=== PATIENT | female | born 1965 | race Caucasian/White ===

== ENCOUNTER 2016-10-08 11:51 | Emergency (ER) | payer MEDICARE, MEDICAID ==
[~2016-10-08 11:51] MED LIST: Amoxicillin 500 MG Cap ONE
[2016-10-08 12:15] VITALS: BP 151/87
--- NOTE | 2016-10-08 21:23 | EDM.PDOC ---
ED HPI GENERAL MEDICAL PROBLEM - General Stated Complaint: chest congestion Time Seen by Provider: 10/08/16 12:00 Source of Information: Reports: Patient History Limitations: Reports: No limitations - History of Present Illness INITIAL COMMENTS - FREE TEXT/NARRATIVE: Pt claims that she has been having nasal congestion and sinus drainage for past 1 wk. Cough has been getting worse. No fever or chills. Sputum is greenish yellow and copious. Hurts in the face. Also she has been complaining of earache since yesterday. No wheezing or shortness of breath. No nausea or vomiting. Improves with: Reports: None Worsens with: Reports: None Associated Symptoms: Reports: cough. Denies: confusion, chest pain, diaphoresis , fever/chills, headaches, nausea/vomiting, rash, shortness of breath, syncope, weakness Bilateral Head Pain Score (Numeric/FACES): 6 - Related Data Allergies Allergy/AdvReac Type Severity Reaction Status Date / Time acetaminophen [From Percocet] Allergy Numbness Verified 06/05/16 17:01 adhesive tape Allergy Rash Verified 06/05/16 17:01 ibuprofen Allergy Stomach Verified 06/05/16 17:01 Upset ketorolac tromethamine Allergy Nausea and Verified 06/05/16 17:01 [From Toradol] Vomiting oxycodone HCl [From Percocet] Allergy Numbness Verified 06/05/16 17:01 celecoxib [From Celebrex] AdvReac Mild Indigestion Verified 06/05/16 17:01 Home Meds: Home Meds Ipratropium/Albuterol Sulfate [Duoneb 0.5 MG-3 MG/3 ML] 1 - 2 puff INH Q4H PRN 04/14/13 [History] Omeprazole 20 mg PO BID 04/14/13 [History] risperiDONE [RisperiDAL M-Tab] 3 mg PO DAILY 04/14/13 [History] traZODone 1 tab PO BEDTIME 04/14/13 [History] Acetaminophen [Tylenol Extra Strength] 500 mg PO Q6H 06/06/15 [History] Budesonide/Formoterol [Symbicort 160-4.5 MCG] 2 puff INH BID 06/06/15 [History] Colestipol [Colestipol HCl] 1 - 2 tab PO BID PRN 06/06/15 [History] Gabapentin [Neurontin] 1 tab PO BID 06/06/15 [History] Nicotine [Habitrol] 1 patch TOP DAILY 06/06/15 [History] OXcarbazepine [Trileptal] 900 mg PO BID 06/06/15 [History] QUEtiapine [SEROquel] 200 tab PO BID 06/06/15 [History] SUMAtriptan [Imitrex] 1 tab PO ASDIRECTED PRN 06/06/15 [History] Spironolactone [Aldactone] 3 tab PO BID 06/06/15 [History] Topiramate 1 tab PO DAILY 06/06/15 [History] buPROPion [Wellbutrin SR] 100 mg PO BID 06/06/15 [History] hydrOXYzine HCl [Atarax] 1 - 2 cap PO ASDIRECTED PRN 06/06/15 [History] rOPINIRole [Requip] 1 tab PO BEDTIME 06/06/15 [History] tiZANidine [Zanaflex] 4 mg PO Q6H 02/28/16 [History] Zolpidem Tartrate [Ambien Cr] 2 tab PO DAILY 08/01/16 [History] Past Medical History HEENT History: Reports: Impaired vision, Other (see below) Other HEENT History: glasses for reading, Respiratory History: Reports: Asthma, Bronchitis, recurrent, Pneumonia, recurrent, Sleep apnea, Other (see below) Other Respiratory History: Emphysema Gastrointestinal History: Reports: Irritable bowel syndrome Genitourinary History: Reports: UTI, recurrent 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: 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 uterine bleeding, Musculoskeletal History: Reports: Back pain, chronic, Other (see below) Other Musculoskeletal History: back / butt pain, shoots down left leg Neurological History: Reports: Migraines Psychiatric History: Reports: Anxiety, Depression, Suicide attempt, Suicidal ideation Hematologic History: Reports: Blood transfusion(s), Iron deficiency Dermatologic History: Reports: Eczema, Other (see below) Other Dermatologic History: Allergy to paper tape - Infectious Disease History Infectious Disease History: Reports: Chicken pox, Measles, Rubella - Past Surgical History HEENT Surgical History: Reports: Other (see below) Other HEENT Surgeries/Procedures: Eye Surgery, when 6 yr and grade school GI Surgical History: Reports: Appendectomy, Cholecystectomy, Hernia, abdominal, Other (see below) Other GI Surgeries/Procedures: ABD. SURGERY AND SCAR TISSUE REMOVAL Female Surgical History: Reports: section, Hysterectomy Other Female Surgeries/Procedures: 3 Social & Family History - Family History Family Medical History: Noncontributory - Tobacco Use Smoking Status *Q: Current Every Day Smoker Years of Tobacco use: 35 Packs/Tins Daily: 1 Used Tobacco, but Quit: No Second Hand Smoke Exposure: Yes - Caffeine Use Caffeine Use: Reports: Coffee, Tea - Alcohol Use Days Per Week of Alcohol Use: 0 - Recreational Drug Use Recreational Drug Use: No ED ROS GENERAL - Review of Systems Review Of Systems: See Below Constitutional: Denies: fever, chills HEENT: Reports: Ear pain, Rhinitis, Sinus problem, Throat pain. Denies: Contact Lenses, Dental pain, Glasses, Hearing loss Respiratory: Reports: Cough, Sputum. Denies: Shortness of Breath Cardiovascular: Denies: Chest pain, Lightheadedness GI/Abdominal: Denies: Abdominal pain, Nausea, Vomiting : Denies: discharge, dysuria, flank pain, frequency Musculoskeletal: Denies: shoulder pain, joint pain, joint swelling Skin: Denies: pruritis, rash Neurological: Denies: Confusion, Dizziness, Difficulty Walking, Weakness Psychiatric: Denies: Agitation, Anxiety ED EXAM, GENERAL - Physical Exam Exam: See Below Exam Limited By: No limitations General Appearance: alert, WD/WN, no apparent distress Eye Exam: bilateral eye: EOMI, PERRL Ears: normal external exam, normal canal, hearing grossly normal, normal TMs Ear Exam: right ear: erythema, bilateral ear: auricle normal, canal normal, TM bulging Nose: normal inspection, normal mucosa, no blood Throat/Mouth: Normal inspection, Normal lips, Normal teeth, Normal gums, Normal oropharynx, Normal voice, No airway compromise Head: atraumatic, normocephalic, sinus tenderness (maxillary tenderness B/L) Neck: normal inspection, supple, non-tender, full range of motion Respiratory/Chest: no respiratory distress, lungs clear, normal breath sounds, no accessory muscle use, chest non-tender Cardiovascular: normal peripheral pulses, regular rate, rhythm, no edema, no gallop, no JVD, no murmur, no rub Course - Vital Signs Text/Narrative:: Pt has acute maxillary sinusitis with right middle ear infection. As her symptoms have been going on for 1 wk, I have started her on amox 500mg 3 times daily for 10 days. Advised to stop smoking. Steam inhalations 2-3 times daily. rest and hydration. Followup with primary provider in clinic if symptoms worsen. Last Recorded V/S: Last Vital Signs Temp 98.9 F 10/08/16 12:13 Pulse 92 10/08/16 12:13 Resp BP 151/87 H 10/08/16 12:13 Pulse Ox Departure - Departure Time of Disposition: 12:30 Disposition: Home, Self-Care 01 Condition: good Clinical Impression: Acute sinusitis, Right otitis media Instructions: Sinusitis, Adult, Sinus Headache Referrals: PCP,None [Primary Care Provider] - Care Plan Goals: Take antibiotic as prescribed, return to clinic if symptoms persist. - Problem List & Annotations (1) Acute sinusitis SNOMED Code(s): 29269187 Code(s): J01.90 - ACUTE SINUSITIS, UNSPECIFIED Status: Acute (2) Right otitis media SNOMED Code(s): 89286033 Code(s): H66.91 - OTITIS MEDIA, UNSPECIFIED, RIGHT EAR Status: Acute - Problem List Review Problem List Initiated/Reviewed/Updated: Yes - Assessment/Plan Assessment:: Acute sinusitis with right OM Plan: Pt has acute maxillary sinusitis with right middle ear infection. As her symptoms have been going on for 1 wk, I have started her on amox 500mg 3 times daily for 10 days. Advised to stop smoking. Steam inhalations 2-3 times daily. rest and hydration. Followup with primary provider in clinic if symptoms worsen.
== END 2016-10-08 12:24 | disposition home or self-care (01) ==
LOC: LB.ED 11:51
DX: J01.90 Acute sinusitis, unspecified (principal); H66.91 Otitis media, unspecified, right ear; J45.901 Unspecified asthma with (acute) exacerbation; F41.9 Anxiety disorder, unspecified; F32.9 Major depressive disorder, single episode, unspecified; F17.210 Nicotine dependence, cigarettes, uncomplicated; Z90.49 Acquired absence of other specified parts of digestive tract; Z90.710 Acquired absence of both cervix and uterus; Z87.01 Personal history of pneumonia (recurrent); Z87.440 Personal history of urinary (tract) infections; Z88.6 Allergy status to analgesic agent; Z88.8 Allergy status to other drugs, medicaments and biological substances
CPT/HCPCS: 99283; A9270

== ENCOUNTER 2016-12-03 20:36 | Emergency (ER) | payer MEDICARE, MEDICAID ==
[2016-12-03] MEDS ORDERED: Acetaminophen/HYDROcodone 325-10 MG Tab ONE (21:17)
--- NOTE | 2016-12-03 21:34 | EDM.PDOC ---
ED HPI GENERAL MEDICAL PROBLEM - General Chief Complaint: General Stated Complaint: MOUTH PAIN Time Seen by Provider: 12/03/16 21:00 Source of Information: Reports: Patient History Limitations: Reports: No Limitations - History of Present Illness INITIAL COMMENTS - FREE TEXT/NARRATIVE: According to patient she has been having pain in her lower jaw teeh for past 3- 4 days now. She did see in the clinic and was started on augmentin. Pt claims she has been using orogel , but her pain has got worse. Rates at 8-9/10. No fever or chills. No facial swelling. Pt claims she is taking 2 tablets of tylenol every 6 hrs and it is not helping. Pt claims she is allergic to ibuprofen, toradol and percoet, but not to vicodin. Onset Date: 11/29/16 Location: Reports: Other (tooth) Quality: Reports: Ache Severity: Severe Improves with: Reports: None Worsens with: Reports: None Context: Reports: Trauma Associated Symptoms: Denies: Chest Pain, Cough, Diaphoresis, Fever/Chills, Nausea/Vomiting, Rash, Syncope Lower Gums Pain Score (Numeric/FACES): 10 - Related Data Allergies Allergy/AdvReac Type Severity Reaction Status Date / Time adhesive tape Allergy Rash Verified 12/03/16 21:33 ibuprofen Allergy Stomach Verified 12/03/16 21:33 Upset ketorolac tromethamine Allergy Nausea and Verified 12/03/16 21:33 [From Toradol] Vomiting oxycodone HCl [From Percocet] Allergy Numbness Verified 12/03/16 21:33 celecoxib [From Celebrex] AdvReac Mild Indigestion Verified 12/03/16 21:33 Home Meds: Home Meds Ipratropium/Albuterol Sulfate [Duoneb 0.5 MG-3 MG/3 ML] 1 - 2 puff INH Q4H PRN 04/14/13 [History] Omeprazole 20 mg PO BID 04/14/13 [History] risperiDONE [RisperiDAL M-Tab] 3 mg PO DAILY 04/14/13 [History] traZODone 1 tab PO BEDTIME 04/14/13 [History] Acetaminophen [Tylenol Extra Strength] 500 mg PO Q6H 06/06/15 [History] Budesonide/Formoterol [Symbicort 160-4.5 MCG] 2 puff INH BID 06/06/15 [History] Colestipol [Colestipol HCl] 1 - 2 tab PO BID PRN 06/06/15 [History] Gabapentin [Neurontin] 1 tab PO BID 06/06/15 [History] Nicotine [Habitrol] 1 patch TOP DAILY 06/06/15 [History] OXcarbazepine [Trileptal] 900 mg PO BID 06/06/15 [History] QUEtiapine [SEROquel] 200 tab PO BID 06/06/15 [History] SUMAtriptan [Imitrex] 1 tab PO ASDIRECTED PRN 06/06/15 [History] Spironolactone [Aldactone] 3 tab PO BID 06/06/15 [History] Topiramate 1 tab PO DAILY 06/06/15 [History] buPROPion [Wellbutrin SR] 100 mg PO BID 06/06/15 [History] hydrOXYzine HCl [Atarax] 1 - 2 cap PO ASDIRECTED PRN 06/06/15 [History] rOPINIRole [Requip] 1 tab PO BEDTIME 06/06/15 [History] tiZANidine [Zanaflex] 4 mg PO Q6H 02/28/16 [History] Zolpidem Tartrate [Ambien Cr] 2 tab PO DAILY 08/01/16 [History] Past Medical History HEENT History: Reports: Impaired Vision, Other (See Below) Other HEENT History: glasses for reading, Respiratory History: Reports: Asthma, Bronchitis, Recurrent, Pneumonia, Recurrent, Sleep Apnea, Other (See Below) Other Respiratory History: Emphysema Gastrointestinal History: Reports: Irritable Bowel Syndrome Genitourinary History: Reports: UTI, Recurrent 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, Musculoskeletal History: Reports: Back Pain, Chronic, Other (See Below) Other Musculoskeletal History: back / butt pain, shoots down left leg Neurological History: Reports: Migraines Psychiatric History: Reports: Anxiety, Depression, Suicide Attempt, Suicidal Ideation Hematologic History: Reports: Blood Transfusion(s), Iron Deficiency Dermatologic History: Reports: Eczema, Other (See Below) Other Dermatologic History: Allergy to paper tape - Infectious Disease History Infectious Disease History: Reports: Chicken Pox, Measles, Rubella - Past Surgical History HEENT Surgical History: Reports: Other (See Below) GI Surgical History: Reports: Appendectomy, Cholecystectomy, Hernia, Abdominal, Other (See Below) Female Surgical History: Reports: Section, Hysterectomy Social & Family History - Family History Family Medical History: Noncontributory - Tobacco Use Smoking Status *Q: Current Every Day Smoker Years of Tobacco use: 35 Packs/Tins Daily: 1 Used Tobacco, but Quit: No Second Hand Smoke Exposure: Yes - Caffeine Use Caffeine Use: Reports: Coffee, Tea - Alcohol Use Days Per Week of Alcohol Use: 0 - Recreational Drug Use Recreational Drug Use: No ED ROS GENERAL - Review of Systems Review Of Systems: See Below Constitutional: Denies: Fever, Chills HEENT: Denies: Ear Pain, Rhinitis, Sinus Problem, Throat Pain, Throat Swelling, Vertigo Respiratory: Denies: Shortness of Breath, Cough, Sputum Cardiovascular: Denies: Chest Pain, Edema, Lightheadedness GI/Abdominal: Denies: Abdominal Pain, Nausea, Vomiting : Denies: Dysuria, Flank Pain Musculoskeletal: Denies: Joint Pain, Joint Swelling ED EXAM, GENERAL - Physical Exam Exam: See Below Exam Limited By: No Limitations General Appearance: Alert, WD/WN, No Apparent Distress, Mild Distress Eye Exam: Bilateral Eye: EOMI, PERRL Ears: Normal External Exam, Normal Canal, Hearing Grossly Normal, Normal TMs Ear Exam: Bilateral Ear: Auricle Normal, Canal Normal, TM normal Nose: Normal Inspection, Normal Mucosa, No Blood Throat/Mouth: Normal Lips, Normal Gums, Normal Oropharynx, Other (pt has several teeth lost in all 4 quadrants of the jaw. She does have few caries tooth with rilling in the right lower jaw. tender to tapping. Gums appears normal. Tender over the right mandible to pressure. No abscess felt or seen.) Respiratory/Chest: No Respiratory Distress, Lungs Clear, Normal Breath Sounds, No Accessory Muscle Use, Chest Non-Tender Cardiovascular: Normal Peripheral Pulses, Regular Rate, Rhythm, No Edema, No Gallop, No JVD, No Murmur, No Rub Course - Vital Signs Text/Narrative:: CBC shows whit count of 6.1. I really do not see any source of infection. With all the caries tooth, she might have nerve exposure causing her pain. I have advised patient to continue antibiotics. Also advised to alternate tylenol with Vicodin 5/325 every 4 hrs. Given 6 tqabs fo Vicodin today. Advised lysterine gargles 3-4 times daily. Advised to call her dentist office and monday for recheck. Last Recorded V/S: Last Vital Signs Temp 97.2 F 12/03/16 20:40 Pulse 91 12/03/16 20:40 Resp 18 12/03/16 20:40 BP 172/84 H 12/03/16 20:40 Pulse Ox 99 12/03/16 20:40 - Orders/Labs/Meds Labs: Laboratory Tests 12/03/16 Range/Units 21:25 WBC 6.1 (4.0-11.0) K/uL RBC 4.84 (3.80-5.80) M/uL Hgb 13.1 (11.5-16.5) g/dL Hct 39.7 (37.0-47.0) % MCV 82 (76-96) fL MCH 27.1 (27.0-32.0) pg MCHC 33.0 (31.0-35.0) g/dL RDW 14.8 (11.0-16.0) % Plt Count 144 L (150-500) K/uL MPV 11.5 H (6.0-10.0) fL Neut % (Auto) 40.5 L (45.0-70.0) % Lymph % (Auto) 50.5 H (20.0-40.0) % [place] % (Auto) 7.3 (3.0-10.0) % Eos % (Auto) 1.0 (1.0-5.0) % Baso % (Auto) 0.7 H (0.0-0.5) % Neut # (Auto) 2.46 (2.00-7.50) K/uL Lymph # (Auto) 3.06 (1.50-4.00) K/uL [place] # (Auto) 0.44 (0.20-0.80) K/uL Eos # (Auto) 0.06 (0.04-0.40) K/uL Baso # (Auto) 0.04 (0.02-0.10) K/uL Meds: Medications Discontinued Medications Generic Name Dose Route Start Last Admin Trade Name Freq PRN Reason Stop Dose Admin Hydrocodone Bitart/Acetaminophen Confirm 12/03/16 21:17 [place] 325-10 Mg Administered 12/03/16 21:18 Dose 6 tab .ROUTE .STK-MED ONE Departure - Departure Time of Disposition: 21:50 Disposition: Home, Self-Care 01 Condition: fair Clinical Impression: Pain of tooth socket - Discharge Information Instructions: Dental Abscess, [id number] Referrals: PCP,None [Primary Care Provider] - Forms: ED Department Discharge - Problem List & Annotations (1) Pain of tooth socket SNOMED Code(s): 430297761 Code(s): K08.89 - OTHER SPECIFIED DISORDERS OF TEETH AND SUPPORTING STRUCTURES Status: Acute Current Visit: Yes - Problem List Review Problem List Initiated/Reviewed/Updated: Yes - Assessment/Plan Assessment:: Acute tooth infection with pain Plan: CBC shows whit count of 6.1. I really do not see any source of infection. With all the caries tooth, she might have nerve exposure causing her pain. I have advised patient to continue antibiotics. Also advised to alternate tylenol with Vicodin 5/325 every 4 hrs. Given 6 tqabs fo Vicodin today. Advised lysterine gargles 3-4 times daily. Advised to call her dentist office and monday for recheck.
[2016-12-03] MEDS ORDERED: Acetaminophen/HYDROcodone 325-5 MG Tab ONE (21:35)
[2016-12-03 21:43] VITALS: BP 172/84
== END 2016-12-03 21:45 | disposition home or self-care (01) ==
LOC: LB.ED 20:36
DX: K08.89 Other specified disorders of teeth and supporting structures (principal); J45.909 Unspecified asthma, uncomplicated; F41.9 Anxiety disorder, unspecified; F32.9 Major depressive disorder, single episode, unspecified; F17.210 Nicotine dependence, cigarettes, uncomplicated; Z88.8 Allergy status to other drugs, medicaments and biological substances; Z91.09 Other allergy status, other than to drugs and biological substances; Z88.5 Allergy status to narcotic agent; Z79.899 Other long term (current) drug therapy; Z90.49 Acquired absence of other specified parts of digestive tract; Z90.710 Acquired absence of both cervix and uterus; Z98.890 Other specified postprocedural states
CPT/HCPCS: 36415; 85025; 99282; 99283; A9270

== ENCOUNTER 2016-12-05 22:34 | Emergency (ER) | payer MEDICARE, MEDICAID ==
[2016-12-05 22:49] VITALS: BP 124/77
--- NOTE | 2016-12-09 09:56 | EDM.PDOC ---
ED HPI GENERAL MEDICAL PROBLEM - General Chief Complaint: ENT Problem Stated Complaint: MOUTH PAIN Time Seen by Provider: 12/05/16 23:02 Source of Information: Reports: Patient History Limitations: Reports: No Limitations - History of Present Illness INITIAL COMMENTS - FREE TEXT/NARRATIVE: This is a 51yo F presenting to the clinic for continued mouth pain. Patient states the pain is persistent and has not changed. She cries with the pain. Patient states she received hydrocodone and it helped with the pain. Patient is unable to tolerate Toradol and NSAIDS. Patient states she is taking two extra strength tylenol four times a day. She appears comfortable but when discussing the pain breaks out in tears. 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 - Related Data Allergies Allergy/AdvReac Type Severity Reaction Status Date / Time adhesive tape Allergy Rash Verified 12/03/16 21:33 ibuprofen Allergy Stomach Verified 12/03/16 21:33 Upset ketorolac tromethamine Allergy Nausea and Verified 12/03/16 21:33 [From Toradol] Vomiting oxycodone HCl [From Percocet] Allergy Numbness Verified 12/03/16 21:33 celecoxib [From Celebrex] AdvReac Mild Indigestion Verified 12/03/16 21:33 Home Meds: Home Meds Ipratropium/Albuterol Sulfate [Duoneb 0.5 MG-3 MG/3 ML] 1 - 2 puff INH Q4H PRN 04/14/13 [History] Omeprazole 20 mg PO BID 04/14/13 [History] risperiDONE [RisperiDAL M-Tab] 3 mg PO DAILY 04/14/13 [History] traZODone 1 tab PO BEDTIME 04/14/13 [History] Acetaminophen [Tylenol Extra Strength] 500 mg PO Q6H 06/06/15 [History] Budesonide/Formoterol [Symbicort 160-4.5 MCG] 2 puff INH BID 06/06/15 [History] Colestipol [Colestipol HCl] 1 - 2 tab PO BID PRN 06/06/15 [History] Gabapentin [Neurontin] 1 tab PO BID 06/06/15 [History] Nicotine [Habitrol] 1 patch TOP DAILY 06/06/15 [History] OXcarbazepine [Trileptal] 900 mg PO BID 06/06/15 [History] QUEtiapine [SEROquel] 200 tab PO BID 06/06/15 [History] SUMAtriptan [Imitrex] 1 tab PO ASDIRECTED PRN 06/06/15 [History] Spironolactone [Aldactone] 3 tab PO BID 06/06/15 [History] Topiramate 1 tab PO DAILY 06/06/15 [History] buPROPion [Wellbutrin SR] 100 mg PO BID 06/06/15 [History] hydrOXYzine HCl [Atarax] 1 - 2 cap PO ASDIRECTED PRN 06/06/15 [History] rOPINIRole [Requip] 1 tab PO BEDTIME 06/06/15 [History] tiZANidine [Zanaflex] 4 mg PO Q6H 02/28/16 [History] Zolpidem Tartrate [Ambien Cr] 2 tab PO DAILY 08/01/16 [History] Past Medical History HEENT History: Reports: Impaired Vision, Other (See Below) Other HEENT History: glasses for reading, Respiratory History: Reports: Asthma, Bronchitis, Recurrent, Pneumonia, Recurrent, Sleep Apnea, Other (See Below) Other Respiratory History: Emphysema Gastrointestinal History: Reports: Irritable Bowel Syndrome Genitourinary History: Reports: UTI, Recurrent 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, Musculoskeletal History: Reports: Back Pain, Chronic, Other (See Below) Other Musculoskeletal History: back / butt pain, shoots down left leg Neurological History: Reports: Migraines Psychiatric History: Reports: Anxiety, Depression, Suicide Attempt, Suicidal Ideation Endocrine/Metabolic History: Reports: Diabetes, Type II, Obesity/BMI 30+ Hematologic History: Reports: Blood Transfusion(s), Iron Deficiency Dermatologic History: Reports: Eczema, Other (See Below) Other Dermatologic History: Allergy to paper tape - Infectious Disease History Infectious Disease History: Reports: Chicken Pox, Measles, Rubella - Past Surgical History HEENT Surgical History: Reports: Other (See Below) GI Surgical History: Reports: Appendectomy, Cholecystectomy, Hernia, Abdominal, Other (See Below) Female Surgical History: Reports: Section, Hysterectomy Social & Family History - Family History Family Medical History: Noncontributory - Tobacco Use Smoking Status *Q: Current Every Day Smoker Years of Tobacco use: 30 Packs/Tins Daily: 0.5 Used Tobacco, but Quit: No Tobacco Use Comment: states has information on quitting Second Hand Smoke Exposure: No - Caffeine Use Caffeine Use: Reports: Coffee, Soda, Tea - Alcohol Use Days Per Week of Alcohol Use: 0 - Recreational Drug Use Recreational Drug Use: No ED ROS ENT - Review of Systems Review Of Systems: ROS reveals no pertinent complaints other than HPI. ED EXAM, ENT - Physical Exam Exam: See Below Exam Limited By: No Limitations General Appearance: Alert, WD/WN, No Apparent Distress Eye Exam: Bilateral Eye: EOMI, PERRL Ears: Normal External Exam Mouth/Throat: Other (poor dentition) Head: Atraumatic, Normocephalic Neck: Normal Inspection, Supple, Non-Tender Respiratory/Chest: No Respiratory Distress Cardiovascular: Normal Peripheral Pulses Course - Vital Signs Last Recorded V/S: Last Vital Signs Temp 36.6 C 12/05/16 22:47 Pulse 83 12/05/16 22:47 Resp 16 12/05/16 22:47 BP 124/77 12/05/16 22:47 Pulse Ox 97 12/05/16 22:47 Departure - Departure Time of Disposition: 23:30 Disposition: Home, Self-Care 01 Condition: good Clinical Impression: Mouth pain - Discharge Information Instructions: Dental Abscess, [id number], Pregabalin capsules Referrals: PCP,None [Primary Care Provider] - Forms: ED Department Discharge Care Plan Goals: Take Lyrica 75 mg two x day for 3 or 4 days until you go to the dentist. Hold gabapentin until then.
== END 2016-12-05 23:20 | disposition home or self-care (01) ==
LOC: LB.ED 22:34
DX: K13.79 Other lesions of oral mucosa (principal); J45.909 Unspecified asthma, uncomplicated; J43.9 Emphysema, unspecified; F32.9 Major depressive disorder, single episode, unspecified; G43.909 Migraine, unspecified, not intractable, without status migrainosus; E66.9 Obesity, unspecified; F41.9 Anxiety disorder, unspecified; E11.9 Type 2 diabetes mellitus without complications; F17.210 Nicotine dependence, cigarettes, uncomplicated; Z88.8 Allergy status to other drugs, medicaments and biological substances; Z90.49 Acquired absence of other specified parts of digestive tract; Z79.899 Other long term (current) drug therapy
CPT/HCPCS: 99282

== ENCOUNTER 2016-12-08 00:25 | Emergency (ER) | payer MEDICARE, MEDICAID | END 2016-12-08 00:33 | disposition left against medical advice (07) | LOC: LB.ED 00:25 | DX: Z53.21 Procedure and treatment not carried out due to patient leaving prior to being seen by health care provider (principal) ==

== ENCOUNTER 2016-12-25 14:58 | Observation (INO) | payer MEDICARE, MEDICAID ==
--- NOTE | 2016-12-25 16:20 | EDM.PDOC ---
ED HPI GENERAL MEDICAL PROBLEM - General Chief Complaint: General Stated Complaint: ABD Time Seen by Provider: 12/25/16 15:35 Source of Information: Reports: Patient History Limitations: Reports: No Limitations - History of Present Illness INITIAL COMMENTS - FREE TEXT/NARRATIVE: According to patient she has been having abdominal pain since monday. Pain is in the left lower quadrant and radiates all over the abdomen. Pain is of crampy nature, comes and goes. She has been eating well. feels nausea on and off.Feels bloated in lower abdomen. She has loose stool yesterday once.HAs not had bowel movements today, but has been passing flatus all day. No fever or chills. No vomiting. Pt claims she has been diagnosed with IBS, but not on any meds. Pt does have frequent ER visits with pain symptoms. Onset Date: 12/23/16 Duration: Intermittent, Waxing/Waning Location: Reports: Abdomen Quality: Reports: Ache Severity: Mild Improves with: Reports: None Worsens with: Reports: None Associated Symptoms: Denies: Confusion, Chest Pain, Fever/Chills, Headaches, Nausea/Vomiting, Rash, Shortness of Breath, Syncope - Related Data Allergies Allergy/AdvReac Type Severity Reaction Status Date / Time adhesive tape Allergy Rash Verified 12/03/16 21:33 ibuprofen Allergy Stomach Verified 12/03/16 21:33 Upset ketorolac tromethamine Allergy Nausea and Verified 12/03/16 21:33 [From Toradol] Vomiting oxycodone HCl [From Percocet] Allergy Numbness Verified 12/03/16 21:33 celecoxib [From Celebrex] AdvReac Mild Indigestion Verified 12/03/16 21:33 Home Meds: Home Meds Ipratropium/Albuterol Sulfate [Duoneb 0.5 MG-3 MG/3 ML] 1 - 2 puff INH Q4H PRN 04/14/13 [History] Omeprazole 20 mg PO BID 04/14/13 [History] risperiDONE [RisperiDAL M-Tab] 3 mg PO DAILY 04/14/13 [History] traZODone 1 tab PO BEDTIME 04/14/13 [History] Acetaminophen [Tylenol Extra Strength] 500 mg PO Q6H 06/06/15 [History] Budesonide/Formoterol [Symbicort 160-4.5 MCG] 2 puff INH BID 06/06/15 [History] Colestipol [Colestipol HCl] 1 - 2 tab PO BID PRN 06/06/15 [History] Gabapentin [Neurontin] 1 tab PO BID 06/06/15 [History] Nicotine [Habitrol] 1 patch TOP DAILY 06/06/15 [History] OXcarbazepine [Trileptal] 900 mg PO BID 06/06/15 [History] QUEtiapine [SEROquel] 200 tab PO BID 06/06/15 [History] SUMAtriptan [Imitrex] 1 tab PO ASDIRECTED PRN 06/06/15 [History] Spironolactone [Aldactone] 3 tab PO BID 06/06/15 [History] Topiramate 1 tab PO DAILY 06/06/15 [History] buPROPion [Wellbutrin SR] 100 mg PO BID 06/06/15 [History] hydrOXYzine HCl [Atarax] 1 - 2 cap PO ASDIRECTED PRN 06/06/15 [History] rOPINIRole [Requip] 1 tab PO BEDTIME 06/06/15 [History] tiZANidine [Zanaflex] 4 mg PO Q6H 02/28/16 [History] Zolpidem Tartrate [Ambien Cr] 2 tab PO DAILY 08/01/16 [History] Past Medical History HEENT History: Reports: Impaired Vision, Other (See Below) Other HEENT History: glasses for reading, Respiratory History: Reports: Asthma, Bronchitis, Recurrent, Pneumonia, Recurrent, Sleep Apnea, Other (See Below) Other Respiratory History: Emphysema Gastrointestinal History: Reports: Irritable Bowel Syndrome Genitourinary History: Reports: UTI, Recurrent 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 E[employer]OR History: Reports: 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 Uterine Bleeding, Musculoskeletal History: Reports: Back Pain, Chronic, Other (See Below) Other Musculoskeletal History: back / butt pain, shoots down left leg Neurological History: Reports: Migraines Psychiatric History: Reports: Anxiety, Depression, Suicide Attempt, Suicidal Ideation Endocrine/Metabolic History: Reports: Diabetes, Type II, Obesity/BMI 30+ Hematologic History: Reports: Blood Transfusion(s), Iron Deficiency Dermatologic History: Reports: Eczema, Other (See Below) Other Dermatologic History: Allergy to paper tape - Infectious Disease History Infectious Disease History: Reports: Chicken Pox, Measles, Rubella - Past Surgical History HEENT Surgical History: Reports: Other (See Below) GI Surgical History: Reports: Appendectomy, Cholecystectomy, Hernia, Abdominal, Other (See Below) Female Surgical History: Reports: Section, Hysterectomy Social & Family History - Family History Family Medical History: Noncontributory - Tobacco Use Smoking Status *Q: Current Every Day Smoker Years of Tobacco use: 30 Packs/Tins Daily: 0.5 Used Tobacco, but Quit: No Second Hand Smoke Exposure: No - Caffeine Use Caffeine Use: Reports: Coffee, Soda, Tea - Alcohol Use Days Per Week of Alcohol Use: 0 - Recreational Drug Use Recreational Drug Use: No ED ROS GENERAL - Review of Systems Review Of Systems: See Below Constitutional: Denies: Fever, Chills HEENT: Denies: Nose Pain, Rhinitis, Sinus Problem, Throat Pain, Throat Swelling Respiratory: Denies: Cough, Sputum Cardiovascular: Denies: Chest Pain, Lightheadedness Endocrine: Denies: Fatigue GI/Abdominal: Reports: Abdominal Pain, Diarrhea, Flatus, Nausea. Denies: Black Stool, Bloody Stool, Constipation, Distension, Hematemesis, Hematochezia, Mucous in Stool, Vomiting : Denies: Dysuria, Flank Pain, Frequency Musculoskeletal: Denies: Joint Pain, Joint Swelling Skin: Denies: Pruritis, Rash ED EXAM, GENERAL - Physical Exam Exam: See Below Exam Limited By: No Limitations General Appearance: Alert, WD/WN, No Apparent Distress Eye Exam: Bilateral Eye: Corneal Abrasion, PERRL Ears: Normal External Exam, Normal Canal, Hearing Grossly Normal, Normal TMs Ear Exam: Bilateral Ear: Auricle Normal, Canal Normal, TM normal Nose: Normal Inspection, Normal Mucosa, No Blood Throat/Mouth: Normal Inspection, Normal Lips, Normal Teeth, Normal Gums, Normal Oropharynx, Normal Voice, No Airway Compromise Head: Atraumatic, Normocephalic Neck: Normal Inspection, Supple, Non-Tender, Full Range of Motion Respiratory/Chest: No Respiratory Distress, Lungs Clear, Normal Breath Sounds, No Accessory Muscle Use, Chest Non-Tender Cardiovascular: Normal Peripheral Pulses, Regular Rate, Rhythm, No Edema, No Gallop, No JVD, No Murmur, No Rub Peripheral Pulses: 2+: Radial (L), Radial (R) GI/Abdominal: Soft, No Organomegaly, No Abnormal Bruit, No Mass, Distended, Tender (tender all over the abdomen to superficial palpation), Abnormal Bowel Sounds (slightly hyperactive) Course - Vital Signs Text/Narrative:: Pt's CBC is normal. Her Renal function are normal with normal electrolytes and Creat of 0.9 and BUN of 9. Her LFT is normal. Her abdominal xray upright does show few air fluid levels in the colon. Pt has early Colonic obstruction, but there is no sign of infection. As she has been nauseous and also having abdominal pain with distension and her upright abdominal xray show air fluids levels. I have admitted patient for observation and conservative management of colonic obstruction. Will keep her NPO and started her on IV hydration. Will reassess in the morning with Repeat Abdominal xray. Also IV zofran for nausea. Pt does not appear in severe distress and is ambulating with minimal distress. Will wait on starting her on any pain meds considering patient's drug seeking history. - Orders/Labs/Meds Orders: Active Orders 24 hr Category Date Time Status Abdomen 1V Upright [CR] Stat Exams 12/25/16 16:10 Taken Labs: Laboratory Tests 12/25/16 12/25/16 Range/Units 15:40 15:40 WBC 5.6 (4.0-11.0) K/uL RBC 4.60 (3.80-5.80) M/uL Hgb 12.5 (11.5-16.5) g/dL Hct 37.7 (37.0-47.0) % MCV 82 (76-96) fL MCH 27.2 (27.0-32.0) pg MCHC 33.2 (31.0-35.0) g/dL RDW 14.9 (11.0-16.0) % Plt Count 153 (150-500) K/uL MPV 10.6 H (6.0-10.0) fL Neut % (Auto) 43.4 L (45.0-70.0) % Lymph % (Auto) 42.7 H (20.0-40.0) % [place] % (Auto) 12.6 H (3.0-10.0) % Eos % (Auto) 1.1 (1.0-5.0) % Baso % (Auto) 0.2 (0.0-0.5) % Neut # (Auto) 2.41 (2.00-7.50) K/uL Lymph # (Auto) 2.37 (1.50-4.00) K/uL [place] # (Auto) 0.70 (0.20-0.80) K/uL Eos # (Auto) 0.06 (0.04-0.40) K/uL Baso # (Auto) 0.01 L (0.02-0.10) K/uL Sodium 135 L (136-145) mmol/L Potassium 4.3 (3.5-5.1) mmol/L Chloride 102 (98-107) mmol/L Carbon Dioxide 24.7 (21.0-32.0) mmol/L Anion Gap 12.6 (5.0-15.0) mmol/L BUN 10 (8-26) mg/dL Creatinine 0.92 D (0.55-1.02) mg/dL Est Cr Clr Drug Dosing TNP Estimated GFR (MDRD) > 60 (>60) MLS/MIN BUN/Creatinine Ratio 10.9 (6-25) Glucose 164 H D (74-100) mg/dL Calcium 9.3 (8.5-10.1) mg/dL Total Bilirubin 0.3 (0.0-1.0) mg/dL AST 18 (15-37) U/L ALT 25 (12-78) U/L Alkaline Phosphatase 90 (46-116) U/L Total Protein 7.1 (6.4-8.2) g/dL Albumin 3.4 (3.4-5.0) g/dL Globulin 3.7 (2.2-4.2) g/dL Albumin/Globulin Ratio 0.9 (0.8-2.0) Departure - Departure Time of Disposition: 17:00 Disposition: Refer to Observation Condition: good Clinical Impression: Colonic obstruction - Discharge Information Forms: ED Department Discharge - Problem List & Annotations (1) Colonic obstruction SNOMED Code(s): 96555367 Code(s): K56.60 - UNSPECIFIED INTESTINAL OBSTRUCTION Status: Acute Current Visit: Yes - Problem List Review Problem List Initiated/Reviewed/Updated: Yes - My Orders Last 24 Hours: My Active Orders 12/25/16 16:10 Abdomen 1V Upright [CR] Stat - Assessment/Plan Admission H&P: Please use this note as an admission H&P Last 24 Hours: My Active Orders 12/25/16 16:10 Abdomen 1V Upright [CR] Stat Assessment:: Colonic obstruction Plan: Pt's CBC is normal. Her Renal function are normal with normal electrolytes and Creat of 0.9 and BUN of 9. Her LFT is normal. Her abdominal xray upright does show few air fluid levels in the colon. Pt has early Colonic obstruction, but there is no sign of infection. As she has been nauseous and also having abdominal pain with distension and her upright abdominal xray show air fluids levels. I have admitted patient for observation and conservative management of colonic obstruction. Will keep her NPO and started her on IV hydration. Will reassess in the morning with Repeat Abdominal xray. Also IV zofran for nausea. Pt does not appear in severe distress and is ambulating with minimal distress. Will wait on starting her on any pain meds considering patient's drug seeking history.
[2016-12-25] MEDS ORDERED: Ondansetron 4 MG/2 ML SDV IV PRN (16:58)
[2016-12-25] MEDS ORDERED: Albuterol/Ipratropium 3.0-0.5 MG/3 ML Neb Soln INH PRN (17:05)
[2016-12-25] MEDS: Sodium Chloride 0.9% 1,000 ML IV SCH (17:30)
[2016-12-25] MEDS ORDERED: Nicotine 21 MG/24 Hr Patch ONE (17:57)
[2016-12-25] MEDS ORDERED: Nicotine 21 MG/24 Hr Patch TRDERM SCH (18:00)
[2016-12-25] MEDS: LORazepam 2 MG/ML MDV IVPUSH PRN (19:12)
[2016-12-25] MEDS ORDERED: Budesonide/Formoterol 160-4.5 MCG/Puff 6 GM Inhaler INH SCH (20:00)
[2016-12-26] MEDS: Sodium Chloride 0.9% 1,000 ML IV SCH ×2 (00:53→08:22)
[2016-12-26] MEDS: LORazepam 2 MG/ML MDV IVPUSH PRN (03:08)
[2016-12-26 07:33] VITALS: BP 100/54
[2016-12-26] MEDS ORDERED: Nicotine 14 MG/24 Hr Patch TOP SCH (08:00)
[2016-12-26] MEDS ORDERED: Remove Patch*NICOTINE TRDERM SCH (08:00)
--- NOTE | 2016-12-26 08:22 | CR ---
DATE OF SERVICE: 12/25/16 CLINICAL DATA: abdominal pain SUPINE AND UPRIGHT ABDOMEN: There are multiple gas-filled distended loops of small bowel in the mid and lower abdomen that contain air-fluid levels consistent with small bowel obstruction. No free air. There are surgical clips in the right upper quadrant. There are calcifications within the pelvis that are most likely vascular. No other significant findings. [id number] [facility]
--- NOTE | 2016-12-26 08:55 | PCM.DCSUM1 ---
Discharge Summary - Hospital Course Free Text/Narrative:: Pt's CBC and CMP was normal. Her Abdominal xray showed multiple air fluid levels in the colon and as she did have diffuse abdominal pain, pt was admitted with colonic obstruction. She was managed conservatively, with IV fluids and NPO. Pt was started on normal saline 125cc/hr. Pt had uneventful night. She did have anxiety and as she could not take oral meds, she was started on ativan 1mg TID as needed. Today morning patient claims that she feels fine. She has been passing flatus. Abdominal pain is better. No fever or chills. Her CBC and BMP are normal, she is well hydrated. Her abdominal xray today shows clearing of all air-fluid levels and normal nonspecific gas pattern. Pt is feeling better, I have discharge patient today. Advised clear liquid diet and soft diet for 24 hrs. Should have bowel movement in next 24 hrs. Pt does want to go home. Plan is to discharge her today. Advised to followup with Dr. Echevarria in next 1-[address] Echevarria has been notified. Brief History: Pt presented with 3 days history of abominal pain, which has got worse with abdominal bloating and cramping. Did start to feels nasuea today and hence was in the Emergency room. Workup shows colonic obstruction with multiple airfluid levels. Admitted for conservative management of bowel obstuciton. For details see H&P. - Discharge Data Discharge Date: 12/26/16 Discharge Disposition: Home, Self-Care 01 Condition: Stable - Discharge Diagnosis/Problem(s) (1) Colonic obstruction SNOMED Code(s): 60527083 ICD Code: K56.60 - UNSPECIFIED INTESTINAL OBSTRUCTION Status: Acute Current Visit: Yes - Patient Instructions Diet: Clear Liquid Diet, GI Soft/Low Residue/Low Fiber Fluid Restriction: 2000 mL Activity: As Tolerated Driving: May Drive Today Showering/Bathing: May Shower Notify Provider of: Fever, Increased Pain, Nausea and/or Vomiting - Discharge Plan Home Medications: Home Meds Ipratropium/Albuterol Sulfate [Duoneb 0.5 MG-3 MG/3 ML] 1 - 2 puff INH Q4H PRN 04/14/13 [History] Omeprazole 20 mg PO BID 04/14/13 [History] risperiDONE [RisperiDAL M-Tab] 3 mg PO DAILY 04/14/13 [History] traZODone 1 tab PO BEDTIME 04/14/13 [History] Acetaminophen [Tylenol Extra Strength] 500 mg PO Q6H 06/06/15 [History] Budesonide/Formoterol [Symbicort 160-4.5 MCG] 2 puff INH BID 06/06/15 [History] Colestipol [Colestipol HCl] 1 - 2 tab PO BID PRN 06/06/15 [History] Gabapentin [Neurontin] 1 tab PO BID 06/06/15 [History] Nicotine [Habitrol] 1 patch TOP DAILY 06/06/15 [History] OXcarbazepine [Trileptal] 900 mg PO BID 06/06/15 [History] QUEtiapine [SEROquel] 200 tab PO BID 06/06/15 [History] SUMAtriptan [Imitrex] 1 tab PO ASDIRECTED PRN 06/06/15 [History] Spironolactone [Aldactone] 3 tab PO BID 06/06/15 [History] Topiramate 1 tab PO DAILY 06/06/15 [History] buPROPion [Wellbutrin SR] 100 mg PO BID 06/06/15 [History] hydrOXYzine HCl [hydrOXYzine] 1 - 2 cap PO ASDIRECTED PRN 06/06/15 [History] rOPINIRole [Requip] 1 tab PO BEDTIME 06/06/15 [History] tiZANidine [Zanaflex] 4 mg PO Q6H 02/28/16 [History] Zolpidem Tartrate [Ambien Cr] 2 tab PO DAILY 08/01/16 [History] Forms: ED Department Discharge Referrals: PCP,None [Primary Care Provider] - - Discharge Summary/Plan Comment DC Time >30 min.: Yes Discharge Summary/Plan Comment: Clear liquid to soft diet for 1-2 days and resume normal diet. followup with in 1-2 days for hospital followup. - General Info Date of Service: 12/26/16 Admission Dx/Problem (Free Text: Pt claims she feels better, has been passing gas since midnight. Abdominal bloating has resolved. Pain has improved rates 2-3/10. No more cramping in the lower abdomen. Has been on Iv fluids. No nausea or vomiting. Afebrile Functional Status: Reports: pain controlled, tolerating diet, urinating - Review of Systems General: Denies: Fever, Weakness, Fatigue HEENT: Denies: dysphasia, sinus congestion, sore throat Pulmonary: Denies: shortness of breath, hemoptysis, wheezing Cardiovascular: Denies: Chest Pain, Palpitations, Lightheadedness Gastrointestinal: Reports: Abdominal pain (improved), Flatus. Denies: Constipation, Diarrhea, Nausea, Vomiting Genitourinary: Denies: dysuria, frequency Musculoskeletal: Denies: joint pain, joint swelling Neurological: Reports: No Symptoms - Patient Data Vitals - Most Recent: Last Vital Signs Temp 97 F 12/26/16 07:32 Pulse 65 12/26/16 07:32 Resp 20 12/26/16 07:32 BP 100/54 L 12/26/16 07:32 Pulse Ox 95 12/26/16 07:32 Weight - Most Recent: 101.718 kg I&O - Last 24 hours: Intake & Output 12/25/16 12/26/16 12/26/16 22:59 06:59 14:59 Intake Total 1500 Balance 1500 Lab Results - Last 24 hrs: Laboratory Results - last 24 hr 12/26/16 12/26/16 Range/Units 07:15 07:15 WBC 5.3 (4.0-11.0) K/uL RBC 4.21 (3.80-5.80) M/uL Hgb 11.3 L (11.5-16.5) g/dL Hct 34.8 L (37.0-47.0) % MCV 83 (76-96) fL MCH 26.8 L (27.0-32.0) pg MCHC 32.5 (31.0-35.0) g/dL RDW 14.7 (11.0-16.0) % Plt Count 140 L (150-500) K/uL MPV 11.0 H (6.0-10.0) fL Neut % (Auto) 34.5 L (45.0-70.0) % Lymph % (Auto) 54.0 H (20.0-40.0) % [place] % (Auto) 10.0 (3.0-10.0) % Eos % (Auto) 1.1 (1.0-5.0) % Baso % (Auto) 0.4 (0.0-0.5) % Neut # (Auto) 1.83 L (2.00-7.50) K/uL Lymph # (Auto) 2.87 (1.50-4.00) K/uL [place] # (Auto) 0.53 (0.20-0.80) K/uL Eos # (Auto) 0.06 (0.04-0.40) K/uL Baso # (Auto) 0.02 (0.02-0.10) K/uL Sodium 139 (136-145) mmol/L Potassium 3.6 (3.5-5.1) mmol/L Chloride 106 (98-107) mmol/L Carbon Dioxide 25.6 (21.0-32.0) mmol/L Anion Gap 11.0 (5.0-15.0) mmol/L BUN 13 D (8-26) mg/dL Creatinine 0.81 (0.55-1.02) mg/dL Est Cr Clr Drug Dosing 70.16 mL/min Estimated GFR (MDRD) > 60 (>60) MLS/MIN BUN/Creatinine Ratio 16.0 (6-25) Glucose 124 H (74-100) mg/dL Calcium 8.1 L (8.5-10.1) mg/dL Med Orders - Current: Current Medications Albuterol/Ipratropium (Duoneb 3.0-0.5 Mg/3 Ml) 3 ml INH Q4H PRN PRN Reason: Shortness of Breath Budesonide/Formoterol Fumarate (Symbicort 160-4.5 Mcg) 0 gm INH BID ARIK Last Admin: 12/25/16 19:45 Dose: Not Given Sodium Chloride (Normal Saline) 1,000 mls @ 125 mls/hr IV ASDIRECTED ARIK Last Admin: 12/26/16 08:22 Dose: 125 mls/hr Lorazepam (Ativan) 1 mg IVPUSH Q8H PRN PRN Reason: Anxiety Last Admin: 12/26/16 03:08 Dose: 1 mg Miscellaneous Information (Remove Patch) 1 ea TRDERM DAILY ARIK Nicotine (Habitrol) 14 mg TOP DAILY ARIK Nicotine (Habitrol) 21 mg TRDERM DAILY ARIK Last Admin: 12/25/16 18:20 Dose: 21 mg Ondansetron HCl (Zofran) 4 mg IV Q6H PRN PRN Reason: Nausea/Vomiting Last Admin: 12/26/16 00:52 Dose: 4 mg Discontinued Medications Nicotine (Habitrol) Confirm Administered Dose 21 mg .ROUTE .STK-MED ONE Stop: 12/25/16 17:58 Last Admin: 12/25/16 18:20 Dose: Not Given - Exam General: Reports: alert, oriented, cooperative HEENT: Reports: Pupils equal, Pupils reactive, EOMI, Mucous membr. moist/pink Neck: Reports: supple Lungs: Reports: Clear to auscultation, Normal respiratory effort Cardiovascular: Reports: Regular Rate, Regular Rhythm Abdomen: Reports: bowel sounds present, soft, no distension, tenderness (Mild discomfort in the left lower quadrant.) *Q Meaningful Use (DIS) - VTE *Q VTE Criteria *Q: - Stroke *Q Stroke Criteria *Q: - AMI *Q AMI Criteria *Q:
--- NOTE | 2016-12-26 09:53 | CR ---
DATE OF SERVICE: 12/26/16 CLINICAL DATA: abdominal pain FRONTAL VIEW OF THE ABDOMEN: The view is labeled upright. The hemidiaphragms are not included. There is gas and stool present throughout the colon on today's exam. There is some residual small bowel gas, however, the gas-filled loops of small bowel appear less distended than on the prior study. No other interval changes. [id number] [facility]
== END 2016-12-26 09:31 | disposition home or self-care (01) ==
LOC: LB.ED 14:58 → UNDOADMOB 16:40 → LB.MS 16:40
PROVIDERS: ADMIT Family Medicine; ATTEND Family Medicine
DX: K56.60 Unspecified intestinal obstruction (principal); K58.9 Irritable bowel syndrome, unspecified; J45.909 Unspecified asthma, uncomplicated; G47.30 Sleep apnea, unspecified; J43.9 Emphysema, unspecified; G43.909 Migraine, unspecified, not intractable, without status migrainosus; F41.9 Anxiety disorder, unspecified; E11.9 Type 2 diabetes mellitus without complications; E66.9 Obesity, unspecified; D50.9 Iron deficiency anemia, unspecified; F17.210 Nicotine dependence, cigarettes, uncomplicated; F32.9 Major depressive disorder, single episode, unspecified; Z79.899 Other long term (current) drug therapy; Z91.048 Other nonmedicinal substance allergy status; Z88.6 Allergy status to analgesic agent; Z88.8 Allergy status to other drugs, medicaments and biological substances; Z87.440 Personal history of urinary (tract) infections; Z87.01 Personal history of pneumonia (recurrent); Z91.5 Personal history of self-harm; Z68.30 Body mass index [BMI] 30.0-30.9, adult; Z90.49 Acquired absence of other specified parts of digestive tract; Z90.710 Acquired absence of both cervix and uterus; Z86.19 Personal history of other infectious and parasitic diseases
CPT/HCPCS: 36415; 74000; 80048; 80053; 85025; 96361; 96374; 96375; 96376; 99217; 99219; 99285; A9270; G0378; J2060; J2405; J7040

== ENCOUNTER 2017-02-09 19:30 | Emergency (ER) | payer MEDICARE, MEDICAID ==
[2017-02-09] MEDS ORDERED: Ketorolac 60 MG/2 ML SDV ONE (20:03)
[2017-02-09] MEDS ORDERED: Methocarbamol 750 MG Tab ONE (20:04)
[2017-02-09 20:27] VITALS: BP 122/75
== END 2017-02-09 20:26 | disposition home or self-care (01) ==
LOC: LB.ED 19:30
DX: S39.012A Strain of muscle, fascia and tendon of lower back, initial encounter (principal); X58.XXXA Exposure to other specified factors, initial encounter
CPT/HCPCS: 96372; 99283; A9270; 99282; J1885

== ENCOUNTER 2017-02-26 19:30 | Emergency (ER) | payer MEDICARE, MEDICAID ==
[2017-02-26] MEDS ORDERED: traMADol 50 MG Tab ONE (20:15)
--- NOTE | 2017-02-26 20:42 | EDM.PDOC ---
ED HPI GENERAL MEDICAL PROBLEM - General Chief Complaint: General Stated Complaint: Back pains Time Seen by Provider: 02/26/17 20:25 Source of Information: Reports: Patient History Limitations: Reports: No Limitations - History of Present Illness INITIAL COMMENTS - FREE TEXT/NARRATIVE: Patient had a left lower tooth removed February 07, 2017. She has been on an antibiotic for 5 days that has helped her feel better but ibuprofen is making her sick to her stomach and she has no tylenol at home and needs to have pain relief until she sees her dental surgeon tomorrow. No fever or chills or other complaints. Onset Date: 02/07/17 Onset Time: 16:00 Duration: Day(s): (19) Location: Reports: Other (Left lower tooth removal site.) Quality: Reports: Ache Severity: Moderate Improves with: Reports: Medication (Ibuprofen but that is causing stomach upset. 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 - Related Data Allergies Allergy/AdvReac Type Severity Reaction Status Date / Time adhesive tape Allergy Rash Verified 12/25/16 17:10 ibuprofen Allergy Stomach Verified 12/25/16 17:10 Upset ketorolac tromethamine Allergy Nausea and Verified 12/25/16 17:10 [From Toradol] Vomiting oxycodone HCl [From Percocet] Allergy Numbness Verified 12/25/16 17:10 celecoxib [From Celebrex] AdvReac Mild Indigestion Verified 12/25/16 17:10 Home Meds: Home Meds Ipratropium/Albuterol Sulfate [Duoneb 0.5 MG-3 MG/3 ML] 1 - 2 puff INH Q4H PRN 04/14/13 [History] Omeprazole 20 mg PO BID 04/14/13 [History] risperiDONE [RisperiDAL M-Tab] 3 mg PO DAILY 04/14/13 [History] Acetaminophen [Tylenol Extra Strength] 500 mg PO Q6H 06/06/15 [History] Budesonide/Formoterol [Symbicort 160-4.5 MCG] 2 puff INH BID 06/06/15 [History] Colestipol [Colestipol HCl] 1 - 2 tab PO BID PRN 06/06/15 [History] Gabapentin [Neurontin] 1 tab PO BID 06/06/15 [History] Nicotine [Habitrol] 1 patch TOP DAILY 06/06/15 [History] OXcarbazepine [Trileptal] 900 mg PO BID 06/06/15 [History] QUEtiapine [SEROquel] 200 tab PO BID 06/06/15 [History] SUMAtriptan [Imitrex] 1 tab PO ASDIRECTED PRN 06/06/15 [History] Spironolactone [Aldactone] 3 tab PO BID 06/06/15 [History] Topiramate 1 tab PO DAILY 06/06/15 [History] buPROPion [Wellbutrin SR] 100 mg PO BID 06/06/15 [History] hydrOXYzine HCl [hydrOXYzine] 1 - 2 cap PO ASDIRECTED PRN 06/06/15 [History] rOPINIRole [Requip] 1 tab PO BEDTIME 06/06/15 [History] tiZANidine [Zanaflex] 4 mg PO Q6H 02/28/16 [History] Zolpidem Tartrate [Ambien Cr] 12.5 tab PO DAILY 08/01/16 [History] Ketorolac [Toradol] 10 mg PO Q6H PRN #16 tab 02/09/17 [Rx] Methocarbamol [Robaxin-750] 750 mg PO Q6HR #40 tablet 02/09/17 [Rx] Past Medical History HEENT History: Reports: Impaired Vision, Other (See Below) Other HEENT History: glasses for reading, Respiratory History: Reports: Asthma, Bronchitis, Recurrent, Pneumonia, Recurrent, Other (See Below) Other Respiratory History: Emphysema Gastrointestinal History: Reports: Bowel Obstruction, Irritable Bowel Syndrome Genitourinary History: Reports: UTI, Recurrent 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, Musculoskeletal History: Reports: Back Pain, Chronic, Other (See Below) Other Musculoskeletal History: back / butt pain, shoots down left leg Neurological History: Reports: Migraines Psychiatric History: Reports: Anxiety, Depression, Suicide Attempt, Suicidal Ideation Endocrine/Metabolic History: Reports: Diabetes, Type II, Obesity/BMI 30+ Hematologic History: Reports: Blood Transfusion(s), Iron Deficiency Dermatologic History: Reports: Eczema, Other (See Below) Other Dermatologic History: Allergy to paper tape - Infectious Disease History Infectious Disease History: Reports: Chicken Pox, Measles, Rubella - Past Surgical History HEENT Surgical History: Reports: Other (See Below) GI Surgical History: Reports: Appendectomy, Cholecystectomy, Hernia, Abdominal, Other (See Below) Female Surgical History: Reports: Section, Hysterectomy Social & Family History - Family History Family Medical History: Noncontributory - Tobacco Use Smoking Status *Q: Current Every Day Smoker Years of Tobacco use: 35 Packs/Tins Daily: 0.5 Used Tobacco, but Quit: No Second Hand Smoke Exposure: No - Caffeine Use Caffeine Use: Reports: Coffee, Tea - Alcohol Use Days Per Week of Alcohol Use: 0 - Recreational Drug Use Recreational Drug Use: No ED ROS GENERAL - Review of Systems Review Of Systems: See Below Constitutional: Reports: No Symptoms HEENT: Reports: Other (Tooth pain.) Respiratory: Reports: No Symptoms Cardiovascular: Reports: No Symptoms Endocrine: Reports: No Symptoms GI/Abdominal: Reports: No Symptoms : Reports: No Symptoms Musculoskeletal: Reports: No Symptoms Skin: Reports: No Symptoms Neurological: Reports: No Symptoms Psychiatric: Reports: No Symptoms Hematologic/Lymphatic: Reports: No Symptoms Immunologic: Reports: No Symptoms ED EXAM, GENERAL - Physical Exam Exam: See Below Exam Limited By: No Limitations General Appearance: Alert, WD/WN, No Apparent Distress Eye Exam: Bilateral Eye: EOMI, Normal Fundi, Normal Inspection, PERRL Ears: Normal External Exam, Normal Canal, Hearing Grossly Normal, Normal TMs Ear Exam: Bilateral Ear: Auricle Normal, Canal Normal, TM normal Nose: Normal Inspection, Normal Mucosa, No Blood Throat/Mouth: Other (Left lower tooth removal site is draining normally and healing.) Head: Atraumatic, Normocephalic Neck: Normal Inspection, Supple, Non-Tender, Full Range of Motion Respiratory/Chest: No Respiratory Distress, Lungs Clear, Normal Breath Sounds, No Accessory Muscle Use, Chest Non-Tender Cardiovascular: Normal Peripheral Pulses, Regular Rate, Rhythm, No Edema, No Gallop, No JVD, No Murmur, No Rub GI/Abdominal: Normal Bowel Sounds, Soft, Non-Tender, No Organomegaly, No Distention, No Abnormal Bruit, No Mass Extremities: Normal Inspection, Normal Range of Motion, Non-Tender, Normal Capillary Refill, No Pedal Edema Neurological: Alert, Oriented, CN II-XII Intact, Normal Cognition, Normal Gait, Normal Reflexes, No Motor/Sensory Deficits Psychiatric: Normal Affect, Normal Mood Skin Exam: Warm, Dry, Intact, Normal Color, No Rash Course - Vital Signs Text/Narrative:: Uneventful ED course. She was given Tramadol 50 mg po q 4 hours, #10, no refills. Recheck with oral surgeon/dentist tomorrow. Departure - Departure Time of Disposition: 20:45 Disposition: Home, Self-Care 01 Condition: Good Clinical Impression: Dental abscess, Pain of tooth socket - Discharge Information Forms: ED Department Discharge
[2017-02-26 23:34] VITALS: BP 122/78
== END 2017-02-26 21:00 | disposition home or self-care (01) ==
LOC: LB.ED 19:30
DX: K04.7 Periapical abscess without sinus (principal); F17.210 Nicotine dependence, cigarettes, uncomplicated; J45.909 Unspecified asthma, uncomplicated; F41.9 Anxiety disorder, unspecified; F32.9 Major depressive disorder, single episode, unspecified; E11.9 Type 2 diabetes mellitus without complications; E66.9 Obesity, unspecified; Z87.440 Personal history of urinary (tract) infections; Z90.49 Acquired absence of other specified parts of digestive tract; Z90.710 Acquired absence of both cervix and uterus; Z98.890 Other specified postprocedural states
CPT/HCPCS: 99282; A9270; 99283

== ENCOUNTER 2017-03-26 17:38 | Emergency (ER) | payer MEDICARE, MEDICAID ==
[2017-03-26] MEDS ORDERED: Ibuprofen 800 MG Tab ONE (17:40)
--- NOTE | 2017-03-26 18:07 | EDM.PDOC ---
ED HPI GENERAL MEDICAL PROBLEM - General Chief Complaint: General Stated Complaint: can't walk Time Seen by Provider: 03/26/17 17:40 Source of Information: Reports: Patient History Limitations: Reports: No Limitations - History of Present Illness INITIAL COMMENTS - FREE TEXT/NARRATIVE: I am in the emergency room discharging my patient. Pt's bring her into the emergency room in Wheel chair, and she is crying and tearful and claims that she has been having pain in both her legs since monday. Pain is all over the legs. She is on gabapentin and requip and tinazadine, she claims none of them are helping. No swelling of the legs. No redness. No swelling of pain in her knees. No shortness of breath of chest tightness. . No trauma to the legs. Pt is tearful. She claims Motrin does not work for her. Rates pain at 03/26. - Related Data Allergies Allergy/AdvReac Type Severity Reaction Status Date / Time acetaminophen [From Percocet] Allergy Numbness Verified 03/26/17 17:40 adhesive tape Allergy Rash Verified 03/26/17 17:40 ketorolac tromethamine Allergy Nausea and Verified 03/26/17 17:40 [From Toradol] Vomiting oxycodone [From Percocet] Allergy Numbness Verified 03/26/17 17:40 Home Meds: Home Meds Ipratropium/Albuterol Sulfate [Duoneb 0.5 MG-3 MG/3 ML] 1 - 2 puff INH Q4H PRN 04/14/13 [History] Omeprazole 20 mg PO BID 04/14/13 [History] risperiDONE [RisperiDAL M-Tab] 3 mg PO DAILY 04/14/13 [History] Acetaminophen [Tylenol Extra Strength] 500 mg PO Q6H 06/06/15 [History] Budesonide/Formoterol [Symbicort 160-4.5 MCG] 2 puff INH BID 06/06/15 [History] Colestipol [Colestipol HCl] 1 - 2 tab PO BID PRN 06/06/15 [History] Gabapentin [Neurontin] 1 tab PO BID 06/06/15 [History] Nicotine [Habitrol] 1 patch TOP DAILY 06/06/15 [History] OXcarbazepine [Trileptal] 900 mg PO BID 06/06/15 [History] QUEtiapine [SEROquel] 200 tab PO BID 06/06/15 [History] SUMAtriptan [Imitrex] 1 tab PO ASDIRECTED PRN 06/06/15 [History] Spironolactone [Aldactone] 3 tab PO BID 06/06/15 [History] Topiramate 1 tab PO DAILY 06/06/15 [History] buPROPion [Wellbutrin SR] 100 mg PO BID 06/06/15 [History] hydrOXYzine HCl [hydrOXYzine] 1 - 2 cap PO ASDIRECTED PRN 06/06/15 [History] rOPINIRole [Requip] 1 tab PO BEDTIME 06/06/15 [History] tiZANidine [Zanaflex] 4 mg PO Q6H 02/28/16 [History] Zolpidem Tartrate [Ambien Cr] 12.5 tab PO DAILY 08/01/16 [History] Ketorolac [Toradol] 10 mg PO Q6H PRN #16 tab 02/09/17 [Rx] Methocarbamol [Robaxin-750] 750 mg PO Q6HR #40 tablet 02/09/17 [Rx] Past Medical History HEENT History: Reports: Impaired Vision, Other (See Below) Other HEENT History: glasses for reading, Respiratory History: Reports: Asthma, Bronchitis, Recurrent, Pneumonia, Recurrent, Other (See Below) Other Respiratory History: Emphysema Gastrointestinal History: Reports: Bowel Obstruction, Irritable Bowel Syndrome Genitourinary History: Reports: UTI, Recurrent 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 Bleeding, Musculoskeletal History: Reports: Back Pain, Chronic, Other (See Below) Other Musculoskeletal History: back / butt pain, shoots down left leg Neurological History: Reports: Migraines Psychiatric History: Reports: Anxiety, Depression, Suicide Attempt, Suicidal Ideation Endocrine/Metabolic History: Reports: Diabetes, Type II, Obesity/BMI 30+ Hematologic History: Reports: Blood Transfusion(s), Iron Deficiency Dermatologic History: Reports: Eczema, Other (See Below) Other Dermatologic History: Allergy to paper tape - Infectious Disease History Infectious Disease History: Reports: Chicken Pox, Measles, Rubella - Past Surgical History HEENT Surgical History: Reports: Other (See Below) GI Surgical History: Reports: Appendectomy, Cholecystectomy, Hernia, Abdominal, Other (See Below) Female Surgical History: Reports: Section, Hysterectomy Social & Family History - Family History Family Medical History: Noncontributory - Tobacco Use Smoking Status *Q: Current Every Day Smoker Years of Tobacco use: 35 Packs/Tins Daily: 0.5 Used Tobacco, but Quit: No Second Hand Smoke Exposure: No - Caffeine Use Caffeine Use: Reports: Coffee, Tea - Alcohol Use Days Per Week of Alcohol Use: 0 - Recreational Drug Use Recreational Drug Use: No ED ROS GENERAL - Review of Systems Review Of Systems: See Below Constitutional: Denies: Fever, Chills HEENT: Denies: Throat Pain, Throat Swelling, Vision Change Respiratory: Denies: Shortness of Breath, Wheezing, Pleuritic Chest Pain, Cough , Sputum Cardiovascular: Denies: Chest Pain, Lightheadedness GI/Abdominal: Denies: Abdominal Pain, Nausea, Vomiting : Denies: Flank Pain, Frequency Musculoskeletal: Reports: Leg Pain. Denies: Foot Pain, Joint Pain, Joint Swelling Skin: Denies: Bruising, Pruritis, Rash Neurological: Denies: Confusion, Dizziness, Headache Psychiatric: Denies: Agitation, Anxiety, Confusion ED EXAM, GENERAL - Physical Exam Exam: See Below Exam Limited By: No Limitations General Appearance: Alert, WD/WN, No Apparent Distress Eye Exam: Bilateral Eye: EOMI, PERRL Ears: Normal External Exam, Normal Canal, Hearing Grossly Normal, Normal TMs Ear Exam: Bilateral Ear: Auricle Normal, Canal Normal, TM normal Nose: Normal Inspection, Normal Mucosa, No Blood Throat/Mouth: Normal Inspection, Normal Lips, Normal Teeth, Normal Gums, Normal Oropharynx, Normal Voice, No Airway Compromise Head: Atraumatic, Normocephalic Neck: Normal Inspection, Supple, Non-Tender, Full Range of Motion Respiratory/Chest: Lungs Clear, Normal Breath Sounds, No Accessory Muscle Use, Chest Non-Tender Cardiovascular: Normal Peripheral Pulses, Regular Rate, Rhythm, No Edema, No Gallop, No JVD, No Murmur, No Rub Extremities: Normal Inspection, Normal Range of Motion, Non-Tender, No Pedal Edema, Normal Capillary Refill, Other (Both legs Appear symmetrical. there is no swelling or erythema. Pt is able to stand on the legs. Also she by her self gets on form the wheelchair and shifts to bed and rasies her legs and sleep. Pt is loud and crying. Negative calf tenderness and negative Homans sign. She claism her meds are not helping.) Course - Vital Signs Text/Narrative:: Pt's examination of the legs is negative for infection, DVT or acute trauma. This pain has been going on for 3 days now, but no clinical signs of inflammation seen on exam. She does not have chest tightness or SOB, and her SPO2 is 100% on room air with normal Pulse and blood pressure. I cannot explain her pain. Pt does visit emergency room frequently with pain complaints with no objective findings. She has been off all narcotics. I did get xrays of the leg, to see if she has any acute bony injury and her xrays appear normal. Pt is already on muscle relaxant for muscle spasms, requip for restless leg, and gabapentin for nerve pain. Pt reassured that her pain is not from fracture or acute neurovascular injury. Advised to rest and take motrin 800mg 3 times daily. Pt and her start to talk about visiting in the mooning to get some pain medication.I have advised patient to followup with Dr. Echevarria. And I do not see any emergent cause of her leg pain. Last Recorded V/S: Last Vital Signs Temp Pulse 82 03/26/17 18:08 Resp BP 142/65 H 03/26/17 18:08 Pulse Ox 100 03/26/17 18:08 - Orders/Labs/Meds Orders: Active Orders 24 hr Category Date Time Status Tibia Fibula Bi [CR] Stat Exams 03/26/17 17:55 Ordered Departure - Departure Time of Disposition: 18:30 Disposition: Home, Self-Care 01 Condition: Fair Clinical Impression: Leg pain - Discharge Information Referrals: PCP,None [Primary Care Provider] - Forms: ED Department Discharge - Problem List & Annotations (1) Leg pain SNOMED Code(s): 08465293 Code(s): M79.606 - PAIN IN LEG, UNSPECIFIED Status: Acute Current Visit: Yes - Problem List Review Problem List Initiated/Reviewed/Updated: Yes - My Orders Last 24 Hours: My Active Orders 03/26/17 17:55 Tibia Fibula Bi [CR] Stat - Assessment/Plan Last 24 Hours: My Active Orders 03/26/17 17:55 Tibia Fibula Bi [CR] Stat Assessment:: Leg Pain Plan: Pt's examination of the legs is negative for infection, DVT or acute trauma. This pain has been going on for 3 days now, but no clinical signs of inflammation seen on exam. She does not have chest tightness or SOB, and her SPO2 is 100% on room air with normal Pulse and blood pressure. I cannot explain her pain. Pt does visit emergency room frequently with pain complaints with no objective findings. She has been off all narcotics. I did get xrays of the leg, to see if she has any acute bony injury and her xrays appear normal. Pt is already on muscle relaxant for muscle spasms, requip for restless leg, and gabapentin for nerve pain. Pt reassured that her pain is not from fracture or acute neurovascular injury. Pt requesting toradol, she did receive toradol 30mg IM.Advised to rest and take motrin 800mg 3 times daily. Pt and her start to talk about visiting in the mooning to get some pain medication.I have advised patient to followup with Dr. Echevarria. And I do not see any emergent cause of her leg pain.
[2017-03-26 18:12] VITALS: BP 142/65
[2017-03-26] MEDS ORDERED: Ketorolac 30 MG/ML SDV IM ONE ×2 (18:34→18:35)
[2017-03-26] MEDS ORDERED: Ketorolac 30 MG/ML SDV ONE (18:36)
--- NOTE | 2017-03-27 09:50 | CR ---
DATE OF SERVICE: 03/26/17 CLINICAL DATA: leg pain LEFT LOWER LEG: Normal exam. RIGHT LOWER LEG: Normal exam. [id number] MTDD
== END 2017-03-26 18:42 | disposition home or self-care (01) ==
LOC: LB.ED 17:38
DX: M79.605 Pain in left leg (principal); M79.604 Pain in right leg; J45.909 Unspecified asthma, uncomplicated; F41.9 Anxiety disorder, unspecified; E66.9 Obesity, unspecified; F32.9 Major depressive disorder, single episode, unspecified; G43.909 Migraine, unspecified, not intractable, without status migrainosus; Z88.8 Allergy status to other drugs, medicaments and biological substances; Z88.5 Allergy status to narcotic agent; Z88.6 Allergy status to analgesic agent; Z79.899 Other long term (current) drug therapy; Z87.01 Personal history of pneumonia (recurrent); Z90.49 Acquired absence of other specified parts of digestive tract; Z90.710 Acquired absence of both cervix and uterus; Z68.41 Body mass index [BMI] 40.0-44.9, adult
CPT/HCPCS: 73590; 96372; 99283; A9270; J1885

== ENCOUNTER 2017-06-25 16:57 | Emergency (ER) | payer MEDICARE, MEDICAID ==
[2017-06-25 17:14] VITALS: BP 126/64
[2017-06-25] MEDS ORDERED: Ketorolac 60 MG/2 ML SDV ONE (17:36)
[2017-06-25] MEDS ORDERED: Methocarbamol 750 MG Tab ONE (17:37)
[2017-06-25] MEDS ORDERED: Ketorolac 60 MG/2 ML SDV IM ONE (17:37)
[2017-06-25] MEDS ORDERED: Methocarbamol 750 MG Tab PO ONE (17:40)
--- NOTE | 2017-06-25 17:40 | EDM.PDOC ---
ED HPI GENERAL MEDICAL PROBLEM - General Chief Complaint: General Stated Complaint: LEFT SHOULDER BLADE PAIN Time Seen by Provider: 06/25/17 17:10 Source of Information: Reports: Patient History Limitations: Reports: No Limitations - History of Present Illness INITIAL COMMENTS - FREE TEXT/NARRATIVE: According to patient, she claims she has been having neck and upper back pain since monday.Pt claims that he woke up with pain in the neck Monday morning , the pain radiates into the shoulder, left side worse than the right. Pt claims she has tried her pain meds and tylenol with no relief. No tingling or numbness no weakness in the upper extremities. rates her pain around 7-8/10. No other complaints. Duration: Day(s): (2), Getting Worse, Waxing/Waning Quality: Reports: Ache Severity: Moderate Associated Symptoms: Denies: Confusion, Chest Pain, Fever/Chills, Nausea/ Vomiting, Rash, Shortness of Breath, Weakness Bilateral Shoulder Pain Score (Numeric/FACES): 9 - Related Data Allergies Allergy/AdvReac Type Severity Reaction Status Date / Time adhesive tape Allergy Rash Verified 06/25/17 17:10 celecoxib [From Celebrex] Allergy Nausea and Verified 06/25/17 17:10 Vomiting Home Meds: Home Meds Ipratropium/Albuterol Sulfate [Duoneb 0.5 MG-3 MG/3 ML] 1 - 2 puff INH Q4H PRN 04/14/13 [History] Omeprazole 20 mg PO ACBREAKFAST 04/14/13 [History] risperiDONE [RisperiDAL M-Tab] 2 mg PO QPM 04/14/13 [History] Acetaminophen [Tylenol Extra Strength] 500 mg PO Q6H 06/06/15 [History] Budesonide/Formoterol [Symbicort 160-4.5 MCG] 2 puff INH BID 06/06/15 [History] Colestipol [Colestipol HCl] 1 - 2 tab PO BID PRN 06/06/15 [History] Gabapentin [Neurontin] 1 tab PO TID 06/06/15 [History] Nicotine [Habitrol] 1 patch TOP DAILY 06/06/15 [History] QUEtiapine [SEROquel] 100 tab PO QAM 06/06/15 [History] Spironolactone [Aldactone] 3 tab PO BID 06/06/15 [History] buPROPion [Wellbutrin SR] 100 mg PO BID 06/06/15 [History] hydrOXYzine HCl [hydrOXYzine] 1 - 3 cap PO TID 06/06/15 [History] rOPINIRole [Requip] 1.5 tab PO BEDTIME 06/06/15 [History] tiZANidine [Zanaflex] 4 mg PO Q6H 02/28/16 [History] Zolpidem Tartrate [Ambien Cr] 12.5 tab PO QPM 08/01/16 [History] ClonazePAM [KlonoPIN] 1 mg PO BID 06/25/17 [History] QUEtiapine Fumarate [Quetiapine Fumarate] 400 mg PO QPM 06/25/17 [History] traZODone HCl [Trazodone HCl] 100 mg PO QPM 06/25/17 [History] Past Medical History HEENT History: Reports: Impaired Vision, Other (See Below) Other HEENT History: glasses for reading, Respiratory History: Reports: Asthma, Bronchitis, Recurrent, Pneumonia, Recurrent, Other (See Below) Other Respiratory History: Emphysema Gastrointestinal History: Reports: Bowel Obstruction, GERD, Irritable Bowel Syndrome Genitourinary History: Reports: UTI, Recurrent 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, Musculoskeletal History: Reports: Back Pain, Chronic, Other (See Below) Other Musculoskeletal History: back / butt pain, shoots down left leg Neurological History: Reports: Migraines Psychiatric History: Reports: Anxiety, Depression, Suicide Attempt, Suicidal Ideation Endocrine/Metabolic History: Reports: Diabetes, Type II, Obesity/BMI 30+ Hematologic History: Reports: Blood Transfusion(s), Iron Deficiency Dermatologic History: Reports: Eczema, Other (See Below) Other Dermatologic History: Allergy to paper tape - Infectious Disease History Infectious Disease History: Reports: Chicken Pox, Measles, Rubella - Past Surgical History GI Surgical History: Reports: Appendectomy, Cholecystectomy, Hernia, Abdominal, Other (See Below) Female Surgical History: Reports: Section, Hysterectomy Social & Family History - Family History Family Medical History: Noncontributory - Tobacco Use Smoking Status *Q: Current Every Day Smoker Years of Tobacco use: 35 Packs/Tins Daily: 0.5 Used Tobacco, but Quit: No Second Hand Smoke Exposure: No - Caffeine Use Caffeine Use: Reports: Coffee, Tea - Alcohol Use Days Per Week of Alcohol Use: 0 - Recreational Drug Use Recreational Drug Use: No ED ROS GENERAL - Review of Systems Review Of Systems: See Below Constitutional: Reports: Decreased Appetite. Denies: Fever, Chills HEENT: Denies: Rhinitis, Throat Pain, Throat Swelling Respiratory: Denies: Cough, Sputum Cardiovascular: Denies: Chest Pain, Lightheadedness Endocrine: Denies: Fatigue GI/Abdominal: Denies: Abdominal Pain, Nausea, Vomiting : Denies: Dysuria, Flank Pain Musculoskeletal: Reports: Neck Pain, Shoulder Pain. Denies: Joint Pain, Joint Swelling Skin: Denies: Bruising, Pruritis, Rash Neurological: Denies: Numbness, Tingling, Weakness ED EXAM, GENERAL - Physical Exam Exam: See Below Exam Limited By: No Limitations General Appearance: Alert, WD/WN, Mild Distress Eye Exam: Bilateral Eye: EOMI, PERRL Ears: Normal External Exam, Normal Canal, Hearing Grossly Normal, Normal TMs Ear Exam: Bilateral Ear: Auricle Normal, Canal Normal, TM normal Nose: Normal Inspection, Normal Mucosa, No Blood Throat/Mouth: Normal Inspection, Normal Lips, Normal Teeth, Normal Gums, Normal Oropharynx, Normal Voice, No Airway Compromise Head: Atraumatic, Normocephalic Neck: Normal Inspection, Supple, Full Range of Motion, Tender Lateral (oer the paraspinal muscles of the neck, left worse than right) Respiratory/Chest: No Respiratory Distress, Lungs Clear, Normal Breath Sounds, No Accessory Muscle Use, Chest Non-Tender Cardiovascular: Normal Peripheral Pulses, Regular Rate, Rhythm, No Edema, No Gallop, No JVD, No Murmur, No Rub Back Exam: Normal Inspection, Full Range of Motion, Muscle Spasm (interscapular and suprascapular regions of the back) Course - Vital Signs Text/Narrative:: Pt reassured that she has muscle spasms of the upper back and neck from probably sleeping wrongly on the pillow. she did receive toradol 60mg Im and oral robaxin 1500mg in the emergency room. Pt advised intermittent heat 3-4 times daily. toradol 10mg 3 times daily. Avoid motrin or alleve with it. Robaxin 1500mg at bedtime. If not better in 3-5 days advised to followup with her PCP in clinic. Last Recorded V/S: Last Vital Signs Temp 97.0 F 06/25/17 17:10 Pulse 83 06/25/17 17:10 Resp 20 06/25/17 17:10 BP 126/64 06/25/17 17:10 Pulse Ox 98 06/25/17 17:10 - Orders/Labs/Meds Meds: Medications Discontinued Medications Generic Name Dose Route Start Last Admin Trade Name Emerson PRN Reason Stop Dose Admin Ketorolac Tromethamine Confirm 06/25/17 17:36 06/25/17 17:46 Toradol Administered 06/25/17 17:37 Not Given Dose 60 mg .ROUTE .STK-MED ONE Ketorolac Tromethamine 60 mg 06/25/17 17:37 06/25/17 17:42 Toradol IM 06/25/17 17:38 60 mg ONETIME ONE Administration Methocarbamol Confirm 06/25/17 17:37 06/25/17 17:46 Robaxin Administered 06/25/17 17:38 Not Given Dose 1,500 mg .ROUTE .STK-MED ONE Methocarbamol 1,500 mg 06/25/17 17:40 06/25/17 17:40 Robaxin PO 06/25/17 17:41 1,500 mg ONETIME ONE Administration Departure - Departure Time of Disposition: 17:45 Disposition: Home, Self-Care 01 Condition: Good Clinical Impression: Neck muscle spasm - Discharge Information Instructions: Muscle Cramps and Spasms, [id number], Ketorolac tablets, Methocarbamol tablets Referrals: PCP,None [Primary Care Provider] - Forms: ED Department Discharge Additional Instructions: Take Robaxin 1500mg every night Take Toradol 1 tablet three times a day with meals. Do Not take Ibuprofen while on Tordaol. Tylenol is OK. Intermittent heat for 15 min 3-4 times a day. Getting a massage could help as well. - Problem List & Annotations (1) Neck muscle spasm SNOMED Code(s): 243469845415 Code(s): M62.838 - OTHER MUSCLE SPASM Status: Acute Current Visit: Yes - Problem List Review Problem List Initiated/Reviewed/Updated: Yes - Assessment/Plan Assessment:: Neck and upper back muscle spasm Plan: Pt reassured that she has muscle spasms of the upper back and neck from probably sleeping wrongly on the pillow. she did receive toradol 60mg Im and oral robaxin 1500mg in the emergency room. Pt advised intermittent heat 3-4 times daily. toradol 10mg 3 times daily. Avoid motrin or alleve with it. Robaxin 1500mg at bedtime. If not better in 3-5 days advised to followup with her PCP in clinic.
== END 2017-06-25 18:03 | disposition home or self-care (01) ==
LOC: LB.ED 16:57
DX: M62.838 Other muscle spasm (principal); Z88.8 Allergy status to other drugs, medicaments and biological substances; Z79.899 Other long term (current) drug therapy; F17.210 Nicotine dependence, cigarettes, uncomplicated
CPT/HCPCS: 96372; 99283; A9270; J1885

== ENCOUNTER 2017-08-08 19:45 | Emergency (ER) | payer MEDICARE, MEDICAID ==
[2017-08-08] MEDS ORDERED: Ondansetron 4 MG Tab.DIS PO ONE (20:10)
--- NOTE | 2017-08-08 20:14 | EDM.PDOC ---
ED HPI GENERAL MEDICAL PROBLEM - General Chief Complaint: General Stated Complaint: abdominal pain Time Seen by Provider: 08/08/17 20:00 Source of Information: Reports: Patient, EMS, RN History Limitations: Reports: No Limitations - History of Present Illness INITIAL COMMENTS - FREE TEXT/NARRATIVE: 51 yr female presents to ER from ambulance with abdominal pain and reflux. States she had spaghetti tonight and pain to upper abdomen started after that. States no gallbladder and hasn't taken any night medications. She is alert and lying on the stretcher and filling out paper forms. States nausea and diarrhea yesterday and today. States hx of IBS and had abdominal surgery about 3 yr ago. Onset: Today Onset Date: 08/08/17 Onset Time: 17:30 Location: Reports: Abdomen Abdominal Pain Score (Numeric/FACES): 9 - Related Data Allergies Allergy/AdvReac Type Severity Reaction Status Date / Time adhesive tape Allergy Rash Verified 08/08/17 20:39 celecoxib [From Celebrex] Allergy Nausea and Verified 08/08/17 20:39 Vomiting Home Meds: Home Meds Ipratropium/Albuterol Sulfate [Duoneb 0.5 MG-3 MG/3 ML] 1 - 2 puff INH Q4H PRN 04/14/13 [History] Omeprazole 20 mg PO ACBREAKFAST 04/14/13 [History] risperiDONE [RisperiDAL M-Tab] 2 mg PO QPM 04/14/13 [History] Acetaminophen [Tylenol Extra Strength] 500 mg PO Q6H 06/06/15 [History] Budesonide/Formoterol [Symbicort 160-4.5 MCG] 2 puff INH BID 06/06/15 [History] Gabapentin [Neurontin] 1 tab PO TID 06/06/15 [History] QUEtiapine [SEROquel] 100 tab PO QAM 06/06/15 [History] Spironolactone [Aldactone] 3 tab PO BID 06/06/15 [History] buPROPion [Wellbutrin SR] 100 mg PO BID 06/06/15 [History] hydrOXYzine HCl [hydrOXYzine] 1 - 3 cap PO TID 06/06/15 [History] rOPINIRole [Requip] 1.5 tab PO BEDTIME 06/06/15 [History] tiZANidine [Zanaflex] 4 mg PO Q6H 02/28/16 [History] Zolpidem Tartrate [Ambien Cr] 12.5 tab PO QPM 08/01/16 [History] ClonazePAM [KlonoPIN] 1 mg PO BID 06/25/17 [History] QUEtiapine Fumarate [Quetiapine Fumarate] 400 mg PO QPM 06/25/17 [History] traZODone HCl [Trazodone HCl] 100 mg PO QPM 06/25/17 [History] Past Medical History HEENT History: Reports: Impaired Vision, Other (See Below) Other HEENT History: glasses for reading, Respiratory History: Reports: Asthma, Bronchitis, Recurrent, Pneumonia, Recurrent, Other (See Below) Other Respiratory History: Emphysema Gastrointestinal History: Reports: Bowel Obstruction, GERD, Irritable Bowel Syndrome Genitourinary History: Reports: UTI, Recurrent 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, Musculoskeletal History: Reports: Back Pain, Chronic, Other (See Below) Other Musculoskeletal History: back / butt pain, shoots down left leg Neurological History: Reports: Migraines Psychiatric History: Reports: Anxiety, Depression, Suicide Attempt, Suicidal Ideation Endocrine/Metabolic History: Reports: Diabetes, Type II, Obesity/BMI 30+ Hematologic History: Reports: Blood Transfusion(s), Iron Deficiency Dermatologic History: Reports: Eczema, Other (See Below) Other Dermatologic History: Allergy to paper tape - Infectious Disease History Infectious Disease History: Reports: Chicken Pox, Measles, Rubella - Past Surgical History GI Surgical History: Reports: Appendectomy, Cholecystectomy, Hernia, Abdominal, Other (See Below) Female Surgical History: Reports: Section, Hysterectomy Social & Family History - Family History Family Medical History: Noncontributory - Tobacco Use Smoking Status *Q: Current Every Day Smoker Years of Tobacco use: 35 Packs/Tins Daily: 0.5 Used Tobacco, but Quit: No Second Hand Smoke Exposure: No - Caffeine Use Caffeine Use: Reports: Coffee, Tea - Alcohol Use Days Per Week of Alcohol Use: 0 - Recreational Drug Use Recreational Drug Use: No ED ROS GENERAL - Review of Systems Review Of Systems: See Below Constitutional: Reports: Chills, Decreased Appetite HEENT: Reports: No Symptoms Respiratory: Reports: No Symptoms Cardiovascular: Reports: No Symptoms GI/Abdominal: Reports: Abdominal Pain, Diarrhea, Nausea : Reports: No Symptoms Musculoskeletal: Reports: Leg Pain Hematologic/Lymphatic: Reports: No Symptoms ED EXAM, GENERAL - Physical Exam Exam: See Below Exam Limited By: No Limitations General Appearance: Alert, No Apparent Distress Head: Atraumatic, Normocephalic Neck: Supple, Non-Tender Respiratory/Chest: No Respiratory Distress, Normal Breath Sounds Cardiovascular: Regular Rate, Rhythm GI/Abdominal: Normal Bowel Sounds, Soft, Tender. No: Guarding, Rigid Neurological: Alert, Oriented Psychiatric: Normal Affect, Normal Mood Skin Exam: Warm, Dry, Normal Color Course - Vital Signs Last Recorded V/S: Last Vital Signs Temp 97.5 F 08/08/17 19:50 Pulse 91 08/08/17 19:50 Resp 20 08/08/17 19:50 BP 168/82 H 08/08/17 19:50 Pulse Ox 98 08/08/17 19:50 - Orders/Labs/Meds Labs: Laboratory Tests 08/08/17 08/08/17 Range/Units 20:46 20:46 WBC 6.4 (4.0-11.0) K/uL RBC 4.98 (3.80-5.80) M/uL Hgb 13.4 (11.5-16.5) g/dL Hct 40.0 (37.0-47.0) % MCV 80 (76-96) fL MCH 26.9 L (27.0-32.0) pg MCHC 33.5 (31.0-35.0) g/dL RDW 14.8 (11.0-16.0) % Plt Count 169 (150-500) K/uL MPV 11.1 H (6.0-10.0) fL Neut % (Auto) 65.9 (45.0-70.0) % Lymph % (Auto) 22.5 (20.0-40.0) % [place] % (Auto) 10.6 H (3.0-10.0) % Eos % (Auto) 0.8 L (1.0-5.0) % Baso % (Auto) 0.2 (0.0-0.5) % Neut # (Auto) 4.19 (2.00-7.50) K/uL Lymph # (Auto) 1.43 L (1.50-4.00) K/uL [place] # (Auto) 0.67 (0.20-0.80) K/uL Eos # (Auto) 0.05 (0.04-0.40) K/uL Baso # (Auto) 0.01 L (0.02-0.10) K/uL Sodium 135 L (136-145) mmol/L Potassium 3.6 (3.5-5.1) mmol/L Chloride 97 L (98-107) mmol/L Carbon Dioxide 22.8 (21.0-32.0) mmol/L Anion Gap 18.8 H (5.0-15.0) mmol/L BUN 18 D (8-26) mg/dL Creatinine 1.26 H (0.55-1.02) mg/dL Est Cr Clr Drug Dosing 45.10 mL/min Estimated GFR (MDRD) 45 L (>60) MLS/MIN BUN/Creatinine Ratio 14.3 (6-25) Glucose 178 H D (74-100) mg/dL Calcium 8.3 L (8.5-10.1) mg/dL Total Bilirubin 0.4 D (0.0-1.0) mg/dL AST 30 (15-37) U/L ALT 40 (12-78) U/L Alkaline Phosphatase 80 (46-116) U/L Total Protein 7.6 (6.4-8.2) g/dL Albumin 3.7 (3.4-5.0) g/dL Globulin 3.9 (2.2-4.2) g/dL Albumin/Globulin Ratio 0.9 (0.8-2.0) Meds: Medications Discontinued Medications Generic Name Dose Route Start Last Admin Trade Name Freq PRN Reason Stop Dose Admin Al Hydroxide/Mg Hydroxide 30 ml 08/08/17 20:18 Gi Cocktail PO 08/08/17 20:19 ONETIME ONE Ondansetron HCl 4 mg 08/08/17 20:16 Zofran IVPUSH 08/08/17 20:17 ONETIME ONE Ondansetron HCl 4 mg 08/08/17 20:20 Zofran .XX 08/08/17 20:21 ONETIME ONE Ondansetron HCl 4 mg 08/08/17 20:10 Zofran Odt PO 08/08/17 20:11 ONETIME ONE Promethazine HCl 25 mg 08/08/17 21:10 Phenergan IM 08/08/17 21:11 ONETIME ONE - Re-Assessments/Exams Free Text/Narrative Re-Assessment/Exam: 08/08/17 21:12 Reviewed lab results with pt. Zofran and GI cocktail given to pt. Will give Phenergan 25 mg IM for nausea. Pt to rest and clear liquids tonight and in am and bland diet tomorrow. Limit spicy and fatty foods. RTC to PCP for review of treatment for gastritis and possibly upper GI scope if indicated. Pt to be discharge to care of self with help of boyfriend and family. Departure - Departure Time of Disposition: 21:15 Disposition: Home, Self-Care 01 Condition: Good Clinical Impression: Gastritis - Discharge Information Forms: ED Department Discharge
[2017-08-08] MEDS ORDERED: Ondansetron 4 MG/2 ML SDV IVPUSH ONE (20:16)
[2017-08-08] MEDS ORDERED: GI Cocktail Oral Solution 30 ML PO ONE (20:18)
[2017-08-08] MEDS ORDERED: Ondansetron 4 MG/2 ML SDV ONE (20:20)
[2017-08-08 20:52] VITALS: BP 168/82
[2017-08-08] MEDS ORDERED: Promethazine 25 MG/ML SDV IM ONE (21:10)
[2017-08-08] MEDS ORDERED: Promethazine 25 MG/ML SDV ONE (21:14)
== END 2017-08-08 21:15 | disposition home or self-care (01) ==
LOC: LB.ED 19:45
DX: K29.70 Gastritis, unspecified, without bleeding (principal); E11.9 Type 2 diabetes mellitus without complications; E66.9 Obesity, unspecified; J45.909 Unspecified asthma, uncomplicated; F17.210 Nicotine dependence, cigarettes, uncomplicated; K21.9 Gastro-esophageal reflux disease without esophagitis; Z79.899 Other long term (current) drug therapy; Z91.09 Other allergy status, other than to drugs and biological substances; Z88.1 Allergy status to other antibiotic agents
CPT/HCPCS: 36415; 80053; 85025; 96372; 99284; A0425; A0429; A9270; J2550

== ENCOUNTER 2017-08-09 08:13 | Inpatient (IN) | payer MEDICARE, MEDICAID ==
[2017-08-09] MEDS ORDERED: Ondansetron 4 MG Tab.DIS PO ONE (08:23)
[2017-08-09] MEDS ORDERED: Sodium Chloride 0.9% 10 ML Syringe FLUSH PRN (09:34)
[2017-08-09] MEDS: Sodium Chloride 0.9% 1,000 ML IV SCH (10:00)
--- NOTE | 2017-08-09 10:28 | CT ---
DATE OF SERVICE: 08/09/17 CLINICAL DATA: abdominal pain UNENHANCED CHEST CT: Multislice acquisition through the chest without IV contrast was performed. No priors. There are multiple small, less than 4 mm, pulmonary nodules noted in both lungs. These are nonspecific in appearance. The lungs are otherwise clear. No areas of consolidation. No pneumothorax. No pleural effusions. The heart size is normal. No pericardial effusion. No adenopathy. There is a 13 mm oval-shaped low attenuation focus adjacent to the anterior aortic arch. I am uncertain of its significance. No aortic aneurysm. No other significant findings. IMPRESSION: 1) Multiple, less than 4 mm, nodules in both lungs. If the patient is low risk , no further workup is necessary. If the patient is high risk, a 12-month followup exam is recommended. 2) A 13 mm low density lesion adjacent to the anterior aortic arch. Significance uncertain. A followup CT scan with contrast enhancement may be helpful. UNENHANCED ABDOMEN AND PELVIC CT: Multislice acquisition through the abdomen and pelvis without IV or oral contrast was performed. There is diffuse fatty infiltration of the liver. No focal hepatic lesions. The gallbladder is absent and there are surgical clips in the gallbladder fossa. No biliary duct dilatation. The spleen appears normal. The pancreas appears normal. The right and left adrenals appear normal. The right and left kidneys appear normal. No nephrocalcinosis or nephrolithiasis. No hydronephrosis or hydroureter. The bladder is partially fluid-filled and appears normal. The appendix is not seen. No evidence of appendicitis. The stomach is gas and fluid-filled and significantly distended. There are multiple fluid and gas-filled distended loops of small bowel throughout the abdomen. These include the duodenum and jejunum. They contain air-fluid levels. There is a transition zone in the ileum with nondilated loops of ileum distally. These findings are consistent with small bowel obstruction. There are surgical changes within the anterior abdominal wall. No free air. No free fluid. No adenopathy. No aortic aneurysm. The patient is status post hysterectomy. IMPRESSION: Findings consistent with small bowel obstruction. No free air. No free fluid. Multiple other findings as discussed above. The patient's physician was notified of the findings by telephone and by [facility] preliminary radiology report. [id number] [facility]
[2017-08-09] MEDS ORDERED: Ketorolac 60 MG/2 ML SDV IVPUSH SCH (11:00)
[2017-08-09] MEDS ORDERED: Ketorolac 30 MG/ML SDV IVPUSH PRN (11:22)
[2017-08-09] MEDS: Ketorolac 30 MG/ML SDV IVPUSH SCH ×2 (12:13→17:30)
--- NOTE | 2017-08-09 14:15 | PCM.HP ---
H&P History of Present Illness - General Date of Service: 08/09/17 Admit Problem/Dx: Admission Diagnosis/Problem Admission Diagnosis/Problem Obstruction of colon Source of Information: Patient History Limitations: Reports: No Limitations - History of Present Illness Initial Comments - Free Text/Narative: This is a 51yo F here for increasing abdominal pain and discomfort. She states the symptoms have worsened since yesterday when she was in the ER. Patient has vomited a few times but did say she had a small BM yesterday. Patient feels chills and has a decreased appetite. Onset of Symptoms: Reports: Gradual Duration of Symptoms: Reports: Day(s):, Getting Worse Location: Reports: Abdomen Improves with: Reports: None Worsens with: Reports: None Associated Symptoms: Reports: Loss of Appetite, Nausea/Vomiting Middle Abdomen Pain Score (Numeric/FACES): 9 - Related Data Allergies/Adverse Reactions: Allergies Allergy/AdvReac Type Severity Reaction Status Date / Time adhesive tape Allergy Rash Verified 08/08/17 20:39 celecoxib [From Celebrex] Allergy Nausea and Verified 08/08/17 20:39 Vomiting Home Medications: Home Meds Ipratropium/Albuterol Sulfate [Duoneb 0.5 MG-3 MG/3 ML] 1 - 2 puff INH Q4H PRN 04/14/13 [History] Omeprazole 20 mg PO ACBREAKFAST 04/14/13 [History] risperiDONE [RisperiDAL M-Tab] 2 mg PO QPM 04/14/13 [History] Acetaminophen [Tylenol Extra Strength] 500 mg PO Q6H 06/06/15 [History] Budesonide/Formoterol [Symbicort 160-4.5 MCG] 2 puff INH BID 06/06/15 [History] Gabapentin [Neurontin] 1 tab PO TID 06/06/15 [History] QUEtiapine [SEROquel] 100 tab PO QAM 06/06/15 [History] Spironolactone [Aldactone] 3 tab PO BID 06/06/15 [History] buPROPion [Wellbutrin SR] 100 mg PO BID 06/06/15 [History] hydrOXYzine HCl [hydrOXYzine] 1 - 3 cap PO TID 06/06/15 [History] rOPINIRole [Requip] 1.5 tab PO BEDTIME 06/06/15 [History] tiZANidine [Zanaflex] 4 mg PO Q6H 02/28/16 [History] Zolpidem Tartrate [Ambien Cr] 12.5 tab PO QPM 08/01/16 [History] ClonazePAM [KlonoPIN] 1 mg PO BID 06/25/17 [History] QUEtiapine Fumarate [Quetiapine Fumarate] 400 mg PO QPM 06/25/17 [History] traZODone HCl [Trazodone HCl] 100 mg PO QPM 06/25/17 [History] Past Medical History HEENT History: Reports: Impaired Vision, Other (See Below) Other HEENT History: glasses for reading, Cardiovascular History: Reports: Hypertension Respiratory History: Reports: Asthma, Bronchitis, Recurrent, Pneumonia, Recurrent, Other (See Below) Other Respiratory History: Emphysema Gastrointestinal History: Reports: Bowel Obstruction, GERD, Irritable Bowel Syndrome Genitourinary History: Reports: UTI, Recurrent [employer]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: 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 Bleeding, Musculoskeletal History: Reports: Back Pain, Chronic, Other (See Below) Other Musculoskeletal History: back / butt pain, shoots down left leg Neurological History: Reports: Migraines Psychiatric History: Reports: Anxiety, Depression, Suicide Attempt, Suicidal Ideation Endocrine/Metabolic History: Reports: Diabetes, Type II, Obesity/BMI 30+ Hematologic History: Reports: Blood Transfusion(s), Iron Deficiency Dermatologic History: Reports: Eczema, Other (See Below) Other Dermatologic History: Allergy to paper tape - Infectious Disease History Infectious Disease History: Reports: Chicken Pox, Measles, Rubella - Past Surgical History GI Surgical History: Reports: Appendectomy, Cholecystectomy, Hernia, Abdominal, Other (See Below) Female Surgical History: Reports: Section, Hysterectomy Social & Family History - Family History Family Medical History: Noncontributory - Tobacco Use Smoking Status *Q: Current Every Day Smoker Years of Tobacco use: 35 Packs/Tins Daily: 0.5 Used Tobacco, but Quit: No Second Hand Smoke Exposure: No - Caffeine Use Caffeine Use: Reports: Coffee, Soda - Alcohol Use Days Per Week of Alcohol Use: 0 - Recreational Drug Use Recreational Drug Use: No H&P Review of Systems - Review of Systems: Review Of Systems: ROS reveals no pertinent complaints other than HPI. Exam - Exam Exam: See Below - Vital Signs Vital Signs: Last Vital Signs Temp 36.8 C 08/09/17 13:32 Pulse 87 08/09/17 13:32 Resp 18 08/09/17 13:32 BP 142/77 H 08/09/17 13:32 Pulse Ox 96 08/09/17 13:32 Weight: 111.039 kg - Exam General: Alert, Oriented HEENT: PERRLA, Conjunctiva Clear Neck: Supple, Trachea Midline Lungs: Clear to Auscultation, Normal Respiratory Effort Cardiovascular: Regular Rate, Regular Rhythm GI/Abdominal Exam: Tender, Abnormal Bowel Sounds Back Exam: Normal Inspection Extremities: Normal Inspection - Patient Data Result Diagrams: 08/09/17 08:39 08/09/17 08:39 *Q Meaningful Use (ADM) - VTE *Q VTE Criteria *Q: - Stroke *Q Stroke Criteria *Q: - AMI *Q AMI Criteria *Q: - Problem List (1) Small bowel obstruction SNOMED Code(s): 073315404 ICD Code: K56.609 - UNSP INTESTNL OBST, UNSP TO PARTIAL VERSUS COMPLETE OBST Status: Acute Priority: High Current Visit: Yes (2) HTN (hypertension) SNOMED Code(s): 88439509 ICD Code: I10 - ESSENTIAL (PRIMARY) HYPERTENSION Status: Chronic Current Visit: Yes Qualifiers: Hypertension type: essential hypertension Qualified Code(s): I10 - Essential (primary) hypertension (3) Migraine SNOMED Code(s): 72860661 ICD Code: G43.909 - MIGRAINE, UNSP, NOT INTRACTABLE, WITHOUT STATUS MIGRAINOSUS Status: Chronic Current Visit: Yes Qualifiers: Migraine type: unspecified Intractability: not intractable (4) Osteopenia SNOMED Code(s): 124679533 ICD Code: M85.80 - OTH DISRD OF BONE DENSITY AND STRUCTURE, UNSPECIFIED SITE Status: Chronic Current Visit: Yes Qualifiers: Osteopenia location: unspecified Qualified Code(s): M85.80 - Other specified disorders of bone density and structure, unspecified site (5) Restless leg SNOMED Code(s): 79934143 ICD Code: G25.81 - RESTLESS LEGS SYNDROME Status: Chronic Current Visit: Yes (6) GERD (gastroesophageal reflux disease) SNOMED Code(s): 758473618 ICD Code: K21.9 - GASTRO-ESOPHAGEAL REFLUX DISEASE WITHOUT ESOPHAGITIS Status: Chronic Current Visit: Yes (7) Chronic pain SNOMED Code(s): 41006045 ICD Code: G89.29 - OTHER CHRONIC PAIN Status: Acute Current Visit: Yes (8) Asthma SNOMED Code(s): 840862883 ICD Code: J45.909 - UNSPECIFIED ASTHMA, UNCOMPLICATED Status: Chronic Current Visit: Yes Qualifiers: Asthma severity: mild Asthma persistence: intermittent Asthma complication type: uncomplicated Qualified Code(s): J45.20 - Mild intermittent asthma, uncomplicated (9) Depression SNOMED Code(s): 24248650 ICD Code: F32.9 - MAJOR DEPRESSIVE DISORDER, SINGLE EPISODE, UNSPECIFIED Status: Chronic Current Visit: Yes Problem List Initiated/Reviewed/Updated: Yes Orders Last 24hrs: Active Orders 24 hr Category Date Time Status Ketorolac [Toradol] Med 08/09/17 12:00 Active 15 mg IVPUSH Q6H Nicotine [Habitrol] Med 08/10/17 08:00 Active 21 mg TRDERM DAILY Sodium Chloride 0.9% [Saline Flush] Med 08/09/17 09:34 Active 10 ml FLUSH ASDIRECTED PRN Peripheral IV Insertion Adult [OM.PC] Routine Oth 08/09/17 09:34 Ordered Medication Orders Sodium Chloride (Normal Saline) 1,000 mls @ 100 mls/hr IV ASDIRECTED ARIK Last Admin: 08/09/17 10:00 Dose: 150 mls/hr Ketorolac Tromethamine (Toradol) 15 mg IVPUSH Q6H ARIK Last Admin: 08/09/17 12:13 Dose: 15 mg Nicotine (Habitrol) 21 mg TRDERM DAILY [facility] Sodium Chloride (Saline Flush) 10 ml FLUSH ASDIRECTED PRN PRN Reason: Keep Vein Open Assessment/Plan Comment:: Patient admitted to inpatient for small bowel obstruction. Placed NPO except for ice chips and meds. We will help control pain with anti-inflammatories. Counseled on conservative management at this time and close monitoring. Patient agrees with plan of care. F/u labs in am and re-evaluate.
[2017-08-09] MEDS ORDERED: Nicotine 21 MG/24 Hr Patch ONE (16:43)
[2017-08-09] MEDS ORDERED: Ketorolac 30 MG/ML SDV ONE ×2 (16:44→22:23)
[2017-08-09] MEDS: Acetaminophen 500 MG Tab PO SCH ×2 (19:55→21:30)
[2017-08-09] MEDS: traZODone 50 MG Tab PO SCH (19:56)
[2017-08-09] MEDS: Spironolactone 25 MG Tab PO SCH (19:56)
[2017-08-09] MEDS: rOPINIRole 1 MG Tab PO SCH (19:57)
[2017-08-09] MEDS: ClonazePAM 1 MG Tab PO SCH (19:57)
[2017-08-09] MEDS ORDERED: traZODone 50 MG Tab ONE (20:00)
[2017-08-09] MEDS ORDERED: ZOLPIDEM TARTRATE 12.5 MG PO SCH (20:00)
[2017-08-09] MEDS ORDERED: RISPERIDONE 2 MG PO SCH (20:00)
[2017-08-09] MEDS ORDERED: FORMOTEROL INH SCH (20:00)
[2017-08-09] MEDS ORDERED: BUDESONIDE INH SCH (20:00)
[2017-08-09] MEDS ORDERED: Spironolactone 25 MG Tab ONE (20:00)
[2017-08-09] MEDS: Gabapentin 800 MG Tab PO SCH (21:47)
[2017-08-10] MEDS: tiZANidine 4 MG Tab PO SCH ×6 (00:15→17:30)
[2017-08-10] MEDS: Ketorolac 30 MG/ML SDV IVPUSH SCH ×4 (01:57→17:30)
[2017-08-10] MEDS ORDERED: Ketorolac 30 MG/ML SDV ONE ×2 (04:40→23:55)
[2017-08-10] MEDS: Omeprazole 20 MG Cap.CR PO SCH (08:19)
[2017-08-10] MEDS: Spironolactone 25 MG Tab PO SCH ×2 (08:19→20:27)
[2017-08-10] MEDS: ClonazePAM 1 MG Tab PO SCH ×2 (08:20→20:27)
[2017-08-10] MEDS: Acetaminophen 500 MG Tab PO SCH ×3 (08:29→17:30)
[2017-08-10] MEDS: Gabapentin 800 MG Tab PO SCH (08:29)
[2017-08-10] MEDS ORDERED: Nicotine 21 MG/24 Hr Patch ONE (08:42)
[2017-08-10] MEDS: Nicotine 21 MG/24 Hr Patch TRDERM SCH (08:43)
[2017-08-10] MEDS: BUPROPION 100 MG PO SCH ×3 (11:28→20:28)
[2017-08-10] MEDS: Promethazine 12.5 MG in Sodium Chloride 0.9% 50 ML IV PRN ×2 (11:30→18:54)
--- NOTE | 2017-08-10 16:35 | PCM.PN ---
- General Info Date of Service: 08/10/17 Subjective Update: Patient has continued abdominal discomfort and nausea. She has improved appetite but is still NPO. Patient denies any other concerns but would like something more for pain. - Review of Systems General: Reports: Appetite (increase) HEENT: Reports: No Symptoms Pulmonary: Reports: No Symptoms Cardiovascular: Reports: No Symptoms Gastrointestinal: Reports: Abdominal Pain, Nausea Genitourinary: Reports: No Symptoms Musculoskeletal: Reports: No Symptoms Skin: Reports: No Symptoms Neurological: Reports: No Symptoms Psychiatric: Reports: No Symptoms - Patient Data Vitals - Most Recent: Last Vital Signs Temp 36.9 C 08/10/17 13:00 Pulse 82 08/10/17 13:00 Resp 18 08/10/17 13:00 BP 136/72 08/10/17 13:00 Pulse Ox 97 08/10/17 13:00 Weight - Most Recent: 111.039 kg I&O - Last 24 Hours: Intake & Output 08/10/17 08/10/17 08/10/17 06:59 14:59 22:59 Intake Total 90 Balance 90 Lab Results Last 24 Hours: Laboratory Results - last 24 hr 08/10/17 08/10/17 08/10/17 Range/Units 07:20 07:20 07:20 WBC 4.9 D (4.0-11.0) K/uL RBC 4.37 (3.80-5.80) M/uL Hgb 11.8 D (11.5-16.5) g/dL Hct 35.7 L D (37.0-47.0) % MCV 82 (76-96) fL MCH 27.0 (27.0-32.0) pg MCHC 33.1 (31.0-35.0) g/dL RDW 14.5 (11.0-16.0) % Plt Count 150 D (150-500) K/uL MPV 11.2 H (6.0-10.0) fL Neut % (Auto) 46.9 (45.0-70.0) % Lymph % (Auto) 39.7 (20.0-40.0) % [place] % (Auto) 12.2 H (3.0-10.0) % Eos % (Auto) 1.0 (1.0-5.0) % Baso % (Auto) 0.2 (0.0-0.5) % Neut # (Auto) 2.30 (2.00-7.50) K/uL Lymph # (Auto) 1.95 (1.50-4.00) K/uL [place] # (Auto) 0.60 (0.20-0.80) K/uL Eos # (Auto) 0.05 (0.04-0.40) K/uL Baso # (Auto) 0.01 L (0.02-0.10) K/uL Sodium 139 (136-145) mmol/L Potassium 3.6 (3.5-5.1) mmol/L Chloride 103 (98-107) mmol/L Carbon Dioxide 24.6 (21.0-32.0) mmol/L Anion Gap 15.0 (5.0-15.0) mmol/L BUN 17 D (8-26) mg/dL Creatinine 1.06 H D (0.55-1.02) mg/dL Est Cr Clr Drug Dosing 53.61 mL/min Estimated GFR (MDRD) 54 L (>60) MLS/MIN BUN/Creatinine Ratio 16.0 (6-25) Glucose 132 H D (74-100) mg/dL Lactic Acid 0.86 L (0.90-1.70) mmol/L Calcium 7.9 L (8.5-10.1) mg/dL Total Bilirubin 0.5 (0.0-1.0) mg/dL AST 24 (15-37) U/L ALT 32 (12-78) U/L Alkaline Phosphatase 68 (46-116) U/L Total Protein 6.1 L (6.4-8.2) g/dL Albumin 3.2 L (3.4-5.0) g/dL Globulin 2.9 (2.2-4.2) g/dL Albumin/Globulin Ratio 1.1 (0.8-2.0) Med Orders - Current: Current Medications Acetaminophen (Tylenol Extra Strength) 500 mg PO Q6H [facility] Last Admin: 08/10/17 13:18 Dose: Not Given Albuterol/Ipratropium (Duoneb 3.0-0.5 Mg/3 Ml) 3 ml INH Q4H PRN PRN Reason: Shortness of Breath Clonazepam (Klonopin) 1 mg PO BID [facility] Last Admin: 08/10/17 08:20 Dose: 1 mg Gabapentin (Neurontin) 800 mg PO TID [facility] Sodium Chloride (Normal Saline) 1,000 mls @ 100 mls/hr IV ASDIRECTED [facility] Last Admin: 08/09/17 10:00 Dose: 150 mls/hr Promethazine HCl 12.5 mg/ (Sodium Chloride) 50.5 mls @ 200 mls/hr IV Q6H PRN PRN Reason: Nausea/Vomiting Last Admin: 08/10/17 11:30 Dose: 200 mls/hr Ketorolac Tromethamine (Toradol) 15 mg IVPUSH Q6H [facility] Last Admin: 08/10/17 11:27 Dose: 15 mg Mometasone Furoate/Formoterol Fumar (Dulera 200-5 Mcg) 2 puff IH BID [facility] Nicotine (Habitrol) 21 mg TRDERM DAILY [facility] Last Admin: 08/10/17 08:43 Dose: 21 mg Bupropion [ (Wellbutrin Sr] 100mg) 100 mg PO BID [facility] Last Admin: 08/10/17 13:43 Dose: Not Given Zolpidem Tartrate Cr ([Ambien Cr] 12.5mg) 0 tab PO QPM [facility] Omeprazole (Omeprazole) 20 mg PO ACBREAKFAST [facility] Last Admin: 08/10/17 08:19 Dose: 20 mg Quetiapine Fumarate (Seroquel) 400 mg PO QPM [facility] Last Admin: 08/09/17 21:47 Dose: 400 mg Quetiapine Fumarate (Seroquel) 100 mg PO QAM [facility] Last Admin: 08/10/17 08:20 Dose: 100 mg Risperidone (Risperidal) 2 mg PO QPM [facility] Ropinirole HCl (Requip) 1.5 mg PO BEDTIME [facility] Last Admin: 08/09/17 19:57 Dose: 1.5 mg Sodium Chloride (Saline Flush) 10 ml FLUSH ASDIRECTED PRN PRN Reason: Keep Vein Open Spironolactone (Aldactone) 75 mg PO BID [facility] Last Admin: 08/10/17 08:19 Dose: 75 mg Tizanidine HCl (Zanaflex) 4 mg PO Q6H [facility] Last Admin: 08/10/17 13:18 Dose: Not Given Trazodone HCl (Trazodone) 100 mg PO QPM [facility] Last Admin: 08/09/17 19:56 Dose: 100 mg Discontinued Medications Gabapentin (Neurontin) 800 mg PO TID [facility] Last Admin: 08/10/17 08:29 Dose: 800 mg Ketorolac Tromethamine (Toradol) 15 mg IVPUSH Q6H PRN PRN Reason: PAIN Ketorolac Tromethamine (Toradol) Confirm Administered Dose 30 mg .ROUTE .STK- MED ONE Stop: 08/09/17 16:45 Last Admin: 08/09/17 19:40 Dose: Not Given Ketorolac Tromethamine (Toradol) Confirm Administered Dose 30 mg .ROUTE .STK- MED ONE Stop: 08/09/17 22:24 Last Admin: 08/09/17 23:30 Dose: 30 mg Ketorolac Tromethamine (Toradol) Confirm Administered Dose 30 mg .ROUTE .STK- MED ONE Stop: 08/10/17 04:41 Last Admin: 08/10/17 04:47 Dose: 30 mg Nicotine (Habitrol) Confirm Administered Dose 21 mg .ROUTE .STK-MED ONE Stop: 08/09/17 16:44 Last Admin: 08/09/17 16:00 Dose: 21 mg Nicotine (Habitrol) Confirm Administered Dose 21 mg .ROUTE .STK-MED ONE Stop: 08/10/17 08:43 Last Admin: 08/10/17 11:04 Dose: 21 mg Ondansetron HCl (Zofran Odt) 8 mg PO ONETIME ONE Stop: 08/09/17 08:24 Last Admin: 08/09/17 08:30 Dose: 8 mg Spironolactone (Aldactone) Confirm Administered Dose 50 mg .ROUTE .STK-MED ONE Stop: 08/09/17 20:01 Last Admin: 08/09/17 21:00 Dose: 50 mg Trazodone HCl (Trazodone) Confirm Administered Dose 50 mg .ROUTE .STK-MED ONE Stop: 08/09/17 20:01 Last Admin: 08/09/17 21:47 Dose: 50 mg - Exam General: Alert, Oriented HEENT: Pupils Equal, Pupils Reactive, EOMI Neck: Supple Lungs: Clear to Auscultation, Normal Respiratory Effort Cardiovascular: Regular Rate, Regular Rhythm GI/Abdominal Exam: Tender, Abnormal Bowel Sounds (decreased) Extremities: Normal Inspection - Problem List & Annotations (1) Small bowel obstruction SNOMED Code(s): 157903181 Code(s): K56.609 - UNSP INTESTNL OBST, UNSP TO PARTIAL VERSUS COMPLETE OBST Status: Acute Priority: High Current Visit: Yes (2) HTN (hypertension) SNOMED Code(s): 51519547 Code(s): I10 - ESSENTIAL (PRIMARY) HYPERTENSION Status: Chronic Current Visit: Yes Qualifiers: Hypertension type: essential hypertension Qualified Code(s): I10 - Essential (primary) hypertension (3) Migraine SNOMED Code(s): 12564762 Code(s): G43.909 - MIGRAINE, UNSP, NOT INTRACTABLE, WITHOUT STATUS MIGRAINOSUS Status: Chronic Current Visit: Yes Qualifiers: Migraine type: unspecified Intractability: not intractable (4) Osteopenia SNOMED Code(s): 230318685 Code(s): M85.80 - OTH DISRD OF BONE DENSITY AND STRUCTURE, UNSPECIFIED SITE Status: Chronic Current Visit: Yes Qualifiers: Osteopenia location: unspecified Qualified Code(s): M85.80 - Other specified disorders of bone density and structure, unspecified site (5) Restless leg SNOMED Code(s): 59538120 Code(s): G25.81 - RESTLESS LEGS SYNDROME Status: Chronic Current Visit: Yes (6) GERD (gastroesophageal reflux disease) SNOMED Code(s): 310462721 Code(s): K21.9 - GASTRO-ESOPHAGEAL REFLUX DISEASE WITHOUT ESOPHAGITIS Status: Chronic Current Visit: Yes (7) Chronic pain SNOMED Code(s): 49078677 Code(s): G89.29 - OTHER CHRONIC PAIN Status: Acute Current Visit: Yes (8) Asthma SNOMED Code(s): 897416636 Code(s): J45.909 - UNSPECIFIED ASTHMA, UNCOMPLICATED Status: Chronic Current Visit: Yes Qualifiers: Asthma severity: mild Asthma persistence: intermittent Asthma complication type: uncomplicated Qualified Code(s): J45.20 - Mild intermittent asthma, uncomplicated (9) Depression SNOMED Code(s): 84875756 Code(s): F32.9 - MAJOR DEPRESSIVE DISORDER, SINGLE EPISODE, UNSPECIFIED Status: Chronic Current Visit: Yes - Problem List Review Problem List Initiated/Reviewed/Updated: Yes - My Orders Last 24 Hours: My Active Orders 08/09/17 17:37 Albuterol/Ipratropium [DuoNeb 3.0-0.5 MG/3 ML] 3 ml INH Q4H PRN 08/09/17 17:45 Acetaminophen [Tylenol Extra Strength] 500 mg PO Q6H 08/09/17 18:00 tiZANidine [Zanaflex] 4 mg PO Q6H 08/09/17 20:00 ClonazePAM [KlonoPIN] 1 mg PO BID QUEtiapine [SEROquel] 400 mg PO QPM Spironolactone [Aldactone] 75 mg PO BID Zolpidem Tartrate [Ambien Cr] 0 tab PO QPM buPROPion [Wellbutrin SR] 100 mg PO BID rOPINIRole [Requip] 1.5 mg PO BEDTIME traZODone 100 mg PO QPM 08/10/17 07:00 Omeprazole 20 mg PO ACBREAKFAST 08/10/17 08:00 Abdomen 2V AP Flat Upright [CR] DAILY Nicotine [Habitrol] 21 mg TRDERM DAILY QUEtiapine [SEROquel] 100 mg PO QAM 08/10/17 11:12 Promethazine [Phenergan] 12.5 mg Sodium Chloride 0.9% [Normal Saline] 50 ml IV Q6H 08/10/17 14:00 Gabapentin [Neurontin] 800 mg PO TID 08/10/17 20:00 Mometasone/Formoterol [Dulera 200-5 MCG] 2 puff IH BID risperiDONE [RisperiDAL] 2 mg PO QPM - Plan Plan:: Patient admitted to inpatient for small bowel obstruction. Placed NPO except for ice chips and meds. We will help control pain with anti-inflammatories. Counseled on conservative management at this time and close monitoring. Patient agrees with plan of care. F/u labs in am and re-evaluate. 08/10/17 Repeat Abd xrays shows continued partial small bowel obstruction. Patient has some improvement of abdominal pain. We will maintain NPO status and continue to monitor. Continue hydration as scheduled. Patient agrees with plan of care.
[2017-08-10] MEDS: Sodium Chloride 0.9% 1,000 ML IV SCH ×2 (16:58→21:55)
[2017-08-10] MEDS: Gabapentin 400 MG Cap PO SCH (17:05)
--- NOTE | 2017-08-10 17:27 | CR ---
DATE OF SERVICE: 08/10/17 CLINICAL DATA: bowel obstruction SUPINE AND UPRIGHT ABDOMEN: Again noted are multiple gas-filled distended loops of small bowel throughout the abdomen with air-fluid levels consistent with small bowel obstruction. No free air. The patient's physician was notified of the findings by [facility] preliminary radiology report. [id number] MTDD
[2017-08-10] MEDS: risperiDONE 1 MG Tab PO SCH (20:27)
[2017-08-10] MEDS: traZODone 50 MG Tab PO SCH (20:27)
[2017-08-10] MEDS: Formoterol/Mometasone 200-5 MCG 8.8 GM Inhaler IH SCH (20:28)
[2017-08-10] MEDS: rOPINIRole 1 MG Tab PO SCH (20:33)
[2017-08-11] MEDS: Gabapentin 400 MG Cap PO SCH ×4 (00:06→19:56)
[2017-08-11] MEDS: Ketorolac 30 MG/ML SDV IVPUSH SCH ×4 (00:06→19:58)
[2017-08-11] MEDS: Acetaminophen 500 MG Tab PO SCH ×5 (00:06→19:57)
[2017-08-11] MEDS: tiZANidine 4 MG Tab PO SCH ×4 (00:08→19:59)
[2017-08-11] MEDS: Promethazine 12.5 MG in Sodium Chloride 0.9% 50 ML IV PRN ×3 (00:10→15:21)
[2017-08-11] MEDS: Sodium Chloride 0.9% 1,000 ML IV SCH ×2 (05:10→19:51)
[2017-08-11] MEDS: Omeprazole 20 MG Cap.CR PO SCH (06:34)
[2017-08-11] MEDS: ClonazePAM 1 MG Tab PO SCH ×2 (08:40→19:54)
[2017-08-11] MEDS: Spironolactone 25 MG Tab PO SCH ×2 (08:41→19:55)
[2017-08-11] MEDS: BUPROPION 100 MG PO SCH (08:41)
[2017-08-11] MEDS: Formoterol/Mometasone 200-5 MCG 8.8 GM Inhaler IH SCH ×2 (08:42→20:00)
[2017-08-11] MEDS ORDERED: Nicotine 21 MG/24 Hr Patch ONE (09:36)
[2017-08-11] MEDS ORDERED: Ketorolac 30 MG/ML SDV ONE ×2 (11:51→19:35)
[2017-08-11] MEDS: Nicotine 21 MG/24 Hr Patch TRDERM SCH (11:56)
[2017-08-11] MEDS: rOPINIRole 1 MG Tab PO SCH (19:52)
[2017-08-11] MEDS: traZODone 50 MG Tab PO SCH (19:55)
[2017-08-11] MEDS: risperiDONE 1 MG Tab PO SCH (19:56)
[2017-08-11] MEDS: METFORMIN PO SCH (20:00)
[2017-08-11] MEDS: SITAGLIPTIN PO SCH (20:00)
[2017-08-11] MEDS ORDERED: QUEtiapine Fumarate 200 MG TABLET PO ONE (20:16)
[2017-08-11] MEDS: Albuterol/Ipratropium 3.0-0.5 MG/3 ML Neb Soln INH PRN (20:58)
[2017-08-11] MEDS ORDERED: Sodium Chloride 0.9% 1,000 ML IV SCH (21:15)
[2017-08-12] MEDS: BUPROPION 100 MG PO SCH ×3 (00:09→19:41)
[2017-08-12] MEDS: Acetaminophen 500 MG Tab PO SCH ×4 (00:13→17:47)
[2017-08-12] MEDS: Promethazine 25 MG Tab PO PRN ×3 (00:13→20:41)
[2017-08-12] MEDS ORDERED: Ketorolac 30 MG/ML SDV ONE (02:17)
[2017-08-12] MEDS: Ketorolac 30 MG/ML SDV IVPUSH SCH ×3 (02:34→16:04)
[2017-08-12] MEDS: tiZANidine 4 MG Tab PO SCH ×4 (02:36→19:42)
[2017-08-12] MEDS: Omeprazole 20 MG Cap.CR PO SCH (06:41)
[2017-08-12] MEDS: ClonazePAM 1 MG Tab PO SCH ×2 (08:16→19:40)
[2017-08-12] MEDS: METFORMIN PO SCH ×2 (08:16→17:48)
[2017-08-12] MEDS: SITAGLIPTIN PO SCH ×2 (08:16→17:48)
[2017-08-12] MEDS: Spironolactone 25 MG Tab PO SCH ×2 (08:16→19:38)
[2017-08-12] MEDS: Gabapentin 400 MG Cap PO SCH ×3 (08:17→19:40)
[2017-08-12] MEDS: Formoterol/Mometasone 200-5 MCG 8.8 GM Inhaler IH SCH ×2 (08:18→19:37)
[2017-08-12] MEDS ORDERED: Nicotine 21 MG/24 Hr Patch ONE (09:58)
--- NOTE | 2017-08-12 10:22 | PN ---
DATE OF VISIT: 08/12/2017 SUBJECTIVE: She was admitted a couple of days ago for a bowel obstruction. She has been on clear liquids. Nursing staff states that she has definitely been improving since admission. She has been asking to go home. The patient has been passing gas and having bowel movements that are small. She has not had any problems with nausea or vomiting. She has not had an NG tube in place this visit. OBJECTIVE: Upon entering the room, the patient is awake, she is pleasant, in no obvious distress. Vital signs are reviewed as listed. Abdomen is soft. There is just minimal discomfort with palpation fairly diffusely. Bowel sounds are present, but hypoactive. Skin is warm and dry. ASSESSMENT AND PLAN: We will increase the patient's diet today to a soft diet. If she can tolerate this for her noon meal and if she is still moving around well as well as getting a followup x-ray of the abdomen, there is a chance she could be discharged today. The IV has been discontinued. The patient has no other questions today. CRS/MODL /[id number]
[2017-08-12] MEDS: Nicotine 21 MG/24 Hr Patch TRDERM SCH (11:34)
[2017-08-12] MEDS ORDERED: Metoclopramide 10 MG/2 ML SDV IVPUSH SCH (17:30)
[2017-08-12] MEDS ORDERED: Metoclopramide 10 MG/2 ML SDV ONE (17:34)
[2017-08-12] MEDS ORDERED: QUEtiapine Fumarate 200 MG TABLET PO ONE (19:18)
[2017-08-12] MEDS: rOPINIRole 1 MG Tab PO SCH (19:37)
[2017-08-12] MEDS: traZODone 50 MG Tab PO SCH (19:38)
[2017-08-12] MEDS: risperiDONE 1 MG Tab PO SCH (19:40)
[2017-08-12] MEDS: Albuterol/Ipratropium 3.0-0.5 MG/3 ML Neb Soln INH PRN (20:40)
[2017-08-13] MEDS: Ketorolac 30 MG/ML SDV IVPUSH SCH ×4 (00:33→14:17)
[2017-08-13] MEDS: Acetaminophen 500 MG Tab PO SCH ×4 (00:34→18:12)
[2017-08-13] MEDS: Promethazine 25 MG Tab PO PRN ×2 (03:15→19:46)
[2017-08-13] MEDS: tiZANidine 4 MG Tab PO SCH ×4 (03:16→21:37)
[2017-08-13] MEDS: Metoclopramide 10 MG/2 ML SDV IVPUSH PRN ×2 (04:50→13:25)
[2017-08-13] MEDS: Omeprazole 20 MG Cap.CR PO SCH (08:29)
[2017-08-13] MEDS: Spironolactone 25 MG Tab PO SCH ×2 (08:29→19:34)
[2017-08-13] MEDS: BUPROPION 100 MG PO SCH ×2 (08:30→21:36)
[2017-08-13] MEDS: ClonazePAM 1 MG Tab PO SCH ×2 (08:31→19:38)
[2017-08-13] MEDS: Formoterol/Mometasone 200-5 MCG 8.8 GM Inhaler IH SCH ×2 (08:31→21:36)
[2017-08-13] MEDS: Gabapentin 400 MG Cap PO SCH ×3 (08:32→19:38)
[2017-08-13] MEDS: METFORMIN PO SCH ×2 (08:32→18:12)
[2017-08-13] MEDS: SITAGLIPTIN PO SCH ×2 (08:32→18:12)
[2017-08-13] MEDS ORDERED: Nicotine 21 MG/24 Hr Patch ONE (08:46)
[2017-08-13] MEDS: Nicotine 21 MG/24 Hr Patch TRDERM SCH (08:47)
--- NOTE | 2017-08-13 09:40 | PN ---
DATE OF VISIT: 08/13/2017 SUBJECTIVE: This patient is an inpatient in the hospital for bowel obstruction. Yesterday, we tried increasing her diet to soft from clear. She states that she was tolerating it okay. X-rays were taken late morning, which did show ongoing air-fluid levels, possibly slightly worse than before. The patient was brought back to a clear liquid diet. She states that she feels pretty good. She is not sure why they changed her diet back to clear liquid. She walked several times yesterday. She has had a bowel movement. She states that she feels okay and was hoping that she could go home. OBJECTIVE: Vital signs are reviewed today, they are normal. Physical exam; abdomen is soft. Minimal discomfort with palpation. Bowel sounds are present but hypoactive. Skin is warm and dry. ASSESSMENT AND PLAN: At this point, we will increase the patient's diet back to soft food. I want to see how she does with this today. We will continue to monitor her and see how it goes over the course of the day. If she has not improved and is not tolerating the diet, she will stay with us in the hospital. I feel she may need to stay another day anyway, and a GI consult may be needed tomorrow. CRS/MODL /[id number]
--- NOTE | 2017-08-13 19:08 | CR ---
DATE OF SERVICE: 05/12/2018 CLINICAL DATA: Small bowel obstruction. SUPINE AND UPRIGHT ABDOMEN: Comparison is made to a prior exam dated 08/10/2017. There are persistent findings consistent with a small bowel obstruction with progressive dilatation of the small bowel compared to the prior study. No free air. [id number] [facility]
[2017-08-13] MEDS ORDERED: QUEtiapine Fumarate 200 MG TABLET PO ONE (19:27)
[2017-08-13] MEDS: risperiDONE 1 MG Tab PO SCH (19:34)
[2017-08-13] MEDS: traZODone 50 MG Tab PO SCH (19:35)
[2017-08-13] MEDS: rOPINIRole 1 MG Tab PO SCH (19:36)
[2017-08-13] MEDS: Albuterol/Ipratropium 3.0-0.5 MG/3 ML Neb Soln INH PRN (19:41)
[2017-08-13] MEDS ORDERED: Acetaminophen 500 MG Tab ONE (19:44)
[2017-08-13] MEDS ORDERED: busPIRone 15 MG Tab PO PRN ×2 (21:48→22:14)
[2017-08-13] MEDS ORDERED: ZOLPIDEM TARTRATE PO SCH (21:53)
[2017-08-13] MEDS ORDERED: Zolpidem 5 MG Tab PO PRN (22:02)
[2017-08-13] MEDS ORDERED: busPIRone 10 MG Tab ONE (22:25)
[2017-08-14] MEDS: Acetaminophen 500 MG Tab PO SCH ×2 (00:26→05:43)
[2017-08-14] MEDS: tiZANidine 4 MG Tab PO SCH ×2 (02:12→07:13)
[2017-08-14] MEDS: Omeprazole 20 MG Cap.CR PO SCH ×2 (05:42→07:12)
[2017-08-14] MEDS: BUPROPION 100 MG PO SCH (07:13)
[2017-08-14] MEDS: Formoterol/Mometasone 200-5 MCG 8.8 GM Inhaler IH SCH (07:23)
[2017-08-14] MEDS: Gabapentin 400 MG Cap PO SCH (07:24)
[2017-08-14] MEDS: Spironolactone 25 MG Tab PO SCH (07:24)
[2017-08-14] MEDS: ClonazePAM 1 MG Tab PO SCH (07:25)
[2017-08-14] MEDS ORDERED: Nicotine 21 MG/24 Hr Patch ONE (07:34)
[2017-08-14] MEDS: Nicotine 21 MG/24 Hr Patch TRDERM SCH (07:36)
[2017-08-14] MEDS: METFORMIN PO SCH (08:17)
[2017-08-14] MEDS: SITAGLIPTIN PO SCH (08:17)
[2017-08-14 08:45] VITALS: BP 134/67
[2017-08-14] MEDS ORDERED: Pneumococcal 13-Valent Conjugate Vaccine 0.5 ML Syringe IM ONE (09:30)
[2017-08-14] MEDS ORDERED: FLU Vacc QS 2017-18 (6mos UP)/PF 60 MCG/0.5 ML Syringe IM ONE (09:30)
--- NOTE | 2017-08-15 17:46 | PCM.DCSUM1 ---
Discharge Summary - Discharge Data Discharge Date: 08/14/17 Discharge Disposition: Home, Self-Care 01 Condition: Good - Discharge Diagnosis/Problem(s) (1) Small bowel obstruction SNOMED Code(s): 699130729 ICD Code: K56.609 - UNSP INTESTNL OBST, UNSP TO PARTIAL VERSUS COMPLETE OBST Status: Resolved Priority: High (2) HTN (hypertension) SNOMED Code(s): 91240294 ICD Code: I10 - ESSENTIAL (PRIMARY) HYPERTENSION Status: Chronic Qualifiers: Hypertension type: essential hypertension Qualified Code(s): I10 - Essential (primary) hypertension (3) Migraine SNOMED Code(s): 71075463 ICD Code: G43.909 - MIGRAINE, UNSP, NOT INTRACTABLE, WITHOUT STATUS MIGRAINOSUS Status: Chronic Qualifiers: Migraine type: unspecified Intractability: not intractable (4) Osteopenia SNOMED Code(s): 652014229 ICD Code: M85.80 - OTH DISRD OF BONE DENSITY AND STRUCTURE, UNSPECIFIED SITE Status: Chronic Qualifiers: Osteopenia location: unspecified Qualified Code(s): M85.80 - Other specified disorders of bone density and structure, unspecified site (5) Restless leg SNOMED Code(s): 12970709 ICD Code: G25.81 - RESTLESS LEGS SYNDROME Status: Chronic (6) GERD (gastroesophageal reflux disease) SNOMED Code(s): 905651546 ICD Code: K21.9 - GASTRO-ESOPHAGEAL REFLUX DISEASE WITHOUT ESOPHAGITIS Status: Chronic (7) Chronic pain SNOMED Code(s): 95134705 ICD Code: G89.29 - OTHER CHRONIC PAIN Status: Acute (8) Asthma SNOMED Code(s): 811894819 ICD Code: J45.909 - UNSPECIFIED ASTHMA, UNCOMPLICATED Status: Chronic Qualifiers: Asthma severity: mild Asthma persistence: intermittent Asthma complication type: uncomplicated Qualified Code(s): J45.20 - Mild intermittent asthma, uncomplicated (9) Depression SNOMED Code(s): 98849265 ICD Code: F32.9 - MAJOR DEPRESSIVE DISORDER, SINGLE EPISODE, UNSPECIFIED Status: Chronic - Patient Instructions Diet: Mechanical Soft Activity: As Tolerated Notify Provider of: Fever, Nausea and/or Vomiting - Discharge Plan Home Medications: Home Meds Ipratropium/Albuterol Sulfate [Duoneb 0.5 MG-3 MG/3 ML] 1 - 2 puff INH Q4H PRN 04/14/13 [History] Omeprazole 20 mg PO ACBREAKFAST 04/14/13 [History] risperiDONE [RisperiDAL M-Tab] 2 mg PO QPM 04/14/13 [History] Acetaminophen [Tylenol Extra Strength] 500 mg PO Q6H 06/06/15 [History] Budesonide/Formoterol [Symbicort 160-4.5 MCG] 2 puff INH BID 06/06/15 [History] Gabapentin [Neurontin] 1 tab PO TID 06/06/15 [History] QUEtiapine [SEROquel] 100 tab PO QAM 06/06/15 [History] Spironolactone [Aldactone] 3 tab PO BID 06/06/15 [History] buPROPion [Wellbutrin SR] 100 mg PO BID 06/06/15 [History] hydrOXYzine HCl [hydrOXYzine] 1 - 3 cap PO TID 06/06/15 [History] rOPINIRole [Requip] 1.5 tab PO BEDTIME 06/06/15 [History] tiZANidine [Zanaflex] 4 mg PO Q6H 02/28/16 [History] Zolpidem Tartrate [Ambien Cr] 12.5 tab PO QPM 08/01/16 [History] ClonazePAM [KlonoPIN] 1 mg PO BID 06/25/17 [History] QUEtiapine Fumarate [Quetiapine Fumarate] 400 mg PO QPM 06/25/17 [History] traZODone HCl [Trazodone HCl] 100 mg PO QPM 06/25/17 [History] sitaGLIPtin Phos/Metformin HCl [Janumet 50-1,000 MG] 1 tab PO BID 08/11/17 [ History] Patient Handouts: High-Fiber Diet, Small Bowel Obstruction, [id number], Soft- Food Meal Plan - Discharge Summary/Plan Comment Discharge Summary/Plan Comment: Counseled on lifestyle modification and diet changes. Discussed soft light diet for at least 2-4 wks. F/u in clinic in the next week. Dicyclomine prescribed for abdominal cramping. F/u as needed. - Patient Data Vitals - Most Recent: Last Vital Signs Temp 36.2 C 08/14/17 08:00 Pulse 81 08/14/17 08:00 Resp 20 08/14/17 04:00 BP 134/67 08/14/17 08:00 Pulse Ox 94 L 08/14/17 08:00 Weight - Most Recent: 111.039 kg Med Orders - Current: Current Medications Discontinued Medications Acetaminophen (Tylenol Extra Strength) 500 mg PO Q6H [facility] Last Admin: 08/13/17 18:12 Dose: 500 mg Acetaminophen (Tylenol Extra Strength) Confirm Administered Dose [address]-MED ONE Stop: 08/13/17 19:45 Last Admin: 08/14/17 00:26 Dose: Not Given Acetaminophen (Tylenol Extra Strength) 1,000 mg PO Q6H [facility] Last Admin: 08/14/17 05:43 Dose: 1,000 mg Albuterol/Ipratropium (Duoneb 3.0-0.5 Mg/3 Ml) 3 ml INH Q4H PRN PRN Reason: Shortness of Breath Last Admin: 08/13/17 19:41 Dose: 3 ml Buspirone HCl (Buspar) 7.5 mg PO TID PRN PRN Reason: Anxiety Buspirone HCl (Buspar) 10 mg PO TID PRN PRN Reason: Anxiety Buspirone HCl (Buspar) Confirm Administered Dose 10 mg .ROUTE .K-MED ONE Stop: 08/13/17 22:26 Last Admin: 08/13/17 22:32 Dose: 10 mg Clonazepam (Klonopin) 1 mg PO BID [facility] Last Admin: 08/14/17 07:25 Dose: 1 mg Gabapentin (Neurontin) 800 mg PO TID [facility] Last Admin: 08/10/17 08:29 Dose: 800 mg Gabapentin (Neurontin) 800 mg PO TID [facility] Last Admin: 08/14/17 07:24 Dose: 800 mg Sodium Chloride (Normal Saline) 1,000 mls @ 100 mls/hr IV ASDIRECTED [facility] Last Admin: 08/11/17 19:51 Dose: 150 mls/hr Promethazine HCl 12.5 mg/ (Sodium Chloride) 50.5 mls @ 200 mls/hr IV Q6H PRN PRN Reason: Nausea/Vomiting Stop: 08/11/17 21:15 Last Admin: 08/11/17 15:21 Dose: 200 mls/hr Sodium Chloride (Normal Saline) 1,000 mls @ 30 mls/hr IV ASDIRECTED [facility] Influenza Virus Vaccine (Flulaval Quad [id number]) 60 mcg IM .ONCE ONE Stop: 08/14/17 09:31 Last Admin: 08/14/17 09:50 Dose: 60 mcg Ketorolac Tromethamine (Toradol) 15 mg IVPUSH Q6H PRN PRN Reason: PAIN Ketorolac Tromethamine (Toradol) 15 mg IVPUSH Q6H [facility] Last Admin: 08/12/17 02:34 Dose: 15 mg Ketorolac Tromethamine (Toradol) Confirm Administered Dose 30 mg .ROUTE .STK- MED ONE Stop: 08/09/17 16:45 Last Admin: 08/09/17 19:40 Dose: Not Given Ketorolac Tromethamine (Toradol) Confirm Administered Dose 30 mg .ROUTE .STK- MED ONE Stop: 08/09/17 22:24 Last Admin: 08/09/17 23:30 Dose: 30 mg Ketorolac Tromethamine (Toradol) Confirm Administered Dose 30 mg .ROUTE .STK- MED ONE Stop: 08/10/17 04:41 Last Admin: 08/10/17 04:47 Dose: 30 mg Ketorolac Tromethamine (Toradol) Confirm Administered Dose 30 mg .ROUTE .STK- MED ONE Stop: 08/10/17 23:56 Last Admin: 08/11/17 02:03 Dose: Not Given Ketorolac Tromethamine (Toradol) Confirm Administered Dose 30 mg .ROUTE .STK- MED ONE Stop: 08/11/17 11:52 Last Admin: 08/11/17 11:56 Dose: Not Given Ketorolac Tromethamine (Toradol) Confirm Administered Dose 30 mg .ROUTE .STK- MED ONE Stop: 08/11/17 19:36 Last Admin: 08/11/17 19:58 Dose: Not Given Ketorolac Tromethamine (Toradol) Confirm Administered Dose 30 mg .ROUTE .STK- MED ONE Stop: 08/12/17 02:18 Last Admin: 08/12/17 02:17 Dose: Not Given Ketorolac Tromethamine (Toradol) 15 mg IVPUSH Q6H [facility] Stop: 08/14/17 11:59 Last Admin: 08/13/17 14:17 Dose: 15 mg Metoclopramide HCl (Reglan) 10 mg IVPUSH Q8H [facility] Last Admin: 08/12/17 17:46 Dose: 10 mg Metoclopramide HCl (Reglan) 10 mg IVPUSH Q8H PRN PRN Reason: Cramping Last Admin: 08/13/17 13:25 Dose: 10 mg Metoclopramide HCl (Reglan) Confirm Administered Dose 10 mg .ROUTE .STK-MED ONE Stop: 08/12/17 17:35 Last Admin: 08/12/17 18:00 Dose: Not Given Mometasone Furoate/Formoterol Fumar (Dulera 200-5 Mcg) 2 puff IH BID [facility] Last Admin: 08/14/17 07:23 Dose: 2 puff Nicotine (Habitrol) 21 mg TRDERM DAILY [facility] Last Admin: 08/14/17 07:36 Dose: 21 mg Nicotine (Habitrol) Confirm Administered Dose 21 mg .ROUTE .STK-MED ONE Stop: 08/09/17 16:44 Last Admin: 08/09/17 16:00 Dose: 21 mg Nicotine (Habitrol) Confirm Administered Dose 21 mg .ROUTE .STK-MED ONE Stop: 08/10/17 08:43 Last Admin: 08/10/17 11:04 Dose: 21 mg Nicotine (Habitrol) Confirm Administered Dose 21 mg .ROUTE .STK-MED ONE Stop: 08/11/17 09:37 Last Admin: 08/11/17 09:40 Dose: 21 mg Nicotine (Habitrol) Confirm Administered Dose 21 mg .ROUTE .STK-MED ONE Stop: 08/12/17 09:59 Last Admin: 08/12/17 11:33 Dose: Not Given Nicotine (Habitrol) Confirm Administered Dose 21 mg .ROUTE .STK-MED ONE Stop: 08/13/17 08:47 Last Admin: 08/13/17 08:00 Dose: Not Given Nicotine (Habitrol) Confirm Administered Dose 21 mg .ROUTE .STK-MED ONE Stop: 08/14/17 07:35 Last Admin: 08/14/17 07:56 Dose: Not Given Bupropion [ (Wellbutrin Sr] 100mg) 100 mg PO BID [facility] Last Admin: 08/14/17 07:13 Dose: Not Given Zolpidem Tartrate Cr ([Ambien Cr] 12.5mg) 0 tab PO QPM [facility] Sitagliptin/Metformin (Janumet) Mg Tab Own Med 1 each PO BID@0800, 1700 [facility] Last Admin: 08/14/17 08:17 Dose: 1 each Non-Formulary Medication (Zolpidem Tartrate [Ambien Cr]) 10 tab PO QPM [facility] Omeprazole (Omeprazole) 20 mg PO ACBREAKFAST [facility] Last Admin: 08/14/17 07:12 Dose: Not Given Ondansetron HCl (Zofran Odt) 8 mg PO ONETIME ONE Stop: 08/09/17 08:24 Last Admin: 08/09/17 08:30 Dose: 8 mg Pneumococcal 13-Valent Conj Vacc (Prevnar 13) 0.5 ml IM .ONCE ONE Stop: 08/14/17 09:31 Last Admin: 08/14/17 09:43 Dose: 0.5 ml Promethazine HCl (Phenergan) 12.5 mg PO Q6H PRN PRN Reason: Nausea/Vomiting Last Admin: 08/13/17 19:46 Dose: 12.5 mg Quetiapine Fumarate (Seroquel) 400 mg PO QPM [facility] Last Admin: 08/13/17 19:37 Dose: 400 mg Quetiapine Fumarate (Seroquel) 100 mg PO QAM [facility] Last Admin: 08/14/17 07:24 Dose: 100 mg Quetiapine Fumarate (Quetiapine Fumarate) Confirm Administered Dose 400 mg PO .STK-MED ONE Stop: 08/11/17 20:17 Last Admin: 08/11/17 19:58 Dose: Not Given Quetiapine Fumarate (Quetiapine Fumarate) Confirm Administered Dose 400 mg PO .STK-MED ONE Stop: 08/12/17 19:19 Last Admin: 08/13/17 00:43 Dose: Not Given Quetiapine Fumarate (Quetiapine Fumarate) Confirm Administered Dose 400 mg PO .STK-MED ONE Stop: 08/13/17 19:28 Last Admin: 08/14/17 00:26 Dose: Not Given Risperidone (Risperidal) 2 mg PO QPM [facility] Last Admin: 08/13/17 19:34 Dose: 2 mg Ropinirole HCl (Requip) 1.5 mg PO BEDTIME [facility] Last Admin: 01/28/18 19:36 Dose: 1.5 mg Sodium Chloride (Saline Flush) 10 ml FLUSH ASDIRECTED PRN PRN Reason: Keep Vein Open Spironolactone (Aldactone) 75 mg PO BID [facility] Last Admin: 08/14/17 07:24 Dose: 75 mg Spironolactone (Aldactone) Confirm Administered Dose 50 mg .ROUTE .[facility] ONE Stop: 08/09/17 20:01 Last Admin: 08/09/17 21:00 Dose: 50 mg Tizanidine HCl (Zanaflex) 4 mg PO Q6H [facility] Last Admin: 08/12/17 02:36 Dose: 4 mg Tizanidine HCl (Zanaflex) 4 mg PO Q6H [facility] Last Admin: 08/14/17 07:13 Dose: Not Given Trazodone HCl (Trazodone) 100 mg PO QPM [facility] Last Admin: 08/13/17 19:35 Dose: 100 mg Trazodone HCl (Trazodone) Confirm Administered Dose 50 mg .ROUTE .[facility] ONE Stop: 08/09/17 20:01 Last Admin: 08/09/17 21:47 Dose: 50 mg Zolpidem Tartrate (Ambien) 10 mg PO BEDTIME PRN PRN Reason: Insomnia Last Admin: 08/13/17 22:32 Dose: 10 mg *Q Meaningful Use (DIS) - VTE *Q VTE Criteria *Q: - Stroke *Q Stroke Criteria *Q: - AMI *Q AMI Criteria *Q:
--- NOTE | 2017-08-16 13:35 | PCM.PN ---
- General Info Date of Service: 08/11/17 Subjective Update: Patient has some gas but limited BM. She has continued abdominal pains and discomfort. - Review of Systems General: Reports: No Symptoms HEENT: Reports: No Symptoms Pulmonary: Reports: No Symptoms Cardiovascular: Reports: No Symptoms Gastrointestinal: Reports: Abdominal Pain, Nausea Genitourinary: Reports: No Symptoms Neurological: Reports: No Symptoms Psychiatric: Reports: No Symptoms - Patient Data Vitals - Most Recent: Last Vital Signs Temp 36.2 C 08/14/17 08:00 Pulse 81 08/14/17 08:00 Resp 20 08/14/17 04:00 BP 134/67 08/14/17 08:00 Pulse Ox 94 L 08/14/17 08:00 Weight - Most Recent: 111.039 kg Med Orders - Current: Current Medications Discontinued Medications Acetaminophen (Tylenol Extra Strength) 500 mg PO Q6H [facility] Last Admin: 08/13/17 18:12 Dose: 500 mg Acetaminophen (Tylenol Extra Strength) Confirm Administered Dose 500 mg .ROUTE .STK-MED ONE Stop: 08/13/17 19:45 Last Admin: 08/14/17 00:26 Dose: Not Given Acetaminophen (Tylenol Extra Strength) 1,000 mg PO Q6H [facility] Last Admin: 08/14/17 05:43 Dose: 1,000 mg Albuterol/Ipratropium (Duoneb 3.0-0.5 Mg/3 Ml) 3 ml INH Q4H PRN PRN Reason: Shortness of Breath Last Admin: 08/13/17 19:41 Dose: 3 ml Buspirone HCl (Buspar) 7.5 mg PO TID PRN PRN Reason: Anxiety Buspirone HCl (Buspar) 10 mg PO TID PRN PRN Reason: Anxiety Buspirone HCl (Buspar) Confirm Administered Dose 10 mg .ROUTE .STK-MED ONE Stop: 08/13/17 22:26 Last Admin: 08/13/17 22:32 Dose: 10 mg Clonazepam (Klonopin) 1 mg PO BID [facility] Last Admin: 08/14/17 07:25 Dose: 1 mg Gabapentin (Neurontin) 800 mg PO TID [facility] Last Admin: 08/10/17 08:29 Dose: 800 mg Gabapentin (Neurontin) 800 mg PO TID [facility] Last Admin: 08/14/17 07:24 Dose: 800 mg Sodium Chloride (Normal Saline) 1,000 mls @ 100 mls/hr IV ASDIRECTED [facility] Last Admin: 08/11/17 19:51 Dose: 150 mls/hr Promethazine HCl 12.5 mg/ (Sodium Chloride) 50.5 mls @ 200 mls/hr IV Q6H PRN PRN Reason: Nausea/Vomiting Stop: 08/11/17 21:15 Last Admin: 08/11/17 15:21 Dose: 200 mls/hr Sodium Chloride (Normal Saline) 1,000 mls @ 30 mls/hr IV ASDIRECTED [facility] Influenza Virus Vaccine (Flulaval Quad [id number]) 60 mcg IM .ONCE ONE Stop: 08/14/17 09:31 Last Admin: 08/14/17 09:50 Dose: 60 mcg Ketorolac Tromethamine (Toradol) 15 mg IVPUSH Q6H PRN PRN Reason: PAIN Ketorolac Tromethamine (Toradol) 15 mg IVPUSH Q6H [facility] Last Admin: 08/12/17 02:34 Dose: 15 mg Ketorolac Tromethamine (Toradol) Confirm Administered Dose 30 mg .ROUTE .STK- MED ONE Stop: 08/09/17 16:45 Last Admin: 08/09/17 19:40 Dose: Not Given Ketorolac Tromethamine (Toradol) Confirm Administered Dose 30 mg .ROUTE .STK- MED ONE Stop: 08/09/17 22:24 Last Admin: 08/09/17 23:30 Dose: 30 mg Ketorolac Tromethamine (Toradol) Confirm Administered Dose 30 mg .ROUTE .STK- MED ONE Stop: 08/10/17 04:41 Last Admin: 08/10/17 04:47 Dose: 30 mg Ketorolac Tromethamine (Toradol) Confirm Administered Dose 30 mg .ROUTE .STK- MED ONE Stop: 08/10/17 23:56 Last Admin: 08/11/17 02:03 Dose: Not Given Ketorolac Tromethamine (Toradol) Confirm Administered Dose 30 mg .ROUTE .STK- MED ONE Stop: 08/11/17 11:52 Last Admin: 08/11/17 11:56 Dose: Not Given Ketorolac Tromethamine (Toradol) Confirm Administered Dose 30 mg .ROUTE .STK- MED ONE Stop: 08/11/17 19:36 Last Admin: 08/11/17 19:58 Dose: Not Given Ketorolac Tromethamine (Toradol) Confirm Administered Dose 30 mg .ROUTE .STK- MED ONE Stop: 08/12/17 02:18 Last Admin: 08/12/17 02:17 Dose: Not Given Ketorolac Tromethamine (Toradol) 15 mg IVPUSH Q6H [facility] Stop: 08/14/17 11:59 Last Admin: 08/13/17 14:17 Dose: 15 mg Metoclopramide HCl (Reglan) 10 mg IVPUSH Q8H [facility] Last Admin: 08/12/17 17:46 Dose: 10 mg Metoclopramide HCl (Reglan) 10 mg IVPUSH Q8H PRN PRN Reason: Cramping Last Admin: 08/13/17 13:25 Dose: 10 mg Metoclopramide HCl (Reglan) Confirm Administered Dose 10 mg .ROUTE .STK-MED ONE Stop: 08/12/17 17:35 Last Admin: 08/12/17 18:00 Dose: Not Given Mometasone Furoate/Formoterol Fumar (Dulera 200-5 Mcg) 2 puff IH BID [facility] Last Admin: 08/14/17 07:23 Dose: 2 puff Nicotine (Habitrol) 21 mg TRDERM DAILY [facility] Last Admin: 08/14/17 07:36 Dose: 21 mg Nicotine (Habitrol) Confirm Administered Dose 21 mg .ROUTE .STK-MED ONE Stop: 08/09/17 16:44 Last Admin: 08/09/17 16:00 Dose: 21 mg Nicotine (Habitrol) Confirm Administered Dose 21 mg .ROUTE .STK-MED ONE Stop: 08/10/17 08:43 Last Admin: 08/10/17 11:04 Dose: 21 mg Nicotine (Habitrol) Confirm Administered Dose 21 mg .ROUTE .STK-MED ONE Stop: 08/11/17 09:37 Last Admin: 08/11/17 09:40 Dose: 21 mg Nicotine (Habitrol) Confirm Administered Dose 21 mg .ROUTE .STK-MED ONE Stop: 08/12/17 09:59 Last Admin: 08/12/17 11:33 Dose: Not Given Nicotine (Habitrol) Confirm Administered Dose 21 mg .ROUTE .STK-MED ONE Stop: 08/13/17 08:47 Last Admin: 08/13/17 08:00 Dose: Not Given Nicotine (Habitrol) Confirm Administered Dose 21 mg .ROUTE .STK-MED ONE Stop: 08/14/17 07:35 Last Admin: 08/14/17 07:56 Dose: Not Given Bupropion [ (Wellbutrin Sr] 100mg) 100 mg PO BID [facility] Last Admin: 08/14/17 07:13 Dose: Not Given Zolpidem Tartrate Cr ([Ambien Cr] 12.5mg) 0 tab PO QPM [facility] Sitagliptin/Metformin (Janumet) Mg Tab Own Med 1 each PO BID@0800, 1700 [facility] Last Admin: 08/14/17 08:17 Dose: 1 each Non-Formulary Medication (Zolpidem Tartrate [Ambien Cr]) 10 tab PO QPM [facility] Omeprazole (Omeprazole) 20 mg PO ACBREAKFAST [facility] Last Admin: 08/14/17 07:12 Dose: Not Given Ondansetron HCl (Zofran Odt) 8 mg PO ONETIME ONE Stop: 08/09/17 08:24 Last Admin: 08/09/17 08:30 Dose: 8 mg Pneumococcal 13-Valent Conj Vacc (Prevnar 13) 0.5 ml IM .ONCE ONE Stop: 08/14/17 09:31 Last Admin: 08/14/17 09:43 Dose: 0.5 ml Promethazine HCl (Phenergan) 12.5 mg PO Q6H PRN PRN Reason: Nausea/Vomiting Last Admin: 08/13/17 19:46 Dose: 12.5 mg Quetiapine Fumarate (Seroquel) 400 mg PO QPM [facility] Last Admin: 08/13/17 19:37 Dose: 400 mg Quetiapine Fumarate (Seroquel) 100 mg PO QAM [facility] Last Admin: 08/14/17 07:24 Dose: 100 mg Quetiapine Fumarate (Quetiapine Fumarate) Confirm Administered Dose 400 mg PO .STK-MED ONE Stop: 08/11/17 20:17 Last Admin: 08/11/17 19:58 Dose: Not Given Quetiapine Fumarate (Quetiapine Fumarate) Confirm Administered Dose 400 mg PO .STK-MED ONE Stop: 08/12/17 19:19 Last Admin: 08/13/17 00:43 Dose: Not Given Quetiapine Fumarate (Quetiapine Fumarate) Confirm Administered Dose 400 mg PO .STK-MED ONE Stop: 08/13/17 19:28 Last Admin: 08/14/17 00:26 Dose: Not Given Risperidone (Risperidal) 2 mg PO QPM [facility] Last Admin: 08/13/17 19:34 Dose: 2 mg Ropinirole HCl (Requip) 1.5 mg PO BEDTIME [facility] Last Admin: 08/13/17 19:36 Dose: 1.5 mg Sodium Chloride (Saline Flush) 10 ml FLUSH ASDIRECTED PRN PRN Reason: Keep Vein Open Spironolactone (Aldactone) 75 mg PO BID [facility] Last Admin: 08/14/17 07:24 Dose: 75 mg Spironolactone (Aldactone) Confirm Administered Dose 50 mg .ROUTE .STK-MED ONE Stop: 08/09/17 20:01 Last Admin: 08/09/17 21:00 Dose: 50 mg Tizanidine HCl (Zanaflex) 4 mg PO Q6H [facility] Last Admin: 08/12/17 02:36 Dose: 4 mg Tizanidine HCl (Zanaflex) 4 mg PO Q6H [facility] Last Admin: 08/14/17 07:13 Dose: Not Given Trazodone HCl (Trazodone) 100 mg PO QPM [facility] Last Admin: 08/13/17 19:35 Dose: 100 mg Trazodone HCl (Trazodone) Confirm Administered Dose 50 mg .ROUTE .STK-MED ONE Stop: 08/09/17 20:01 Last Admin: 08/09/17 21:47 Dose: 50 mg Zolpidem Tartrate (Ambien) 10 mg PO BEDTIME PRN PRN Reason: Insomnia Last Admin: 08/13/17 22:32 Dose: 10 mg - Exam General: Alert, Oriented HEENT: Pupils Equal, Pupils Reactive Neck: Supple Lungs: Clear to Auscultation, Normal Respiratory Effort Cardiovascular: Regular Rate, Regular Rhythm GI/Abdominal Exam: Abnormal Bowel Sounds (decreased) Extremities: Normal Inspection - Problem List & Annotations (1) Small bowel obstruction SNOMED Code(s): 464808085 Code(s): K56.609 - UNSP INTESTNL OBST, UNSP TO PARTIAL VERSUS COMPLETE OBST Status: Resolved Priority: High (2) HTN (hypertension) SNOMED Code(s): 96483443 Code(s): I10 - ESSENTIAL (PRIMARY) HYPERTENSION Status: Chronic Qualifiers: Hypertension type: essential hypertension Qualified Code(s): I10 - Essential (primary) hypertension (3) Migraine SNOMED Code(s): 46321302 Code(s): G43.909 - MIGRAINE, UNSP, NOT INTRACTABLE, WITHOUT STATUS MIGRAINOSUS Status: Chronic Qualifiers: Migraine type: unspecified Intractability: not intractable (4) Osteopenia SNOMED Code(s): 110316863 Code(s): M85.80 - OTH DISRD OF BONE DENSITY AND STRUCTURE, UNSPECIFIED SITE Status: Chronic Qualifiers: Osteopenia location: unspecified Qualified Code(s): M85.80 - Other specified disorders of bone density and structure, unspecified site (5) Restless leg SNOMED Code(s): 95913825 Code(s): G25.81 - RESTLESS LEGS SYNDROME Status: Chronic (6) GERD (gastroesophageal reflux disease) SNOMED Code(s): 046011184 Code(s): K21.9 - GASTRO-ESOPHAGEAL REFLUX DISEASE WITHOUT ESOPHAGITIS Status: Chronic (7) Chronic pain SNOMED Code(s): 52504611 Code(s): G89.29 - OTHER CHRONIC PAIN Status: Acute (8) Asthma SNOMED Code(s): 970724321 Code(s): J45.909 - UNSPECIFIED ASTHMA, UNCOMPLICATED Status: Chronic Qualifiers: Asthma severity: mild Asthma persistence: intermittent Asthma complication type: uncomplicated Qualified Code(s): J45.20 - Mild intermittent asthma, uncomplicated (9) Depression SNOMED Code(s): 27023232 Code(s): F32.9 - MAJOR DEPRESSIVE DISORDER, SINGLE EPISODE, UNSPECIFIED Status: Chronic - Problem List Review Problem List Initiated/Reviewed/Updated: Yes - Plan Plan:: Patient admitted to inpatient for small bowel obstruction. Placed NPO except for ice chips and meds. We will help control pain with anti-inflammatories. Counseled on conservative management at this time and close monitoring. Patient agrees with plan of care. F/u labs in am and re-evaluate. 08/10/17 Repeat Abd xrays shows continued partial small bowel obstruction. Patient has some improvement of abdominal pain. We will maintain NPO status and continue to monitor. Continue hydration as scheduled. Patient agrees with plan of care. 08/11/17 Patient to continue NPO status with IV hydration. We will closely monitor until increased BM and decreased abdominal discomfort. F/u in AM. Signed out to Nakul at 1130am.
== END 2017-08-14 10:10 | disposition home or self-care (01) | DRG 390 ==
LOC: LB.ED 08:13 → LB.MS 09:32
PROVIDERS: ADMIT Family Medicine; ATTEND Family Medicine
DX: K56.609 Unspecified intestinal obstruction, unspecified as to partial versus complete obstruction (principal); Z23 Encounter for immunization; E11.9 Type 2 diabetes mellitus without complications; I10 Essential (primary) hypertension; F17.210 Nicotine dependence, cigarettes, uncomplicated; G43.909 Migraine, unspecified, not intractable, without status migrainosus; R10.9 Unspecified abdominal pain; Z79.84 Long term (current) use of oral hypoglycemic drugs; M85.80 Other specified disorders of bone density and structure, unspecified site; G25.81 Restless legs syndrome; F32.9 Major depressive disorder, single episode, unspecified; F41.9 Anxiety disorder, unspecified; M54.9 Dorsalgia, unspecified; G89.29 Other chronic pain; Z87.440 Personal history of urinary (tract) infections; K21.9 Gastro-esophageal reflux disease without esophagitis; J45.20 Mild intermittent asthma, uncomplicated; Z87.01 Personal history of pneumonia (recurrent); H54.7 Unspecified visual loss; Z91.5 Personal history of self-harm; Z88.8 Allergy status to other drugs, medicaments and biological substances; Z91.048 Other nonmedicinal substance allergy status
CPT/HCPCS: 36415; 71250; 74176; 80053; 83605; 83690; 85025; 99285; A9270; 74019; 80048; 82962; 90670; 90686; G0008; G0009; J1885; J2550; J2765; J7030; J7050; J7620

== ENCOUNTER 2017-09-18 19:40 | Emergency (ER) | payer MEDICARE, MEDICAID ==
[2017-09-18] MEDS ORDERED: Albuterol/Ipratropium 3.0-0.5 MG/3 ML Neb Soln NEB PRN (19:54)
[2017-09-18] MEDS ORDERED: Methocarbamol 500 MG Tab ONE (20:30)
[2017-09-18 23:41] VITALS: BP 146/99
--- NOTE | 2017-09-19 05:03 | EDM.PDOC ---
ED HPI GENERAL MEDICAL PROBLEM - General Chief Complaint: General Stated Complaint: short of breath Time Seen by Provider: 09/18/17 19:40 Source of Information: Reports: Patient History Limitations: Reports: No Limitations - History of Present Illness INITIAL COMMENTS - FREE TEXT/NARRATIVE: This is a 51yo F here for concerns of shortness of breath. Patient states she started having trouble breathing and called EMS. EMS brought her in with saturation in the high 95-98% oxygenation. BP was elevated at time of arrival and patient states she hurts all over. Patient states she feels achy and painful in her whole body and shortness of breath secondary. She states she did use her breathing medication at home. Denies any other concerns or issues. Onset: Sudden Duration: Hour(s): Severity: Moderate Improves with: Reports: None Worsens with: Reports: None Associated Symptoms: Reports: Shortness of Breath, Other (pain everywhere) Generalized Pain Score (Numeric/FACES): 8 - Related Data Allergies Allergy/AdvReac Type Severity Reaction Status Date / Time adhesive tape Allergy Rash Verified 09/19/17 03:22 celecoxib [From Celebrex] Allergy Nausea and Verified 09/19/17 03:22 Vomiting Home Meds: Home Meds Ipratropium/Albuterol Sulfate [Duoneb 0.5 MG-3 MG/3 ML] 1 - 2 puff INH Q4H PRN 04/14/13 [History] Omeprazole 20 mg PO ACBREAKFAST 04/14/13 [History] risperiDONE [RisperiDAL M-Tab] 2 mg PO QPM 04/14/13 [History] Acetaminophen [Tylenol Extra Strength] 500 mg PO Q6H 06/06/15 [History] Budesonide/Formoterol [Symbicort 160-4.5 MCG] 2 puff INH BID 06/06/15 [History] Gabapentin [Neurontin] 1 tab PO TID 06/06/15 [History] QUEtiapine [SEROquel] 100 tab PO QAM 06/06/15 [History] Spironolactone [Aldactone] 3 tab PO BID 06/06/15 [History] buPROPion [Wellbutrin SR] 100 mg PO BID 06/06/15 [History] hydrOXYzine HCl [hydrOXYzine] 1 - 3 cap PO TID 06/06/15 [History] rOPINIRole [Requip] 1.5 tab PO BEDTIME 06/06/15 [History] tiZANidine [Zanaflex] 4 mg PO Q6H 02/28/16 [History] Zolpidem Tartrate [Ambien Cr] 12.5 tab PO QPM 08/01/16 [History] ClonazePAM [KlonoPIN] 1 mg PO BID 06/25/17 [History] QUEtiapine Fumarate [Quetiapine Fumarate] 400 mg PO QPM 06/25/17 [History] traZODone HCl [Trazodone HCl] 100 mg PO QPM 06/25/17 [History] sitaGLIPtin Phos/Metformin HCl [Janumet 50-1,000 MG] 1 tab PO BID 08/11/17 [ History] Past Medical History HEENT History: Reports: Impaired Vision, Other (See Below) Other HEENT History: glasses for reading, Cardiovascular History: Reports: Hypertension Respiratory History: Reports: Asthma, Bronchitis, Recurrent, Pneumonia, Recurrent, Other (See Below) Other Respiratory History: Emphysema Gastrointestinal History: Reports: Bowel Obstruction, GERD, Irritable Bowel Syndrome Genitourinary History: Reports: UTI, Recurrent 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: 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 Uterine Bleeding, Musculoskeletal History: Reports: Back Pain, Chronic, Other (See Below) Other Musculoskeletal History: back / butt pain, shoots down left leg Neurological History: Reports: Migraines Psychiatric History: Reports: Anxiety, Depression, Suicide Attempt, Suicidal Ideation Endocrine/Metabolic History: Reports: Diabetes, Type II, Obesity/BMI 30+ Hematologic History: Reports: Blood Transfusion(s), Iron Deficiency Dermatologic History: Reports: Eczema, Other (See Below) Other Dermatologic History: Allergy to paper tape - Infectious Disease History Infectious Disease History: Reports: Chicken Pox, Measles, Rubella - Past Surgical History Female Surgical History: Reports: Section, Hysterectomy Social & Family History - Family History Family Medical History: Noncontributory - Tobacco Use Smoking Status *Q: Current Every Day Smoker Years of Tobacco use: 36 Packs/Tins Daily: 0.5 Used Tobacco, but Quit: No Second Hand Smoke Exposure: No - Caffeine Use Caffeine Use: Reports: Coffee, Energy Drinks, Soda - Alcohol Use Days Per Week of Alcohol Use: 0 - Recreational Drug Use Recreational Drug Use: No ED ROS GENERAL - Review of Systems Review Of Systems: ROS reveals no pertinent complaints other than HPI. ED EXAM, GENERAL - Physical Exam Exam: See Below Exam Limited By: No Limitations General Appearance: Alert, WD/WN, No Apparent Distress Eye Exam: Bilateral Eye: EOMI, PERRL Ears: Normal External Exam Nose: Normal Inspection Throat/Mouth: Other (poor dentition) Head: Atraumatic, Normocephalic Neck: Normal Inspection Respiratory/Chest: No Respiratory Distress, Lungs Clear, Normal Breath Sounds Cardiovascular: Normal Peripheral Pulses, Regular Rate, Rhythm GI/Abdominal: Normal Bowel Sounds Back Exam: Normal Inspection, Full Range of Motion Extremities: Normal Inspection, Normal Range of Motion, Non-Tender, No Pedal Edema, Normal Capillary Refill Neurological: Alert, Oriented, CN II-XII Intact Psychiatric: Tearful (Patient tearful when talking about her pain throughout her body) Course - Vital Signs Last Recorded V/S: Last Vital Signs Temp 36.1 C 09/18/17 19:40 Pulse 88 09/18/17 19:40 Resp 20 09/18/17 19:40 BP 146/99 H 09/18/17 19:40 Pulse Ox 96 09/18/17 19:40 - Orders/Labs/Meds Orders: Active Orders 24 hr Category Date Time Status EKG Documentation Completion [RC] ASDIRECTED Care 09/18/17 19:48 Active RT Aerosol Therapy [RC] ASDIRECTED Care 09/18/17 19:54 Active Chest 1V Frontal [CR] Stat Exams 09/18/17 19:49 Ordered Albuterol/Ipratropium [DuoNeb 3.0-0.5 MG/3 ML] Med 09/18/17 19:54 Active 3 ml NEB Q2H PRN Medication Orders Albuterol/Ipratropium (Duoneb 3.0-0.5 Mg/3 Ml) 3 ml NEB Q2H PRN PRN Reason: Shortness of Breath Last Admin: 09/18/17 19:50 Dose: 3 ml Labs: Laboratory Tests 09/18/17 09/18/17 09/18/17 Range/Units 20:20 20:20 20:20 WBC 6.4 D (4.0-11.0) K/uL RBC 4.22 (3.80-5.80) M/uL Hgb 11.2 L (11.5-16.5) g/dL Hct 34.6 L (37.0-47.0) % MCV 82 (76-96) fL MCH 26.5 L (27.0-32.0) pg MCHC 32.4 (31.0-35.0) g/dL RDW 14.8 (11.0-16.0) % Plt Count 143 L (150-500) K/uL MPV 10.8 H (6.0-10.0) fL Neut % (Auto) 52.7 (45.0-70.0) % Lymph % (Auto) 39.9 (20.0-40.0) % [place] % (Auto) 5.5 (3.0-10.0) % Eos % (Auto) 1.4 (1.0-5.0) % Baso % (Auto) 0.5 (0.0-0.5) % Neut # (Auto) 3.39 (2.00-7.50) K/uL Lymph # (Auto) 2.56 (1.50-4.00) K/uL [place] # (Auto) 0.35 (0.20-0.80) K/uL Eos # (Auto) 0.09 (0.04-0.40) K/uL Baso # (Auto) 0.03 (0.02-0.10) K/uL VBG pH 7.44 H (7.31-7.41) Sodium 144 (136-145) mmol/L Potassium 3.9 (3.5-5.1) mmol/L Chloride 105 (98-107) mmol/L Carbon Dioxide 23.8 (21.0-32.0) mmol/L Anion Gap 19.1 H (5.0-15.0) mmol/L BUN 15 (8-26) mg/dL Creatinine 1.14 H D (0.55-1.02) mg/dL Est Cr Clr Drug Dosing 49.85 mL/min Estimated GFR (MDRD) 50 L (>60) MLS/MIN BUN/Creatinine Ratio 13.2 (6-25) Glucose 119 H (74-100) mg/dL Lactic Acid (0.90-1.70) mmol/L Calcium 8.6 (8.5-10.1) mg/dL Total Bilirubin 0.4 (0.0-1.0) mg/dL AST 23 (15-37) U/L ALT 32 (12-78) U/L Alkaline Phosphatase 80 (46-116) U/L Troponin I < 0.017 (0.000-0.060) ng/mL B-Natriuretic Peptide 345 H (0-125) pg/mL Total Protein 6.9 (6.4-8.2) g/dL Albumin 3.4 (3.4-5.0) g/dL Globulin 3.5 (2.2-4.2) g/dL Albumin/Globulin Ratio 1.0 (0.8-2.0) TSH, Ultra Sensitive 3.090 D (0.358-3.740) uIU/mL 09/18/17 Range/Units 20:20 WBC (4.0-11.0) K/uL RBC (3.80-5.80) M/uL Hgb (11.5-16.5) g/dL Hct (37.0-47.0) % MCV (76-96) fL MCH (27.0-32.0) pg MCHC (31.0-35.0) g/dL RDW (11.0-16.0) % Plt Count (150-500) K/uL MPV (6.0-10.0) fL Neut % (Auto) (45.0-70.0) % Lymph % (Auto) (20.0-40.0) % [place] % (Auto) (3.0-10.0) % Eos % (Auto) (1.0-5.0) % Baso % (Auto) (0.0-0.5) % Neut # (Auto) (2.00-7.50) K/uL Lymph # (Auto) (1.50-4.00) K/uL [place] # (Auto) (0.20-0.80) K/uL Eos # (Auto) (0.04-0.40) K/uL Baso # (Auto) (0.02-0.10) K/uL VBG pH (7.31-7.41) Sodium (136-145) mmol/L Potassium (3.5-5.1) mmol/L Chloride (98-107) mmol/L Carbon Dioxide (21.0-32.0) mmol/L Anion Gap (5.0-15.0) mmol/L BUN (8-26) mg/dL Creatinine (0.55-1.02) mg/dL Est Cr Clr Drug Dosing mL/min Estimated GFR (MDRD) (>60) MLS/MIN BUN/Creatinine Ratio (6-25) Glucose (74-100) mg/dL Lactic Acid 2.90 H (0.90-1.70) mmol/L Calcium (8.5-10.1) mg/dL Total Bilirubin (0.0-1.0) mg/dL AST (15-37) U/L ALT (12-78) U/L Alkaline Phosphatase (46-116) U/L Troponin I (0.000-0.060) ng/mL B-Natriuretic Peptide (0-125) pg/mL Total Protein (6.4-8.2) g/dL Albumin (3.4-5.0) g/dL Globulin (2.2-4.2) g/dL Albumin/Globulin Ratio (0.8-2.0) TSH, Ultra Sensitive (0.358-3.740) uIU/mL Meds: Medications Generic Name Dose Route Start Last Admin Trade Name Freq PRN Reason Stop Dose Admin Albuterol/Ipratropium 3 ml 09/18/17 19:54 09/18/17 19:50 Duoneb 3.0-0.5 Mg/3 Ml NEB 3 ml Q2H PRN Administration Shortness of Breath - Re-Assessments/Exams Free Text/Narrative Re-Assessment/Exam: Patient symptoms improved greatly after use of nebulizer but continues to state she needs something for pain. 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 Echevarria. May take provided methocarbamol as directed: 1 tablet by mouth every 6 hours as needed for muscle pain. Drink plenty of fluids and get plenty of rest, activity may be as tolerated. Follow up in clinic if needed. Call with any questions. - My Orders Last 24 Hours: My Active Orders 09/18/17 19:48 EKG Documentation Completion [RC] ASDIRECTED 09/18/17 19:49 Chest 1V Frontal [CR] Stat 09/18/17 19:54 RT Aerosol Therapy [RC] ASDIRECTED Albuterol/Ipratropium [DuoNeb 3.0-0.5 MG/3 ML] 3 ml NEB Q2H PRN - Assessment/Plan Last 24 Hours: My Active Orders 09/18/17 19:48 EKG Documentation Completion [RC] ASDIRECTED 09/18/17 19:49 Chest 1V Frontal [CR] Stat 09/18/17 19:54 RT Aerosol Therapy [RC] ASDIRECTED Albuterol/Ipratropium [DuoNeb 3.0-0.5 MG/3 ML] 3 ml NEB Q2H PRN
--- NOTE | 2017-09-19 10:02 | CR ---
FRONTAL VIEW OF THE CHEST, 09/18/17 No priors. The heart size is at the upper limits of normal. The patient has taken a poor inspiration. The pulmonary vasculature does appear mildly prominent. It is probably accentuated by the poor inspiration. The lungs appear clear. The No pneumothorax. No pleural effusions. [id number] [facility]
== END 2017-09-18 21:05 | disposition home or self-care (01) ==
LOC: LB.ED 19:40
DX: J44.9 Chronic obstructive pulmonary disease, unspecified (principal); I10 Essential (primary) hypertension; E11.9 Type 2 diabetes mellitus without complications; F17.210 Nicotine dependence, cigarettes, uncomplicated; Z88.8 Allergy status to other drugs, medicaments and biological substances; Z79.899 Other long term (current) drug therapy
CPT/HCPCS: 36415; 71045; 80053; 82800; 83605; 83880; 84443; 84484; 85025; 93005; 99284; 99285-25; A0425; A0429; A9270-GY; J7620

== ENCOUNTER 2017-09-19 03:11 | Emergency (ER) | payer MEDICARE, MEDICAID ==
[2017-09-19 03:38] VITALS: BP 151/74
[2017-09-19] MEDS ORDERED: Ketorolac 30 MG/ML SDV IM ONE (04:21)
--- NOTE | 2017-09-19 04:24 | EDM.PDOC ---
ED HPI GENERAL MEDICAL PROBLEM - General Chief Complaint: General Stated Complaint: short of breath Time Seen by Provider: 09/19/17 03:41 Source of Information: Reports: Patient History Limitations: Reports: No Limitations - History of Present Illness INITIAL COMMENTS - FREE TEXT/NARRATIVE: This is a 51yo F here for shortness of breath per EMS and brought in via ambulance. Patient states she felt short of breath again. Patient states she also has chest pain that has been there all day and is very tender to touch. Patient denies any other concerns. Onset: Sudden Duration: Hour(s): Location: Reports: Chest Quality: Reports: Sharp Severity: Severe Improves with: Reports: None Worsens with: Reports: None Associated Symptoms: Reports: Shortness of Breath Generalized Pain Score (Numeric/FACES): 5 - Related Data Allergies Allergy/AdvReac Type Severity Reaction Status Date / Time adhesive tape Allergy Rash Verified 09/19/17 03:22 celecoxib [From Celebrex] Allergy Nausea and Verified 09/19/17 03:22 Vomiting Home Meds: Home Meds Ipratropium/Albuterol Sulfate [Duoneb 0.5 MG-3 MG/3 ML] 1 - 2 puff INH Q4H PRN 04/14/13 [History] Omeprazole 20 mg PO ACBREAKFAST 04/14/13 [History] risperiDONE [RisperiDAL M-Tab] 2 mg PO QPM 04/14/13 [History] Acetaminophen [Tylenol Extra Strength] 500 mg PO Q6H 06/06/15 [History] Budesonide/Formoterol [Symbicort 160-4.5 MCG] 2 puff INH BID 06/06/15 [History] Gabapentin [Neurontin] 1 tab PO TID 06/06/15 [History] QUEtiapine [SEROquel] 100 tab PO QAM 06/06/15 [History] Spironolactone [Aldactone] 3 tab PO BID 06/06/15 [History] buPROPion [Wellbutrin SR] 100 mg PO BID 06/06/15 [History] hydrOXYzine HCl [hydrOXYzine] 1 - 3 cap PO TID 06/06/15 [History] rOPINIRole [Requip] 1.5 tab PO BEDTIME 06/06/15 [History] tiZANidine [Zanaflex] 4 mg PO Q6H 02/28/16 [History] Zolpidem Tartrate [Ambien Cr] 12.5 tab PO QPM 08/01/16 [History] ClonazePAM [KlonoPIN] 1 mg PO BID 06/25/17 [History] QUEtiapine Fumarate [Quetiapine Fumarate] 400 mg PO QPM 06/25/17 [History] traZODone HCl [Trazodone HCl] 100 mg PO QPM 06/25/17 [History] sitaGLIPtin Phos/Metformin HCl [Janumet 50-1,000 MG] 1 tab PO BID 08/11/17 [ History] Past Medical History HEENT History: Reports: Impaired Vision, Other (See Below) Other HEENT History: glasses for reading, Cardiovascular History: Reports: Hypertension Respiratory History: Reports: Asthma, Bronchitis, Recurrent, Pneumonia, Recurrent, Other (See Below) Other Respiratory History: Emphysema Gastrointestinal History: Reports: Bowel Obstruction, GERD, Irritable Bowel Syndrome Genitourinary History: Reports: UTI, Recurrent LIFE MANAGER History: Reports: 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 Uterine Bleeding, Musculoskeletal History: Reports: Back Pain, Chronic, Other (See Below) Other Musculoskeletal History: back / butt pain, shoots down left leg Neurological History: Reports: Migraines Psychiatric History: Reports: Anxiety, Depression, Suicide Attempt, Suicidal Ideation Endocrine/Metabolic History: Reports: Diabetes, Type II, Obesity/BMI 30+ Hematologic History: Reports: Blood Transfusion(s), Iron Deficiency Dermatologic History: Reports: Eczema, Other (See Below) Other Dermatologic History: Allergy to paper tape - Infectious Disease History Infectious Disease History: Reports: Chicken Pox, Measles, Rubella - Past Surgical History Female Surgical History: Reports: Section, Hysterectomy Social & Family History - Family History Family Medical History: Noncontributory - Tobacco Use Smoking Status *Q: Current Every Day Smoker Years of Tobacco use: 36 Packs/Tins Daily: 0.5 Used Tobacco, but Quit: No Second Hand Smoke Exposure: No - Caffeine Use Caffeine Use: Reports: Coffee, Energy Drinks, Soda - Alcohol Use Days Per Week of Alcohol Use: 0 - Recreational Drug Use Recreational Drug Use: No ED ROS GENERAL - Review of Systems Review Of Systems: ROS reveals no pertinent complaints other than HPI. ED EXAM, GENERAL - Physical Exam Exam: See Below Exam Limited By: No Limitations General Appearance: Alert, WD/WN, No Apparent Distress Eye Exam: Bilateral Eye: EOMI, PERRL Ears: Normal External Exam Nose: Normal Inspection Throat/Mouth: Normal Inspection, Other (poor dentition) Head: Atraumatic, Normocephalic Neck: Normal Inspection Respiratory/Chest: No Respiratory Distress, Lungs Clear, Normal Breath Sounds, No Accessory Muscle Use, Other (patient gasps in pain when I very, very lightly palpated the anterior left upper chest wall where she complained of pain. Patient states the pain is very severe and hurts every time she touches that area - no bruising to area - no erythema to area- no redness of area - no signs of trauma to area - no findings except disproportionate pain on very very light touch to area) Cardiovascular: Normal Peripheral Pulses, Regular Rate, Rhythm Peripheral Pulses: 2+: Dorsalis Pedis (L), Dorsalis Pedis (R) GI/Abdominal: Normal Bowel Sounds Back Exam: Normal Inspection Extremities: Normal Inspection, Normal Range of Motion, Non-Tender, No Pedal Edema, Normal Capillary Refill Neurological: Alert, Oriented, CN II-XII Intact Psychiatric: Tearful (Tearful only when discussing her chronic pain and recent acute chest wall pain - no history of trauma or fall or excessive use of muscles ) Skin Exam: Warm, Dry, Intact, Normal Color, No Rash Lymphatic: No Adenopathy Course - Vital Signs Last Recorded V/S: Last Vital Signs Temp 36.3 C 09/19/17 03:17 Pulse 87 09/19/17 03:36 Resp 20 09/19/17 03:36 BP 151/74 H 09/19/17 03:36 Pulse Ox 97 09/19/17 03:36 - Orders/Labs/Meds Orders: Active Orders 24 hr Category Date Time Status RT Aerosol Therapy [RC] ASDIRECTED Care 09/19/17 04:26 Active MAHAD SCREEN,REFLEXIVE [REF] Stat Lab 09/19/17 05:00 Received RHEUMATOID FACTOR [REF] Stat Lab 09/19/17 05:00 Received Labs: Laboratory Tests 09/19/17 09/19/17 09/19/17 Range/Units 04:45 05:00 05:00 WBC (4.0-11.0) K/uL RBC (3.80-5.80) M/uL Hgb (11.5-16.5) g/dL Hct (37.0-47.0) % MCV (76-96) fL MCH (27.0-32.0) pg MCHC (31.0-35.0) g/dL RDW (11.0-16.0) % Plt Count (150-500) K/uL MPV (6.0-10.0) fL Neut % (Auto) (45.0-70.0) % Lymph % (Auto) (20.0-40.0) % [place] % (Auto) (3.0-10.0) % Eos % (Auto) (1.0-5.0) % Baso % (Auto) (0.0-0.5) % Neut # (Auto) (2.00-7.50) K/uL Lymph # (Auto) (1.50-4.00) K/uL [place] # (Auto) (0.20-0.80) K/uL Eos # (Auto) (0.04-0.40) K/uL Baso # (Auto) (0.02-0.10) K/uL ESR (0-30) mm/hr D-Dimer, Quantitative 395 (0-400) ng/mL Sodium (136-145) mmol/L Potassium (3.5-5.1) mmol/L Chloride (98-107) mmol/L Carbon Dioxide (21.0-32.0) mmol/L Anion Gap (5.0-15.0) mmol/L BUN (8-26) mg/dL Creatinine (0.55-1.02) mg/dL Est Cr Clr Drug Dosing mL/min Estimated GFR (MDRD) (>60) MLS/MIN BUN/Creatinine Ratio (6-25) Glucose (74-100) mg/dL Lactic Acid (0.90-1.70) mmol/L Calcium (8.5-10.1) mg/dL Creatine Kinase (21-232) U/L Troponin I < 0.017 (0.000-0.060) ng/mL C-Reactive Protein (0.0-3.0) mg/L Urine Color Urine Appearance (CLEAR) Urine pH (5.0-8.0) Ur Specific [place] (1.003-1.030) Urine Protein (NEGATIVE) mg/dL Urine Glucose (UA) (NEGATIVE) mg/dL Urine Ketones (NEGATIVE) mg/dL Urine Occult Blood (NEGATIVE) Urine Nitrite (NEGATIVE) Urine Bilirubin (NEGATIVE) Urine Urobilinogen (0.2-1.0) E.U./dL Ur Leukocyte Esterase (NEGATIVE) Urine RBC /HPF Urine WBC /HPF Ur Squamous Epith Cells /HPF Urine Opiates Screen Negative (NEGATIVE) Ur Oxycodone Screen Negative (NEGATIVE) Urine Methadone Screen Negative (NEGATIVE) U Acetaminophen Screen Positive H (NEGATIVE) Ur Barbiturates Screen Negative (NEGATIVE) Ur Tricyclics Screen Negative (NEGATIVE) Ur Phencyclidine Scrn Negative (NEGATIVE) Ur Amphetamine Screen Negative (NEGATIVE) U Methamphetamines Scrn Negative (NEGATIVE) U Benzodiazepines Scrn Negative (NEGATIVE) U Cocaine Metab Screen Negative (NEGATIVE) U Marijuana (THC) Screen Negative (NEGATIVE) 09/19/17 09/19/17 09/19/17 Range/Units 05:00 05:00 05:00 WBC (4.0-11.0) K/uL RBC (3.80-5.80) M/uL Hgb (11.5-16.5) g/dL Hct (37.0-47.0) % MCV (76-96) fL MCH (27.0-32.0) pg MCHC (31.0-35.0) g/dL RDW (11.0-16.0) % Plt Count (150-500) K/uL MPV (6.0-10.0) fL Neut % (Auto) (45.0-70.0) % Lymph % (Auto) (20.0-40.0) % [place] % (Auto) (3.0-10.0) % Eos % (Auto) (1.0-5.0) % Baso % (Auto) (0.0-0.5) % Neut # (Auto) (2.00-7.50) K/uL Lymph # (Auto) (1.50-4.00) K/uL [place] # (Auto) (0.20-0.80) K/uL Eos # (Auto) (0.04-0.40) K/uL Baso # (Auto) (0.02-0.10) K/uL ESR 15 (0-30) mm/hr D-Dimer, Quantitative (0-400) ng/mL Sodium (136-145) mmol/L Potassium (3.5-5.1) mmol/L Chloride (98-107) mmol/L Carbon Dioxide (21.0-32.0) mmol/L Anion Gap (5.0-15.0) mmol/L BUN (8-26) mg/dL Creatinine (0.55-1.02) mg/dL Est Cr Clr Drug Dosing mL/min Estimated GFR (MDRD) (>60) MLS/MIN BUN/Creatinine Ratio (6-25) Glucose (74-100) mg/dL Lactic Acid 2.83 H (0.90-1.70) mmol/L Calcium (8.5-10.1) mg/dL Creatine Kinase 126 (21-232) U/L Troponin I (0.000-0.060) ng/mL C-Reactive Protein 3.3 H (0.0-3.0) mg/L Urine Color Urine Appearance (CLEAR) Urine pH (5.0-8.0) Ur Specific [place] (1.003-1.030) Urine Protein (NEGATIVE) mg/dL Urine Glucose (UA) (NEGATIVE) mg/dL Urine Ketones (NEGATIVE) mg/dL Urine Occult Blood (NEGATIVE) Urine Nitrite (NEGATIVE) Urine Bilirubin (NEGATIVE) Urine Urobilinogen (0.2-1.0) E.U./dL Ur Leukocyte Esterase (NEGATIVE) Urine RBC /HPF Urine WBC /HPF Ur Squamous Epith Cells /HPF Urine Opiates Screen (NEGATIVE) Ur Oxycodone Screen (NEGATIVE) Urine Methadone Screen (NEGATIVE) U Acetaminophen Screen (NEGATIVE) Ur Barbiturates Screen (NEGATIVE) Ur Tricyclics Screen (NEGATIVE) Ur Phencyclidine Scrn (NEGATIVE) Ur Amphetamine Screen (NEGATIVE) U Methamphetamines Scrn (NEGATIVE) U Benzodiazepines Scrn (NEGATIVE) U Cocaine Metab Screen (NEGATIVE) U Marijuana (THC) Screen (NEGATIVE) 09/19/17 09/19/17 09/19/17 Range/Units 05:00 05:00 05:00 WBC 7.4 (4.0-11.0) K/uL RBC 4.13 (3.80-5.80) M/uL Hgb 11.2 L (11.5-16.5) g/dL Hct 33.0 L (37.0-47.0) % MCV 80 (76-96) fL MCH 27.1 (27.0-32.0) pg MCHC 33.9 (31.0-35.0) g/dL RDW 14.7 (11.0-16.0) % Plt Count 171 (150-500) K/uL MPV 12.9 H (6.0-10.0) fL Neut % (Auto) 76.8 H (45.0-70.0) % Lymph % (Auto) 18.3 L (20.0-40.0) % [place] % (Auto) 4.3 (3.0-10.0) % Eos % (Auto) 0.3 L (1.0-5.0) % Baso % (Auto) 0.3 (0.0-0.5) % Neut # (Auto) 5.67 (2.00-7.50) K/uL Lymph # (Auto) 1.35 L (1.50-4.00) K/uL [place] # (Auto) 0.32 (0.20-0.80) K/uL Eos # (Auto) 0.02 L (0.04-0.40) K/uL Baso # (Auto) 0.02 (0.02-0.10) K/uL ESR (0-30) mm/hr D-Dimer, Quantitative (0-400) ng/mL Sodium 140 (136-145) mmol/L Potassium 4.2 (3.5-5.1) mmol/L Chloride 103 (98-107) mmol/L Carbon Dioxide 21.3 (21.0-32.0) mmol/L Anion Gap 19.9 H (5.0-15.0) mmol/L BUN 16 (8-26) mg/dL Creatinine 1.03 H (0.55-1.02) mg/dL Est Cr Clr Drug Dosing 55.17 mL/min Estimated GFR (MDRD) 56 L (>60) MLS/MIN BUN/Creatinine Ratio 15.5 (6-25) Glucose 144 H (74-100) mg/dL Lactic Acid (0.90-1.70) mmol/L Calcium 9.1 (8.5-10.1) mg/dL Creatine Kinase (21-232) U/L Troponin I (0.000-0.060) ng/mL C-Reactive Protein (0.0-3.0) mg/L Urine Color Yellow Urine Appearance Clear (CLEAR) Urine pH 6.0 (5.0-8.0) Ur Specific [place] 1.020 (1.003-1.030) Urine Protein Negative (NEGATIVE) mg/dL Urine Glucose (UA) Negative (NEGATIVE) mg/dL Urine Ketones Negative (NEGATIVE) mg/dL Urine Occult Blood Negative (NEGATIVE) Urine Nitrite Negative (NEGATIVE) Urine Bilirubin Negative (NEGATIVE) Urine Urobilinogen 0.2 (0.2-1.0) E.U./dL Ur Leukocyte Esterase Negative (NEGATIVE) Urine RBC Not seen /HPF Urine WBC Not seen /HPF Ur Squamous Epith Cells Rare /HPF Urine Opiates Screen (NEGATIVE) Ur Oxycodone Screen (NEGATIVE) Urine Methadone Screen (NEGATIVE) U Acetaminophen Screen (NEGATIVE) Ur Barbiturates Screen (NEGATIVE) Ur Tricyclics Screen (NEGATIVE) Ur Phencyclidine Scrn (NEGATIVE) Ur Amphetamine Screen (NEGATIVE) U Methamphetamines Scrn (NEGATIVE) U Benzodiazepines Scrn (NEGATIVE) U Cocaine Metab Screen (NEGATIVE) U Marijuana (THC) Screen (NEGATIVE) Meds: Medications Discontinued Medications Generic Name Dose Route Start Last Admin Trade Name Freq PRN Reason Stop Dose Admin Albuterol/Ipratropium 3 ml 09/19/17 04:25 09/19/17 04:22 Duoneb 3.0-0.5 Mg/3 Ml NEB 3 ml Q4H PRN Administration Shortness of Breath Ketorolac Tromethamine 30 mg 09/19/17 04:21 09/19/17 04:32 Toradol IM 09/19/17 04:22 30 mg ONETIME ONE Administration Departure - Departure Time of Disposition: 06:00 Disposition: Home, Self-Care 01 Condition: Good Clinical Impression: Chest wall pain, chronic, Drug-seeking behavior, Shortness of breath - Discharge Information Forms: ED Department Discharge Additional Instructions: Take provided Aleve as directed: 1 tablet by mouth every 12 hours as needed for pain. Follow up in clinic later this afternoon if symptoms persist. Call with any questions. - Problem List Review Problem List Initiated/Reviewed/Updated: Yes - My Orders Last 24 Hours: My Active Orders 09/19/17 04:26 RT Aerosol Therapy [RC] ASDIRECTED 09/19/17 05:00 MAHAD SCREEN,REFLEXIVE [REF] Stat RHEUMATOID FACTOR [REF] Stat - Assessment/Plan Last 24 Hours: My Active Orders 09/19/17 04:26 RT Aerosol Therapy [RC] ASDIRECTED 09/19/17 05:00 MAHAD SCREEN,REFLEXIVE [REF] Stat RHEUMATOID FACTOR [REF] Stat Plan: Patient counseled on supportive and conservative care of chest wall pain. Patient agreeable to plan of care and follow up if symptoms persist or worsen. Patient given aleve samples for use for chest wall pain. Patient lab results discussed with patient extensively. Patient to f/u in clinic as routine and as needed.
[2017-09-19] MEDS ORDERED: Albuterol/Ipratropium 3.0-0.5 MG/3 ML Neb Soln NEB PRN (04:25)
== END 2017-09-19 05:45 | disposition home or self-care (01) ==
LOC: LB.ED 03:11
DX: R07.89 Other chest pain (principal); R06.02 Shortness of breath; I10 Essential (primary) hypertension; E11.9 Type 2 diabetes mellitus without complications; J45.909 Unspecified asthma, uncomplicated; F17.210 Nicotine dependence, cigarettes, uncomplicated; Z88.8 Allergy status to other drugs, medicaments and biological substances; Z79.899 Other long term (current) drug therapy; Z76.5 Malingerer [conscious simulation]
CPT/HCPCS: 36415; 80048; 80307; 81001; 82550; 83605; 84484; 85025; 85379; 85651; 86038; 86140; 86431; 87804; 96372; 99284; 99285-25; A0425; A0429; J1885; J7620

== ENCOUNTER 2017-09-19 07:58 | Observation (INO) | payer MEDICARE, MEDICAID ==
--- NOTE | 2017-09-19 08:39 | EDM.PDOC ---
ED HPI GENERAL MEDICAL PROBLEM - General Chief Complaint: Respiratory Problem Stated Complaint: short of breath Time Seen by Provider: 09/19/17 08:25 Source of Information: Reports: Patient, Family, RN History Limitations: Reports: No Limitations - History of Present Illness INITIAL COMMENTS - FREE TEXT/NARRATIVE: 51 yr female presents with shortness of breath. States she was in the ER a few hours ago and had all sorts of tests done and everything has been ok. EKG, chest x-ray, labs completed and normal results. Pt was seen by Dr. Echevarria and released and instructed to take Robaxin and Aleve. She did that after getting home and she slept for a couple hours and shortness of breath started with body aches. SpO2 is normal and vital signs are normal. She did have a couple breathing treatments. Lungs have been clear. Bowel sounds active. Onset: Today Generalized Pain Score (Numeric/FACES): 8 - Related Data Allergies Allergy/AdvReac Type Severity Reaction Status Date / Time adhesive tape Allergy Rash Verified 09/19/17 03:22 celecoxib [From Celebrex] Allergy Nausea and Verified 09/19/17 03:22 Vomiting Home Meds: Home Meds Ipratropium/Albuterol Sulfate [Duoneb 0.5 MG-3 MG/3 ML] 1 - 2 puff INH Q4H PRN 04/14/13 [History] Omeprazole 20 mg PO ACBREAKFAST 04/14/13 [History] risperiDONE [RisperiDAL M-Tab] 2 mg PO QPM 04/14/13 [History] Acetaminophen [Tylenol Extra Strength] 500 mg PO Q6H 06/06/15 [History] Budesonide/Formoterol [Symbicort 160-4.5 MCG] 2 puff INH BID 06/06/15 [History] Gabapentin [Neurontin] 1 tab PO TID 06/06/15 [History] QUEtiapine [SEROquel] 100 tab PO QAM 06/06/15 [History] Spironolactone [Aldactone] 3 tab PO BID 06/06/15 [History] buPROPion [Wellbutrin SR] 100 mg PO BID 06/06/15 [History] hydrOXYzine HCl [hydrOXYzine] 1 - 3 cap PO TID 06/06/15 [History] rOPINIRole [Requip] 1.5 tab PO BEDTIME 06/06/15 [History] tiZANidine [Zanaflex] 4 mg PO Q6H 02/28/16 [History] Zolpidem Tartrate [Ambien Cr] 12.5 tab PO QPM 08/01/16 [History] ClonazePAM [KlonoPIN] 1 mg PO BID 06/25/17 [History] QUEtiapine Fumarate [Quetiapine Fumarate] 400 mg PO QPM 06/25/17 [History] traZODone HCl [Trazodone HCl] 100 mg PO QPM 06/25/17 [History] sitaGLIPtin Phos/Metformin HCl [Janumet 50-1,000 MG] 1 tab PO BID 08/11/17 [ History] Past Medical History HEENT History: Reports: Impaired Vision, Other (See Below) Other HEENT History: glasses for reading, Cardiovascular History: Reports: Hypertension Respiratory History: Reports: Asthma, Bronchitis, Recurrent, Pneumonia, Recurrent, Other (See Below) Other Respiratory History: Emphysema Gastrointestinal History: Reports: Bowel Obstruction, GERD, Irritable Bowel Syndrome Genitourinary History: Reports: UTI, Recurrent 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: 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 Bleeding, Musculoskeletal History: Reports: Back Pain, Chronic, Other (See Below) Other Musculoskeletal History: back / butt pain, shoots down left leg Neurological History: Reports: Migraines Psychiatric History: Reports: Anxiety, Depression, Suicide Attempt, Suicidal Ideation Endocrine/Metabolic History: Reports: Diabetes, Type II, Obesity/BMI 30+ Hematologic History: Reports: Blood Transfusion(s), Iron Deficiency Dermatologic History: Reports: Eczema, Other (See Below) Other Dermatologic History: Allergy to paper tape - Infectious Disease History Infectious Disease History: Reports: Chicken Pox, Measles, Rubella - Past Surgical History Female Surgical History: Reports: Section, Hysterectomy Social & Family History - Family History Family Medical History: Noncontributory - Tobacco Use Smoking Status *Q: Current Every Day Smoker Years of Tobacco use: 36 Packs/Tins Daily: 0.5 Used Tobacco, but Quit: No Second Hand Smoke Exposure: No - Caffeine Use Caffeine Use: Reports: Coffee, Energy Drinks, Soda - Alcohol Use Days Per Week of Alcohol Use: 0 - Recreational Drug Use Recreational Drug Use: No ED ROS GENERAL - Review of Systems Review Of Systems: See Below Respiratory: Reports: Shortness of Breath Musculoskeletal: Reports: Other (achy all over) Psychiatric: Reports: Anxiety ED EXAM, GENERAL - Physical Exam Exam: See Below Exam Limited By: No Limitations General Appearance: Alert, No Apparent Distress Ears: Hearing Grossly Normal Throat/Mouth: Normal Lips, Normal Voice, No Airway Compromise Head: Atraumatic, Normocephalic Neck: Supple, Non-Tender Respiratory/Chest: Lungs Clear, Normal Breath Sounds Cardiovascular: Normal Peripheral Pulses, Regular Rate, Rhythm, No Edema GI/Abdominal: Normal Bowel Sounds, Soft, Non-Tender Extremities: Normal Inspection, Normal Range of Motion, No Pedal Edema Neurological: Alert, Oriented, Normal Cognition Skin Exam: Warm, Dry, Normal Color Course - Vital Signs Last Recorded V/S: Last Vital Signs Temp 98.4 F 09/19/17 13:56 Pulse 89 09/19/17 13:56 Resp 18 09/19/17 13:56 BP 139/78 09/19/17 13:56 Pulse Ox 96 09/19/17 13:56 - Orders/Labs/Meds Orders: Active Orders 24 hr Category Date Time Status Cardiac Monitoring [RC] .As Directed Care 09/19/17 09:09 Active EKG Documentation Completion [RC] ASDIRECTED Care 09/19/17 08:47 Active Oxygen Therapy [RC] PRN Care 09/19/17 09:10 Active Nitroglycerin [Nitrostat] Med 09/19/17 09:08 Active 0.4 mg SL Q5M PRN Sodium Chloride 0.9% [Saline Flush] Med 09/19/17 08:48 Active 10 ml FLUSH ASDIRECTED PRN Saline Lock Insert [OM.PC] Routine Oth 09/19/17 08:48 Ordered Medication Orders Acetaminophen (Tylenol) 650 mg PO Q4H PRN PRN Reason: analgesia/fever Sodium Chloride (Normal Saline) 1,000 mls @ 250 mls/hr IV ASDIRECTED ARIK Last Admin: 09/19/17 10:54 Dose: 250 mls/hr Ketorolac Tromethamine (Toradol) 30 mg IM Q6H [facility] Stop: 09/24/17 10:00 Last Admin: 09/19/17 10:30 Dose: 30 mg Nitroglycerin (Nitrostat) 0.4 mg SL Q5M PRN PRN Reason: Chest Pain Stop: 09/20/17 09:09 Sodium Chloride (Saline Flush) 10 ml FLUSH ASDIRECTED PRN PRN Reason: Keep Vein Open Last Admin: 09/19/17 09:15 Dose: 10 ml Labs: Laboratory Tests 09/19/17 09/19/17 Range/Units 09:00 09:00 Sodium 142 (136-145) mmol/L Potassium 4.1 (3.5-5.1) mmol/L Chloride 103 (98-107) mmol/L Carbon Dioxide 22.1 (21.0-32.0) mmol/L Anion Gap 21.0 H (5.0-15.0) mmol/L BUN 13 (8-26) mg/dL Creatinine 1.10 H (0.55-1.02) mg/dL Est Cr Clr Drug Dosing TNP Estimated GFR (MDRD) 52 L (>60) MLS/MIN BUN/Creatinine Ratio 11.8 (6-25) Glucose 150 H (74-100) mg/dL Calcium 8.9 (8.5-10.1) mg/dL Troponin I < 0.017 (0.000-0.060) ng/mL Meds: Medications Generic Name Dose Route Start Last Admin Trade Name Lucianq PRN Reason Stop Dose Admin Acetaminophen 650 mg 09/19/17 09:56 Tylenol PO Q4H PRN analgesia/fever Sodium Chloride 1,000 mls @ 250 mls/hr 09/19/17 10:15 09/19/17 10:54 Normal Saline IV 250 mls/hr ASDIRECTED ARIK Administration Ketorolac Tromethamine 30 mg 09/19/17 10:00 09/19/17 10:30 Toradol IM 09/24/17 10:00 30 mg Q6H ARIK Administration Nitroglycerin 0.4 mg 09/19/17 09:08 Nitrostat SL 09/20/17 09:09 Q5M PRN Chest Pain Sodium Chloride 10 ml 09/19/17 08:48 09/19/17 09:15 Saline Flush FLUSH 10 ml ASDIRECTED PRN Administration Keep Vein Open Discontinued Medications Generic Name Dose Route Start Last Admin Trade Name Lucianq PRN Reason Stop Dose Admin Aspirin 324 mg 09/19/17 09:08 09/19/17 09:09 Aspirin PO 09/19/17 09:09 324 mg ONETIME ONE Administration Clonazepam 1 mg 09/19/17 12:05 09/19/17 12:15 Klonopin PO 09/19/17 12:06 1 mg BID ONE Administration Clonazepam Confirm 09/19/17 12:05 09/19/17 12:15 Klonopin Administered 09/19/17 12:06 Not Given Dose 1 mg .ROUTE .STK-MED ONE Ketorolac Tromethamine Confirm 09/19/17 10:32 09/19/17 10:35 Toradol Administered 09/19/17 10:33 Not Given Dose 30 mg .ROUTE .STK-MED ONE Ondansetron HCl Confirm 09/19/17 13:10 09/19/17 13:54 Zofran Odt Administered 09/19/17 13:11 Not Given Dose 4 mg .ROUTE .STK-MED ONE Ondansetron HCl 4 mg 09/19/17 13:17 09/19/17 13:21 Zofran Odt PO 09/19/17 13:18 4 mg ONETIME ONE Administration - Re-Assessments/Exams Free Text/Narrative Re-Assessment/Exam: 09/19/17 08:57 Pt complains of aching all over with this shortness of breath. EKG done. Slight changes with anterior leads. Troponins checked and negative. ASA given. Will place on observation status. 09/19/17 10:55 Pt placed on observation. Will start Nacl @ 250cc/hr and recheck troponin in 4 hour. Pt relates that she had a recent appointment with her psychiatrist and Trazodone was increased to 100 mg PO at hs. States her Ambien wasn't enough. States she was on Trazadone 50 mg daily/hs and quit taking them and then was placed on the 100 mg dose. Recommend decrease dose to Trazadone 50 mg PO daily/hs and see if this helps with her muscle aches. Pt states she doesn't see the psychiatrist for 3 months now. Pt states Toradol earlier in ER did help with her pain. States she does have some Rx ready at the drug store. Her will go pick them up. Will repeat the Toradol this am and recheck troponin around 1pm. Pt to be discharged at that time if troponins are negative. 09/19/17 14:59 Pt states she hasn't had her Clonazapam for a couple days. Clonazapam 1 mg PO given and pt was able to sleep for about 1 hour. Pt Rx for more Clonazapam isn't due to be refilled for another 12 days. Discussed this with pt and significant other. Recommend pt to follow-up with psychiatrist for her medications related to mental health. Pt states she will contact her provider for this. Pt to be discharged today after acute anxiety episode. She did have her medications filled from her previous ER visits. Pt states she needs to go home to take care of her grand-daughter. Pt did have some lunch and zofran for nausea. States she is feeling fine after she vomitted today. Discharge to care of significant other. Departure - Departure Time of Disposition: 15:07 Disposition: Home, Self-Care 01 Condition: Good Clinical Impression: Anxiety - Discharge Information - My Orders Last 24 Hours: My Active Orders 09/19/17 08:47 EKG Documentation Completion [RC] ASDIRECTED 09/19/17 08:48 Sodium Chloride 0.9% [Saline Flush] 10 ml FLUSH ASDIRECTED PRN Saline Lock Insert [OM.PC] Routine 09/19/17 09:08 Nitroglycerin [Nitrostat] 0.4 mg SL Q5M PRN 09/19/17 09:09 Cardiac Monitoring [RC] .As Directed 09/19/17 09:10 Oxygen Therapy [RC] PRN - Assessment/Plan Last 24 Hours: My Active Orders 09/19/17 08:47 EKG Documentation Completion [RC] ASDIRECTED 09/19/17 08:48 Sodium Chloride 0.9% [Saline Flush] 10 ml FLUSH ASDIRECTED PRN Saline Lock Insert [OM.PC] Routine 09/19/17 09:08 Nitroglycerin [Nitrostat] 0.4 mg SL Q5M PRN 09/19/17 09:09 Cardiac Monitoring [RC] .As Directed 09/19/17 09:10 Oxygen Therapy [RC] PRN
[2017-09-19] MEDS ORDERED: Sodium Chloride 0.9% 10 ML Syringe FLUSH PRN (08:48)
[2017-09-19] MEDS ORDERED: Aspirin 81 MG Tab.Chew PO ONE (09:08)
[2017-09-19] MEDS ORDERED: Nitroglycerin 0.4 MG Tab.SL SL PRN (09:08)
[2017-09-19] MEDS ORDERED: Acetaminophen 325 MG Tab PO PRN (09:56)
[2017-09-19] MEDS ORDERED: Ketorolac 60 MG/2 ML SDV IM SCH (10:00)
[2017-09-19] MEDS ORDERED: Sodium Chloride 0.9% 1,000 ML IV SCH (10:15)
[2017-09-19] MEDS ORDERED: Ketorolac 30 MG/ML SDV ONE (10:32)
[2017-09-19] MEDS ORDERED: ClonazePAM 1 MG Tab PO ONE (12:05)
[2017-09-19] MEDS ORDERED: ClonazePAM 1 MG Tab ONE (12:05)
[2017-09-19] MEDS ORDERED: Ondansetron 4 MG Tab.DIS PO ONE (13:17)
[2017-09-19] MEDS: Ondansetron 4 MG Tab.DIS ONE ×2 (13:21→13:54)
[2017-09-19 14:46] VITALS: BP 139/78
--- NOTE | 2017-09-21 18:15 | PCM.DCSUM1 ---
Discharge Summary - Hospital Course HPI Initial Comments: 51 yr female presents to ER from Ambulance with feeling some shortness of breath and pressure to mid-sternal area, restless. ASA 324mg PO given EKG completed and labs. Negative troponins and EKG NSR. Pt nauseated and Zofran given with relief of symptoms. Pt placed on observation with IV fluids to monitor troponins in 4 hours. Significant other is w pt and states she has been having some yellow stools and thinks she may be sick with this. Pt rested well, symptoms resolved and will discharge home to care of sig. other. Pt reported needing a refill of her Clonazapam. Medication refill was completed and pt should have medication for 12 more days. Discussed this w pt that it was too soon to refill her medication. She did receive Clonazapam 1 tab in hospital and symptoms resolved. Recommend F/U with psychiatrist if needs change in medication for anxiety. Recommend pt to take medications as prescribed and not to take more than Rx is for. Pt states understanding. - Discharge Data Discharge Date: 09/19/17 Discharge Disposition: Home, Self-Care 01 Condition: Good - Patient Instructions Diet: Regular Diet as Tolerated Activity: As Tolerated Driving: Do Not Drive Showering/Bathing: May Shower Other/Special Instructions: RTC for routine health maintenance - Discharge Plan Home Medications: Home Meds Ipratropium/Albuterol Sulfate [Duoneb 0.5 MG-3 MG/3 ML] 1 - 2 puff INH Q4H PRN 04/14/13 [History] Omeprazole 20 mg PO ACBREAKFAST 04/14/13 [History] risperiDONE [RisperiDAL M-Tab] 2 mg PO QPM 04/14/13 [History] Acetaminophen [Tylenol Extra Strength] 500 mg PO Q6H 06/06/15 [History] Budesonide/Formoterol [Symbicort 160-4.5 MCG] 2 puff INH BID 06/06/15 [History] Gabapentin [Neurontin] 1 tab PO TID 06/06/15 [History] QUEtiapine [SEROquel] 100 tab PO QAM 06/06/15 [History] Spironolactone [Aldactone] 3 tab PO BID 06/06/15 [History] buPROPion [Wellbutrin SR] 100 mg PO BID 06/06/15 [History] hydrOXYzine HCl [hydrOXYzine] 1 - 3 cap PO TID 06/06/15 [History] rOPINIRole [Requip] 1.5 tab PO BEDTIME 06/06/15 [History] tiZANidine [Zanaflex] 4 mg PO Q6H 02/28/16 [History] Zolpidem Tartrate [Ambien Cr] 12.5 tab PO QPM 08/01/16 [History] ClonazePAM [KlonoPIN] 1 mg PO BID 06/25/17 [History] QUEtiapine Fumarate [Quetiapine Fumarate] 400 mg PO QPM 06/25/17 [History] traZODone HCl [Trazodone HCl] 100 mg PO QPM 06/25/17 [History] sitaGLIPtin Phos/Metformin HCl [Janumet 50-1,000 MG] 1 tab PO BID 08/11/17 [ History] Patient Handouts: Shortness of Breath, Adult, [id number] Forms: ED Department Discharge Referrals: Case Echevarria MD [Primary Care Provider] - - General Info Date of Service: 09/19/17 Admission Dx/Problem (Free Text: shortness of breath and anxiety Functional Status: Reports: Pain Controlled, Tolerating Diet, Ambulating - Review of Systems General: Reports: No Symptoms. Denies: Fever, Weakness HEENT: Reports: No Symptoms Pulmonary: Reports: No Symptoms. Denies: Shortness of Breath, Pleuritic Chest Pain Cardiovascular: Reports: No Symptoms. Denies: Chest Pain, Palpitations Gastrointestinal: Reports: No Symptoms. Denies: Abdominal Pain, Constipation Musculoskeletal: Reports: No Symptoms. Denies: Neck Pain, Back Pain Skin: Reports: No Symptoms Neurological: Reports: No Symptoms. Denies: Confusion, Headache Psychiatric: Reports: Anxiety (improved). Denies: Confusion - Patient Data Vitals - Most Recent: Last Vital Signs Temp 98.4 F 09/19/17 13:56 Pulse 89 09/19/17 13:56 Resp 18 09/19/17 13:56 BP 139/78 09/19/17 13:56 Pulse Ox 96 09/19/17 13:56 Weight - Most Recent: 242 lb Med Orders - Current: Current Medications Discontinued Medications Acetaminophen (Tylenol) 650 mg PO Q4H PRN PRN Reason: analgesia/fever Aspirin (Aspirin) 324 mg PO ONETIME ONE Stop: 09/19/17 09:09 Last Admin: 09/19/17 09:09 Dose: 324 mg Clonazepam (Klonopin) 1 mg PO BID ONE Stop: 09/19/17 12:06 Last Admin: 09/19/17 12:15 Dose: 1 mg Clonazepam (Klonopin) Confirm Administered Dose 1 mg .ROUTE .STK-MED ONE Stop: 09/19/17 12:06 Last Admin: 09/19/17 12:15 Dose: Not Given Sodium Chloride (Normal Saline) 1,000 mls @ 250 mls/hr IV ASDIRECTED ARIK Last Admin: 09/19/17 10:54 Dose: 250 mls/hr Ketorolac Tromethamine (Toradol) 30 mg IM Q6H [facility] Stop: 09/24/17 10:00 Last Admin: 09/19/17 10:30 Dose: 30 mg Ketorolac Tromethamine (Toradol) Confirm Administered Dose 30 mg .ROUTE .STK- MED ONE Stop: 09/19/17 10:33 Last Admin: 09/19/17 10:35 Dose: Not Given Nitroglycerin (Nitrostat) 0.4 mg SL Q5M PRN PRN Reason: Chest Pain Stop: 09/20/17 09:09 Ondansetron HCl (Zofran Odt) Confirm Administered Dose 4 mg .ROUTE .STK-MED ONE Stop: 09/19/17 13:11 Last Admin: 09/19/17 13:54 Dose: Not Given Ondansetron HCl (Zofran Odt) 4 mg PO ONETIME ONE Stop: 09/19/17 13:18 Last Admin: 09/19/17 13:21 Dose: 4 mg Sodium Chloride (Saline Flush) 10 ml FLUSH ASDIRECTED PRN PRN Reason: Keep Vein Open Last Admin: 09/19/17 09:15 Dose: 10 ml - Exam Quality Assessment: Denies: Supplemental Oxygen, Skin Breakdown General: Reports: Alert, Oriented, Cooperative, No Acute Distress HEENT: Reports: Mucous Membr. Moist/Goss Neck: Reports: Supple, Trachea Midline Lungs: Reports: Clear to Auscultation, Normal Respiratory Effort Cardiovascular: Reports: Regular Rate, Regular Rhythm GI/Abdominal Exam: Soft, Non-Tender. No: Distended, Guarding Back Exam: Reports: Normal Inspection, Full Range of Motion Extremities: Normal Inspection, Normal Range of Motion, No Pedal Edema, Normal Capillary Refill Skin: Reports: Warm, Dry Neurological: Reports: No New Focal Deficit Psy/Mental Status: Reports: Alert, Normal Affect, Normal Mood *Q Meaningful Use (DIS) - VTE *Q VTE Criteria *Q: - Stroke *Q Stroke Criteria *Q: - AMI *Q AMI Criteria *Q:
== END 2017-09-19 15:15 | disposition home or self-care (01) ==
LOC: LB.ED 07:58 → LB.MS 09:56
PROVIDERS: ADMIT Nurse Practitioner Family; ATTEND Nurse Practitioner Family
DX: R06.02 Shortness of breath (principal); F41.9 Anxiety disorder, unspecified; I10 Essential (primary) hypertension; J45.909 Unspecified asthma, uncomplicated; K21.9 Gastro-esophageal reflux disease without esophagitis; F32.9 Major depressive disorder, single episode, unspecified; E11.9 Type 2 diabetes mellitus without complications; E66.9 Obesity, unspecified; Z68.30 Body mass index [BMI] 30.0-30.9, adult; Z91.09 Other allergy status, other than to drugs and biological substances; Z79.899 Other long term (current) drug therapy; Z90.710 Acquired absence of both cervix and uterus; F17.210 Nicotine dependence, cigarettes, uncomplicated
CPT/HCPCS: 36415; 80048; 84484; 93005; 96372; 99235; 99285-25; A0425; A0429; A9270-GY; G0378; J1885; J7050

== ENCOUNTER 2018-02-28 18:25 | Emergency (ER) | payer MEDICARE, MEDICAID ==
[2018-02-28] MEDS ORDERED: Dicyclomine 10 MG Cap ONE ×2 (18:30→18:52)
--- NOTE | 2018-03-01 13:17 | EDM.PDOC ---
ED HPI GENERAL MEDICAL PROBLEM - General Chief Complaint: General Stated Complaint: sick, bloated Time Seen by Provider: 02/28/18 18:45 Source of Information: Reports: Patient History Limitations: Reports: No Limitations - History of Present Illness INITIAL COMMENTS - FREE TEXT/NARRATIVE: According to patient she has been having abdominal bloating and nausea on and off for past 2 months. She did have semiformed stool this morning. No fever or chills. No weight loss. Pt claims she gets constipation at times and some time bloating, with abdominal cramping. Today it has got worse. No hematuria, or dark stools. No other complaints. Onset: Gradual Duration: Week(s): (8) Location: Reports: Abdomen Quality: Reports: Dull Severity: Moderate Improves with: Reports: None Worsens with: Reports: None Associated Symptoms: Reports: Nausea/Vomiting. Denies: Confusion, Chest Pain, Cough, Diaphoresis, Fever/Chills, Headaches, Loss of Appetite, Malaise, Rash, Seizure, Shortness of Breath, Syncope, Weakness - Related Data Allergies Allergy/AdvReac Type Severity Reaction Status Date / Time adhesive tape Allergy Rash Verified 02/28/18 18:38 celecoxib [From Celebrex] Allergy Nausea and Verified 02/28/18 18:38 Vomiting Home Meds: Home Meds Ipratropium/Albuterol Sulfate [Duoneb 0.5 MG-3 MG/3 ML] 1 - 2 puff INH Q4H PRN 04/14/13 [History] Omeprazole 20 mg PO ACBREAKFAST 04/14/13 [History] risperiDONE [RisperiDAL M-Tab] 2 mg PO QPM 04/14/13 [History] Acetaminophen [Tylenol Extra Strength] 500 mg PO Q6H 06/06/15 [History] Budesonide/Formoterol [Symbicort 160-4.5 MCG] 2 puff INH BID 06/06/15 [History] Gabapentin [Neurontin] 1 tab PO TID 06/06/15 [History] QUEtiapine [SEROquel] 100 tab PO QAM 06/06/15 [History] Spironolactone [Aldactone] 3 tab PO BID 06/06/15 [History] buPROPion [Wellbutrin SR] 100 mg PO BID 06/06/15 [History] hydrOXYzine HCl [hydrOXYzine] 1 - 3 cap PO TID 06/06/15 [History] rOPINIRole [Requip] 1.5 tab PO BEDTIME 06/06/15 [History] tiZANidine [Zanaflex] 4 mg PO Q6H 02/28/16 [History] Zolpidem Tartrate [Ambien Cr] 12.5 tab PO QPM 08/01/16 [History] ClonazePAM [KlonoPIN] 1 mg PO BID 06/25/17 [History] QUEtiapine Fumarate [Quetiapine Fumarate] 400 mg PO QPM 06/25/17 [History] sitaGLIPtin Phos/Metformin HCl [Janumet 50-1,000 MG] 1 tab PO BID 08/11/17 [ History] Past Medical History HEENT History: Reports: Impaired Vision, Other (See Below) Other HEENT History: glasses for reading, Cardiovascular History: Reports: Hypertension Respiratory History: Reports: Asthma, Bronchitis, Recurrent, Pneumonia, Recurrent, Other (See Below) Other Respiratory History: Emphysema Gastrointestinal History: Reports: Bowel Obstruction, GERD, Irritable Bowel Syndrome Genitourinary History: Reports: UTI, Recurrent 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: 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 Uterine Bleeding, Musculoskeletal History: Reports: Back Pain, Chronic, Other (See Below) Other Musculoskeletal History: back / butt pain, shoots down left leg Neurological History: Reports: Migraines Psychiatric History: Reports: Anxiety, Depression, Suicide Attempt, Suicidal Ideation Endocrine/Metabolic History: Reports: Diabetes, Type II, Obesity/BMI 30+ Hematologic History: Reports: Blood Transfusion(s), Iron Deficiency Dermatologic History: Reports: Eczema, Other (See Below) Other Dermatologic History: Allergy to paper tape - Infectious Disease History Infectious Disease History: Reports: Chicken Pox, Measles, Rubella - Past Surgical History Female Surgical History: Reports: Section, Hysterectomy Social & Family History - Family History Family Medical History: Noncontributory - Caffeine Use Caffeine Use: Reports: Coffee, Energy Drinks, Soda Other Caffeine Use: 2 cups a day ED ROS GENERAL - Review of Systems Review Of Systems: See Below Constitutional: Denies: Fever, Chills HEENT: Denies: Throat Pain, Throat Swelling Respiratory: Denies: Cough, Sputum Cardiovascular: Denies: Chest Pain, Lightheadedness GI/Abdominal: Reports: Abdominal Pain, Constipation, Diarrhea, Distension, Nausea. Denies: Black Stool, Bloody Stool, Difficulty Swallowing, Hematemesis, Hematochezia, Stool Incontinence, Vomiting : Denies: Dysuria, Flank Pain, Frequency Musculoskeletal: Denies: Joint Pain, Joint Swelling Skin: Denies: Pruritis, Rash ED EXAM, GENERAL - Physical Exam Exam: See Below Exam Limited By: No Limitations General Appearance: Alert, WD/WN, No Apparent Distress Eye Exam: Bilateral Eye: EOMI, PERRL Ears: Normal External Exam, Normal Canal, Hearing Grossly Normal, Normal TMs Ear Exam: Bilateral Ear: Auricle Normal, Canal Normal, TM normal Nose: Normal Inspection, Normal Mucosa, No Blood Throat/Mouth: Normal Inspection, Normal Lips, Normal Teeth, Normal Gums, Normal Oropharynx, Normal Voice, No Airway Compromise Head: Atraumatic, Normocephalic Neck: Normal Inspection, Supple, Non-Tender, Full Range of Motion Respiratory/Chest: No Respiratory Distress, Lungs Clear, Normal Breath Sounds, No Accessory Muscle Use, Chest Non-Tender Cardiovascular: Normal Peripheral Pulses, Regular Rate, Rhythm, No Edema, No Gallop, No JVD, No Murmur, No Rub GI/Abdominal: Normal Bowel Sounds, Soft, Non-Tender, No Organomegaly, No Abnormal Bruit, No Mass, Distended Extremities: Normal Inspection, Normal Range of Motion, Non-Tender, Normal Capillary Refill, No Pedal Edema Neurological: Alert, Oriented, CN II-XII Intact, Normal Cognition, Normal Gait, Normal Reflexes, No Motor/Sensory Deficits Course - Vital Signs Text/Narrative:: Pt as very nonspecific abdominal distension and nausea for 8 wks now. She has had workup done by her PCP and had no abnormalities. Her symptoms have got worse in the past 2 days. Clinical exam is normal other than distension. Pt probably has constipation or IBS variant. She did receive Bentyl 10mg BID. Advised soft diet, and good bowel hygiene. Advised to followup with her Primary care provider for further workup. Return to emergency room if not better. - Orders/Labs/Meds Meds: Medications Discontinued Medications Generic Name Dose Route Start Last Admin Trade Name Freq PRN Reason Stop Dose Admin Dicyclomine HCl Confirm 02/28/18 18:52 Bentyl Administered 02/28/18 18:53 Dose 30 mg .ROUTE .STK-MED ONE Dicyclomine HCl 20 mg 02/28/18 18:30 Bentyl .ROUTE 08/15/18 18:31 .STK-MED ONE Departure - Departure Time of Disposition: 19:30 Disposition: Home, Self-Care 01 Condition: Good Clinical Impression: IBS (irritable bowel syndrome) - Discharge Information Referrals: PCP,None [Primary Care Provider] - Forms: ED Department Discharge - Problem List & Annotations (1) IBS (irritable bowel syndrome) SNOMED Code(s): 64473006 Code(s): K58.9 - IRRITABLE BOWEL SYNDROME WITHOUT DIARRHEA Status: Acute - Problem List Review Problem List Initiated/Reviewed/Updated: Yes - Assessment/Plan Assessment:: IBS Plan: Pt as very nonspecific abdominal distension and nausea for 8 wks now. She has had workup done by her PCP and had no abnormalities. Her symptoms have got worse in the past 2 days. Clinical exam is normal other than distension. Pt probably has constipation or IBS variant. She did receive Bentyl 10mg BID. Advised soft diet, and good bowel hygiene. Advised to followup with her Primary care provider for further workup. Return to emergency room if not better.
== END 2018-02-28 19:00 | disposition home or self-care (01) ==
LOC: LB.ED 18:25
DX: K58.9 Irritable bowel syndrome, unspecified (principal); I10 Essential (primary) hypertension; E11.9 Type 2 diabetes mellitus without complications; E66.9 Obesity, unspecified; Z79.899 Other long term (current) drug therapy; Z88.8 Allergy status to other drugs, medicaments and biological substances; Z91.09 Other allergy status, other than to drugs and biological substances
CPT/HCPCS: 99283; A9270

== ENCOUNTER 2018-03-01 14:53 | Inpatient (IN) | payer MEDICARE, MEDICAID ==
[2018-03-01] MEDS ORDERED: Albuterol/Ipratropium 3.0-0.5 MG/3 ML Neb Soln INH PRN (16:48)
[2018-03-01] MEDS: Acetaminophen 500 MG Tab PO SCH (17:15)
[2018-03-01] MEDS: traMADol 50 MG Tab PO PRN (17:17)
[2018-03-01] MEDS ORDERED: Ketorolac 30 MG/ML SDV ONE (18:31)
[2018-03-01] MEDS: Ketorolac 30 MG/ML SDV IVPUSH PRN (18:33)
[2018-03-01] MEDS ORDERED: Zolpidem 5 MG Tab PO SCH (20:00)
[2018-03-01] MEDS ORDERED: Gabapentin 400 MG Cap ONE (21:09)
[2018-03-01] MEDS ORDERED: QUEtiapine Fumarate 200 MG TABLET PO ONE (21:10)
[2018-03-01] MEDS ORDERED: Zolpidem 5 MG Tab ONE (21:16)
[2018-03-01] MEDS: ClonazePAM 1 MG Tab PO SCH (21:22)
[2018-03-01] MEDS: Spironolactone 25 MG Tab PO SCH (21:23)
[2018-03-01] MEDS: hydrOXYzine HCl 25 MG Tab PO SCH (21:23)
[2018-03-01] MEDS: risperiDONE 1 MG Tab PO SCH (21:24)
[2018-03-01] MEDS: Gabapentin 800 MG Tab PO SCH (21:24)
[2018-03-01] MEDS: rOPINIRole 1 MG Tab PO SCH (21:25)
[2018-03-01] MEDS ORDERED: Zolpidem 5 MG Tab PO ONE (21:45)
[2018-03-02] MEDS: traMADol 50 MG Tab PO PRN ×3 (00:01→16:19)
[2018-03-02] MEDS: Formoterol/Mometasone 200-5 MCG 8.8 GM Inhaler IH SCH ×3 (00:04→21:20)
[2018-03-02] MEDS: Sodium Chloride 0.9% 1,000 ML IV SCH ×3 (00:45→16:32)
[2018-03-02] MEDS: Ketorolac 30 MG/ML SDV IVPUSH PRN ×3 (02:29→21:34)
[2018-03-02] MEDS: Acetaminophen 500 MG Tab PO SCH ×5 (06:05→23:00)
[2018-03-02] MEDS: Omeprazole 20 MG Cap.CR PO SCH (07:37)
[2018-03-02] MEDS: hydrOXYzine HCl 25 MG Tab PO SCH ×3 (08:45→21:21)
[2018-03-02] MEDS: Nicotine 21 MG/24 Hr Patch TRDERM SCH (08:46)
[2018-03-02] MEDS: Spironolactone 25 MG Tab PO SCH ×2 (08:46→21:20)
[2018-03-02] MEDS: ClonazePAM 1 MG Tab PO SCH ×2 (08:47→21:23)
[2018-03-02] MEDS ORDERED: Gabapentin 400 MG Cap ONE ×3 (08:59→21:29)
[2018-03-02] MEDS: Gabapentin 800 MG Tab PO SCH ×3 (09:03→21:32)
--- NOTE | 2018-03-02 09:26 | CT ---
UNENHANCED ABDOMEN AND PELVIC CT, 03/01/18 Multislice acquisition through the abdomen and pelvis without IV or oral contrast was performed. Comparison was made to a prior abdomen and pelvic CT dated 08/09/17. There are small pleural-based nodules within the left costophrenic angle. There are also small subpleural nodules in the right middle lobe and right lower lobe. These are unchanged. There is diffuse heterogeneous fatty infiltration of the liver. No focal hepatic lesions. The patient is status post cholecystectomy. The spleen appears normal. The pancreas appears normal. The right and left adrenals appear normal. The right and left kidneys appear normal. No nephrocalcinosis or nephrolithiasis. No hydronephrosis or hydroureter. The bladder is fluid filled and appears normal. The patient is status post hysterectomy. The appendix is not seen. No evidence of appendicitis. The stomach is fluid and gas filled and moderately distended. There are multiple fluid filled, mildly distended loops of small bowel throughout the abdomen. These contain air-fluid levels. The distal ileum is not dilated. These findings are consistent with a localized ileus or small bowel obstruction. No free air. No free fluid. No adenopathy. No aortic aneurysm. IMPRESSION: Findings consistent with small bowel obstruction or ileus. Other findings as discussed above. [id number] [facility]
[2018-03-02] MEDS: BUPROPION 100 MG PO SCH ×2 (16:21→21:22)
--- NOTE | 2018-03-02 17:43 | PCM.HP ---
H&P History of Present Illness - General Date of Service: 03/01/18 Admit Problem/Dx: Admission Diagnosis/Problem Admission Diagnosis/Problem Bowel obstruction due to retraction of stoma Source of Information: Patient, Old Records History Limitations: Reports: No Limitations - History of Present Illness Initial Comments - Free Text/Narative: 52 yr female presented to clinic 03-01-2018. Abdominal pain and firm abdomen with distant bowel sounds. CT completed and small bowel obstruction noted, no free air or fluid. Will admit with small bowel obstruction. Will place NPO with sips of water with medications and small amount of ice chips to assist with mouth moisturizer. Kindly refer to notes from clinic visit for her H&P. - Related Data Allergies/Adverse Reactions: Allergies Allergy/AdvReac Type Severity Reaction Status Date / Time adhesive tape Allergy Rash Verified 03/01/18 16:47 celecoxib [From Celebrex] Allergy Nausea and Verified 03/01/18 16:47 Vomiting Home Medications: Home Meds Ipratropium/Albuterol Sulfate [Duoneb 0.5 MG-3 MG/3 ML] 1 - 2 puff INH Q4H PRN 04/14/13 [History] Omeprazole 20 mg PO ACBREAKFAST 04/14/13 [History] risperiDONE [RisperiDAL M-Tab] 2 mg PO QPM 04/14/13 [History] Acetaminophen [Tylenol Extra Strength] 500 mg PO Q6H 06/06/15 [History] Budesonide/Formoterol [Symbicort 160-4.5 MCG] 2 puff INH BID 06/06/15 [History] Gabapentin [Neurontin] 1 tab PO TID 06/06/15 [History] QUEtiapine [SEROquel] 100 tab PO QAM 06/06/15 [History] Spironolactone [Aldactone] 3 tab PO BID 06/06/15 [History] buPROPion [Wellbutrin SR] 100 mg PO BID 06/06/15 [History] hydrOXYzine HCl [hydrOXYzine] 1 - 3 cap PO TID 06/06/15 [History] rOPINIRole [Requip] 1.5 tab PO BEDTIME 06/06/15 [History] tiZANidine [Zanaflex] 4 mg PO Q6H 02/28/16 [History] Zolpidem Tartrate [Ambien Cr] 12.5 tab PO QPM 08/01/16 [History] ClonazePAM [KlonoPIN] 1 mg PO BID 06/25/17 [History] QUEtiapine Fumarate [Quetiapine Fumarate] 400 mg PO QPM 06/25/17 [History] sitaGLIPtin Phos/Metformin HCl [Janumet 50-1,000 MG] 1 tab PO BID 08/11/17 [ History] Past Medical History HEENT History: Reports: Impaired Vision, Other (See Below) Other HEENT History: glasses for reading, Cardiovascular History: Reports: Hypertension Respiratory History: Reports: Asthma, Bronchitis, Recurrent, Pneumonia, Recurrent, Other (See Below) Other Respiratory History: Emphysema Gastrointestinal History: Reports: Bowel Obstruction, GERD, Irritable Bowel Syndrome Genitourinary History: Reports: UTI, Recurrent [employer] History: Reports: 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 Uterine Bleeding, Musculoskeletal History: Reports: Back Pain, Chronic, Other (See Below) Other Musculoskeletal History: back / butt pain, shoots down left leg Neurological History: Reports: Migraines Psychiatric History: Reports: Anxiety, Depression, Suicide Attempt, Suicidal Ideation Endocrine/Metabolic History: Reports: Diabetes, Type II, Obesity/BMI 30+ Hematologic History: Reports: Blood Transfusion(s), Iron Deficiency Dermatologic History: Reports: Eczema, Other (See Below) Other Dermatologic History: Allergy to paper tape - Infectious Disease History Infectious Disease History: Reports: Chicken Pox, Measles, Rubella - Past Surgical History Female Surgical History: Reports: Section, Hysterectomy Social & Family History - Family History Family Medical History: Noncontributory Cardiac: Reports: None Musculoskeletal: Reports: Arthritis, Back pain, Chronic Neurological: Reports: None Psychiatric: Reports: Depression Endocrine/Metabolic: Reports: None Oncologic: Reports: None - Tobacco Use Smoking Status *Q: Current Every Day Smoker Years of Tobacco use: 30 Packs/Tins Daily: 0.5 Used Tobacco, but Quit: No Second Hand Smoke Exposure: Yes - Caffeine Use Caffeine Use: Reports: Soda Other Caffeine Use: 2 cups a day - Recreational Drug Use Recreational Drug Use: No H&P Review of Systems - Review of Systems: Review Of Systems: See Below General: Reports: Fatigue, Decreased Appetite HEENT: Reports: No Symptoms Pulmonary: Reports: No Symptoms Cardiovascular: Reports: No Symptoms Gastrointestinal: Reports: Abdominal Pain, Decreased Appetite, Distension. Denies: Flatus Genitourinary: Reports: No Symptoms Musculoskeletal: Reports: No Symptoms Skin: Reports: No Symptoms Psychiatric: Reports: Other (Just had telemedicine visit with psychiatry and changed from Trazodone to Ambien for sleep) Neurological: Reports: No Symptoms Hematologic/Lymphatic: Reports: No Symptoms Immunologic: Reports: No Symptoms Exam - Exam Exam: See Below - Vital Signs Vital Signs: Last Vital Signs Temp 97.8 F 03/02/18 00:00 Pulse 67 03/02/18 00:00 Resp 20 03/02/18 00:00 BP 115/58 L 03/02/18 00:00 Pulse Ox 96 03/02/18 00:00 Weight: 245 lb 3.2 oz - Exam Quality Assessment: No: Supplemental Oxygen, DVT Prophylaxis General: Alert, Oriented, Cooperative HEENT: PERRLA, Mucosa Moist & [place] Neck: Supple, Trachea Midline Lungs: Clear to Auscultation, Normal Respiratory Effort Cardiovascular: Regular Rate, Regular Rhythm GI/Abdominal Exam: Distended, Tender, Other (distant bowel sounds X 4 quadrant) . No: Guarding Back Exam: Normal Inspection, Full Range of Motion Extremities: Normal Inspection, Normal Range of Motion, Non-Tender Peripheral Pulses: 2+: Dorsalis Pedis (L), Dorsalis Pedis (R) Skin: Warm, Dry Neuro Extensive - Mental Status: Alert, Oriented x3, Normal Mood/Affect, Normal Cognition Neuro Extensive - Motor, Sensory, Reflexes: Normal Gait, Normal Reflexes Psychiatric: Alert, Anxious, Depressed. No: Suicidal Ideation - Patient Data Lab Results Last 24 hrs: Laboratory Results - last 24 hr 03/01/18 03/01/18 Range/Units 17:05 17:05 WBC 7.4 (4.0-11.0) K/uL RBC 4.39 (3.80-5.80) M/uL Hgb 11.4 L (11.5-16.5) g/dL Hct 34.1 L (37.0-47.0) % MCV 78 (76-96) fL MCH 26.0 L (27.0-32.0) pg MCHC 33.4 (31.0-35.0) g/dL RDW 13.6 (11.0-16.0) % Plt Count 157 (150-500) K/uL MPV 11.3 H (6.0-10.0) fL Neut % (Auto) 45.4 (45.0-70.0) % Lymph % (Auto) 41.2 H (20.0-40.0) % [place] % (Auto) 10.8 H (3.0-10.0) % Eos % (Auto) 2.2 (1.0-5.0) % Baso % (Auto) 0.4 (0.0-0.5) % Neut # (Auto) 3.38 (2.00-7.50) K/uL Lymph # (Auto) 3.06 (1.50-4.00) K/uL [place] # (Auto) 0.80 (0.20-0.80) K/uL Eos # (Auto) 0.16 (0.04-0.40) K/uL Baso # (Auto) 0.03 (0.02-0.10) K/uL Sodium 136 (136-145) mmol/L Potassium 3.5 (3.5-5.1) mmol/L Chloride 103 (98-107) mmol/L Carbon Dioxide 23.3 (21.0-32.0) mmol/L Anion Gap 13.2 (5.0-15.0) mmol/L BUN 7 L D (8-26) mg/dL Creatinine 0.95 (0.55-1.02) mg/dL Est Cr Clr Drug Dosing 64.11 mL/min Estimated GFR (MDRD) > 60 (>60) MLS/MIN BUN/Creatinine Ratio 7.4 (6-25) Glucose 191 H (74-100) mg/dL Calcium 8.7 (8.5-10.1) mg/dL Total Bilirubin 0.2 D (0.0-1.0) mg/dL AST 17 (15-37) U/L ALT 30 (12-78) U/L Alkaline Phosphatase 125 H (46-116) U/L Total Protein 6.4 (6.4-8.2) g/dL Albumin 3.1 L (3.4-5.0) g/dL Globulin 3.3 (2.2-4.2) g/dL Albumin/Globulin Ratio 0.9 (0.8-2.0) Result Diagrams: 03/01/18 17:05 03/01/18 17:05 - Problem List (1) Chronic pain SNOMED Code(s): 74555657 ICD Code: G89.29 - OTHER CHRONIC PAIN Status: Acute Current Visit: No (2) Asthma SNOMED Code(s): 279753608 ICD Code: J45.909 - UNSPECIFIED ASTHMA, UNCOMPLICATED Status: Chronic Current Visit: No Qualifiers: Asthma severity: mild Asthma persistence: intermittent Asthma complication type: uncomplicated Qualified Code(s): J45.20 - Mild intermittent asthma, uncomplicated (3) Depression SNOMED Code(s): 47276034 ICD Code: F32.9 - MAJOR DEPRESSIVE DISORDER, SINGLE EPISODE, UNSPECIFIED Status: Chronic Current Visit: No (4) GERD (gastroesophageal reflux disease) SNOMED Code(s): 925435155 ICD Code: K21.9 - GASTRO-ESOPHAGEAL REFLUX DISEASE WITHOUT ESOPHAGITIS Status: Chronic Current Visit: No (5) HTN (hypertension) SNOMED Code(s): 97706781 ICD Code: I10 - ESSENTIAL (PRIMARY) HYPERTENSION Status: Chronic Current Visit: No Qualifiers: Hypertension type: essential hypertension Qualified Code(s): I10 - Essential (primary) hypertension (6) Restless leg SNOMED Code(s): 16798812 ICD Code: G25.81 - RESTLESS LEGS SYNDROME Status: Chronic Current Visit: No (7) Small bowel obstruction SNOMED Code(s): 244632755 ICD Code: K56.609 - UNSP INTESTNL OBST, UNSP TO PARTIAL VERSUS COMPLETE OBST Status: Resolved Priority: High Current Visit: No Problem List Initiated/Reviewed/Updated: Yes Orders Last 24hrs: Active Orders 24 hr Category Date Time Status Patient Status [ADT] Routine ADT 03/01/18 16:42 Active Blood Glucose Check, Bedside [RC] BIDAC Care 03/02/18 17:35 Ordered Intake and Output [RC] QSHIFT Care 03/01/18 16:44 Active Oxygen Therapy [RC] PRN Care 03/01/18 16:42 Active Up ad Coreen [RC] ASDIRECTED Care 03/01/18 16:42 Active Vital Signs [RC] Q4H Care 03/01/18 16:42 Active Nothing per Oral Now Diet [DIET] Diet 03/01/18 Dinner Ordered BASIC METABOLIC PANEL,BMP [CHEM] Routine Lab 03/03/18 08:00 Ordered CBC WITH AUTO DIFF [HEME] Routine Lab 03/03/18 08:00 Ordered LACTIC ACID [CHEM] Routine Lab 03/03/18 08:00 Ordered Acetaminophen [Tylenol Extra Strength] Med 03/01/18 17:00 Active 500 mg PO Q6H Albuterol/Ipratropium [DuoNeb 3.0-0.5 MG/3 ML] Med 03/01/18 16:48 Active 3 ml INH Q4H PRN ClonazePAM [KlonoPIN] Med 03/01/18 20:00 Active 1 mg PO BID Gabapentin [Neurontin] Med 03/01/18 20:00 Active 800 mg PO TID Ketorolac [Toradol] Med 03/01/18 18:27 Active 15 mg IVPUSH Q8H PRN Mometasone/Formoterol [Dulera 200-5 MCG] Med 03/01/18 20:00 Active 2 puff IH BID Nicotine [Habitrol] Med 03/02/18 08:00 Active 21 mg TRDERM DAILY Omeprazole Med 03/02/18 07:00 Active 20 mg PO ACBREAKFAST QUEtiapine [SEROquel] Med 03/02/18 08:00 Active 100 mg PO QAM QUEtiapine [SEROquel] Med 03/01/18 20:00 Active 400 mg PO QPM Sodium Chloride 0.9% [Normal Saline] 1,000 ml Med 03/02/18 00:45 Active IV ASDIRECTED Spironolactone [Aldactone] Med 03/01/18 20:00 Active 75 mg PO BID Zolpidem [Ambien] Med 03/02/18 20:00 Active 10 mg PO BEDTIME buPROPion [Wellbutrin SR] Med 03/02/18 14:30 Active 100 mg PO BID hydrOXYzine HCl [Atarax] Med 03/01/18 20:00 Active 50 mg PO TID rOPINIRole [Requip] Med 03/01/18 20:00 Active 1.5 mg PO BEDTIME risperiDONE [RisperiDAL] Med 03/01/18 20:00 Active 2 mg PO QPM sitaGLIPtin Phos/Metformin HCl [Janumet 50-1,000 MG] Med 03/02/18 17:00 Active 1 tab PO BIDMEALS traMADol [Ultram] Med 03/01/18 16:47 Active 50 mg PO Q6H PRN Medication Orders Acetaminophen (Tylenol Extra Strength) 500 mg PO Q6H [facility] Last Admin: 03/02/18 11:21 Dose: 500 mg Admin: 03/02/18 06:05 Dose: Not Given Admin: 03/02/18 00:00 Dose: 500 mg Admin: 03/01/18 17:15 Dose: 500 mg Albuterol/Ipratropium (Duoneb 3.0-0.5 Mg/3 Ml) 3 ml INH Q4H PRN PRN Reason: Shortness of Breath Clonazepam (Klonopin) 1 mg PO BID [facility] Last Admin: 03/02/18 08:47 Dose: 1 mg Admin: 03/01/18 21:22 Dose: 1 mg Gabapentin (Neurontin) 800 mg PO TID [facility] Last Admin: 03/02/18 16:20 Dose: 800 mg Admin: 03/02/18 09:03 Dose: 800 mg Admin: 03/01/18 21:24 Dose: 800 mg Hydroxyzine HCl (Atarax) 50 mg PO TID [facility] Last Admin: 03/02/18 16:21 Dose: 50 mg Admin: 03/02/18 08:45 Dose: 50 mg Admin: 03/01/18 21:23 Dose: 50 mg Sodium Chloride (Normal Saline) 1,000 mls @ 75 mls/hr IV ASDIRECTED [facility] Last Admin: 03/02/18 16:32 Dose: 125 mls/hr Infusion: 03/02/18 16:32 Dose: 125 mls/hr Admin: 03/02/18 08:54 Dose: 125 mls/hr Infusion: 03/02/18 08:45 Dose: 125 mls/hr Admin: 03/02/18 00:45 Dose: 125 mls/hr Ketorolac Tromethamine (Toradol) 15 mg IVPUSH Q8H PRN PRN Reason: Abdominal Pain Stop: 03/06/18 18:28 Last Admin: 03/02/18 11:22 Dose: 15 mg Admin: 03/02/18 02:29 Dose: 15 mg Admin: 03/01/18 18:33 Dose: 15 mg Mometasone Furoate/Formoterol Fumar (Dulera 200-5 Mcg) 2 puff IH BID [facility] Last Admin: 03/02/18 11:23 Dose: Admin: 03/02/18 00:04 Dose: Not Given Nicotine (Habitrol) 21 mg TRDERM DAILY [facility] Last Admin: 03/02/18 08:46 Dose: 21 mg Non-Formulary Medication ( Bupropion [ Wellbutrin Sr] 100 Mg) 100 mg PO BID [facility] Last Admin: 03/02/18 16:21 Dose: 100 mg Patients Own ( Sitagliptin Phos/Metformin Hcl [ Janumet 50-1,000 Mg] 1 Ta 1 tab PO BIDMEALS [facility] Omeprazole (Omeprazole) 20 mg PO ACBREAKFAST [facility] Last Admin: 03/02/18 07:37 Dose: 20 mg Quetiapine Fumarate (Seroquel) 400 mg PO QPM [facility] Last Admin: 03/01/18 21:24 Dose: 400 mg Quetiapine Fumarate (Seroquel) 100 mg PO QAM [facility] Last Admin: 03/02/18 08:45 Dose: 100 mg Risperidone (Risperidal) 2 mg PO QPM [facility] Last Admin: 03/01/18 21:24 Dose: 2 mg Ropinirole HCl (Requip) 1.5 mg PO BEDTIME [facility] Last Admin: 03/01/18 21:25 Dose: 1.5 mg Spironolactone (Aldactone) 75 mg PO BID [facility] Last Admin: 03/02/18 08:46 Dose: 75 mg Admin: 03/01/18 21:23 Dose: 75 mg Tramadol HCl (Ultram) 50 mg PO Q6H PRN PRN Reason: Abdominal Pain Last Admin: 03/02/18 16:19 Dose: 50 mg Admin: 03/02/18 09:02 Dose: 50 mg Admin: 03/02/18 00:01 Dose: 50 mg Admin: 03/01/18 17:17 Dose: 50 mg Zolpidem Tartrate (Ambien) 10 mg PO BEDTIME [facility] Assessment/Plan Comment:: Admit this 52 yr female with small bowel obstruction: Place on NPO except small amount of ice chips, sips of water with medications. Control of abdominal pain with anti-inflammatories. Recommend up as tolerated to increase bowel function. Recommend no narcotics for her pain and pt in agreement with this. Will order nicotine patch as needed. IV fluid of N/S at 125cc/hr. Closely monitor and conservative treatment at this time. Pt would prefer to not have N/G tube if possible. She has had limited nausea with this. Pt in agreement with this plan.
--- NOTE | 2018-03-02 17:55 | PCM.PN ---
- General Info Date of Service: 03/02/18 Admission Dx/Problem (Free Text): Admission Diagnosis/Problem Admission Diagnosis/Problem Bowel obstruction Subjective Update: Pt states she is feeling some better and is passing flatus this am. Functional Status: Reports: Pain Controlled, Ambulating - Review of Systems General: Reports: No Symptoms, Other (tired) HEENT: Reports: No Symptoms Pulmonary: Reports: No Symptoms Cardiovascular: Reports: No Symptoms Gastrointestinal: Reports: Abdominal Pain, Flatus. Denies: Diarrhea, Nausea, Vomiting Genitourinary: Reports: No Symptoms Musculoskeletal: Reports: No Symptoms Skin: Reports: No Symptoms Neurological: Reports: No Symptoms Psychiatric: Reports: Depression - Patient Data Vitals - Most Recent: Last Vital Signs Temp 97.8 F 03/02/18 00:00 Pulse 67 03/02/18 00:00 Resp 20 03/02/18 00:00 BP 115/58 L 03/02/18 00:00 Pulse Ox 96 03/02/18 00:00 Weight - Most Recent: 245 lb 3.2 oz Med Orders - Current: Current Medications Acetaminophen (Tylenol Extra Strength) 500 mg PO Q6H [facility] Last Admin: 03/02/18 11:21 Dose: 500 mg Albuterol/Ipratropium (Duoneb 3.0-0.5 Mg/3 Ml) 3 ml INH Q4H PRN PRN Reason: Shortness of Breath Clonazepam (Klonopin) 1 mg PO BID [facility] Last Admin: 03/02/18 08:47 Dose: 1 mg Gabapentin (Neurontin) 800 mg PO TID [facility] Last Admin: 03/02/18 16:20 Dose: 800 mg Hydroxyzine HCl (Atarax) 50 mg PO TID [facility] Last Admin: 03/02/18 16:21 Dose: 50 mg Sodium Chloride (Normal Saline) 1,000 mls @ 75 mls/hr IV ASDIRECTED [facility] Last Admin: 03/02/18 16:32 Dose: 125 mls/hr Ketorolac Tromethamine (Toradol) 15 mg IVPUSH Q8H PRN PRN Reason: Abdominal Pain Stop: 03/06/18 18:28 Last Admin: 03/02/18 11:22 Dose: 15 mg Mometasone Furoate/Formoterol Fumar (Dulera 200-5 Mcg) 2 puff IH BID [facility] Last Admin: 03/02/18 11:23 Dose: Not Given Nicotine (Habitrol) 21 mg TRDERM DAILY [facility] Last Admin: 03/02/18 08:46 Dose: 21 mg Non-Formulary Medication ( Bupropion [ Wellbutrin Sr] 100 Mg) 100 mg PO BID [facility] Last Admin: 03/02/18 16:21 Dose: 100 mg Patients Own ( Sitagliptin Phos/Metformin Hcl [ Janumet 50-1,000 Mg] 1 Ta 1 tab PO BIDMEALS [facility] Omeprazole (Omeprazole) 20 mg PO ACBREAKFAST [facility] Last Admin: 03/02/18 07:37 Dose: 20 mg Quetiapine Fumarate (Seroquel) 400 mg PO QPM [facility] Last Admin: 03/01/18 21:24 Dose: 400 mg Quetiapine Fumarate (Seroquel) 100 mg PO QAM [facility] Last Admin: 03/02/18 08:45 Dose: 100 mg Risperidone (Risperidal) 2 mg PO QPM [facility] Last Admin: 03/01/18 21:24 Dose: 2 mg Ropinirole HCl (Requip) 1.5 mg PO BEDTIME [facility] Last Admin: 03/01/18 21:25 Dose: 1.5 mg Spironolactone (Aldactone) 75 mg PO BID [facility] Last Admin: 03/02/18 08:46 Dose: 75 mg Tramadol HCl (Ultram) 50 mg PO Q6H PRN PRN Reason: Abdominal Pain Last Admin: 03/02/18 16:19 Dose: 50 mg Zolpidem Tartrate (Ambien) 10 mg PO BEDTIME [facility] Discontinued Medications Gabapentin (Neurontin) Confirm Administered Dose 800 mg .ROUTE .STK-MED ONE Stop: 03/01/18 21:10 Last Admin: 03/01/18 21:24 Dose: Not Given Gabapentin (Neurontin) Confirm Administered Dose 800 mg .ROUTE .STK-MED ONE Stop: 03/02/18 09:00 Last Admin: 03/02/18 11:23 Dose: Not Given Gabapentin (Neurontin) Confirm Administered Dose 800 mg .ROUTE .STK-MED ONE Stop: 03/02/18 16:13 Last Admin: 03/02/18 17:46 Dose: Not Given Ketorolac Tromethamine (Toradol) Confirm Administered Dose 30 mg .ROUTE .STK- MED ONE Stop: 03/01/18 18:32 Last Admin: 03/01/18 21:00 Dose: Not Given Quetiapine Fumarate (Quetiapine Fumarate) Confirm Administered Dose 400 mg PO .STK-MED ONE Stop: 03/01/18 21:11 Last Admin: 03/01/18 21:24 Dose: Not Given Zolpidem Tartrate (Ambien) 12.5 mg PO BEDTIME [facility] Last Admin: 03/02/18 00:48 Dose: Not Given Zolpidem Tartrate (Ambien) Confirm Administered Dose 15 mg .ROUTE .STK-MED ONE Stop: 03/01/18 21:17 Last Admin: 03/01/18 21:36 Dose: Not Given Zolpidem Tartrate (Ambien) 10 mg PO ONETIME ONE Stop: 03/01/18 21:46 Last Admin: 03/01/18 21:37 Dose: 10 mg - Exam Quality Assessment: No: Supplemental Oxygen, DVT Prophylaxis, Skin Breakdown General: Alert, Oriented, Cooperative, No Acute Distress HEENT: Mucous Membr. Moist/[place] Neck: Supple, Trachea Midline. No: Lymphadenopathy Lungs: Clear to Auscultation, Normal Respiratory Effort. No: Crackles, Rhonchi Cardiovascular: Regular Rate, Regular Rhythm GI/Abdominal Exam: Tender, Other (Bowel sounds improved and less distended. Abdomen more soft, but still full. ). No: Guarding, Rigid Back Exam: Normal Inspection Extremities: Normal Inspection, Normal Range of Motion, No Pedal Edema Skin: Warm, Dry Neurological: No New Focal Deficit Psy/Mental Status: Alert, Normal Affect, Depressed, Other (Teary eyed with talking of family and concerns of her children and grandchildren.) - Problem List & Annotations (1) Chronic pain SNOMED Code(s): 18431381 Code(s): G89.29 - OTHER CHRONIC PAIN Status: Acute Current Visit: No (2) Asthma SNOMED Code(s): 108823409 Code(s): J45.909 - UNSPECIFIED ASTHMA, UNCOMPLICATED Status: Chronic Current Visit: No Qualifiers: Asthma severity: mild Asthma persistence: intermittent Asthma complication type: uncomplicated Qualified Code(s): J45.20 - Mild intermittent asthma, uncomplicated (3) Depression SNOMED Code(s): 82425930 Code(s): F32.9 - MAJOR DEPRESSIVE DISORDER, SINGLE EPISODE, UNSPECIFIED Status: Chronic Current Visit: No (4) GERD (gastroesophageal reflux disease) SNOMED Code(s): 795375520 Code(s): K21.9 - GASTRO-ESOPHAGEAL REFLUX DISEASE WITHOUT ESOPHAGITIS Status: Chronic Current Visit: No (5) HTN (hypertension) SNOMED Code(s): 74502040 Code(s): I10 - ESSENTIAL (PRIMARY) HYPERTENSION Status: Chronic Current Visit: No Qualifiers: Hypertension type: essential hypertension Qualified Code(s): I10 - Essential (primary) hypertension (6) Restless leg SNOMED Code(s): 47277319 Code(s): G25.81 - RESTLESS LEGS SYNDROME Status: Chronic Current Visit: No (7) Small bowel obstruction SNOMED Code(s): 978274582 Code(s): K56.609 - UNSP INTESTNL OBST, UNSP TO PARTIAL VERSUS COMPLETE OBST Status: Resolved Priority: High Current Visit: No - Problem List Review Problem List Initiated/Reviewed/Updated: Yes - My Orders Last 24 Hours: My Active Orders 03/01/18 17:00 Acetaminophen [Tylenol Extra Strength] 500 mg PO Q6H 03/01/18 18:27 Ketorolac [Toradol] 15 mg IVPUSH Q8H PRN 03/01/18 20:00 ClonazePAM [KlonoPIN] 1 mg PO BID Gabapentin [Neurontin] 800 mg PO TID Mometasone/Formoterol [Dulera 200-5 MCG] 2 puff IH BID QUEtiapine [SEROquel] 400 mg PO QPM Spironolactone [Aldactone] 75 mg PO BID hydrOXYzine HCl [Atarax] 50 mg PO TID rOPINIRole [Requip] 1.5 mg PO BEDTIME risperiDONE [RisperiDAL] 2 mg PO QPM 03/01/18 Dinner Nothing per Oral Now Diet [DIET] 03/02/18 00:45 Sodium Chloride 0.9% [Normal Saline] 1,000 ml IV ASDIRECTED 03/02/18 07:00 Omeprazole 20 mg PO ACBREAKFAST 03/02/18 08:00 Nicotine [Habitrol] 21 mg TRDERM DAILY QUEtiapine [SEROquel] 100 mg PO QAM 03/02/18 14:30 buPROPion [Wellbutrin SR] 100 mg PO BID 03/02/18 17:00 sitaGLIPtin Phos/Metformin HCl [Janumet 50-1,000 MG] 1 tab PO BIDMEALS 03/02/18 17:35 Blood Glucose Check, Bedside [RC] BIDAC 03/02/18 20:00 Zolpidem [Ambien] 10 mg PO BEDTIME 03/03/18 08:00 BASIC METABOLIC PANEL,BMP [CHEM] Routine CBC WITH AUTO DIFF [HEME] Routine LACTIC ACID [CHEM] Routine - Plan Plan:: Admit this 52 yr female with small bowel obstruction: Place on NPO except small amount of ice chips, sips of water with medications. Control of abdominal pain with anti-inflammatories. Recommend up as tolerated to increase bowel function. Recommend no narcotics for her pain and pt in agreement with this. Will order nicotine patch as needed. IV fluid of N/S at 125cc/hr. Closely monitor and conservative treatment at this time. Pt would prefer to not have N/G tube if possible. She has had limited nausea with this. Pt in agreement with this plan. 03/02/18 Pt is feeling some better. She is ambulating in the halls several times today. Bowel sound improved, abdomen is still distended. Will check CBC , BMP and lactic acid in am. If abdomen is soft in am and passing flatus improved, will advance diet to clear liquids. Monitor RBS bid. We will change IV rate to 75cc/hr. Pt is agreement with plan. Discussed plan of care with pt 1* care nurse DA Bray.
[2018-03-02] MEDS: SITAGLIPTIN PHOS PO SCH (18:37)
[2018-03-02] MEDS: METFORMIN HCL PO SCH (18:37)
[2018-03-02] MEDS ORDERED: Zolpidem 5 MG Tab PO SCH (20:00)
[2018-03-02] MEDS: rOPINIRole 1 MG Tab PO SCH (21:23)
[2018-03-02] MEDS: risperiDONE 1 MG Tab PO SCH (21:25)
[2018-03-02] MEDS ORDERED: QUEtiapine Fumarate 200 MG TABLET PO ONE (21:30)
[2018-03-03] MEDS: Acetaminophen 500 MG Tab PO SCH ×3 (01:03→12:17)
[2018-03-03] MEDS: traMADol 50 MG Tab PO PRN ×2 (01:04→07:55)
[2018-03-03] MEDS: Sodium Chloride 0.9% 1,000 ML IV SCH (01:06)
[2018-03-03 01:29] VITALS: BP 113/65
[2018-03-03] MEDS: hydrOXYzine HCl 25 MG Tab PO SCH (07:55)
[2018-03-03] MEDS: BUPROPION 100 MG PO SCH (07:56)
[2018-03-03] MEDS: Formoterol/Mometasone 200-5 MCG 8.8 GM Inhaler IH SCH (07:56)
[2018-03-03] MEDS: ClonazePAM 1 MG Tab PO SCH (07:56)
[2018-03-03] MEDS: Spironolactone 25 MG Tab PO SCH (07:56)
[2018-03-03] MEDS: Nicotine 21 MG/24 Hr Patch TRDERM SCH (07:56)
[2018-03-03] MEDS: Omeprazole 20 MG Cap.CR PO SCH (07:56)
[2018-03-03] MEDS: SITAGLIPTIN PHOS PO SCH (07:58)
[2018-03-03] MEDS: METFORMIN HCL PO SCH (07:58)
[2018-03-03] MEDS: Gabapentin 800 MG Tab PO SCH (07:59)
[2018-03-03] MEDS ORDERED: Gabapentin 400 MG Cap ONE (08:03)
--- NOTE | 2018-03-03 11:35 | PCM.PN ---
- General Info Date of Service: 03/03/18 Admission Dx/Problem (Free Text): Admission Diagnosis/Problem Admission Diagnosis/Problem Bowel obstruction Subjective Update: Pt states several BM today and passing flatus. States mild tenderness to abdomen. Functional Status: Reports: Pain Controlled, Tolerating Diet, Ambulating - Review of Systems General: Reports: No Symptoms HEENT: Reports: No Symptoms Pulmonary: Reports: No Symptoms Cardiovascular: Reports: No Symptoms Gastrointestinal: Reports: Flatus, Other (BM today). Denies: Nausea, Vomiting Genitourinary: Reports: No Symptoms Musculoskeletal: Reports: No Symptoms Skin: Reports: No Symptoms Neurological: Reports: No Symptoms Psychiatric: Reports: Anxiety - Patient Data Vitals - Most Recent: Last Vital Signs Temp 98.1 F 03/03/18 01:00 Pulse 67 03/03/18 01:00 Resp 16 03/03/18 01:00 BP 113/65 03/03/18 01:00 Pulse Ox 95 03/03/18 01:00 Weight - Most Recent: 245 lb 3.2 oz Lab Results Last 24 Hours: Laboratory Results - last 24 hr 03/03/18 03/03/18 03/03/18 Range/Units 08:08 10:50 10:50 WBC 6.0 (4.0-11.0) K/uL RBC 4.24 (3.80-5.80) M/uL Hgb 11.0 L (11.5-16.5) g/dL Hct 33.1 L (37.0-47.0) % MCV 78 (76-96) fL MCH 25.9 L (27.0-32.0) pg MCHC 33.2 (31.0-35.0) g/dL RDW 14.0 (11.0-16.0) % Plt Count 154 (150-500) K/uL MPV 10.5 H (6.0-10.0) fL Neut % (Auto) 54.0 (45.0-70.0) % Lymph % (Auto) 36.7 (20.0-40.0) % [place] % (Auto) 7.1 (3.0-10.0) % Eos % (Auto) 1.7 (1.0-5.0) % Baso % (Auto) 0.5 (0.0-0.5) % Neut # (Auto) 3.25 (2.00-7.50) K/uL Lymph # (Auto) 2.21 (1.50-4.00) K/uL [place] # (Auto) 0.43 (0.20-0.80) K/uL Eos # (Auto) 0.10 (0.04-0.40) K/uL Baso # (Auto) 0.03 (0.02-0.10) K/uL Sodium 140 (136-145) mmol/L Potassium 3.6 (3.5-5.1) mmol/L Chloride 107 (98-107) mmol/L Carbon Dioxide 20.7 L (21.0-32.0) mmol/L Anion Gap 15.9 H (5.0-15.0) mmol/L BUN 10 D (8-26) mg/dL Creatinine 1.13 H (0.55-1.02) mg/dL Est Cr Clr Drug Dosing 53.90 mL/min Estimated GFR (MDRD) 50 L (>60) MLS/MIN BUN/Creatinine Ratio 8.8 (6-25) Glucose 141 H (74-100) mg/dL POC Glucose 74 (74-110) mg/dL Calcium 8.0 L (8.5-10.1) mg/dL Med Orders - Current: Current Medications Acetaminophen (Tylenol Extra Strength) 500 mg PO Q6H [facility] Last Admin: 03/03/18 07:57 Dose: Not Given Albuterol/Ipratropium (Duoneb 3.0-0.5 Mg/3 Ml) 3 ml INH Q4H PRN PRN Reason: Shortness of Breath Clonazepam (Klonopin) 1 mg PO BID [facility] Last Admin: 03/03/18 07:56 Dose: 1 mg Gabapentin (Neurontin) 800 mg PO TID [facility] Last Admin: 03/03/18 07:59 Dose: 800 mg Hydroxyzine HCl (Atarax) 50 mg PO TID [facility] Last Admin: 03/03/18 07:55 Dose: 50 mg Sodium Chloride (Normal Saline) 1,000 mls @ 75 mls/hr IV ASDIRECTED [facility] Last Admin: 03/03/18 01:06 Dose: 75 mls/hr Ketorolac Tromethamine (Toradol) 15 mg IVPUSH Q8H PRN PRN Reason: Abdominal Pain Stop: 03/06/18 18:28 Last Admin: 03/02/18 21:34 Dose: 15 mg Mometasone Furoate/Formoterol Fumar (Dulera 200-5 Mcg) 2 puff IH BID [facility] Last Admin: 03/03/18 07:56 Dose: Not Given Nicotine (Habitrol) 21 mg TRDERM DAILY [facility] Last Admin: 03/03/18 07:56 Dose: 21 mg Non-Formulary Medication ( Bupropion [ Wellbutrin Sr] 100 Mg) 100 mg PO BID [facility] Last Admin: 03/03/18 07:56 Dose: 100 mg Patients Own ( Sitagliptin Phos/Metformin Hcl [ Janumet 50-1,000 Mg] 1 Ta 1 tab PO BIDMEALS [facility] Last Admin: 03/03/18 07:58 Dose: 1 tab Omeprazole (Omeprazole) 20 mg PO ACBREAKFAST [facility] Last Admin: 03/03/18 07:56 Dose: 20 mg Quetiapine Fumarate (Seroquel) 400 mg PO QPM [facility] Last Admin: 03/02/18 21:33 Dose: 400 mg Quetiapine Fumarate (Seroquel) 100 mg PO QAM [facility] Last Admin: 03/03/18 07:55 Dose: 100 mg Risperidone (Risperidal) 2 mg PO QPM [facility] Last Admin: 03/02/18 21:25 Dose: 2 mg Ropinirole HCl (Requip) 1.5 mg PO BEDTIME [facility] Last Admin: 03/02/18 21:23 Dose: 1.5 mg Spironolactone (Aldactone) 75 mg PO BID [facility] Last Admin: 03/03/18 07:56 Dose: 75 mg Tramadol HCl (Ultram) 50 mg PO Q6H PRN PRN Reason: Abdominal Pain Last Admin: 03/03/18 07:55 Dose: 50 mg Zolpidem Tartrate (Ambien) 10 mg PO BEDTIME [facility] Last Admin: 03/02/18 21:19 Dose: 10 mg Discontinued Medications Gabapentin (Neurontin) Confirm Administered Dose 800 mg .ROUTE .STK-MED ONE Stop: 03/01/18 21:10 Last Admin: 03/01/18 21:24 Dose: Not Given Gabapentin (Neurontin) Confirm Administered Dose 800 mg .ROUTE .STK-MED ONE Stop: 03/02/18 09:00 Last Admin: 03/02/18 11:23 Dose: Not Given Gabapentin (Neurontin) Confirm Administered Dose 800 mg .ROUTE .STK-MED ONE Stop: 03/02/18 16:13 Last Admin: 03/02/18 17:46 Dose: Not Given Gabapentin (Neurontin) Confirm Administered Dose 800 mg .ROUTE .STK-MED ONE Stop: 03/02/18 21:30 Last Admin: 03/02/18 21:34 Dose: Not Given Gabapentin (Neurontin) Confirm Administered Dose 800 mg .ROUTE .STK-MED ONE Stop: 03/03/18 08:04 Ketorolac Tromethamine (Toradol) Confirm Administered Dose 30 mg .ROUTE .STK- MED ONE Stop: 03/01/18 18:32 Last Admin: 03/01/18 21:00 Dose: Not Given Quetiapine Fumarate (Quetiapine Fumarate) Confirm Administered Dose 400 mg PO .STK-MED ONE Stop: 03/01/18 21:11 Last Admin: 03/01/18 21:24 Dose: Not Given Quetiapine Fumarate (Quetiapine Fumarate) Confirm Administered Dose 400 mg PO .STK-MED ONE Stop: 03/02/18 21:31 Last Admin: 03/02/18 21:34 Dose: Not Given Zolpidem Tartrate (Ambien) 12.5 mg PO BEDTIME [facility] Last Admin: 03/02/18 00:48 Dose: Not Given Zolpidem Tartrate (Ambien) Confirm Administered Dose 15 mg .ROUTE .STK-MED ONE Stop: 03/01/18 21:17 Last Admin: 03/01/18 21:36 Dose: Not Given Zolpidem Tartrate (Ambien) 10 mg PO ONETIME ONE Stop: 03/01/18 21:46 Last Admin: 03/01/18 21:37 Dose: 10 mg - Exam Quality Assessment: No: Skin Breakdown General: Alert, Oriented, Cooperative, No Acute Distress HEENT: Mucous Membr. Moist/[place] Neck: Supple, Trachea Midline Lungs: Clear to Auscultation, Normal Respiratory Effort, Rhonchi Cardiovascular: Regular Rate GI/Abdominal Exam: Normal Bowel Sounds, Soft, Tender. No: Guarding, Rigid, Rebound Back Exam: Normal Inspection, Full Range of Motion Extremities: Normal Inspection, Normal Range of Motion, Normal Capillary Refill Skin: Warm, Dry Neurological: No New Focal Deficit Psy/Mental Status: Alert, Normal Affect, Normal Mood - Problem List & Annotations (1) Chronic pain SNOMED Code(s): 83246532 Code(s): G89.29 - OTHER CHRONIC PAIN Status: Acute (2) Asthma SNOMED Code(s): 810835110 Code(s): J45.909 - UNSPECIFIED ASTHMA, UNCOMPLICATED Status: Chronic Qualifiers: Asthma severity: mild Asthma persistence: intermittent Asthma complication type: uncomplicated Qualified Code(s): J45.20 - Mild intermittent asthma, uncomplicated (3) Depression SNOMED Code(s): 03830944 Code(s): F32.9 - MAJOR DEPRESSIVE DISORDER, SINGLE EPISODE, UNSPECIFIED Status: Chronic (4) GERD (gastroesophageal reflux disease) SNOMED Code(s): 975837699 Code(s): K21.9 - GASTRO-ESOPHAGEAL REFLUX DISEASE WITHOUT ESOPHAGITIS Status: Chronic (5) HTN (hypertension) SNOMED Code(s): 59714866 Code(s): I10 - ESSENTIAL (PRIMARY) HYPERTENSION Status: Chronic Qualifiers: Hypertension type: essential hypertension Qualified Code(s): I10 - Essential (primary) hypertension (6) Restless leg SNOMED Code(s): 72241907 Code(s): G25.81 - RESTLESS LEGS SYNDROME Status: Chronic (7) Small bowel obstruction SNOMED Code(s): 611115132 Code(s): K56.609 - UNSP INTESTNL OBST, UNSP TO PARTIAL VERSUS COMPLETE OBST Status: Resolved Priority: High - Problem List Review Problem List Initiated/Reviewed/Updated: Yes - My Orders Last 24 Hours: My Active Orders 03/02/18 14:30 buPROPion [Wellbutrin SR] 100 mg PO BID 03/02/18 17:00 sitaGLIPtin Phos/Metformin HCl [Janumet 50-1,000 MG] 1 tab PO BIDMEALS 03/02/18 17:35 Blood Glucose Check, Bedside [RC] BIDAC 03/02/18 20:00 Zolpidem [Ambien] 10 mg PO BEDTIME - Plan Plan:: Admit this 52 yr female with small bowel obstruction: Place on NPO except small amount of ice chips, sips of water with medications. Control of abdominal pain with anti-inflammatories. Recommend up as tolerated to increase bowel function. Recommend no narcotics for her pain and pt in agreement with this. Will order nicotine patch as needed. IV fluid of N/S at 125cc/hr. Closely monitor and conservative treatment at this time. Pt would prefer to not have N/G tube if possible. She has had limited nausea with this. Pt in agreement with this plan. 03/02/18 Pt is feeling some better. She is ambulating in the halls several times today. Bowel sound improved, abdomen is still distended. Will check CBC , BMP and lactic acid in am. If abdomen is soft in am and passing flatus improved, will advance diet to clear liquids. Monitor RBS bid. We will change IV rate to 75cc/hr. Pt is agreement with plan. Discussed plan of care with pt 1* care nurse DA Bray. 03/03/2018 Will advance diet to soft diet. Will discharge today if tolerating soft diet. RTC or PCP next week for follow-up.
[2018-03-03] MEDS: Ketorolac 30 MG/ML SDV IVPUSH PRN (12:17)
== END 2018-03-03 14:15 | disposition home or self-care (01) | DRG 390 ==
LOC: LB.CLINIC 14:53 → LB.MS 14:54 → UNDOADMIN 14:54 → LB.MS 15:15
PROVIDERS: ADMIT Nurse Practitioner Family; ATTEND Nurse Practitioner Family
DX: K56.609 Unspecified intestinal obstruction, unspecified as to partial versus complete obstruction (principal); G89.29 Other chronic pain; M54.9 Dorsalgia, unspecified; J45.20 Mild intermittent asthma, uncomplicated; K21.9 Gastro-esophageal reflux disease without esophagitis; F32.9 Major depressive disorder, single episode, unspecified; I10 Essential (primary) hypertension; G25.81 Restless legs syndrome; E11.9 Type 2 diabetes mellitus without complications; E66.9 Obesity, unspecified; Z68.30 Body mass index [BMI] 30.0-30.9, adult; F17.210 Nicotine dependence, cigarettes, uncomplicated; H54.7 Unspecified visual loss; Z88.8 Allergy status to other drugs, medicaments and biological substances; Z79.899 Other long term (current) drug therapy; Z87.01 Personal history of pneumonia (recurrent)
CPT/HCPCS: 36415; 74176; 80048; 80053; 82962; 85025; A9270-GY; J1885; J7030

== ENCOUNTER 2018-07-21 08:14 | Emergency (ER) | payer MEDICARE, MEDICAID ==
[2018-07-21 08:45] VITALS: BP 133/66
[2018-07-21] MEDS ORDERED: Ibuprofen 800 MG Tab ONE (08:45)
[2018-07-21] MEDS ORDERED: traMADol 50 MG Tab ONE (08:45)
[2018-07-21] MEDS ORDERED: Ketorolac 60 MG/2 ML SDV IM ONE (09:13)
[2018-07-21] MEDS ORDERED: Ketorolac 60 MG/2 ML SDV ONE (09:17)
--- NOTE | 2018-07-21 12:06 | ER ---
HISTORY OF PRESENT ILLNESS: The patient is a 52-year-old female who comes into the ER with a chief complaint of leg pain. She notes both legs hurt, in fact she notes she hurts all over, not just in her legs. She fell yesterday twice, the last time being around 3 o'clock in the afternoon. She ambulated into the emergency room noting she has severe pain all over, primarily in her legs and feet. The patient had some difficulty in isolating exactly where the pain was mostly, but ended up settling for her feet and her right knee. In the course of doing this, the patient lifted her legs up a couple of times, showing me which knee and where it hurt. Essentially doing a negative straight leg raise. The patient initially stated she had no allergies, however, when offered she told me she could not take Toradol because she is on Cymbalta. I did note that was fine, we would just not give it to her. She decided she wanted it, but otherwise has no drug allergies. She then also noted she could not take ibuprofen, but it is on her medication list. Her medication list consists of Cymbalta 60 mg p.o. b.i.d., albuterol 2.5 q.4 p.r.n., acetaminophen 500 mg p.o. q.6, ibuprofen 800 mg p.o. t.i.d., but she states she is out of this and does not have any. Gabapentin 1200 mg p.o. t.i.d., clonazepam 1 mg p.o. b.i.d., calcium carbonate, budesonide, formoterol, Symbicort 164.5 two puffs b.i.d., albuterol 1-2 puffs q.4 p.r.n., Imitrex 25 mg p.o. as directed, quetiapine 400 mg q.p.m., quetiapine 100 mg q.a.m., omeprazole 20 mg p.o. daily , meloxicam 15 mg p.o. daily, ipratropium 1-2 puffs, risperidone 2.5 mg p.o. q.p.m., hydroxyzine 1-3 tablets p.o. t.i.d., Wellbutrin 100 mg p.o. b.i.d., zolpidem 12.5 p.o. daily, spironolactone 3 tablets p.o. b.i.d., Zanaflex 4 mg p.o. t.i.d., and sitagliptin/metformin 50/ 1000. PHYSICAL EXAMINATION: BP 136/66, P 91, R 18,O2 sat 98%, T 98.3 GENERAL: She is alert, oriented, and quite dramatic. LUNGS: Clear. HEART: Regular sinus rhythm. The patient has some minimal abrasions on the left knee and that is all I can see on her lower extremities. She does not have any swelling. She does not have any effusion in the knees. Really nothing, there is no ecchymosis or swelling on her feet or toes. X-ray was obtained of the toes and knee, both of which are negative. ASSESSMENT: Contusions, status post fall. PLAN: The patient does have a historically demonstrated affinity for pain medicine. Giving her the benefit of the doubt, I did give her some tramadol 1 take-home pack and some ibuprofen. She was instructed not to take the ibuprofen for at least 8 hours as she just got the Toradol, and to not take meloxicam with it when she noted she was no longer taking it either. MIO/VEDA /[id number] MTDD
--- NOTE | 2018-07-21 18:13 | CONS ---
DATE OF CONSULTATION: 07/21/2018 RIGHT FOOT, 21 JULY 2018: There is mild diffuse osteopenia. There are mild osteoarthritic changes involving multiple joints. There is a plantar calcaneal spur. No acute fracture or dislocation. No focal lytic or blastic bone lesions. CHE/VEDA /[id number]
--- NOTE | 2018-07-21 18:13 | CONS ---
DATE OF CONSULTATION: 07/21/2018 LEFT FOOT, 21 JULY 2018: There is diffuse osteopenia. There are mild osteoarthritic changes involving multiple joints. There is a plantar calcaneal spur. No acute fracture or dislocation. No lytic or blastic bone lesions. CHE/VEDA /[id number]
--- NOTE | 2018-07-21 18:18 | CONS ---
DATE OF CONSULTATION: 07/21/2018 RIGHT KNEE, 21 JULY 2018: There is diffuse osteopenia. No acute fracture or dislocation. No lytic or blastic bone lesions. No joint effusion. CHE/VEDA /[id number]
--- NOTE | 2018-07-23 11:21 | CR ---
DATE OF SERVICE: 07/21/2018 CLINICAL DATA: Pain. RIGHT FOOT: There is mild diffuse osteopenia. There are mild osteoarthritic changes involving multiple joints. There is a plantar calcaneal spur. No acute fracture or dislocation. No focal lytic or blastic bone lesions. MTDD
--- NOTE | 2018-07-23 11:26 | CR ---
DATE OF SERVICE: 07/21/2018 CLINICAL DATA: Pain, status post fall. LEFT FOOT: There is diffuse osteopenia. There are mild osteoarthritic changes involving multiple joints. There is a plantar calcaneal spur. No acute fracture or dislocation. No lytic or blastic bone lesions. MTDD
--- NOTE | 2018-07-23 11:31 | CR ---
DATE OF SERVICE: 07/21/2018 CLINICAL DATA: Pain. RIGHT KNEE: There is diffuse osteopenia. No acute fracture or dislocation. No lytic or blastic bone lesions. No joint effusion. MTDD
== END 2018-07-21 09:43 | disposition home or self-care (01) ==
LOC: LB.ED 08:14
DX: S80.02XA Contusion of left knee, initial encounter (principal); S80.01XA Contusion of right knee, initial encounter; Z91.81 History of falling; Z91.048 Other nonmedicinal substance allergy status; Z88.8 Allergy status to other drugs, medicaments and biological substances; W18.30XA Fall on same level, unspecified, initial encounter; Y92.89 Other specified places as the place of occurrence of the external cause
CPT/HCPCS: 73560; 73620; 96372; 99283; A9270; J1885

== ENCOUNTER 2018-10-04 04:04 | Observation (INO) | payer MEDICARE, MEDICAID ==
[2018-10-04] MEDS ORDERED: Sodium Chloride 0.9% 10 ML Syringe FLUSH PRN (04:46)
--- NOTE | 2018-10-04 05:31 | EDM.PDOC ---
ED HPI GENERAL MEDICAL PROBLEM - General Chief Complaint: Neuro Symptoms/Deficits Stated Complaint: AWAKE BUT NOT VERBAL Time Seen by Provider: 10/04/18 04:29 Source of Information: Reports: Patient, Significant Other History Limitations: Reports: Altered Mental Status - History of Present Illness INITIAL COMMENTS - FREE TEXT/NARRATIVE: This is a 53yo F brought in by EMS for being awake but not responding verbally or moving much. She was found incontinent at home in bed. The significant other states he woke up and noticed she was like this shortly after waking. Patient does have some improvement on arrival in the ER. She is able to verbalize slowly but does not recall much that has happened. Per her significant other the patient did start on Baclofen yesterday. Patient did not recall this and states she has been taking all her meds regularly without changes. There have been no falls or injuries or illness recently. Duration: Constant Location: Reports: Generalized Severity: Moderate Improves with: Reports: None Worsens with: Reports: None Associated Symptoms: Reports: Confusion, Weakness - Related Data Allergies Allergy/AdvReac Type Severity Reaction Status Date / Time adhesive tape Allergy Rash Verified 07/21/18 08:46 celecoxib [From Celebrex] Allergy Nausea and Verified 07/21/18 08:46 Vomiting Home Meds: Home Meds Ipratropium/Albuterol Sulfate [Duoneb 0.5 MG-3 MG/3 ML] 1 - 2 puff INH Q4H PRN 04/14/13 [History] Omeprazole 20 mg PO ACBREAKFAST 04/14/13 [History] risperiDONE [RisperiDAL M-Tab] 2.5 mg PO QPM 04/14/13 [History] Acetaminophen [Tylenol Extra Strength] 500 mg PO Q6H 06/06/15 [History] Budesonide/Formoterol [Symbicort 160-4.5 MCG] 2 puff INH BID 06/06/15 [History] Gabapentin [Neurontin] 1,200 tab PO TID 06/06/15 [History] QUEtiapine [SEROquel] 100 tab PO QAM 06/06/15 [History] Spironolactone [Aldactone] 3 tab PO BID 06/06/15 [History] hydrOXYzine HCl [hydrOXYzine] 1 - 3 cap PO TID 06/06/15 [History] ClonazePAM [KlonoPIN] 1 mg PO BID 06/25/17 [History] QUEtiapine Fumarate [Quetiapine Fumarate] 400 mg PO QPM 06/25/17 [History] sitaGLIPtin Phos/Metformin HCl [Janumet 50-1,000 MG] 1 tab PO BIDMEALS 08/11/17 [History] Albuterol Sulfate [Proair Hfa] 1 - 2 puff IH Q4HR PRN 06/13/18 [History] Calcium Carbonate/Vitamin D3 [Calcium 600 + D3 Softgel] 1 tab PO BID 06/13/18 [ History] Ibuprofen [Motrin] 800 mg PO TID PRN 06/13/18 [History] SUMAtriptan [Imitrex] 25 mg PO ASDIRECTED PRN 06/13/18 [History] DULoxetine HCl [Cymbalta] 60 mg PO BID 07/21/18 [History] Baclofen 10 mg PO TID 10/04/18 [History] Ciprofloxacin HCl [Cipro] 500 mg PO BID 10/04/18 [History] Ubidecarenone [Co Q-10] 100 mg PO DAILY 10/04/18 [History] Zolpidem Tartrate [Zolpidem Tartrate ER] 12.5 mg PO QPM 10/04/18 [History] rOPINIRole [Requip] 5 mg PO DAILY 10/04/18 [History] Past Medical History HEENT History: Reports: Impaired Vision, Other (See Below) Other HEENT History: glasses for reading, Cardiovascular History: Reports: Hypertension Respiratory History: Reports: Asthma, Bronchitis, Recurrent, Pneumonia, Recurrent, Other (See Below) Other Respiratory History: Emphysema Gastrointestinal History: Reports: Bowel Obstruction, GERD, Irritable Bowel Syndrome Genitourinary History: Reports: None 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: 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 Bleeding, Musculoskeletal History: Reports: Back Pain, Chronic Other Musculoskeletal History: back / butt pain, shoots down left leg Neurological History: Reports: Migraines, Neuropathy, Peripheral Psychiatric History: Reports: Anxiety, Depression, Suicide Attempt, Suicidal Ideation Endocrine/Metabolic History: Reports: Diabetes, Type II, Obesity/BMI 30+ Hematologic History: Reports: Blood Transfusion(s), Iron Deficiency Dermatologic History: Reports: Eczema, Other (See Below) Other Dermatologic History: Allergy to paper tape - Infectious Disease History Infectious Disease History: Reports: Chicken Pox, Measles, Rubella - Past Surgical History GI Surgical History: Reports: None Female Surgical History: Reports: Section, Hysterectomy Musculoskeletal Surgical History: Reports: None Social & Family History - Family History Family Medical History: Noncontributory Cardiac: Reports: None Musculoskeletal: Reports: Arthritis, Back pain, Chronic Neurological: Reports: None Psychiatric: Reports: Depression Endocrine/Metabolic: Reports: None Oncologic: Reports: None - Caffeine Use Caffeine Use: Reports: Soda Other Caffeine Use: 2 cups a day ED ROS GENERAL - Review of Systems Review Of Systems: ROS reveals no pertinent complaints other than HPI. ED EXAM, GENERAL - Physical Exam Exam: See Below Exam Limited By: No Limitations General Appearance: Alert, WD/WN, No Apparent Distress Eye Exam: Bilateral Eye: EOMI, Other (sluggish pupils 4.5mm b/l equal) Ears: Normal External Exam Nose: Normal Inspection Throat/Mouth: Normal Inspection, Other (dry lips) Head: Atraumatic, Normocephalic Neck: Normal Inspection, Supple, Non-Tender Respiratory/Chest: No Respiratory Distress, Lungs Clear, Normal Breath Sounds, No Accessory Muscle Use, Chest Non-Tender Cardiovascular: Normal Peripheral Pulses, Regular Rate, Rhythm, No Edema Peripheral Pulses: 2+: Dorsalis Pedis (L), Dorsalis Pedis (R) GI/Abdominal: Normal Bowel Sounds Back Exam: Normal Inspection Extremities: Normal Inspection, Normal Range of Motion, Non-Tender, No Pedal Edema, Normal Capillary Refill Neurological: Alert, Other (b/l lower leg weakness 3/5) Psychiatric: Flat Affect Skin Exam: Warm, Dry, Intact Course - Vital Signs Last Recorded V/S: Last Vital Signs Temp 36.0 C 10/04/18 14:00 Pulse 98 10/04/18 14:00 Resp 20 10/04/18 14:00 BP 138/62 10/04/18 14:00 Pulse Ox 98 10/04/18 14:00 - Orders/Labs/Meds Orders: Active Orders 24 hr Category Date Time Status Glucose [Blood Glucose Check, Bedside] [RC] ONETIME Care 10/04/18 04:45 Active Sodium Chloride 0.9% [Saline Flush] Med 10/04/18 04:46 Active 10 ml FLUSH ASDIRECTED PRN Peripheral IV Insertion Adult [OM.PC] Routine Oth 10/04/18 04:46 Ordered Medication Orders Sodium Chloride (Saline Flush) 10 ml FLUSH ASDIRECTED PRN PRN Reason: Keep Vein Open Labs: Laboratory Tests 10/04/18 10/04/18 10/04/18 Range/Units 04:41 05:30 05:30 WBC 7.5 D (4.0-11.0) K/uL RBC 4.67 (3.80-5.80) M/uL Hgb 13.0 (11.5-16.5) g/dL Hct 39.5 (37.0-47.0) % MCV 85 (76-96) fL MCH 27.8 (27.0-32.0) pg MCHC 32.9 (31.0-35.0) g/dL RDW 14.1 (11.0-16.0) % Plt Count 165 (150-500) K/uL MPV 10.8 H (6.0-10.0) fL Neut % (Auto) 81.1 H (45.0-70.0) % Lymph % (Auto) 12.4 L (20.0-40.0) % [place] % (Auto) 5.3 (3.0-10.0) % Eos % (Auto) 0.9 L (1.0-5.0) % Baso % (Auto) 0.3 (0.0-0.5) % Neut # (Auto) 6.09 (2.00-7.50) K/uL Lymph # (Auto) 0.93 L (1.50-4.00) K/uL [place] # (Auto) 0.40 (0.20-0.80) K/uL Eos # (Auto) 0.07 (0.04-0.40) K/uL Baso # (Auto) 0.02 (0.02-0.10) K/uL Sodium 144 (136-145) mmol/L Potassium 3.7 (3.5-5.1) mmol/L Chloride 107 (98-107) mmol/L Carbon Dioxide 22.5 (21.0-32.0) mmol/L Anion Gap 18.2 H (5.0-15.0) mmol/L BUN 11 (8-26) mg/dL Creatinine 1.02 (0.55-1.02) mg/dL Est Cr Clr Drug Dosing TNP Estimated GFR (MDRD) 56 L (>60) MLS/MIN BUN/Creatinine Ratio 10.8 (6-25) Glucose 150 H D (74-100) mg/dL POC Glucose 136 H (74-110) mg/dL Calcium 8.8 (8.5-10.1) mg/dL Total Bilirubin 0.5 D (0.0-1.0) mg/dL AST 51 H (15-37) U/L ALT 37 (12-78) U/L Alkaline Phosphatase 91 (46-116) U/L Total Protein 7.4 (6.4-8.2) g/dL Albumin 3.6 (3.4-5.0) g/dL Globulin 3.8 (2.2-4.2) g/dL Albumin/Globulin Ratio 0.9 (0.8-2.0) TSH, Ultra Sensitive 2.296 (0.358-3.740) uIU/mL Urine Color Urine Appearance (CLEAR) Urine pH (5.0-8.0) Ur Specific [place] (1.003-1.030) Urine Protein (NEGATIVE) mg/dL Urine Glucose (UA) (NEGATIVE) mg/dL Urine Ketones (NEGATIVE) mg/dL Urine Occult Blood (NEGATIVE) Urine Nitrite (NEGATIVE) Urine Bilirubin (NEGATIVE) Urine Urobilinogen (0.2-1.0) E.U./dL Ur Leukocyte Esterase (NEGATIVE) Urine RBC /HPF Urine WBC /HPF Urine WBC Clumps /HPF Ur Squamous Epith Cells /HPF Urine Bacteria /HPF Urine Opiates Screen (NEGATIVE) Ur Oxycodone Screen (NEGATIVE) Urine Methadone Screen (NEGATIVE) Ur Barbiturates Screen (NEGATIVE) Ur Tricyclics Screen (NEGATIVE) Ur Phencyclidine Scrn (NEGATIVE) Ur Amphetamine Screen (NEGATIVE) Urine MDMA Screen (NEGATIVE) U Benzodiazepines Scrn (NEGATIVE) U Cocaine Metab Screen (NEGATIVE) U Marijuana (THC) Screen (NEGATIVE) 10/04/18 10/04/18 10/04/18 Range/Units 05:45 05:45 07:26 WBC (4.0-11.0) K/uL RBC (3.80-5.80) M/uL Hgb (11.5-16.5) g/dL Hct (37.0-47.0) % MCV (76-96) fL MCH (27.0-32.0) pg MCHC (31.0-35.0) g/dL RDW (11.0-16.0) % Plt Count (150-500) K/uL MPV (6.0-10.0) fL Neut % (Auto) (45.0-70.0) % Lymph % (Auto) (20.0-40.0) % [place] % (Auto) (3.0-10.0) % Eos % (Auto) (1.0-5.0) % Baso % (Auto) (0.0-0.5) % Neut # (Auto) (2.00-7.50) K/uL Lymph # (Auto) (1.50-4.00) K/uL [place] # (Auto) (0.20-0.80) K/uL Eos # (Auto) (0.04-0.40) K/uL Baso # (Auto) (0.02-0.10) K/uL Sodium (136-145) mmol/L Potassium (3.5-5.1) mmol/L Chloride (98-107) mmol/L Carbon Dioxide (21.0-32.0) mmol/L Anion Gap (5.0-15.0) mmol/L BUN (8-26) mg/dL Creatinine (0.55-1.02) mg/dL Est Cr Clr Drug Dosing Estimated GFR (MDRD) (>60) MLS/MIN BUN/Creatinine Ratio (6-25) Glucose (74-100) mg/dL POC Glucose 134 H (74-110) mg/dL Calcium (8.5-10.1) mg/dL Total Bilirubin (0.0-1.0) mg/dL AST (15-37) U/L ALT (12-78) U/L Alkaline Phosphatase (46-116) U/L Total Protein (6.4-8.2) g/dL Albumin (3.4-5.0) g/dL Globulin (2.2-4.2) g/dL Albumin/Globulin Ratio (0.8-2.0) TSH, Ultra Sensitive (0.358-3.740) uIU/mL Urine Color Yellow Urine Appearance Cloudy (CLEAR) Urine pH 5.5 (5.0-8.0) Ur Specific [place] 1.020 (1.003-1.030) Urine Protein 100 H (NEGATIVE) mg/dL Urine Glucose (UA) Negative (NEGATIVE) mg/dL Urine Ketones Negative (NEGATIVE) mg/dL Urine Occult Blood Moderate H (NEGATIVE) Urine Nitrite Positive H (NEGATIVE) Urine Bilirubin Negative (NEGATIVE) Urine Urobilinogen 0.2 (0.2-1.0) E.U./dL Ur Leukocyte Esterase Large H (NEGATIVE) Urine RBC 10-20 H /HPF Urine WBC Packed H /HPF Urine WBC Clumps Few /HPF Ur Squamous Epith Cells Not seen /HPF Urine Bacteria Moderate H /HPF Urine Opiates Screen Negative (NEGATIVE) Ur Oxycodone Screen Negative (NEGATIVE) Urine Methadone Screen Negative (NEGATIVE) Ur Barbiturates Screen Negative (NEGATIVE) Ur Tricyclics Screen Positive H (NEGATIVE) Ur Phencyclidine Scrn Negative (NEGATIVE) Ur Amphetamine Screen Negative (NEGATIVE) Urine MDMA Screen Negative (NEGATIVE) U Benzodiazepines Scrn Negative (NEGATIVE) U Cocaine Metab Screen Negative (NEGATIVE) U Marijuana (THC) Screen Positive H (NEGATIVE) Meds: Medications Generic Name Dose Route Start Last Admin Trade Name Freq PRN Reason Stop Dose Admin Sodium Chloride 10 ml 10/04/18 04:46 Saline Flush FLUSH ASDIRECTED PRN Keep Vein Open Departure - Departure Time of Disposition: 06:00 Disposition: Refer to Observation Condition: Good Clinical Impression: Weakness of both legs, Cognitive changes Medication reaction Qualifiers: Encounter type: initial encounter Qualified Code(s): T50.905A - Adverse effect of unspecified drugs, medicaments and biological substances, initial encounter - Discharge Information - Problem List & Annotations (1) Cognitive changes SNOMED Code(s): 493249619 Code(s): R41.89 - OTH SYMPTOMS AND SIGNS W COGNITIVE FUNCTIONS AND AWARENESS Status: Acute Priority: High Current Visit: Yes (2) Medication reaction SNOMED Code(s): 50160380 Code(s): T50.905A - ADVERSE EFFECT OF UNSP DRUG/MEDS/BIOL SUBST, INIT Status: Acute Priority: High Current Visit: Yes Qualifiers: Encounter type: initial encounter Qualified Code(s): T50.905A - Adverse effect of unspecified drugs, medicaments and biological substances, initial encounter (3) Weakness of both legs SNOMED Code(s): 8724896 Code(s): R29.898 - OTH SYMPTOMS AND SIGNS INVOLVING THE MUSCULOSKELETAL SYSTEM Status: Acute Priority: High Current Visit: Yes - Problem List Review Problem List Initiated/Reviewed/Updated: Yes - My Orders Last 24 Hours: My Active Orders 10/04/18 04:45 Glucose [Blood Glucose Check, Bedside] [RC] ONETIME 10/04/18 04:46 Sodium Chloride 0.9% [Saline Flush] 10 ml FLUSH ASDIRECTED PRN Peripheral IV Insertion Adult [OM.PC] Routine - Assessment/Plan Last 24 Hours: My Active Orders 10/04/18 04:45 Glucose [Blood Glucose Check, Bedside] [RC] ONETIME 10/04/18 04:46 Sodium Chloride 0.9% [Saline Flush] 10 ml FLUSH ASDIRECTED PRN Peripheral IV Insertion Adult [OM.PC] Routine Plan: It is likely that patient has taken too many medications from polypharmacy. We will continue to hydrate and monitor symptoms. Her symptoms have gradually improved but she still has difficulty with gait, memory and confusion. We will hold baclofen as this is a new medication started yesterday. We will review medications today. Patient agrees with plan of care and significant other present.
[2018-10-04 14:10] VITALS: BP 138/62
[2018-10-04] MEDS ORDERED: Ciprofloxacin 500 MG Tab ONE (15:00)
[2018-10-04] MEDS ORDERED: Ibuprofen 800 MG Tab PO PRN (17:11)
[2018-10-04] MEDS ORDERED: Albuterol 8 GM Inhaler INH PRN (17:11)
[2018-10-04] MEDS ORDERED: SUMAtriptan 25 MG Tab PO PRN (17:11)
[2018-10-04] MEDS ORDERED: Albuterol/Ipratropium 3.0-0.5 MG/3 ML Neb Soln INH PRN (17:11)
--- NOTE | 2018-10-04 17:11 | PCM.DCSUM1 ---
Discharge Summary - Discharge Data Discharge Date: 10/04/18 Discharge Disposition: Home, Self-Care 01 Condition: Good - Discharge Diagnosis/Problem(s) (1) Cognitive changes SNOMED Code(s): 417597525 ICD Code: R41.89 - OTH SYMPTOMS AND SIGNS W COGNITIVE FUNCTIONS AND AWARENESS Status: Resolved Priority: High Current Visit: Yes (2) Medication reaction SNOMED Code(s): 07599141 ICD Code: T50.905A - ADVERSE EFFECT OF UNSP DRUG/MEDS/BIOL SUBST, INIT Status: Resolved Priority: High Current Visit: Yes Qualifiers: Encounter type: initial encounter Qualified Code(s): T50.905A - Adverse effect of unspecified drugs, medicaments and biological substances, initial encounter (3) Weakness of both legs SNOMED Code(s): 1647743 ICD Code: R29.898 - OTH SYMPTOMS AND SIGNS INVOLVING THE MUSCULOSKELETAL SYSTEM Status: Resolved Priority: High Current Visit: Yes - Patient Instructions Diet: Usual Diet as Tolerated Activity: As Tolerated Driving: Do Not Drive - Discharge Plan Home Medications: Home Meds Ipratropium/Albuterol Sulfate [Duoneb 0.5 MG-3 MG/3 ML] 1 - 2 puff INH Q4H PRN 04/14/13 [History] Omeprazole 20 mg PO ACBREAKFAST 04/14/13 [History] risperiDONE [RisperiDAL M-Tab] 2.5 mg PO QPM 04/14/13 [History] Acetaminophen [Tylenol Extra Strength] 500 mg PO Q6H 06/06/15 [History] Budesonide/Formoterol [Symbicort 160-4.5 MCG] 2 puff INH BID 06/06/15 [History] Gabapentin [Neurontin] 1,200 tab PO TID 06/06/15 [History] QUEtiapine [SEROquel] 100 tab PO QAM 06/06/15 [History] Spironolactone [Aldactone] 3 tab PO BID 06/06/15 [History] hydrOXYzine HCl [hydrOXYzine] 1 - 3 cap PO TID 06/06/15 [History] ClonazePAM [KlonoPIN] 1 mg PO BID 06/25/17 [History] QUEtiapine Fumarate [Quetiapine Fumarate] 400 mg PO QPM 06/25/17 [History] sitaGLIPtin Phos/Metformin HCl [Janumet 50-1,000 MG] 1 tab PO BIDMEALS 08/11/17 [History] Albuterol Sulfate [Proair Hfa] 1 - 2 puff IH Q4HR PRN 06/13/18 [History] Calcium Carbonate/Vitamin D3 [Calcium 600 + D3 Softgel] 1 tab PO BID 06/13/18 [ History] Ibuprofen [Motrin] 800 mg PO TID PRN 06/13/18 [History] SUMAtriptan [Imitrex] 25 mg PO ASDIRECTED PRN 06/13/18 [History] DULoxetine HCl [Cymbalta] 60 mg PO BID 07/21/18 [History] Baclofen 10 mg PO TID 10/04/18 [History] Ciprofloxacin HCl [Cipro] 500 mg PO BID 10/04/18 [History] Ubidecarenone [Co Q-10] 100 mg PO DAILY 10/04/18 [History] Zolpidem Tartrate [Zolpidem Tartrate ER] 12.5 mg PO QPM 10/04/18 [History] rOPINIRole [Requip] 5 mg PO DAILY 10/04/18 [History] Patient Handouts: Ciprofloxacin tablets Forms: ED Department Discharge Referrals: PCP,None [Primary Care Provider] - - Discharge Summary/Plan Comment DC Time >30 min.: Yes Discharge Summary/Plan Comment: Lengthy discussion of medications. We discussed stopping ambien, Bupropion, baclofen and tizanidine at this time. Discussed f/u in clinic in 1 week for recheck and evaluation. Counseled on close monitoring and management and f/u. - Patient Data Vitals - Most Recent: Last Vital Signs Temp 36.0 C 10/04/18 14:00 Pulse 98 10/04/18 14:00 Resp 20 10/04/18 14:00 BP 138/62 10/04/18 14:00 Pulse Ox 98 10/04/18 14:00 Weight - Most Recent: 110.677 kg Lab Results - Last 24 hrs: Laboratory Results - last 24 hr 10/04/18 10/04/18 10/04/18 Range/Units 04:41 05:30 05:30 WBC 7.5 D (4.0-11.0) K/uL RBC 4.67 (3.80-5.80) M/uL Hgb 13.0 (11.5-16.5) g/dL Hct 39.5 (37.0-47.0) % MCV 85 (76-96) fL MCH 27.8 (27.0-32.0) pg MCHC 32.9 (31.0-35.0) g/dL RDW 14.1 (11.0-16.0) % Plt Count 165 (150-500) K/uL MPV 10.8 H (6.0-10.0) fL Neut % (Auto) 81.1 H (45.0-70.0) % Lymph % (Auto) 12.4 L (20.0-40.0) % [place] % (Auto) 5.3 (3.0-10.0) % Eos % (Auto) 0.9 L (1.0-5.0) % Baso % (Auto) 0.3 (0.0-0.5) % Neut # (Auto) 6.09 (2.00-7.50) K/uL Lymph # (Auto) 0.93 L (1.50-4.00) K/uL [place] # (Auto) 0.40 (0.20-0.80) K/uL Eos # (Auto) 0.07 (0.04-0.40) K/uL Baso # (Auto) 0.02 (0.02-0.10) K/uL Sodium 144 (136-145) mmol/L Potassium 3.7 (3.5-5.1) mmol/L Chloride 107 (98-107) mmol/L Carbon Dioxide 22.5 (21.0-32.0) mmol/L Anion Gap 18.2 H (5.0-15.0) mmol/L BUN 11 (8-26) mg/dL Creatinine 1.02 (0.55-1.02) mg/dL Est Cr Clr Drug Dosing TNP Estimated GFR (MDRD) 56 L (>60) MLS/MIN BUN/Creatinine Ratio 10.8 (6-25) Glucose 150 H D (74-100) mg/dL POC Glucose 136 H (74-110) mg/dL Calcium 8.8 (8.5-10.1) mg/dL Total Bilirubin 0.5 D (0.0-1.0) mg/dL AST 51 H (15-37) U/L ALT 37 (12-78) U/L Alkaline Phosphatase 91 (46-116) U/L Total Protein 7.4 (6.4-8.2) g/dL Albumin 3.6 (3.4-5.0) g/dL Globulin 3.8 (2.2-4.2) g/dL Albumin/Globulin Ratio 0.9 (0.8-2.0) TSH, Ultra Sensitive 2.296 (0.358-3.740) uIU/mL Urine Color Urine Appearance (CLEAR) Urine pH (5.0-8.0) Ur Specific [place] (1.003-1.030) Urine Protein (NEGATIVE) mg/dL Urine Glucose (UA) (NEGATIVE) mg/dL Urine Ketones (NEGATIVE) mg/dL Urine Occult Blood (NEGATIVE) Urine Nitrite (NEGATIVE) Urine Bilirubin (NEGATIVE) Urine Urobilinogen (0.2-1.0) E.U./dL Ur Leukocyte Esterase (NEGATIVE) Urine RBC /HPF Urine WBC /HPF Urine WBC Clumps /HPF Ur Squamous Epith Cells /HPF Urine Bacteria /HPF Urine Opiates Screen (NEGATIVE) Ur Oxycodone Screen (NEGATIVE) Urine Methadone Screen (NEGATIVE) Ur Barbiturates Screen (NEGATIVE) Ur Tricyclics Screen (NEGATIVE) Ur Phencyclidine Scrn (NEGATIVE) Ur Amphetamine Screen (NEGATIVE) Urine MDMA Screen (NEGATIVE) U Benzodiazepines Scrn (NEGATIVE) U Cocaine Metab Screen (NEGATIVE) U Marijuana (THC) Screen (NEGATIVE) 10/04/18 10/04/18 10/04/18 Range/Units 05:45 05:45 07:26 WBC (4.0-11.0) K/uL RBC (3.80-5.80) M/uL Hgb (11.5-16.5) g/dL Hct (37.0-47.0) % MCV (76-96) fL MCH (27.0-32.0) pg MCHC (31.0-35.0) g/dL RDW (11.0-16.0) % Plt Count (150-500) K/uL MPV (6.0-10.0) fL Neut % (Auto) (45.0-70.0) % Lymph % (Auto) (20.0-40.0) % [place] % (Auto) (3.0-10.0) % Eos % (Auto) (1.0-5.0) % Baso % (Auto) (0.0-0.5) % Neut # (Auto) (2.00-7.50) K/uL Lymph # (Auto) (1.50-4.00) K/uL [place] # (Auto) (0.20-0.80) K/uL Eos # (Auto) (0.04-0.40) K/uL Baso # (Auto) (0.02-0.10) K/uL Sodium (136-145) mmol/L Potassium (3.5-5.1) mmol/L Chloride (98-107) mmol/L Carbon Dioxide (21.0-32.0) mmol/L Anion Gap (5.0-15.0) mmol/L BUN (8-26) mg/dL Creatinine (0.55-1.02) mg/dL Est Cr Clr Drug Dosing Estimated GFR (MDRD) (>60) MLS/MIN BUN/Creatinine Ratio (6-25) Glucose (74-100) mg/dL POC Glucose 134 H (74-110) mg/dL Calcium (8.5-10.1) mg/dL Total Bilirubin (0.0-1.0) mg/dL AST (15-37) U/L ALT (12-78) U/L Alkaline Phosphatase (46-116) U/L Total Protein (6.4-8.2) g/dL Albumin (3.4-5.0) g/dL Globulin (2.2-4.2) g/dL Albumin/Globulin Ratio (0.8-2.0) TSH, Ultra Sensitive (0.358-3.740) uIU/mL Urine Color Yellow Urine Appearance Cloudy (CLEAR) Urine pH 5.5 (5.0-8.0) Ur Specific [place] 1.020 (1.003-1.030) Urine Protein 100 H (NEGATIVE) mg/dL Urine Glucose (UA) Negative (NEGATIVE) mg/dL Urine Ketones Negative (NEGATIVE) mg/dL Urine Occult Blood Moderate H (NEGATIVE) Urine Nitrite Positive H (NEGATIVE) Urine Bilirubin Negative (NEGATIVE) Urine Urobilinogen 0.2 (0.2-1.0) E.U./dL Ur Leukocyte Esterase Large H (NEGATIVE) Urine RBC 10-20 H /HPF Urine WBC Packed H /HPF Urine WBC Clumps Few /HPF Ur Squamous Epith Cells Not seen /HPF Urine Bacteria Moderate H /HPF Urine Opiates Screen Negative (NEGATIVE) Ur Oxycodone Screen Negative (NEGATIVE) Urine Methadone Screen Negative (NEGATIVE) Ur Barbiturates Screen Negative (NEGATIVE) Ur Tricyclics Screen Positive H (NEGATIVE) Ur Phencyclidine Scrn Negative (NEGATIVE) Ur Amphetamine Screen Negative (NEGATIVE) Urine MDMA Screen Negative (NEGATIVE) U Benzodiazepines Scrn Negative (NEGATIVE) U Cocaine Metab Screen Negative (NEGATIVE) U Marijuana (THC) Screen Positive H (NEGATIVE) Med Orders - Current: Current Medications Sodium Chloride (Saline Flush) 10 ml FLUSH ASDIRECTED PRN PRN Reason: Keep Vein Open
[2018-10-04] MEDS ORDERED: Acetaminophen 500 MG Tab PO SCH (17:15)
[2018-10-04] MEDS ORDERED: ClonazePAM 0.5 MG Tab PO SCH (20:00)
[2018-10-04] MEDS ORDERED: DULoxetine 60 MG Cap PO SCH (20:00)
[2018-10-04] MEDS ORDERED: Spironolactone 25 MG Tab PO SCH (20:00)
[2018-10-04] MEDS ORDERED: Non-Formulary Medication 1 Each (Budesonide/Formoterol [Symbicort 160-4.5 Mcg] 2 PUFF) INH SCH (20:00)
[2018-10-04] MEDS ORDERED: [UNRECOGNIZED DRUG - OTHER] PO SCH (20:00)
[2018-10-04] MEDS ORDERED: Gabapentin 800 MG Tab PO SCH (20:00)
[2018-10-04] MEDS ORDERED: Ciprofloxacin 500 MG Tab PO SCH (20:00)
[2018-10-04] MEDS ORDERED: RISPERIDONE PO SCH (20:00)
[2018-10-04] MEDS ORDERED: CALCIUM CARBONATE PO SCH (20:00)
[2018-10-04] MEDS ORDERED: VITAMIN D3 PO SCH (20:00)
[2018-10-05] MEDS ORDERED: Omeprazole 20 MG Cap.CR PO SCH (07:00)
[2018-10-05] MEDS ORDERED: Non-Formulary Medication 1 Each (Ubidecarenone [Co Q-10] 100 MG) PO SCH (08:00)
[2018-10-05] MEDS ORDERED: QUETIAPINE PO SCH (08:00)
[2018-10-05] MEDS ORDERED: Non-Formulary Medication 1 Each (Sitagliptin Phos/Metformin Hcl [Janumet 50-1,000 Mg] 1 TA PO SCH (08:00)
== END 2018-10-04 17:35 | disposition home or self-care (01) ==
LOC: LB.ED 04:04 → LB.MS 07:29
PROVIDERS: ADMIT Family Medicine; ATTEND Family Medicine
DX: R41.89 Other symptoms and signs involving cognitive functions and awareness (principal); R29.898 Other symptoms and signs involving the musculoskeletal system; T50.905A Adverse effect of unspecified drugs, medicaments and biological substances, initial encounter; J45.909 Unspecified asthma, uncomplicated; E11.9 Type 2 diabetes mellitus without complications; E66.9 Obesity, unspecified; Z79.84 Long term (current) use of oral hypoglycemic drugs; Z79.899 Other long term (current) drug therapy
CPT/HCPCS: 36415; 80053; 80307; 81001; 82962; 84443; 85025; 99235; 99285; A0425; A0429; A9270-GY; G0378

== ENCOUNTER 2019-01-25 07:50 | Day surgery (SDC) | payer MEDICARE, MEDICAID ==
[~2019-01-25 07:50] MED LIST changes: -Amoxicillin 500 MG Cap ONE; +Sodium Chloride 0.9% 1,000 ML IV SCH
[2019-01-25] MEDS ORDERED: Propofol 200 MG/20 ML SDV ONE (11:10)
[2019-01-25 12:26] VITALS: BP 157/70; PULSE 81
--- NOTE | 2019-01-25 14:43 | OR ---
DATE OF OPERATION: 01/25/2019 PREOPERATIVE DIAGNOSIS: Dysphagia. POSTOPERATIVE DIAGNOSIS: Dysphagia. PROCEDURE: EGD. ANESTHESIA: MAC. ESTIMATED BLOOD LOSS: None. COMPLICATIONS: None. INDICATION FOR THE PROCEDURE: The patient is a 53-year-old female who has had a history of dysphagia in the past, approximately 10 to 12 years ago, had previous EGD with dilatation, now has intermittent issues with swallowing and feels like things getting stuck at her distal esophagus and has been previously told she had a hiatal hernia as well. Otherwise, no complaints of abdominal pain. DESCRIPTION OF PROCEDURE: Informed consent was obtained from the patient. The patient was taken to the operating room and placed on the table in left lateral decubitus position. Monitored anesthesia care was administered. The esophagogastroscope was advanced through the oral cavity and directed toward the second portion of the duodenum. Duodenum appeared normal. The gastric antrum appeared normal. Retroflexion performed in the stomach which was also otherwise unremarkable. No obvious hiatal hernia present. The scope was then withdrawn within the esophagus. No obvious hiatal hernia. No strictures at the GE junction. Otherwise, no other masses or obvious inflammation in the distal esophagus from reflux. FINDINGS: Normal EGD. RECOMMENDATIONS: No anatomic reasons for her dysphagia. Would recommend a swallowing esophagram to further evaluate any physiologic abnormalities with the esophagus. RAJESH/VEDA /[id number]
== END 2019-01-25 12:35 | disposition home or self-care (01) ==
LOC: LB.SDS 07:50
PROVIDERS: ATTEND Surgery
DX: R13.10 Dysphagia, unspecified (principal); J44.9 Chronic obstructive pulmonary disease, unspecified
CPT/HCPCS: 43235; 82962; J2704; J7030; 43239; 43246

== ENCOUNTER → 2019-07-02 | Outpatient (CLI) | payer MEDICARE, MEDICAID | LOC: LB.BH 10:09 | PROVIDERS: ATTEND Psychologist | DX: F31.81 Bipolar II disorder (principal); F41.1 Generalized anxiety disorder; F43.10 Post-traumatic stress disorder, unspecified | CPT/HCPCS: 90791 ==

== ENCOUNTER 2019-09-07 15:06 | Emergency (ER) | payer MEDICARE, MEDICAID ==
[2019-09-07 15:23] VITALS: BP 143/81; PULSE 102
--- NOTE | 2019-09-07 15:38 | EDM.PDOC ---
ED HPI GENERAL MEDICAL PROBLEM - General Chief Complaint: Headache Stated Complaint: Migraine Time Seen by Provider: 09/07/19 15:15 Source of Information: Reports: Patient History Limitations: Reports: No Limitations - History of Present Illness INITIAL COMMENTS - FREE TEXT/NARRATIVE: Gabby continues with her usual migraine. Initially given toradol and zofran in the clinic. Seen back yesterday, and toradol repeated with additional injection of phenergan. Again, she recalls gradual onset and typical location, quality, and usual associated features of photophobia and nausea. Chart reviewed, and multiple presentations noted. She feels dehydrated. States she hardly slept at all. Has had negative imaging in the past. No focal neuro deficits or vision changes. No rash or fever. Headache Pain Score (Numeric/FACES): 8 - Related Data Allergies Allergy/AdvReac Type Severity Reaction Status Date / Time adhesive tape Allergy Rash Verified 09/08/19 17:31 celecoxib [From Celebrex] Allergy Nausea and Verified 09/08/19 17:31 Vomiting ketamine AdvReac Intermediate Agitation Verified 09/08/19 17:31 Home Meds: Home Meds Omeprazole 20 mg PO ACBREAKFAST 04/14/13 [History] risperiDONE [RisperiDAL M-Tab] 5 mg PO QPM 04/14/13 [History] Acetaminophen [Tylenol Extra Strength] 500 mg PO Q6H 06/06/15 [History] QUEtiapine [SEROquel] 1 tab PO QAM 06/06/15 [History] Spironolactone [Aldactone] 3 tab PO BID 06/06/15 [History] QUEtiapine Fumarate [Quetiapine Fumarate] 400 mg PO QPM 06/25/17 [History] Calcium Carbonate/Vitamin D3 [Calcium 600 + D3 Softgel] 1 tab PO BID 06/13/18 [ History] Ubidecarenone [Co Q-10] 2 tab PO DAILY 10/04/18 [History] rOPINIRole [Requip] 2.5 mg PO DAILY 10/04/18 [History] Meloxicam 0.5 tab PO BID 01/25/19 [History] Mirtazapine [Remeron] 1 - 2 tab PO BEDTIME 01/25/19 [History] Past Medical History - Past Health History Medical/Surgical History: Denies Medical/Surgical History HEENT History: Reports: Impaired Vision, Other (See Below) Other HEENT History: glasses for reading, Cardiovascular History: Reports: Hypertension Respiratory History: Reports: Asthma, Bronchitis, Recurrent, Pneumonia, Recurrent, Other (See Below) Other Respiratory History: Emphysema Gastrointestinal History: Reports: Bowel Obstruction, GERD, Irritable Bowel Syndrome Genitourinary History: Reports: None [employer]ATOR History: Reports: 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 Uterine Bleeding, Musculoskeletal History: Reports: Back Pain, Chronic Other Musculoskeletal History: back / butt pain, shoots down left leg Neurological History: Reports: Migraines, Neuropathy, Peripheral Psychiatric History: Reports: Anxiety, Depression, Suicide Attempt, Suicidal Ideation Endocrine/Metabolic History: Reports: Diabetes, Type II, Obesity/BMI 30+ Hematologic History: Reports: Blood Transfusion(s), Iron Deficiency Dermatologic History: Reports: Eczema, Other (See Below) Other Dermatologic History: Allergy to paper tape - Infectious Disease History Infectious Disease History: Reports: Chicken Pox, Measles, Rubella - Past Surgical History GI Surgical History: Reports: None Female Surgical History: Reports: Section, Hysterectomy Musculoskeletal Surgical History: Reports: None Social & Family History - Family History Family Medical History: Noncontributory Cardiac: Reports: None Musculoskeletal: Reports: Arthritis, Back pain, Chronic Neurological: Reports: None Psychiatric: Reports: Depression Endocrine/Metabolic: Reports: None Oncologic: Reports: None - Caffeine Use Caffeine Use: Reports: Soda Other Caffeine Use: 2 cups a day ED ROS GENERAL - Review of Systems Review Of Systems: Comprehensive ROS is negative, except as noted in HPI. - Physical Exam Exam: See Below Exam Limited By: No Limitations General Appearance: Alert, WD/WN, No Apparent Distress, Anxious Ears: Normal External Exam Nose: Normal Inspection, Normal Mucosa Throat/Mouth: Normal Voice, Other (looks on the dry side) Head Exam: Atraumatic, Normocephalic Neck: Normal Inspection, Supple, Non-Tender, Full Range of Motion Respiratory/Chest: No Respiratory Distress, Lungs Clear, Normal Breath Sounds Cardiovascular: Regular Rate, Rhythm, No Edema, No Gallop, No Murmur, No Rub GI/Abdominal: Normal Bowel Sounds, Soft, Non-Tender Neuro Exam (Abbreviated): Alert, Oriented, CN II-XII Intact, Normal Cognition, Normal Gait, No Motor/Sensory Deficits Back Exam: Normal Inspection Extremities: Normal Inspection, Normal Range of Motion, Normal Capillary Refill Psychiatric: Anxious Skin Exam: Warm, Dry Comments: slight tachycardia noted- c/w anxiety concurrent with dehydration Course - Vital Signs Text/Narrative:: provided cocktail of migraine meds with significant benefit along with a liter of fluid Last Recorded V/S: Last Vital Signs Temp 98.3 F 09/07/19 15:18 Pulse 102 H 09/07/19 15:18 Resp 20 09/07/19 15:18 BP 143/81 H 09/07/19 15:18 Pulse Ox 99 09/07/19 15:18 - Orders/Labs/Meds Meds: Medications Discontinued Medications Generic Name Dose Route Start Last Admin Trade Name Emerson PRN Reason Stop Dose Admin Dexamethasone 4 mg 09/07/19 15:23 09/07/19 16:00 Dexamethasone IVPUSH 09/07/19 15:24 4 mg ONETIME ONE Administration Dexamethasone Confirm 09/07/19 15:57 09/07/19 16:11 Dexamethasone Administered 09/07/19 15:58 Not Given Dose 4 mg .ROUTE .STK-MED ONE Diazepam Confirm 09/08/19 15:11 Valium Administered 09/08/19 15:12 Dose 5 mg .ROUTE .STK-MED ONE Diphenhydramine HCl 50 mg 09/07/19 15:23 09/07/19 15:50 Benadryl IVPUSH 09/07/19 15:24 50 mg ONETIME ONE Administration Diphenhydramine HCl Confirm 09/07/19 15:57 09/07/19 16:15 Benadryl Administered 09/07/19 15:58 Not Given Dose 50 mg .ROUTE .STK-MED ONE Hydromorphone HCl 0.5 mg 09/07/19 15:24 09/07/19 15:55 Dilaudid IVPUSH 09/07/19 15:25 0.5 mg ONETIME ONE Administration Hydromorphone HCl Confirm 09/07/19 16:02 09/07/19 16:09 Dilaudid Administered 09/07/19 16:03 Not Given Dose 2 mg .ROUTE .STK-MED ONE Hydromorphone HCl 1 mg 09/07/19 16:22 09/07/19 16:30 Dilaudid IVPUSH 09/07/19 16:23 1 mg ONETIME ONE Administration Hydromorphone HCl 0.5 mg 09/07/19 16:35 09/07/19 16:54 Dilaudid IVPUSH 0.5 mg ONETIME PRN Administration if not pain-free Prochlorperazine Edisylate 5 51 mls @ 150 mls/hr 09/07/19 15:22 09/07/19 16: 07 mg/ Sodium Chloride IV 09/07/19 15:42 150 mls/hr ONETIME ONE Administration Sodium Chloride 1,000 mls @ 999 mls/hr 09/07/19 15:20 09/07/19 15:46 Normal Saline IV 09/07/19 16:20 999 mls/hr .BOLUS ONE Administration Ketorolac Tromethamine 10 mg 09/07/19 15:24 09/07/19 16:04 Toradol IVPUSH 09/07/19 15:25 10 mg ONETIME ONE Administration Ketorolac Tromethamine Confirm 09/07/19 16:01 09/07/19 16:12 Toradol Administered 09/07/19 16:02 Not Given Dose 30 mg .ROUTE .STK-MED ONE Lorazepam Confirm 09/08/19 16:25 Ativan Administered 09/08/19 16:26 Dose 2 mg .ROUTE .STK-MED ONE Lorazepam Confirm 09/08/19 21:13 Ativan Administered 09/08/19 21:14 Dose 2 mg .ROUTE .STK-MED ONE Prochlorperazine Edisylate Confirm 09/07/19 16:01 09/07/19 16:16 Compazine Administered 09/07/19 16:02 Not Given Dose 10 mg .ROUTE .STK-MED ONE Sumatriptan Succinate Confirm 09/08/19 13:45 Imitrex Administered 09/08/19 13:46 Dose 6 mg .ROUTE .STK-MED ONE Departure - Departure Time of Disposition: 16:40 Disposition: Home, Self-Care 01 Condition: Good Clinical Impression: Migraine - Discharge Information *PRESCRIPTION DRUG MONITORING PROGRAM REVIEWED*: Not Applicable *COPY OF PRESCRIPTION DRUG MONITORING REPORT IN PATIENT MARY ELLEN: Not Applicable Instructions: Migraine Headache, [id number], Topiramate tablets Referrals: PCP,None [Primary Care Provider] - Forms: ED Department Discharge Additional Instructions: Take Topamax 2mg BID for migraines Follow up with primary MD if needed Rest and drink plenty of fluids Sepsis Event Note - Evaluation Sepsis Screening Result: No Definite Risk - Focused Exam Date Exam was Performed: 09/23/19 Time Exam was Performed: 09:39
[2019-09-07] MEDS: Sodium Chloride 0.9% 1,000 ML IV ONE (15:46)
[2019-09-07] MEDS: diphenhydrAMINE 50 MG/ML SDV IVPUSH ONE (15:50)
[2019-09-07] MEDS: HYDROmorphone 2 MG/ML Syringe IVPUSH ONE (15:55)
[2019-09-07] MEDS: Dexamethasone 4 MG/ML SDV IVPUSH ONE (16:00)
[2019-09-07] MEDS: Ketorolac 60 MG/2 ML SDV IVPUSH ONE (16:04)
[2019-09-07] MEDS: Prochlorperazine 5 MG in Sodium Chloride 0.9% 50 ML IV ONE (16:07)
[2019-09-07] MEDS: HYDROmorphone 2 MG/ML SDV ONE (16:09)
[2019-09-07] MEDS: Dexamethasone 4 MG/ML SDV ONE (16:11)
[2019-09-07] MEDS: Ketorolac 30 MG/ML SDV ONE (16:12)
[2019-09-07] MEDS: diphenhydrAMINE 50 MG/ML SDV ONE (16:15)
[2019-09-07] MEDS: Prochlorperazine 10 MG/2 ML SDV ONE (16:16)
[2019-09-07] MEDS: HYDROmorphone 2 MG/ML SDV IVPUSH ONE (16:30)
[2019-09-07] MEDS: HYDROmorphone 2 MG/ML Syringe IVPUSH PRN (16:54)
[2019-09-08] MEDS ORDERED: SUMAtriptan 6 MG/0.5 ML SDV ONE (13:45)
[2019-09-08] MEDS ORDERED: diazePAM 5 MG/ML MDV ONE (15:11)
[2019-09-08] MEDS ORDERED: LORazepam 2 MG/ML SDV ONE ×2 (16:25→21:13)
== END 2019-09-07 17:15 | disposition home or self-care (01) ==
LOC: LB.ED 15:06
DX: G43.909 Migraine, unspecified, not intractable, without status migrainosus (principal); J45.909 Unspecified asthma, uncomplicated; K21.9 Gastro-esophageal reflux disease without esophagitis; F41.9 Anxiety disorder, unspecified; F32.9 Major depressive disorder, single episode, unspecified; E11.9 Type 2 diabetes mellitus without complications; E66.9 Obesity, unspecified; Z79.899 Other long term (current) drug therapy; Z88.1 Allergy status to other antibiotic agents; Z91.09 Other allergy status, other than to drugs and biological substances
CPT/HCPCS: 96361; 96374; 96375; 96376; 99283-25; J0780; J1100; J1170; J1200; J1885; J7030; J7050

== ENCOUNTER 2019-09-08 12:37 | Emergency (ER) | payer MEDICARE, MEDICAID ==
[2019-09-08] MEDS ORDERED: SUMAtriptan 6 MG/0.5 ML SDV SUBCUT ONE (13:30)
[2019-09-08] MEDS ORDERED: Indomethacin 50 MG Cap PO ONE (13:48)
--- NOTE | 2019-09-08 14:13 | EDM.PDOC ---
ED HPI GENERAL MEDICAL PROBLEM - General Chief Complaint: General Stated Complaint: Headache Time Seen by Provider: 09/08/19 13:00 Source of Information: Reports: Patient History Limitations: Reports: No Limitations - History of Present Illness INITIAL COMMENTS - FREE TEXT/NARRATIVE: Gabby returns for her 4th visit this week. She failed rather aggressive migraine protocol yesterday, but was able to get some more sleep than any day this week being a total of 5-6 hours. She was lucid after her discharge according to her son, and seemed unaffected despite an abundant regimen. H/A pain abated somewhat as she was able to sleep after returning home. She believes it was moderate until this morning. No provoking factor noted. She did not take imitrex for a few days. She called to see if she should come back and was appropriately triaged to return. Normal bm this am. She feels very nauseated. Ongoing abdominal pain attributed to IBS flare. Denies gi/gu sx's otherwise. Recalls failing one sleep study, and going on to pass another. She denies orthopnea, eating recent large meals, chest pain, or exertional component of her sx's. No neck pain or occipital spasm, although some forehead tension. Gabby had been sneezing frequently over the past week and attributed this to year-round allergies. Does have GERD sx's. She has had a complicated history of depression and anxiety, and will be seeing her mental health provider later this week. She is frustrated with the chronicity of her headache and finds it intolerable to the point she would accept being observed in the hospital. Headache Pain Score (Numeric/FACES): 9 - Related Data Allergies Allergy/AdvReac Type Severity Reaction Status Date / Time adhesive tape Allergy Rash Verified 09/08/19 17:31 celecoxib [From Celebrex] Allergy Nausea and Verified 09/08/19 17:31 Vomiting ketamine AdvReac Intermediate Agitation Verified 09/08/19 17:31 Home Meds: Home Meds Omeprazole 20 mg PO ACBREAKFAST 04/14/13 [History] risperiDONE [RisperiDAL M-Tab] 5 mg PO QPM 04/14/13 [History] Acetaminophen [Tylenol Extra Strength] 500 mg PO Q6H 06/06/15 [History] QUEtiapine [SEROquel] 1 tab PO QAM 06/06/15 [History] Spironolactone [Aldactone] 3 tab PO BID 06/06/15 [History] QUEtiapine Fumarate [Quetiapine Fumarate] 400 mg PO QPM 06/25/17 [History] Calcium Carbonate/Vitamin D3 [Calcium 600 + D3 Softgel] 1 tab PO BID 06/13/18 [ History] Ubidecarenone [Co Q-10] 2 tab PO DAILY 10/04/18 [History] rOPINIRole [Requip] 2.5 mg PO DAILY 10/04/18 [History] Meloxicam 0.5 tab PO BID 01/25/19 [History] Mirtazapine [Remeron] 1 - 2 tab PO BEDTIME 01/25/19 [History] Past Medical History - Past Health History Medical/Surgical History: Denies Medical/Surgical History HEENT History: Reports: Impaired Vision, Other (See Below) Other HEENT History: glasses for reading, Cardiovascular History: Reports: Hypertension Respiratory History: Reports: Asthma, Bronchitis, Recurrent, Pneumonia, Recurrent, Other (See Below) Other Respiratory History: Emphysema Gastrointestinal History: Reports: Bowel Obstruction, GERD, Irritable Bowel Syndrome Genitourinary History: Reports: None OUTSOLE PARAFFINER History: Reports: 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 Uterine Bleeding, Musculoskeletal History: Reports: Back Pain, Chronic Other Musculoskeletal History: back / butt pain, shoots down left leg Neurological History: Reports: Migraines, Neuropathy, Peripheral Psychiatric History: Reports: Anxiety, Depression, Suicide Attempt, Suicidal Ideation Endocrine/Metabolic History: Reports: Diabetes, Type II, Obesity/BMI 30+ Hematologic History: Reports: Blood Transfusion(s), Iron Deficiency Dermatologic History: Reports: Eczema, Other (See Below) Other Dermatologic History: Allergy to paper tape - Infectious Disease History Infectious Disease History: Reports: Chicken Pox, Measles, Rubella - Past Surgical History GI Surgical History: Reports: None Female Surgical History: Reports: Section, Hysterectomy Musculoskeletal Surgical History: Reports: None Social & Family History - Family History Family Medical History: Noncontributory Cardiac: Reports: None Musculoskeletal: Reports: Arthritis, Back pain, Chronic Neurological: Reports: None Psychiatric: Reports: Depression Endocrine/Metabolic: Reports: None Oncologic: Reports: None - Caffeine Use Caffeine Use: Reports: Soda Other Caffeine Use: 2 cups a day ED ROS GENERAL - Review of Systems Review Of Systems: Comprehensive ROS is negative, except as noted in HPI. ED EXAM, GENERAL - Physical Exam Exam: See Below Exam Limited By: No Limitations General Appearance: Alert, WD/WN, No Apparent Distress, Anxious Ears: Normal External Exam, Hearing Grossly Normal Nose: Normal Inspection, Normal Mucosa Throat/Mouth: Normal Inspection, Normal Lips, Normal Oropharynx, Normal Voice Head: Atraumatic, Normocephalic. No: Facial Swelling, Facial Tenderness, Sinus Tenderness Neck: Normal Inspection, Supple, Non-Tender, Full Range of Motion. No: Lymphadenopathy (R), Lymphadenopathy (L), Tender Midline Respiratory/Chest: No Respiratory Distress, Lungs Clear, Normal Breath Sounds Cardiovascular: Regular Rate, Rhythm. No: No Gallop, No Murmur, No Rub GI/Abdominal: Normal Bowel Sounds, Soft, No Mass, Tender (midepigastrium to moderate palpation). No: Rebound Back Exam: Normal Inspection, Full Range of Motion. No: CVA Tenderness (R), CVA Tenderness (L), Decreased Range of Motion, Muscle Spasm, Paraspinal Tenderness, Vertebral Tenderness Extremities: Normal Inspection, Normal Range of Motion, Non-Tender, No Pedal Edema, Normal Capillary Refill Neurological: Alert, Oriented, CN II-XII Intact, Normal Cognition, Normal Gait, No Motor/Sensory Deficits Psychiatric: Anxious Skin Exam: Warm, Dry, Intact, No Rash Lymphatic: No Adenopathy Course - Vital Signs Text/Narrative:: Although better hydrated than yesterday, she appeared to remain a rather difficult IV start and the patient actually seemed inclined to try other route first. Decided together to expand our w/u to exclude other causes Review of every ER visit in her chart reveals the only potential thing that may have helped is valium for her back spasm. Gabby tolerated the trial of intranasal lidocaine 1% and actually sniffed 1.5 mL, but no change in h/a SubQ imitrex was well tolerated without any perceived systemic effect or improvement in her pain that she found to be severe. Oral indocin with adequate loading dose given her weight and tolerance of higher dose toradol resulted in no change. michael ODT considered vs reglan as I don't see if this was trialed in the past; but her nausea had fully abated. Discussed the option of low dose ketamine in detail, including potential benefits vs possible adverse reactions, etc for lack of a better idea. We decided together it was worth a trial. My RN easily accomplished IV access. The ketamine was slowly pushed, and Gabby said she felt 'weird'. She stated that her pain was completely gone, within 3 minutes of receiving the bolus. Unfortunately, she found the dysphoria to be quite scary, and essentially went on to panic. As she tolerated valium in the past, a test dose was administered without any change. She did have a bit of increased salivation, not amenable to suctioning, that prompted me to order benadryl (as robinul not an option). Gabby kept repeating that she couldn't breath. She kept pushing away the nasal cannula, and had a similar sense of claustrophobia with a NRB mask. She started to have some upper airway noise, likely related to her crowded oropharynx and large tongue, and her lungs were repeatedly auscultated and remained free of rales or wheezes. In auscultating her, it was evident that she had increasing sinus tachycardia, and started to appear plethoric in regard to her face. It was difficult to calm her with a reassuring gentle verbal redirection, and my RN astutely applied the pulse oximetry. Although the initial saturations read in the 70's, I think it took a bit for the monitor to equilibrate to the low 80's. We only had access to one O2 port, and tried switching back & forth between the NC and NRB. We also repositioned here, and I manually provided a bit of a jaw thrust. She remained very agitated and verbally stating her uncomfortable subjective experience as well as sonorous upper airway sounds. Gabby's sats gradually came up with doing the above to optimize her oxygenation. End-tidal CO2 was considered, but ultimately I directed my RN to continue to push sedatives while we reoriented Gabby. She was able to speak throughout the sequence. Upon decreasing the O2 flow, and with her pushing the delivery devices away, her sats started to decreased and seemed to plateau transiently in the mid to upper 80's. As she began to awaken, I offered her a neb, and we gave repeated moderate boluses of ativan given that valium did not seem to really help. Luckily she came around, although she remained very anxious and her tachycardia took longer than anticipated to resolve. At that point, her son arrived, and she asked for dilaudid and/or valium for her back pain. I helped her reposition, and we ended up providing her with a couple grams of magnesium, with the hope that it would help with her anxiety, breathing, HR, and maybe even the paravertebral muscle spasm that seemed to be the pain generator upon examination. She herself declined renewal of PT and felt her backache was from laying around for the last several days. I did apologize to her repeatedly for her untoward panic response to the low- dose ketamine, although she did actually seem thankful in terms of the success in abating her refractory migraine. Gabby was advised to set up an echo due to her unexpected elevated BNP, and this was ordered on her behalf with courtesy copy to her primary MD. As her physician just returned from leave and has a pretty full schedule, I explained I would be happy to see her back anytime, but re-iterated that opioids would only be used as a last resort due to the propensity for rebound ( and her fair dilaudid dose from the day prior did not result in adequate treatment anyway). She was discharged in good condition. I sincerely appreciate the adept bedside management of my RN in providing excellent care under the circumstances, as I had never seen an emergence reaction despite ongoing use of ketamine for almost two decades. Of note, review of the literature seems to offer the only other solution of giving MORE ketamine and likely intubating the patient, and this was felt to exceed the capabilities of our small hospital, and probably require emergent transfer to a larger center. For this reason, I decided to leave this as a last resort, only if necessary to ensure the safety and wellbeing of our patient. Last Recorded V/S: Last Vital Signs Temp 97.8 F 09/08/19 13:05 Pulse 100 09/08/19 17:39 Resp 18 09/08/19 17:39 BP 151/94 H 09/08/19 17:39 Pulse Ox 97 09/08/19 17:39 - Orders/Labs/Meds Orders: Active Orders 24 hr Category Date Time Status RT Aerosol Therapy [RC] ASDIRECTED Care 09/08/19 15:55 Active C-Spine [Cervical Spine wo Cont] [CT] Stat Exams 09/08/19 13:11 Stop Req CULTURE URINE [RM] Stat Lab 09/08/19 14:00 Received VITAMIN D, 25-HYDROXY Stat Lab 09/08/19 13:40 Received Labs: Laboratory Tests 09/08/19 09/08/19 09/08/19 Range/Units 13:40 13:40 13:40 WBC 10.4 D (4.0-11.0) K/uL RBC 4.59 (3.80-5.80) M/uL Hgb 11.7 (11.5-16.5) g/dL Hct 36.5 L (37.0-47.0) % MCV 80 (76-96) fL MCH 25.5 L (27.0-32.0) pg MCHC 32.1 (31.0-35.0) g/dL RDW 22.9 H (11.0-16.0) % Plt Count 196 D (150-500) K/uL MPV 11.5 H (6.0-10.0) fL Neut % (Auto) 84.3 H (45.0-70.0) % Lymph % (Auto) 11.6 L (20.0-40.0) % [place] % (Auto) 3.6 (3.0-10.0) % Eos % (Auto) 0.1 L (1.0-5.0) % Baso % (Auto) 0.4 (0.0-0.5) % Neut # (Auto) 8.78 H (2.00-7.50) K/uL Lymph # (Auto) 1.21 L (1.50-4.00) K/uL [place] # (Auto) 0.37 (0.20-0.80) K/uL Eos # (Auto) 0.01 L (0.04-0.40) K/uL Baso # (Auto) 0.04 (0.02-0.10) K/uL ESR 4 (0-30) mm/hr Sodium 141 (136-145) mmol/L Potassium 4.6 (3.5-5.1) mmol/L Chloride 101 (98-107) mmol/L Carbon Dioxide 24.8 (21.0-32.0) mmol/L Anion Gap 19.8 H (5.0-15.0) mmol/L BUN 16 D (8-26) mg/dL Creatinine 1.06 H (0.55-1.02) mg/dL Est Cr Clr Drug Dosing 52.39 mL/min Estimated GFR (MDRD) 54 L (>60) MLS/MIN BUN/Creatinine Ratio 15.1 (6-25) Glucose 175 H (74-100) mg/dL Calcium 8.8 (8.5-10.1) mg/dL Magnesium (1.8-2.4) mg/dL Total Bilirubin 0.5 D (0.0-1.0) mg/dL AST 15 (15-37) U/L ALT 20 (12-78) U/L Alkaline Phosphatase 51 (46-116) U/L Troponin I < 0.017 (0.000-0.060) ng/mL C-Reactive Protein 2.3 (0.0-3.0) mg/L B-Natriuretic Peptide (0-125) pg/mL Total Protein 6.9 (6.4-8.2) g/dL Albumin 3.7 (3.4-5.0) g/dL Globulin 3.2 (2.2-4.2) g/dL Albumin/Globulin Ratio 1.2 (0.8-2.0) Amylase (25-115) U/L Urine Color Urine Appearance (CLEAR) Urine pH (5.0-8.0) Ur Specific [place] (1.003-1.030) Urine Protein (NEGATIVE) mg/dL Urine Glucose (UA) (NEGATIVE) mg/dL Urine Ketones (NEGATIVE) mg/dL Urine Occult Blood (NEGATIVE) Urine Nitrite (NEGATIVE) Urine Bilirubin (NEGATIVE) Urine Urobilinogen (0.2-1.0) E.U./dL Ur Leukocyte Esterase (NEGATIVE) Urine RBC /HPF Urine WBC /HPF Ur Squamous Epith Cells /HPF Urine Bacteria /HPF Urine Opiates Screen (NEGATIVE) Ur Oxycodone Screen (NEGATIVE) Urine Methadone Screen (NEGATIVE) Ur Barbiturates Screen (NEGATIVE) Ur Tricyclics Screen (NEGATIVE) Ur Phencyclidine Scrn (NEGATIVE) Ur Amphetamine Screen (NEGATIVE) U Methamphetamines Scrn (NEGATIVE) Urine MDMA Screen (NEGATIVE) U Benzodiazepines Scrn (NEGATIVE) U Cocaine Metab Screen (NEGATIVE) U Marijuana (THC) Screen (NEGATIVE) 09/08/19 09/08/19 09/08/19 Range/Units 13:40 13:40 13:40 WBC (4.0-11.0) K/uL RBC (3.80-5.80) M/uL Hgb (11.5-16.5) g/dL Hct (37.0-47.0) % MCV (76-96) fL MCH (27.0-32.0) pg MCHC (31.0-35.0) g/dL RDW (11.0-16.0) % Plt Count (150-500) K/uL MPV (6.0-10.0) fL Neut % (Auto) (45.0-70.0) % Lymph % (Auto) (20.0-40.0) % [place] % (Auto) (3.0-10.0) % Eos % (Auto) (1.0-5.0) % Baso % (Auto) (0.0-0.5) % Neut # (Auto) (2.00-7.50) K/uL Lymph # (Auto) (1.50-4.00) K/uL [place] # (Auto) (0.20-0.80) K/uL Eos # (Auto) (0.04-0.40) K/uL Baso # (Auto) (0.02-0.10) K/uL ESR (0-30) mm/hr Sodium (136-145) mmol/L Potassium (3.5-5.1) mmol/L Chloride (98-107) mmol/L Carbon Dioxide (21.0-32.0) mmol/L Anion Gap (5.0-15.0) mmol/L BUN (8-26) mg/dL Creatinine (0.55-1.02) mg/dL Est Cr Clr Drug Dosing mL/min Estimated GFR (MDRD) (>60) MLS/MIN BUN/Creatinine Ratio (6-25) Glucose (74-100) mg/dL Calcium (8.5-10.1) mg/dL Magnesium 1.1 L (1.8-2.4) mg/dL Total Bilirubin (0.0-1.0) mg/dL AST (15-37) U/L ALT (12-78) U/L Alkaline Phosphatase (46-116) U/L Troponin I (0.000-0.060) ng/mL C-Reactive Protein (0.0-3.0) mg/L B-Natriuretic Peptide 677 H D (0-125) pg/mL Total Protein (6.4-8.2) g/dL Albumin (3.4-5.0) g/dL Globulin (2.2-4.2) g/dL Albumin/Globulin Ratio (0.8-2.0) Amylase 50 (25-115) U/L Urine Color Urine Appearance (CLEAR) Urine pH (5.0-8.0) Ur Specific [place] (1.003-1.030) Urine Protein (NEGATIVE) mg/dL Urine Glucose (UA) (NEGATIVE) mg/dL Urine Ketones (NEGATIVE) mg/dL Urine Occult Blood (NEGATIVE) Urine Nitrite (NEGATIVE) Urine Bilirubin (NEGATIVE) Urine Urobilinogen (0.2-1.0) E.U./dL Ur Leukocyte Esterase (NEGATIVE) Urine RBC /HPF Urine WBC /HPF Ur Squamous Epith Cells /HPF Urine Bacteria /HPF Urine Opiates Screen (NEGATIVE) Ur Oxycodone Screen (NEGATIVE) Urine Methadone Screen (NEGATIVE) Ur Barbiturates Screen (NEGATIVE) Ur Tricyclics Screen (NEGATIVE) Ur Phencyclidine Scrn (NEGATIVE) Ur Amphetamine Screen (NEGATIVE) U Methamphetamines Scrn (NEGATIVE) Urine MDMA Screen (NEGATIVE) U Benzodiazepines Scrn (NEGATIVE) U Cocaine Metab Screen (NEGATIVE) U Marijuana (THC) Screen (NEGATIVE) 09/08/19 09/08/19 Range/Units 14:00 14:02 WBC (4.0-11.0) K/uL RBC (3.80-5.80) M/uL Hgb (11.5-16.5) g/dL Hct (37.0-47.0) % MCV (76-96) fL MCH (27.0-32.0) pg MCHC (31.0-35.0) g/dL RDW (11.0-16.0) % Plt Count (150-500) K/uL MPV (6.0-10.0) fL Neut % (Auto) (45.0-70.0) % Lymph % (Auto) (20.0-40.0) % [place] % (Auto) (3.0-10.0) % Eos % (Auto) (1.0-5.0) % Baso % (Auto) (0.0-0.5) % Neut # (Auto) (2.00-7.50) K/uL Lymph # (Auto) (1.50-4.00) K/uL [place] # (Auto) (0.20-0.80) K/uL Eos # (Auto) (0.04-0.40) K/uL Baso # (Auto) (0.02-0.10) K/uL ESR (0-30) mm/hr Sodium (136-145) mmol/L Potassium (3.5-5.1) mmol/L Chloride (98-107) mmol/L Carbon Dioxide (21.0-32.0) mmol/L Anion Gap (5.0-15.0) mmol/L BUN (8-26) mg/dL Creatinine (0.55-1.02) mg/dL Est Cr Clr Drug Dosing mL/min Estimated GFR (MDRD) (>60) MLS/MIN BUN/Creatinine Ratio (6-25) Glucose (74-100) mg/dL Calcium (8.5-10.1) mg/dL Magnesium (1.8-2.4) mg/dL Total Bilirubin (0.0-1.0) mg/dL AST (15-37) U/L ALT (12-78) U/L Alkaline Phosphatase (46-116) U/L Troponin I (0.000-0.060) ng/mL C-Reactive Protein (0.0-3.0) mg/L B-Natriuretic Peptide (0-125) pg/mL Total Protein (6.4-8.2) g/dL Albumin (3.4-5.0) g/dL Globulin (2.2-4.2) g/dL Albumin/Globulin Ratio (0.8-2.0) Amylase (25-115) U/L Urine Color Yellow Urine Appearance Clear (CLEAR) Urine pH 6.5 (5.0-8.0) Ur Specific [place] 1.020 (1.003-1.030) Urine Protein Negative (NEGATIVE) mg/dL Urine Glucose (UA) Negative (NEGATIVE) mg/dL Urine Ketones Negative (NEGATIVE) mg/dL Urine Occult Blood Trace-intact H (NEGATIVE) Urine Nitrite Negative (NEGATIVE) Urine Bilirubin Negative (NEGATIVE) Urine Urobilinogen 0.2 (0.2-1.0) E.U./dL Ur Leukocyte Esterase Small H (NEGATIVE) Urine RBC 0-5 H /HPF Urine WBC 5-10 H /HPF Ur Squamous Epith Cells Few /HPF Urine Bacteria Few /HPF Urine Opiates Screen Negative (NEGATIVE) Ur Oxycodone Screen Negative (NEGATIVE) Urine Methadone Screen Negative (NEGATIVE) Ur Barbiturates Screen Negative (NEGATIVE) Ur Tricyclics Screen Negative (NEGATIVE) Ur Phencyclidine Scrn Negative (NEGATIVE) Ur Amphetamine Screen Negative (NEGATIVE) U Methamphetamines Scrn Negative (NEGATIVE) Urine MDMA Screen Negative (NEGATIVE) U Benzodiazepines Scrn Negative (NEGATIVE) U Cocaine Metab Screen Negative (NEGATIVE) U Marijuana (THC) Screen Negative (NEGATIVE) Meds: Medications Discontinued Medications Generic Name Dose Route Start Last Admin Trade Name Freq PRN Reason Stop Dose Admin Albuterol/Ipratropium Confirm 09/08/19 15:29 09/08/19 15:20 Duoneb 3.0-0.5 Mg/3 Ml Administered 09/08/19 15:30 3 ml Dose Administration 3 ml .ROUTE .STK-MED ONE Albuterol/Ipratropium 3 ml 09/08/19 16:00 09/08/19 16:10 Duoneb 3.0-0.5 Mg/3 Ml NEB Not Given QID ARIK Diazepam 2 mg 09/08/19 15:00 09/08/19 15:00 Valium IVPUSH 09/08/19 15:01 2 mg ONETIME ONE Administration Diphenhydramine HCl Confirm 09/08/19 15:17 09/08/19 16:07 Benadryl Administered 09/08/19 15:18 Not Given Dose 50 mg .ROUTE .STK-MED ONE Diphenhydramine HCl 25 mg 09/08/19 16:12 09/08/19 15:17 Benadryl IVPUSH 09/08/19 16:13 25 mg ONETIME ONE Administration Sodium Chloride 1,000 mls @ 999 mls/hr 09/08/19 14:30 09/08/19 14:30 Normal Saline IV 09/08/19 15:30 999 mls/hr .BOLUS ONE Administration Magnesium Sulfate 2 gm/ Premix 50 mls @ 25 mls/hr 09/08/19 16:30 09/08/19 16: 53 IV 09/08/19 18:29 25 mls/hr ONETIME ONE Administration Indomethacin 100 mg 09/08/19 13:48 09/08/19 14:03 Indocin PO 09/08/19 13:49 100 mg ONETIME ONE Administration Ketamine HCl 20 mg 09/08/19 14:53 09/08/19 14:59 Ketalar IVPUSH 09/08/19 14:54 Not Given ONETIME ONE Ketamine HCl 35 mg 09/08/19 14:54 09/08/19 14:55 Ketalar IVPUSH 09/08/19 14:55 35 mg ONETIME ONE Administration Lorazepam Confirm 09/08/19 15:44 09/08/19 16:07 Ativan Administered 09/08/19 15:45 Not Given Dose 2 mg .ROUTE .STK-MED ONE Lorazepam 1 mg 09/08/19 15:49 09/08/19 15:50 Ativan IVPUSH 09/08/19 15:50 1 mg ONETIME ONE Administration Lorazepam 1 mg 09/08/19 16:09 09/08/19 16:22 Ativan IVPUSH 1 mg Q10M PRN Administration Agitation Sumatriptan Succinate 6 mg 09/08/19 13:30 09/08/19 13:40 Imitrex SUBCUT 09/08/19 13:31 6 mg ONETIME ONE Administration Departure - Departure Time of Disposition: 17:30 Disposition: Home, Self-Care 01 Clinical Impression: Medication adverse effect Qualifiers: Encounter type: initial encounter Qualified Code(s): T50.905A - Adverse effect of unspecified drugs, medicaments and biological substances, initial encounter - Discharge Information Instructions: Drug Allergy, [id number] Referrals: PCP,None [Primary Care Provider] - Forms: ED Department Discharge Additional Instructions: Gabby, I'm sorry that the ketamine infusion caused you to panic. I know it was very scary for you, but you were strong, and rode it out. With any luck, hopefully it will help your headaches, depression, and chronic pain troubles. As you know , we have learned that pain medicine just covers things up and the problem often persists. This is especially true with narcotics and rebound headaches. We tried pretty much everything we have in this hospital to help you, so I'm glad we knocked your migraine out. Good luck with your psych doctor this week. I hope they get your anxiety squared away, and Thank you in advance for doing the echo to ensure your heart is pumping well. You should get your magnesium level checked the next time you have blood work. Good luck with everything. Sincerely, Rodolfo Fournier MD Sepsis Event Note - Evaluation Sepsis Screening Result: No Definite Risk - Focused Exam Vital Signs: Vital Signs Temp Pulse Resp BP Pulse Ox 09/08/19 17:39 100 18 151/94 H 97 09/08/19 15:37 132 H 18 108/83 95 09/08/19 13:05 97.8 F 89 20 160/83 H 98 09/08/19 13:00 97.8 F 83 18 160/83 H 98 Date Exam was Performed: 09/08/19 Time Exam was Performed: 19:15 - My Orders Last 24 Hours: My Active Orders 09/08/19 13:11 C-Spine [Cervical Spine wo Cont] [CT] Stat 09/08/19 13:40 VITAMIN D, 25-HYDROXY Stat 09/08/19 14:00 CULTURE URINE [RM] Stat 09/08/19 15:55 RT Aerosol Therapy [RC] ASDIRECTED - Assessment/Plan Last 24 Hours: My Active Orders 09/08/19 13:11 C-Spine [Cervical Spine wo Cont] [CT] Stat 09/08/19 13:40 VITAMIN D, 25-HYDROXY Stat 09/08/19 14:00 CULTURE URINE [RM] Stat 09/08/19 15:55 RT Aerosol Therapy [RC] ASDIRECTED
[2019-09-08] MEDS ORDERED: Sodium Chloride 0.9% 1,000 ML IV ONE (14:30)
[2019-09-08] MEDS ORDERED: Ketamine 200 MG/20 ML MDV IVPUSH ONE ×2 (14:53→14:54)
[2019-09-08] MEDS ORDERED: diphenhydrAMINE 50 MG/ML SDV ONE (15:17)
[2019-09-08] MEDS ORDERED: Albuterol/Ipratropium 3.0-0.5 MG/3 ML Neb Soln ONE (15:29)
[2019-09-08] MEDS: LORazepam 2 MG/ML SDV IVPUSH ONE ×2 (15:40→15:50)
[2019-09-08] MEDS ORDERED: LORazepam 2 MG/ML SDV ONE (15:44)
[2019-09-08] MEDS ORDERED: Albuterol/Ipratropium 3.0-0.5 MG/3 ML Neb Soln NEB SCH (16:00)
[2019-09-08] MEDS ORDERED: LORazepam 2 MG/ML SDV IVPUSH PRN (16:09)
[2019-09-08] MEDS ORDERED: diphenhydrAMINE 50 MG/ML SDV IVPUSH ONE (16:12)
[2019-09-08] MEDS ORDERED: Magnesium Sulfate/Water 2 GM in Premix Bag 1 BAG IV ONE (16:30)
--- NOTE | 2019-09-08 16:43 | CT ---
Date of Service: 09/08/19 Clinical Data: refractory migraine UNENHANCED BRAIN CT: Multislice axial acquisition was performed. No priors There is diffuse cerebral atrophy. There are periventricular lucencies bilaterally consistent with small vessel ischemic change. No masses or mass effect. No intracranial hemorrhage. No evidence of acute or subacute infarct. No osseous abnormalities. IMPRESSION: No acute intracranial intracranial abnormalities. [id number] [facility]
--- NOTE | 2019-09-08 16:46 | CR ---
Date of Service: 09/08/19 Clinical Data: Cough PA AND LATERAL CHEST: Comparison is made to a prior exam dated 09/18/17. The heart size is normal. The lungs are clear. No pneumothorax. No pleural effusions. No evidence of acute intrathoracic disease. [id number] [facility]
--- NOTE | 2019-09-08 16:50 | CR ---
Date of Service: 09/08/19 Clinical Data: Nausea/IBS There is gas and stool throughout the colon. There are multiple gas-filled loops of small bowel in the lower abdomen and pelvis. They are not distended. They do, however, contain multiple air-fluid levels. Enteritis, localized ileus , or developing obstructive process should be considered. Followup imaging is recommended if clinically indicated. No free air. There are surgical clips in the right upper quadrant. [id number] [facility]
[2019-09-08 17:40] VITALS: BP 151/94; PULSE 100
== END 2019-09-08 18:22 | disposition home or self-care (01) ==
LOC: LB.ED 12:37
DX: R51 Headache (principal); T50.905A Adverse effect of unspecified drugs, medicaments and biological substances, initial encounter; I10 Essential (primary) hypertension; J45.909 Unspecified asthma, uncomplicated; K21.9 Gastro-esophageal reflux disease without esophagitis; F41.9 Anxiety disorder, unspecified; F32.9 Major depressive disorder, single episode, unspecified; E11.9 Type 2 diabetes mellitus without complications; E66.9 Obesity, unspecified; Z68.41 Body mass index [BMI] 40.0-44.9, adult; Z91.048 Other nonmedicinal substance allergy status; Z88.8 Allergy status to other drugs, medicaments and biological substances; Z79.899 Other long term (current) drug therapy
CPT/HCPCS: 36415; 70450; 71046; 74019; 80053; 80307; 81001; 82150; 82306; 83735; 83880; 84484; 85025; 85651; 86140; 87086; 96361; 96365; 96372; 96375; 96376; 99285; A9270; J1200; J2060; J3030; J3360; J3475; J7030; J7620-GY

== ENCOUNTER 2020-02-07 08:18 | Day surgery (SDC) | payer MEDICARE, MEDICAID ==
[~2020-02-07 08:18] MED LIST changes: +Metoclopramide 10 MG/2 ML SDV IV PRN
[2020-02-07] MEDS ORDERED: Propofol 1,000 MG/100 ML SDV ONE (10:00)
[2020-02-07 10:47] VITALS: PULSE 79
[2020-02-07 10:57] VITALS: BP 112/72
--- NOTE | 2020-02-07 11:07 | OR ---
DATE OF OPERATION: 02/07/2020 SURGEON: Reginaldo Moses MD PREOPERATIVE DIAGNOSIS: Surveillance colonoscopy. POSTOPERATIVE DIAGNOSIS: Surveillance colonoscopy. PROCEDURE: Colonoscopy. ANESTHESIA: MAC. ESTIMATED BLOOD LOSS: None. COMPLICATIONS: None. INDICATION FOR THE PROCEDURE: The patient is a 54-year-old female, who 3 years ago had a colonoscopy, who was found to have multiple polyps on that time and was set for 3-year followup. She is here today for that. She denies any other change in bowel habits since her last scope. DESCRIPTION OF PROCEDURE: Informed consent was obtained from the patient. The patient was taken to the operating room, placed on the table in left lateral decubitus position. Monitored anesthesia care was administered. Digital rectal exam performed and was normal. Colonoscope was then advanced through the anus, directed towards the cecum. Cecum was reached and identified by appendiceal orifice and the ileocecal valve. Colonoscope was then slowly withdrawn. The prep was adequate, but did require copious amounts of irrigation, good views after irrigation. No polyps, no masses, no areas of ischemia or inflammation identified. Retroflexion performed in the rectum was also otherwise unremarkable. Colonoscope was then withdrawn. FINDINGS: Normal colonoscopy. RECOMMENDATIONS: We would recommend repeat surveillance colonoscopy in 5 years. RAMA /[id number] MTDGriselda
== END 2020-02-07 11:05 | disposition home or self-care (01) ==
LOC: LB.SDS 08:18
PROVIDERS: ATTEND Surgery
DX: Z12.11 Encounter for screening for malignant neoplasm of colon (principal); R20.2 Paresthesia of skin; G89.29 Other chronic pain; R06.02 Shortness of breath; I10 Essential (primary) hypertension; E11.9 Type 2 diabetes mellitus without complications; F17.200 Nicotine dependence, unspecified, uncomplicated; Z86.010 Personal history of colon polyps; Z88.8 Allergy status to other drugs, medicaments and biological substances; Z79.899 Other long term (current) drug therapy; Z98.890 Other specified postprocedural states
CPT/HCPCS: 82962; G0105; J2704; J7030

== ENCOUNTER 2020-03-15 08:33 | Emergency (ER) | payer MEDICARE, MEDICAID ==
[2020-03-15 08:54] VITALS: BP 146/71; PULSE 98
--- NOTE | 2020-03-15 08:59 | EDM.PDOC ---
ED HPI GENERAL MEDICAL PROBLEM - General Chief Complaint: General Stated Complaint: CONSTIPATION Time Seen by Provider: 03/15/20 08:45 Source of Information: Reports: Patient History Limitations: Reports: No Limitations - History of Present Illness INITIAL COMMENTS - FREE TEXT/NARRATIVE: Patient had an angiogram in Monday, has not had a BM since despite taking stool softners BID. She was given IV fentanyl for the procedure. She took a laxative today at 0200 with no relief. She is able to pass gas and urinate, but had some difficulty starting a stream yesterday. Denies any CP/SOB, urinary pain, frequency, blood per rectum, N/V/D. Has had issues with constipation adn IBS in the past and this feels the same per patient. 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) (colace, laxative) - Related Data Allergies Allergy/AdvReac Type Severity Reaction Status Date / Time adhesive tape Allergy Rash Verified 02/21/20 10:17 celecoxib [From Celebrex] Allergy Nausea and Verified 02/21/20 10:17 Vomiting ketamine AdvReac Intermediate Agitation Verified 02/21/20 10:17 ropinirole AdvReac Diaphoresis Verified 02/21/20 10:17 Home Meds: Home Meds Omeprazole 20 mg PO ACBREAKFAST 04/14/13 [History] QUEtiapine [SEROquel] 100 mg PO QAM 06/06/15 [History] Spironolactone [Aldactone] 3 tab PO BID 06/06/15 [History] QUEtiapine Fumarate [Quetiapine Fumarate] 400 mg PO QPM 06/25/17 [History] Calcium Carbonate/Vitamin D3 [Calcium 600 + D3 Softgel] 1 tab PO BID 06/13/18 [History] Ubidecarenone [Co Q-10] 200 mg PO DAILY 10/04/18 [History] Meloxicam 7.5 mg PO BID 01/25/19 [History] Mirtazapine [Remeron] 30 mg PO BEDTIME 01/25/19 [History] Albuterol Sulfate [Proair Digihaler] 2 inh INH Q4HR PRN 01/20/20 [History] Budesonide/Formoterol [Symbicort 160-4.5 MCG] 2 inh INH BID 01/20/20 [History] Ipratropium/Albuterol Sulfate [Iprat-Albut 0.5-3(2.5) MG/3 ML] 1 ampule INH Q4HR PRN 01/20/20 [History] Pramipexole Di-HCl [Pramipexole Dihydrochloride] 0.25 mg PO DAILY 01/20/20 [History] Topiramate 25 mg PO BID 01/20/20 [History] Varenicline [Chantix] 0.5 mg PO DAILY 01/20/20 [History] Varenicline [Chantix] 1 mg PO DAILY 01/20/20 [History] ondansetron HCL [Zofran] 4 mg PO Q4HR PRN 01/20/20 [History] sitaGLIPtin Phos/Metformin HCl [Janumet 50-1,000 MG] 50 - 1,000 mg PO BID 01/20/20 [History] risperiDONE [Risperdal] 5 tab PO BEDTIME 02/05/20 [History] Past Medical History - Past Health History Medical/Surgical History: Denies Medical/Surgical History HEENT History: Reports: Impaired Vision, Other (See Below) Other HEENT History: glasses for reading, Cardiovascular History: Reports: Hypertension Respiratory History: Reports: Asthma, Bronchitis, Recurrent, Pneumonia, Recurrent, Other (See Below) Other Respiratory History: Emphysema Gastrointestinal History: Reports: Bowel Obstruction, GERD, Irritable Bowel Syndrome Genitourinary History: Reports: None DIRECTOR OF SUSTAINABILITY History: Reports: 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 Uterine Bleeding, Musculoskeletal History: Reports: Back Pain, Chronic Other Musculoskeletal History: back / butt pain, shoots down left leg Neurological History: Reports: Migraines, Neuropathy, Peripheral Psychiatric History: Reports: Anxiety, Depression, Suicide Attempt, Suicidal Ideation Endocrine/Metabolic History: Reports: Diabetes, Type II, Obesity/BMI 30+ Hematologic History: Reports: Blood Transfusion(s), Iron Deficiency Dermatologic History: Reports: Eczema, Other (See Below) Other Dermatologic History: Allergy to paper tape - Infectious Disease History Infectious Disease History: Reports: Chicken Pox, Measles, Rubella - Past Surgical History GI Surgical History: Reports: None Female Surgical History: Reports: Section, Hysterectomy Musculoskeletal Surgical History: Reports: None Social & Family History - Family History Family Medical History: Noncontributory Cardiac: Reports: None Musculoskeletal: Reports: Arthritis, Back pain, Chronic Neurological: Reports: None Psychiatric: Reports: Depression Endocrine/Metabolic: Reports: None Oncologic: Reports: None - Caffeine Use Caffeine Use: Reports: Soda Other Caffeine Use: 2 cups a day ED ROS GENERAL - Review of Systems Review Of Systems: See Below Constitutional: Reports: No Symptoms HEENT: Reports: No Symptoms Respiratory: Reports: No Symptoms Cardiovascular: Reports: No Symptoms Endocrine: Reports: No Symptoms GI/Abdominal: Reports: Constipation : Reports: Other (issues starting urine stream yesterday, denies any issues today) Musculoskeletal: Reports: No Symptoms Skin: Reports: No Symptoms, Bruising (from angiogram on bilateral forearms) Neurological: Reports: No Symptoms Psychiatric: Reports: No Symptoms Hematologic/Lymphatic: Reports: No Symptoms Immunologic: Reports: No Symptoms ED EXAM, GENERAL - Physical Exam Exam: See Below Free Text/Narrative:: On rectal exam, a large amount of hard stool is felt but is not able to be removed. Patient is agreeable to fleets enema. Exam Limited By: No Limitations General Appearance: Alert, No Apparent Distress Throat/Mouth: Normal Voice Head: Atraumatic Neck: Normal Inspection, Full Range of Motion Respiratory/Chest: No Respiratory Distress, Lungs Clear Cardiovascular: Regular Rate, Rhythm, Tachycardia GI/Abdominal: Soft, Distended, Tender, Other Rectal (Female) Exam: Normal Exam, Normal Rectal Tone, Tenderness Back Exam: Normal Inspection. No: CVA Tenderness (R), CVA Tenderness (L) Extremities: Normal Inspection, Normal Capillary Refill Neurological: Alert, Oriented Psychiatric: Normal Affect, Normal Mood Skin Exam: Warm, Dry Course - Vital Signs Last Recorded V/S: Last Vital Signs Temp 95.0 F L 03/15/20 08:40 Pulse 98 03/15/20 08:40 Resp 18 03/15/20 08:40 BP 146/71 H 03/15/20 08:40 Pulse Ox 99 03/15/20 08:40 - Orders/Labs/Meds Labs: Laboratory Tests 03/15/20 Range/Units 08:55 Urine Color Yellow Urine Appearance Clear (CLEAR) Urine pH 6.0 (5.0-8.0) Ur Specific [place] 1.020 (1.003-1.030) Urine Protein Negative (NEGATIVE) mg/dL Urine Glucose (UA) 100 H (NEGATIVE) mg/dL Urine Ketones Negative (NEGATIVE) mg/dL Urine Occult Blood Negative (NEGATIVE) Urine Nitrite Negative (NEGATIVE) Urine Bilirubin Negative (NEGATIVE) Urine Urobilinogen 0.2 (0.2-1.0) E.U./dL Ur Leukocyte Esterase Negative (NEGATIVE) Departure - Departure Time of Disposition: 10:33 Disposition: Home, Self-Care 01 Condition: Good Clinical Impression: Constipation due to opioid therapy Constipation Qualifiers: Constipation type: drug induced constipation Qualified Code(s): K59.03 - Drug induced constipation - Discharge Information *PRESCRIPTION DRUG MONITORING PROGRAM REVIEWED*: Not Applicable *COPY OF PRESCRIPTION DRUG MONITORING REPORT IN PATIENT MARY ELLEN: Not Applicable Instructions: Constipation, Adult, [id number] Additional Instructions: Increase fluids. Do NOT take any imodium as we discussed. Returnt to ED for any increased or new concerning symptoms. Sepsis Event Note (ED) - Evaluation Sepsis Screening Result: No Definite Risk - Focused Exam Vital Signs: Vital Signs Temp Pulse Resp BP Pulse Ox 03/15/20 08:40 95.0 F L 98 18 146/71 H 99 - Problem List Review Problem List Initiated/Reviewed/Updated: Yes - Assessment/Plan Plan: Patient DC to home. Decreased lower abdominal pain, but reports continued cramping. She will return to ED for an y increased or new concerning symptoms. Differential diagnosis may include: bowel obstruction, appy, diverticulitis, or UTI. On exam and with patient history, we treated with enema and patient had decreased pain with medium sized BM in ED. UA showed no infection at this time.Patient is comfortable returning home, increasing fluids.
[2020-03-15] MEDS ORDERED: Sodium Phosphate,Monobasic/Sodium Phosphate,Dibasic Enema 133 ML Bottle RECTAL ONE ×2 (09:05→10:00)
== END 2020-03-15 10:35 | disposition home or self-care (01) ==
LOC: LB.ED 08:33
DX: K59.03 Drug induced constipation (principal); T40.2X5A Adverse effect of other opioids, initial encounter; R00.0 Tachycardia, unspecified; I10 Essential (primary) hypertension; J43.9 Emphysema, unspecified; E11.42 Type 2 diabetes mellitus with diabetic polyneuropathy; E66.9 Obesity, unspecified; Z68.38 Body mass index [BMI] 38.0-38.9, adult; Z88.4 Allergy status to anesthetic agent; Z88.8 Allergy status to other drugs, medicaments and biological substances; Z90.710 Acquired absence of both cervix and uterus; Z79.84 Long term (current) use of oral hypoglycemic drugs; Z79.899 Other long term (current) drug therapy
CPT/HCPCS: 81003; 99283; A9270

== ENCOUNTER 2020-04-05 14:22 | Inpatient (IN) | payer MEDICARE, MEDICAID ==
[2020-04-05] MEDS ORDERED: Albuterol/Ipratropium 3.0-0.5 MG/3 ML Neb Soln NEB PRN ×2 (14:26→16:22)
[2020-04-05] MEDS ORDERED: methylPREDNISolone Sodium Succinate 125 MG/2 ML SDV IVPUSH ONE (14:26)
--- NOTE | 2020-04-05 15:56 | EDM.PDOC ---
ED HPI GENERAL MEDICAL PROBLEM - General Chief Complaint: Respiratory Problem Stated Complaint: Shortness of Breath Time Seen by Provider: 04/05/20 14:36 Source of Information: Reports: Patient History Limitations: Reports: No Limitations - History of Present Illness INITIAL COMMENTS - FREE TEXT/NARRATIVE: SOB since yesterday, increased now with anxiety. RR 32 on arrival. PMH asthma, had been using nebs at home without relief. 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 Leg Pain Score (Numeric/FACES): 7 - Related Data Allergies Allergy/AdvReac Type Severity Reaction Status Date / Time adhesive tape Allergy Rash Verified 02/21/20 10:17 celecoxib [From Celebrex] Allergy Nausea and Verified 02/21/20 10:17 Vomiting ketamine AdvReac Intermediate Agitation Verified 02/21/20 10:17 ropinirole AdvReac Diaphoresis Verified 02/21/20 10:17 Home Meds: Home Meds Omeprazole 20 mg PO ACBREAKFAST 04/14/13 [History] QUEtiapine [SEROquel] 100 mg PO QAM 06/06/15 [History] Spironolactone [Aldactone] 3 tab PO BID 06/06/15 [History] QUEtiapine Fumarate [Quetiapine Fumarate] 400 mg PO QPM 06/25/17 [History] Calcium Carbonate/Vitamin D3 [Calcium 600 + D3 Softgel] 1 tab PO BID 06/13/18 [History] Ubidecarenone [Co Q-10] 200 mg PO DAILY 10/04/18 [History] Mirtazapine [Remeron] 30 mg PO BEDTIME 01/25/19 [History] Albuterol Sulfate [Proair Digihaler] 2 inh INH Q4HR PRN 01/20/20 [History] Budesonide/Formoterol [Symbicort 160-4.5 MCG] 2 inh INH BID 01/20/20 [History] Ipratropium/Albuterol Sulfate [Iprat-Albut 0.5-3(2.5) MG/3 ML] 1 ampule INH Q4HR PRN 01/20/20 [History] Pramipexole Di-HCl [Pramipexole Dihydrochloride] 0.25 mg PO DAILY 01/20/20 [History] Topiramate 25 mg PO BID 01/20/20 [History] Varenicline [Chantix] 0.5 mg PO DAILY 01/20/20 [History] Varenicline [Chantix] 1 mg PO DAILY 01/20/20 [History] ondansetron HCL [Zofran] 4 mg PO Q4HR PRN 01/20/20 [History] risperiDONE [Risperdal] 5 mg PO BEDTIME 02/05/20 [History] Acetaminophen [Tylenol] 650 mg PO Q8HR 04/05/20 [History] Aspirin [Halfprin] 81 mg PO DAILY 04/05/20 [History] Furosemide 20 mg PO DAILY 04/05/20 [History] Losartan [Cozaar] 25 mg PO DAILY 04/05/20 [History] Montelukast [Singulair] 10 mg PO DAILY 04/05/20 [History] SUMAtriptan [Imitrex] 25 mg PO ASDIRECTED 04/05/20 [History] amLODIPine Besylate [Norvasc] 2.5 mg PO DAILY 04/05/20 [History] sitaGLIPtin Phos/Metformin HCl [Janumet 50-1,000 MG] 1 tab PO BID 04/05/20 [History] Past Medical History - Past Health History Medical/Surgical History: Denies Medical/Surgical History HEENT History: Reports: Impaired Vision, Other (See Below) Other HEENT History: glasses for reading, Cardiovascular History: Reports: Hypertension Respiratory History: Reports: Asthma, Bronchitis, Recurrent, Pneumonia, Recurrent, Other (See Below) Other Respiratory History: Emphysema Gastrointestinal History: Reports: Bowel Obstruction, GERD, Irritable Bowel Syndrome Genitourinary History: Reports: None 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: 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 Uterine Bleeding, Musculoskeletal History: Reports: Back Pain, Chronic Other Musculoskeletal History: back / butt pain, shoots down left leg Neurological History: Reports: Migraines, Neuropathy, Peripheral Psychiatric History: Reports: Anxiety, Depression, Suicide Attempt, Suicidal Ideation Endocrine/Metabolic History: Reports: Diabetes, Type II, Obesity/BMI 30+ Hematologic History: Reports: Blood Transfusion(s), Iron Deficiency Dermatologic History: Reports: Eczema, Other (See Below) Other Dermatologic History: Allergy to paper tape - Infectious Disease History Infectious Disease History: Reports: Chicken Pox, Measles, Rubella - Past Surgical History GI Surgical History: Reports: None Female Surgical History: Reports: Section, Hysterectomy Musculoskeletal Surgical History: Reports: None Social & Family History - Family History Family Medical History: Noncontributory Cardiac: Reports: None Musculoskeletal: Reports: Arthritis, Back pain, Chronic Neurological: Reports: None Psychiatric: Reports: Depression Endocrine/Metabolic: Reports: None Oncologic: Reports: None - Tobacco Use Smoking Status *Q: Current Some Day Smoker Years of Tobacco use: 40 Packs/Tins Daily: 0.5 - Caffeine Use Caffeine Use: Reports: Coffee Other Caffeine Use: 2 cups a day - Recreational Drug Use Recreational Drug Use: No ED ROS GENERAL - Review of Systems Review Of Systems: See Below Constitutional: Reports: No Symptoms HEENT: Reports: No Symptoms Respiratory: Reports: Shortness of Breath, Wheezing, Pleuritic Chest Pain, Cough Cardiovascular: Reports: Dyspnea on Exertion, Orthopnea GI/Abdominal: Reports: No Symptoms : Reports: No Symptoms Musculoskeletal: Reports: No Symptoms Skin: Reports: No Symptoms Neurological: Reports: No Symptoms Psychiatric: Reports: Anxiety ED EXAM, GENERAL - Physical Exam Exam: See Below Exam Limited By: No Limitations General Appearance: Alert, Mild Distress Ears: Normal External Exam Throat/Mouth: Normal Inspection, Normal Oropharynx, Normal Voice Head: Atraumatic Neck: Normal Inspection, Full Range of Motion Respiratory/Chest: Decreased Breath Sounds, Wheezing Cardiovascular: Normal Peripheral Pulses, No JVD, Tachycardia, Systolic Murmur GI/Abdominal: Soft (Female) Exam: Deferred Rectal (Female) Exam: Deferred Back Exam: Normal Inspection, Full Range of Motion. No: CVA Tenderness (R), CVA Tenderness (L) Extremities: Normal Inspection, No Pedal Edema, Normal Capillary Refill Neurological: Alert, Oriented, Normal Cognition, No Motor/Sensory Deficits Psychiatric: Normal Mood, Anxious Skin Exam: Warm, Dry Course - Vital Signs Last Recorded V/S: Last Vital Signs Temp 98 F 04/05/20 18:52 Pulse 80 04/05/20 18:52 Resp 20 04/05/20 18:52 BP 139/70 04/05/20 18:52 Pulse Ox 97 04/05/20 18:52 - Orders/Labs/Meds Orders: Active Orders 24 hr Category Date Time Status Admission Status [Patient Status] [ADT] Routine ADT 04/05/20 17:16 Active Cardiac Monitoring [RC] .As Directed Care 04/05/20 17:16 Active EKG Documentation Completion [RC] ASDIRECTED Care 04/05/20 14:30 Active RT Aerosol Therapy [RC] ASDIRECTED Care 04/05/20 14:27 Active RT Aerosol Therapy [RC] ASDIRECTED Care 04/05/20 16:23 Active Chest 1V Frontal [CR] Stat Exams 04/05/20 14:26 Taken Albuterol/Ipratropium [DuoNeb 3.0-0.5 MG/3 ML] Med 04/05/20 16:22 Active 3 ml NEB Q4H PRN Medication Orders Albuterol/Ipratropium (Duoneb 3.0-0.5 Mg/3 Ml) 3 ml NEB Q4H PRN PRN Reason: Shortness of Breath Last Admin: 04/05/20 16:30 Dose: 3 ml Documented by: PAT Labs: Laboratory Tests 04/05/20 04/05/20 04/05/20 Range/Units 14:35 14:40 17:16 WBC 4.7 (4.0-11.0) K/uL RBC 3.89 (3.80-5.80) M/uL Hgb 11.8 (11.5-16.5) g/dL Hct 35.7 L (37.0-47.0) % MCV 92 (76-96) fL MCH 30.3 (27.0-32.0) pg MCHC 33.1 (31.0-35.0) g/dL RDW 13.3 (11.0-16.0) % Plt Count 155 (150-500) K/uL MPV 11.4 H (6.0-10.0) fL Neut % (Auto) 71.6 H (45.0-70.0) % Lymph % (Auto) 18.8 L (20.0-40.0) % [place] % (Auto) 8.6 (3.0-10.0) % Eos % (Auto) 0.4 L (1.0-5.0) % Baso % (Auto) 0.6 H (0.0-0.5) % Neut # (Auto) 3.39 (2.00-7.50) K/uL Lymph # (Auto) 0.89 L (1.50-4.00) K/uL [place] # (Auto) 0.41 (0.20-0.80) K/uL Eos # (Auto) 0.02 L (0.04-0.40) K/uL Baso # (Auto) 0.03 (0.02-0.10) K/uL Sodium 140 (136-145) mmol/L Potassium 3.8 (3.5-5.1) mmol/L Chloride 104 (98-107) mmol/L Carbon Dioxide 24.0 (21.0-32.0) mmol/L Anion Gap 15.8 H (5.0-15.0) mmol/L BUN 12 (8-26) mg/dL Creatinine 1.12 H (0.55-1.02) mg/dL Est Cr Clr Drug Dosing TNP Estimated GFR (MDRD) 51 L (>60) MLS/MIN BUN/Creatinine Ratio 10.7 (6-25) Glucose 275 H D (74-100) mg/dL Calcium 8.8 (8.5-10.1) mg/dL Total Bilirubin 0.3 D (0.0-1.0) mg/dL AST 16 (15-37) U/L ALT 23 (12-78) U/L Alkaline Phosphatase 67 (46-116) U/L B-Natriuretic Peptide 594 H (0-125) pg/mL Total Protein 7.1 (6.4-8.2) g/dL Albumin 3.3 L (3.4-5.0) g/dL Globulin 3.8 (2.2-4.2) g/dL Albumin/Globulin Ratio 0.9 (0.8-2.0) SARS CoV-2 RNA Rapid AMANDA Negative Meds: Medications Generic Name Dose Route Start Last Admin Trade Name Freq PRN Reason Stop Dose Admin Albuterol/Ipratropium 3 ml 04/05/20 16:22 04/05/20 16:30 Duoneb 3.0-0.5 Mg/3 Ml NEB 3 ml Q4H PRN Administration Shortness of Breath Discontinued Medications Generic Name Dose Route Start Last Admin Trade Name Freq PRN Reason Stop Dose Admin Albuterol/Ipratropium 3 ml 04/05/20 14:26 04/05/20 14:40 Duoneb 3.0-0.5 Mg/3 Ml NEB 3 ml Q4H PRN Administration Shortness of Breath Furosemide 40 mg 04/05/20 16:22 04/05/20 17:04 Lasix IVPUSH 04/05/20 16:23 40 mg NOW ONE Administration Furosemide Confirm 04/05/20 17:12 04/05/20 17:05 Lasix Administered 04/05/20 17:13 Not Given Dose 40 mg .ROUTE .STK-MED ONE Methylprednisolone Sodium Succinate 125 mg 04/05/20 14:26 04/05/20 15:01 Solu-Medrol IVPUSH 04/05/20 14:27 125 mg ONETIME ONE Administration Departure - Departure Time of Disposition: 19:00 Disposition: Admitted As Inpatient 65 Preliminary Cause of *Q: Cardiac Arrest Clinical Impression: Exacerbation of asthma Qualifiers: Asthma severity: moderate Asthma persistence: unspecified Qualified Code(s): J45.901 - Unspecified asthma with (acute) exacerbation Pulmonary edema Qualifiers: Chronicity: acute Qualified Code(s): J81.0 - Acute pulmonary edema - Discharge Information *PRESCRIPTION DRUG MONITORING PROGRAM REVIEWED*: Not Applicable *COPY OF PRESCRIPTION DRUG MONITORING REPORT IN PATIENT MARY ELLEN: Not Applicable Sepsis Event Note (ED) - Evaluation Sepsis Screening Result: No Definite Risk - Focused Exam Vital Signs: Vital Signs Temp Pulse Resp BP Pulse Ox 04/05/20 18:08 98.3 F 83 20 97 04/05/20 14:39 98.3 F 84 24 H 04/05/20 14:36 98.3 F 94 40 H 161/76 H 91 L - My Orders Last 24 Hours: My Active Orders 04/05/20 14:26 Chest 1V Frontal [CR] Stat 04/05/20 14:27 RT Aerosol Therapy [RC] ASDIRECTED 04/05/20 14:30 EKG Documentation Completion [RC] ASDIRECTED 04/05/20 16:22 Albuterol/Ipratropium [DuoNeb 3.0-0.5 MG/3 ML] 3 ml NEB Q4H PRN 04/05/20 16:23 RT Aerosol Therapy [RC] ASDIRECTED 04/05/20 17:16 Admission Status [Patient Status] [ADT] Routine Cardiac Monitoring [RC] .As Directed - Assessment/Plan Last 24 Hours: My Active Orders 04/05/20 14:26 Chest 1V Frontal [CR] Stat 04/05/20 14:27 RT Aerosol Therapy [RC] ASDIRECTED 04/05/20 14:30 EKG Documentation Completion [RC] ASDIRECTED 04/05/20 16:22 Albuterol/Ipratropium [DuoNeb 3.0-0.5 MG/3 ML] 3 ml NEB Q4H PRN 04/05/20 16:23 RT Aerosol Therapy [RC] ASDIRECTED 04/05/20 17:16 Admission Status [Patient Status] [ADT] Routine Cardiac Monitoring [RC] .As Directed Plan: Patient much improved after 1 duoneb in the ED. RR 20, O2 94% RA. Patient ambulated to BR, increased SOB, RR, WOB, orthopnea. RR 30 O2 90% RA, lung sounds decreased throughout. Discussed with patient admission with lasix and nebulizers, she is agreeable to plan.
[2020-04-05] MEDS ORDERED: Furosemide 40 MG/4 ML VIAL IVPUSH ONE (16:22)
[2020-04-05] MEDS ORDERED: Furosemide 40 MG/4 ML VIAL ONE (17:12)
[2020-04-05] MEDS ORDERED: LORazepam 1 MG Tab PO ONE (19:04)
[2020-04-05] MEDS ORDERED: Albuterol 0.083% 2.5 MG/3 ML Neb Soln NEB PRN (19:05)
[2020-04-05] MEDS ORDERED: Albuterol/Ipratropium 3.0-0.5 MG/3 ML Neb Soln INH PRN (19:41)
[2020-04-05] MEDS ORDERED: Ondansetron 4 MG Tab.DIS PO PRN (19:41)
[2020-04-05] MEDS ORDERED: SUMAtriptan 25 MG Tab PO SCH (19:45)
[2020-04-05] MEDS ORDERED: Non-Formulary Medication 1 Each (Sitagliptin Phos/Metformin Hcl [Janumet 50-1,000 Mg] 1 TA PO SCH (20:00)
[2020-04-05] MEDS ORDERED: QUEtiapine Fumarate 200 MG TABLET PO SCH (20:00)
[2020-04-05] MEDS ORDERED: Mirtazapine 15 MG Tab PO SCH (20:00)
[2020-04-05] MEDS ORDERED: risperiDONE 1 MG Tab PO SCH (20:30)
[2020-04-05] MEDS: Albuterol/Ipratropium 3.0-0.5 MG/3 ML Neb Soln NEB SCH ×2 (20:42→23:23)
[2020-04-05] MEDS: Topiramate 25 MG Tab PO SCH (20:54)
[2020-04-05] MEDS ORDERED: Albuterol 8 GM Inhaler INH PRN (20:55)
[2020-04-05] MEDS: Formoterol/Mometasone 200-5 MCG 8.8 GM Inhaler IH SCH (22:25)
[2020-04-05] MEDS: Acetaminophen 325 MG Tab PO SCH (22:25)
[2020-04-06] MEDS: Albuterol/Ipratropium 3.0-0.5 MG/3 ML Neb Soln NEB SCH ×2 (04:17→07:45)
[2020-04-06] MEDS: Acetaminophen 325 MG Tab PO SCH (05:26)
[2020-04-06] MEDS ORDERED: Omeprazole 20 MG Cap.CR PO SCH (07:00)
[2020-04-06] MEDS: Formoterol/Mometasone 200-5 MCG 8.8 GM Inhaler IH SCH (07:51)
[2020-04-06] MEDS: Topiramate 25 MG Tab PO SCH (07:52)
[2020-04-06 07:53] VITALS: BP 112/53
[2020-04-06 07:55] VITALS: PULSE 79
[2020-04-06] MEDS ORDERED: UBIDECARENONE 200 MG PO SCH (08:00)
[2020-04-06] MEDS ORDERED: Aspirin 81 MG Tab.EC PO SCH (08:00)
[2020-04-06] MEDS ORDERED: Pramipexole 0.125 MG Tab PO SCH (08:00)
[2020-04-06] MEDS ORDERED: VARENICLINE 0.5 MG PO SCH (08:00)
[2020-04-06] MEDS ORDERED: Montelukast 10 MG Tab PO SCH (08:00)
[2020-04-06] MEDS ORDERED: Calcium Carbonate/Vitamin D3 1500 MG-400 Units Tab PO SCH (08:00)
[2020-04-06] MEDS ORDERED: SitaGLIPtin 25 MG Tab PO SCH (08:00)
[2020-04-06] MEDS ORDERED: amLODIPine 2.5 MG Tab PO SCH (08:00)
[2020-04-06] MEDS ORDERED: metFORMIN 500 MG Tab.ER PO SCH (08:00)
[2020-04-06] MEDS ORDERED: Losartan 25 MG Tab PO SCH (08:00)
[2020-04-06] MEDS ORDERED: Spironolactone 25 MG Tab PO SCH (08:00)
--- NOTE | 2020-04-06 08:39 | CR ---
Date of Service: 04/05/20 Clinical Data: sob AP CHEST: Comparison is made to a prior exam dated 12/17/19. The patient has taken a poor inspiration. The heart size is normal. The pulmonary vasculature appears prominent with mild cephalization of flow suggesting mild pulmonary venous congestion. It may be partially accentuated by the poor inspiration. There are mild interstitial changes in both lungs. Interstitial edema should be considered. The lungs are otherwise clear. No pneumothorax. There is slight blunting of the right costophrenic angle suggesting a small right pleural effusion. [id number] [facility]
--- NOTE | 2020-04-06 10:27 | PCM.DCSUM1 ---
Discharge Summary - Discharge Data Discharge Date: 04/06/20 Discharge Disposition: Home, Self-Care 01 Preliminary Cause of *Q: Cardiac Arrest Condition: Fair - Referral to Home Health Primary Care Physician: Lauren Islas RN - Patient Instructions Diet: Usual Diet as Tolerated Activity: As Tolerated - Discharge Plan *PRESCRIPTION DRUG MONITORING PROGRAM REVIEWED*: Not Applicable *COPY OF PRESCRIPTION DRUG MONITORING REPORT IN PATIENT MARY ELLEN: Not Applicable Prescriptions/Med Rec: Furosemide 40 mg PO DAILY #60 predniSONE [Prednisone] 10 mg PO ASDIRECTED #75 tablet Home Medications: Home Meds Omeprazole 20 mg PO ACBREAKFAST 04/14/13 [History] QUEtiapine [SEROquel] 100 mg PO QAM 06/06/15 [History] Spironolactone [Aldactone] 3 tab PO BID 06/06/15 [History] QUEtiapine Fumarate [Quetiapine Fumarate] 400 mg PO QPM 06/25/17 [History] Calcium Carbonate/Vitamin D3 [Calcium 600 + Vit D 400 Softgl] 1 tab PO BID 06/13/18 [History] Ubidecarenone [Co Q-10] 200 mg PO DAILY 10/04/18 [History] Mirtazapine [Remeron] 30 mg PO BEDTIME 01/25/19 [History] Albuterol Sulfate [Proair Digihaler] 2 inh INH Q4HR PRN 01/20/20 [History] Budesonide/Formoterol [Symbicort 160-4.5 MCG] 2 inh INH BID 01/20/20 [History] Ipratropium/Albuterol Sulfate [Iprat-Albut 0.5-3(2.5) MG/3 ML] 1 ampule INH Q4HR PRN 01/20/20 [History] Pramipexole Di-HCl [Pramipexole Dihydrochloride] 0.25 mg PO DAILY 01/20/20 [History] Topiramate 25 mg PO BID 01/20/20 [History] Varenicline [Chantix] 0.5 mg PO DAILY 01/20/20 [History] Varenicline [Chantix] 1 mg PO DAILY 01/20/20 [History] ondansetron HCL [Zofran] 4 mg PO Q4HR PRN 01/20/20 [History] risperiDONE [Risperdal] 5 mg PO BEDTIME 02/05/20 [History] Acetaminophen [Tylenol] 650 mg PO Q8HR 04/05/20 [History] Aspirin [Halfprin] 81 mg PO DAILY 04/05/20 [History] Losartan [Cozaar] 25 mg PO DAILY 04/05/20 [History] Montelukast [Singulair] 10 mg PO DAILY 04/05/20 [History] SUMAtriptan [Imitrex] 25 mg PO ASDIRECTED 04/05/20 [History] amLODIPine Besylate [Norvasc] 2.5 mg PO DAILY 04/05/20 [History] sitaGLIPtin Phos/Metformin HCl [Janumet 50-1,000 MG] 1 tab PO BID 04/05/20 [History] Albuterol [Ventolin HFA] 0 gm INH Q4HR PRN inhaler 04/06/20 [Rx] Albuterol/Ipratropium [DuoNeb 3.0-0.5 MG/3 ML] 3 ml NEB Q4H neb 04/06/20 [Rx] Furosemide 40 mg PO DAILY #60 04/06/20 [Rx] SitaGLIPtin [Januvia] 50 mg PO DAILY tablet 04/06/20 [Rx] metFORMIN [Glucophage XR] 1,000 mg PO DAILY tab.er 04/06/20 [Rx] predniSONE [Prednisone] 10 mg PO ASDIRECTED #75 tablet 04/06/20 [Rx] Patient Handouts: Heart Failure, Self Care, [id number], Pulmonary Edema, [id number] Forms: ED Department Discharge Referrals: Lauren Islas RN [Primary Care Provider] - - Discharge Summary/Plan Comment DC Time >30 min.: No Discharge Summary/Plan Comment: Counseled on medication use and management. Discussed prednisone taper and patient understands and has been on this in the past. Discussed side effects and close f/u and rtc as directed. F/u with PCP as discussed. Patient to rtc and f/u as needed. - General Info Date of Service: 04/06/20 Functional Status: Reports: Pain Controlled, Tolerating Diet, Ambulating, Urinating - Review of Systems General: Reports: No Symptoms HEENT: Reports: No Symptoms Pulmonary: Reports: Shortness of Breath Cardiovascular: Reports: No Symptoms Gastrointestinal: Reports: No Symptoms Genitourinary: Reports: No Symptoms Musculoskeletal: Reports: No Symptoms Skin: Reports: No Symptoms Neurological: Reports: No Symptoms Psychiatric: Reports: No Symptoms - Patient Data Vitals - Most Recent: Last Vital Signs Temp 36.6 C 04/06/20 07:53 Pulse 79 04/06/20 07:53 Resp 18 04/06/20 07:53 BP 112/53 L 04/06/20 07:53 Pulse Ox 97 04/06/20 07:53 Weight - Most Recent: 109.769 kg I&O - Last 24 hours: Intake & Output 04/05/20 04/06/20 04/06/20 22:59 06:59 14:59 Intake Total 1000 700 Balance 1000 700 Lab Results - Last 24 hrs: Laboratory Results - last 24 hr 04/05/20 04/05/20 04/05/20 Range/Units 14:35 14:40 17:16 WBC 4.7 (4.0-11.0) K/uL RBC 3.89 (3.80-5.80) M/uL Hgb 11.8 (11.5-16.5) g/dL Hct 35.7 L (37.0-47.0) % MCV 92 (76-96) fL MCH 30.3 (27.0-32.0) pg MCHC 33.1 (31.0-35.0) g/dL RDW 13.3 (11.0-16.0) % Plt Count 155 (150-500) K/uL MPV 11.4 H (6.0-10.0) fL Neut % (Auto) 71.6 H (45.0-70.0) % Lymph % (Auto) 18.8 L (20.0-40.0) % Kershaw % (Auto) 8.6 (3.0-10.0) % Eos % (Auto) 0.4 L (1.0-5.0) % Baso % (Auto) 0.6 H (0.0-0.5) % Neut # (Auto) 3.39 (2.00-7.50) K/uL Lymph # (Auto) 0.89 L (1.50-4.00) K/uL Kershaw # (Auto) 0.41 (0.20-0.80) K/uL Eos # (Auto) 0.02 L (0.04-0.40) K/uL Baso # (Auto) 0.03 (0.02-0.10) K/uL Sodium 140 (136-145) mmol/L Potassium 3.8 (3.5-5.1) mmol/L Chloride 104 (98-107) mmol/L Carbon Dioxide 24.0 (21.0-32.0) mmol/L Anion Gap 15.8 H (5.0-15.0) mmol/L BUN 12 (8-26) mg/dL Creatinine 1.12 H (0.55-1.02) mg/dL Est Cr Clr Drug Dosing TNP Estimated GFR (MDRD) 51 L (>60) MLS/MIN BUN/Creatinine Ratio 10.7 (6-25) Glucose 275 H D (74-100) mg/dL POC Glucose (74-110) mg/dL Calcium 8.8 (8.5-10.1) mg/dL Total Bilirubin 0.3 D (0.0-1.0) mg/dL AST 16 (15-37) U/L ALT 23 (12-78) U/L Alkaline Phosphatase 67 (46-116) U/L B-Natriuretic Peptide 594 H (0-125) pg/mL Total Protein 7.1 (6.4-8.2) g/dL Albumin 3.3 L (3.4-5.0) g/dL Globulin 3.8 (2.2-4.2) g/dL Albumin/Globulin Ratio 0.9 (0.8-2.0) SARS CoV-2 RNA Rapid AMANDA Negative 04/06/20 Range/Units 07:44 WBC (4.0-11.0) K/uL RBC (3.80-5.80) M/uL Hgb (11.5-16.5) g/dL Hct (37.0-47.0) % MCV (76-96) fL MCH (27.0-32.0) pg MCHC (31.0-35.0) g/dL RDW (11.0-16.0) % Plt Count (150-500) K/uL MPV (6.0-10.0) fL Neut % (Auto) (45.0-70.0) % Lymph % (Auto) (20.0-40.0) % Kershaw % (Auto) (3.0-10.0) % Eos % (Auto) (1.0-5.0) % Baso % (Auto) (0.0-0.5) % Neut # (Auto) (2.00-7.50) K/uL Lymph # (Auto) (1.50-4.00) K/uL Kershaw # (Auto) (0.20-0.80) K/uL Eos # (Auto) (0.04-0.40) K/uL Baso # (Auto) (0.02-0.10) K/uL Sodium (136-145) mmol/L Potassium (3.5-5.1) mmol/L Chloride (98-107) mmol/L Carbon Dioxide (21.0-32.0) mmol/L Anion Gap (5.0-15.0) mmol/L BUN (8-26) mg/dL Creatinine (0.55-1.02) mg/dL Est Cr Clr Drug Dosing Estimated GFR (MDRD) (>60) MLS/MIN BUN/Creatinine Ratio (6-25) Glucose (74-100) mg/dL POC Glucose 185 H (74-110) mg/dL Calcium (8.5-10.1) mg/dL Total Bilirubin (0.0-1.0) mg/dL AST (15-37) U/L ALT (12-78) U/L Alkaline Phosphatase (46-116) U/L B-Natriuretic Peptide (0-125) pg/mL Total Protein (6.4-8.2) g/dL Albumin (3.4-5.0) g/dL Globulin (2.2-4.2) g/dL Albumin/Globulin Ratio (0.8-2.0) SARS CoV-2 RNA Rapid AMANDA Med Orders - Current: Current Medications Acetaminophen (Tylenol) 650 mg PO Q8HR ARIK Last Admin: 04/06/20 05:26 Dose: 650 mg Documented by: Albuterol (Proventil Neb Soln) 2.5 mg NEB Q4H PRN PRN Reason: Shortness of Breath Albuterol (Ventolin Hfa) 0 gm INH Q4HR PRN PRN Reason: Dyspnea Albuterol/Ipratropium (Duoneb 3.0-0.5 Mg/3 Ml) 3 ml NEB Q4H [facility] Last Admin: 04/06/20 07:45 Dose: 3 ml Documented by: Albuterol/Ipratropium (Duoneb 3.0-0.5 Mg/3 Ml) 3 ml INH Q4HR PRN PRN Reason: Dyspnea Amlodipine Besylate (Norvasc) 2.5 mg PO DAILY [facility] Last Admin: 04/06/20 07:50 Dose: 2.5 mg Documented by: Aspirin (Halfprin) 81 mg PO DAILY [facility] Last Admin: 04/06/20 07:48 Dose: 81 mg Documented by: Calcium Carbonate (Caltrate 600+D 1500 Mg-400 Units) 1 tab PO BID [facility] Last Admin: 04/06/20 07:48 Dose: 1 tab Documented by: Furosemide (Lasix) 20 mg PO DAILY@1200 ARIK Losartan Potassium (Cozaar) 25 mg PO DAILY [facility] Last Admin: 04/06/20 07:51 Dose: 25 mg Documented by: Metformin HCl (Glucophage Xr) 1,000 mg PO DAILY [facility] Last Admin: 04/06/20 07:49 Dose: 1,000 mg Documented by: Mirtazapine (Remeron) 30 mg PO BEDTIME [facility] Last Admin: 04/05/20 20:40 Dose: 30 mg Documented by: Mometasone Furoate/Formoterol Fumar (Dulera 200-5 Mcg) 2 puff IH BID [facility] Last Admin: 04/06/20 07:51 Dose: 2 puff Documented by: Montelukast Sodium (Singulair) 10 mg PO DAILY [facility] Last Admin: 04/06/20 07:49 Dose: 10 mg Documented by: Varenicline [Chantix (] 0.5mg) 0.5 mg PO DAILY [facility] Omeprazole (Omeprazole) 20 mg PO ACBREAKFAST [facility] Last Admin: 04/06/20 07:46 Dose: 20 mg Documented by: Ondansetron HCl (Zofran Odt) 4 mg PO Q4H PRN PRN Reason: Nausea Pramipexole Dihydrochloride (Mirapex) 0.25 mg PO DAILY [facility] Last Admin: 04/06/20 07:49 Dose: 0.25 mg Documented by: Quetiapine Fumarate (Seroquel) 100 mg PO QAM [facility] Last Admin: 04/06/20 07:48 Dose: 100 mg Documented by: Quetiapine Fumarate (Quetiapine Fumarate) 400 mg PO QPM [facility] Last Admin: 04/05/20 20:41 Dose: 400 mg Documented by: Risperidone (Risperidal) 5 mg PO BEDTIME [facility] Last Admin: 04/05/20 20:41 Dose: 5 mg Documented by: Sitagliptin Phosphate (Januvia) 50 mg PO DAILY [facility] Last Admin: 04/06/20 07:52 Dose: Not Given Documented by: Spironolactone (Aldactone) 75 mg PO BID@0800,1200 [facility] Last Admin: 04/06/20 07:51 Dose: 75 mg Documented by: Sumatriptan Succinate (Imitrex) 25 mg PO ASDIRECTED [facility] Topiramate (Topamax) 25 mg PO BID [facility] Last Admin: 04/06/20 07:52 Dose: 25 mg Documented by: Discontinued Medications Albuterol/Ipratropium (Duoneb 3.0-0.5 Mg/3 Ml) 3 ml NEB Q4H PRN PRN Reason: Shortness of Breath Last Admin: 04/05/20 14:40 Dose: 3 ml Documented by: Albuterol/Ipratropium (Duoneb 3.0-0.5 Mg/3 Ml) 3 ml NEB Q4H PRN PRN Reason: Shortness of Breath Last Admin: 04/05/20 16:30 Dose: 3 ml Documented by: Furosemide (Lasix) 40 mg IVPUSH NOW ONE Stop: 04/05/20 16:23 Last Admin: 04/05/20 17:04 Dose: 40 mg Documented by: Furosemide (Lasix) Confirm Administered Dose 40 mg .ROUTE .STK-MED ONE Stop: 04/05/20 17:13 Last Admin: 04/05/20 17:05 Dose: Not Given Documented by: Lorazepam (Ativan) 1 mg PO ONETIME ONE Stop: 04/05/20 19:05 Last Admin: 04/05/20 19:52 Dose: 1 mg Documented by: Methylprednisolone Sodium Succinate (Solu-Medrol) 125 mg IVPUSH ONETIME ONE Stop: 04/05/20 14:27 Last Admin: 04/05/20 15:01 Dose: 125 mg Documented by: Non-Formulary Medication (Sitagliptin Phos/Metformin Hcl [Janumet 50-1,000 Mg]) 1 tab PO BID [facility] Last Admin: 04/06/20 07:23 Dose: Not Given Documented by: - Exam General: Reports: Alert, Oriented, Cooperative HEENT: Reports: Pupils Equal, Pupils Reactive, EOMI Neck: Reports: Supple Lungs: Reports: Normal Respiratory Effort, Rhonchi Cardiovascular: Reports: Regular Rate, Regular Rhythm GI/Abdominal Exam: Normal Bowel Sounds, Soft, Non-Tender Back Exam: Reports: Normal Inspection Skin: Reports: Warm, Dry, Intact Neurological: Reports: No New Focal Deficit
[2020-04-06] MEDS ORDERED: Furosemide 40 MG Tab PO ONE (10:40)
[2020-04-06] MEDS ORDERED: Furosemide 20 MG Tab PO SCH (12:00)
== END 2020-04-06 11:02 | disposition home or self-care (01) | DRG 189 ==
LOC: LB.ED 14:22 → LB.MS 17:16 → UNDOADMOB 17:16 → LB.MS 17:16 → UNDOADMOB 18:51 → LB.MS 18:51 → OBSVTOIN 18:51 → INTOOBSV 18:51 → UNDODISIN 04-06 11:02
PROVIDERS: ADMIT Nurse Practitioner; ATTEND Nurse Practitioner
DX: J81.0 Acute pulmonary edema (principal); J45.901 Unspecified asthma with (acute) exacerbation; Z20.828 Contact with and (suspected) exposure to other viral communicable diseases; Z68.41 Body mass index [BMI] 40.0-44.9, adult; H54.7 Unspecified visual loss; I10 Essential (primary) hypertension; J45.909 Unspecified asthma, uncomplicated; J43.9 Emphysema, unspecified; K58.9 Irritable bowel syndrome, unspecified; K21.9 Gastro-esophageal reflux disease without esophagitis; N93.8 Other specified abnormal uterine and vaginal bleeding; G89.29 Other chronic pain; M54.9 Dorsalgia, unspecified; G43.909 Migraine, unspecified, not intractable, without status migrainosus; F41.9 Anxiety disorder, unspecified; F17.210 Nicotine dependence, cigarettes, uncomplicated; E61.1 Iron deficiency; L30.9 Dermatitis, unspecified; F32.9 Major depressive disorder, single episode, unspecified; F17.200 Nicotine dependence, unspecified, uncomplicated; E11.42 Type 2 diabetes mellitus with diabetic polyneuropathy; E66.9 Obesity, unspecified; Z90.710 Acquired absence of both cervix and uterus; Z79.52 Long term (current) use of systemic steroids; Z79.51 Long term (current) use of inhaled steroids; Z87.01 Personal history of pneumonia (recurrent); Z91.048 Other nonmedicinal substance allergy status; Z88.1 Allergy status to other antibiotic agents; Z88.8 Allergy status to other drugs, medicaments and biological substances; Z79.899 Other long term (current) drug therapy; Z79.82 Long term (current) use of aspirin; Z79.84 Long term (current) use of oral hypoglycemic drugs
CPT/HCPCS: 36415; 71045; 80053; 82962; 83880; 85025; 93005; 96374; 96375; 99285-25; A9270-GY; J1940; J2930; J7620-GY; U0002

== ENCOUNTER 2020-04-08 20:56 | Emergency (ER) | payer MEDICARE, MEDICAID ==
--- NOTE | 2020-04-09 03:10 | ER ---
HISTORY OF PRESENT ILLNESS: 54-year-old female who comes in by ambulance. She states that she woke up this afternoon about 4 p.m. from a nap and her speech was slurred. She states that she did not feel right. She was able to move her arms and legs, and she feels that she is improving already. The patient is not feeling sick. She is not having any problems with pain. No trouble with chest pain or trouble breathing, and she has not had any falls or injuries. PAST MEDICAL HISTORY: Extensive that does include: 1. COPD. 2. Cognitive changes. OBJECTIVE: GENERAL APPEARANCE: The patient is awake and alert. She is able to talk fairly clearly. She does not have any teeth present and this is affecting her speech slightly. VITAL SIGNS: Reviewed, they are normal. HEENT: Eyes, pupils equal, round, and reactive to light. EOMs are grossly intact. Oral mucous membranes are slightly dry. Tonsils are not enlarged or injected. Pharynx not inflamed. NEUROLOGIC: Cranial nerves 2 through 12 are intact today. EXTREMITIES: The patient has full range of motion of all 4 extremities. NECK: Supple. LUNGS: Clear. CARDIAC: Heart sounds distinct without murmurs. ABDOMEN: Soft, protuberant, nontender to palpation. Bowel sounds are present. LABORATORY DATA: Labs include a CBC showing a slightly elevated white count of 13,000. Comprehensive metabolic panel is unremarkable, blood glucose is 222. BNP is 383. Alcohol is negative. DIAGNOSIS: Slurred speech, currently resolved. TREATMENT PLAN: I had a discussion with the patient. She has been sleeping in our emergency room. She wakes up easily and she states that she feels fine. She would like to go home and I feel this is reasonable. She is asymptomatic at this time. She is to go home with her son and rest tonight. Activity should be as tolerated, and follow up should be with her primary care provider over the next day or 2 for a recheck. CRS/MODL /[id number]
[2020-04-09 05:16] VITALS: BP 168/80; PULSE 90
--- NOTE | 2020-04-09 09:26 | CT ---
Date of Service: 04/08/20 Clinical Data: slurred speech. UNENHANCED BRAIN CT: Multislice axial acquisition without IV contrast was performed. Comparison is made to a prior exam dated 09/08/19. There is mild atrophy. There are periventricular lucencies bilaterally consistent with small vessel ischemic change. No masses or mass effect. No intracranial hemorrhage. No evidence of acute or subacute infarct. No osseous abnormalities. IMPRESSION: No acute intracranial abnormalities. [id number] [facility]
== END 2020-04-09 05:45 | disposition home or self-care (01) ==
LOC: LB.ED 04-09 05:31
DX: R47.81 Slurred speech (principal); J44.9 Chronic obstructive pulmonary disease, unspecified
CPT/HCPCS: 36415; 70450; 80053; 80307; 82962; 83880; 85025; 99285-25

== ENCOUNTER 2020-04-26 10:16 | Emergency (ER) | payer MEDICARE, MEDICAID ==
[~2020-04-26 10:16] MED LIST changes: +Baclofen 10 MG Tab ONE; -Metoclopramide 10 MG/2 ML SDV IV PRN; -Sodium Chloride 0.9% 1,000 ML IV SCH
[2020-04-26 11:21] VITALS: BP 118/58; PULSE 92
[2020-04-26] MEDS ORDERED: Ketorolac 60 MG/2 ML SDV IM ONE (11:33)
[2020-04-26] MEDS ORDERED: Ketorolac 60 MG/2 ML SDV ONE (11:41)
[2020-04-26] MEDS ORDERED: Baclofen 10 MG Tab ONE (12:12)
--- NOTE | 2020-04-26 12:13 | EDM.PDOC ---
ED HPI GENERAL MEDICAL PROBLEM - General Chief Complaint: General Stated Complaint: bilat hip pain Time Seen by Provider: 04/26/20 11:30 Source of Information: Reports: Patient History Limitations: Reports: No Limitations - History of Present Illness INITIAL COMMENTS - FREE TEXT/NARRATIVE: Patient is a 54 y/o female who presents with right hip pain x 1 day. No trauma and no injury. She has chronic left hip pain, but never on the right side. Getting out of the bed and walking make the pain worse. Pain is sharp and radiates down the lateral side of her right thigh. No numbness/tingling. Right Hip Pain Score (Numeric/FACES): 8 - Related Data Allergies Allergy/AdvReac Type Severity Reaction Status Date / Time adhesive tape Allergy Rash Verified 04/26/20 11:21 celecoxib [From Celebrex] Allergy Nausea and Verified 04/26/20 11:21 Vomiting ketamine AdvReac Intermediate Agitation Verified 04/26/20 11:21 ropinirole AdvReac Diaphoresis Verified 04/26/20 11:21 Home Meds: Home Meds Omeprazole 20 mg PO ACBREAKFAST 04/14/13 [History] QUEtiapine [SEROquel] 100 mg PO QAM 06/06/15 [History] Spironolactone [Aldactone] 3 tab PO BID 06/06/15 [History] QUEtiapine Fumarate [Quetiapine Fumarate] 400 mg PO QPM 06/25/17 [History] Calcium Carbonate/Vitamin D3 [Calcium 600 + Vit D 400 Softgl] 1 tab PO BID 06/13/18 [History] Ubidecarenone [Co Q-10] 200 mg PO DAILY 10/04/18 [History] Mirtazapine [Remeron] 30 mg PO BEDTIME 01/25/19 [History] Albuterol Sulfate [Proair Digihaler] 2 inh INH Q4HR PRN 01/20/20 [History] Budesonide/Formoterol [Symbicort 160-4.5 MCG] 2 inh INH BID 01/20/20 [History] Ipratropium/Albuterol Sulfate [Iprat-Albut 0.5-3(2.5) MG/3 ML] 1 ampule INH Q4HR PRN 01/20/20 [History] Pramipexole Di-HCl [Pramipexole Dihydrochloride] 0.25 mg PO DAILY 01/20/20 [History] Topiramate 25 mg PO BID 01/20/20 [History] Varenicline [Chantix] 0.5 mg PO DAILY 01/20/20 [History] Varenicline [Chantix] 1 mg PO DAILY 01/20/20 [History] ondansetron HCL [Zofran] 4 mg PO Q4HR PRN 01/20/20 [History] risperiDONE [Risperdal] 5 mg PO BEDTIME 02/05/20 [History] Acetaminophen [Tylenol] 650 mg PO Q8HR 04/05/20 [History] Aspirin [Halfprin] 81 mg PO DAILY 04/05/20 [History] Losartan [Cozaar] 25 mg PO DAILY 04/05/20 [History] Montelukast [Singulair] 10 mg PO DAILY 04/05/20 [History] SUMAtriptan [Imitrex] 25 mg PO ASDIRECTED 04/05/20 [History] amLODIPine Besylate [Norvasc] 2.5 mg PO DAILY 04/05/20 [History] sitaGLIPtin Phos/Metformin HCl [Janumet 50-1,000 MG] 1 tab PO BID 04/05/20 [History] Albuterol [Ventolin HFA] 0 gm INH Q4HR PRN inhaler 04/06/20 [Rx] Albuterol/Ipratropium [DuoNeb 3.0-0.5 MG/3 ML] 3 ml NEB Q4H neb 04/06/20 [Rx] Furosemide 40 mg PO DAILY #60 04/06/20 [Rx] SitaGLIPtin [Januvia] 50 mg PO DAILY tablet 04/06/20 [Rx] metFORMIN [Glucophage XR] 1,000 mg PO DAILY tab.er 04/06/20 [Rx] predniSONE [Prednisone] 10 mg PO ASDIRECTED #75 tablet 04/06/20 [Rx] Past Medical History - Past Health History Medical/Surgical History: Denies Medical/Surgical History HEENT History: Reports: Impaired Vision, Other (See Below) Other HEENT History: glasses for reading, Cardiovascular History: Reports: Hypertension Respiratory History: Reports: Asthma, Bronchitis, Recurrent, Pneumonia, Recurrent, Other (See Below) Other Respiratory History: Emphysema Gastrointestinal History: Reports: Bowel Obstruction, GERD, Irritable Bowel Syndrome Genitourinary History: Reports: None 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: 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 Uterine Bleeding, Musculoskeletal History: Reports: Back Pain, Chronic Other Musculoskeletal History: back / butt pain, shoots down left leg Neurological History: Reports: Migraines, Neuropathy, Peripheral Psychiatric History: Reports: Anxiety, Depression, Suicide Attempt, Suicidal Ideation Endocrine/Metabolic History: Reports: Diabetes, Type II, Obesity/BMI 30+ Hematologic History: Reports: Blood Transfusion(s), Iron Deficiency Dermatologic History: Reports: Eczema, Other (See Below) Other Dermatologic History: Allergy to paper tape - Infectious Disease History Infectious Disease History: Reports: Chicken Pox, Measles, Rubella - Past Surgical History GI Surgical History: Reports: None Female Surgical History: Reports: Section, Hysterectomy, Other (See Below) Other Female Surgeries/Procedures: appendix Musculoskeletal Surgical History: Reports: None Social & Family History - Family History Family Medical History: Noncontributory Cardiac: Reports: None Musculoskeletal: Reports: Arthritis, Back pain, Chronic Neurological: Reports: None Psychiatric: Reports: Depression Endocrine/Metabolic: Reports: None Oncologic: Reports: None - Tobacco Use Smoking Status *Q: Current Every Day Smoker Years of Tobacco use: 30 Packs/Tins Daily: 0.2 - Caffeine Use Caffeine Use: Reports: Coffee, Soda Other Caffeine Use: 2 cups a day Caffeine Use Comment: 2 cups of coffee per day 1 soda per day - Recreational Drug Use Recreational Drug Use: No ED ROS GENERAL - Review of Systems Review Of Systems: See Below Constitutional: Reports: No Symptoms HEENT: Reports: No Symptoms Respiratory: Reports: No Symptoms Cardiovascular: Reports: No Symptoms GI/Abdominal: Reports: No Symptoms : Reports: No Symptoms Musculoskeletal: Reports: Other (right hip pain) Skin: Reports: No Symptoms Neurological: Reports: No Symptoms Psychiatric: Reports: No Symptoms ED EXAM, GENERAL - Physical Exam Exam: See Below Exam Limited By: No Limitations General Appearance: Alert, No Apparent Distress Head: Atraumatic, Normocephalic Respiratory/Chest: No Respiratory Distress, No Accessory Muscle Use Extremities: Normal Inspection, Normal Range of Motion, Non-Tender, No Pedal Edema, Normal Capillary Refill, Other (Tenderness to right lateral hip; able to ambulate and bear weight) Psychiatric: Normal Affect Skin Exam: Warm, Dry, Intact, Normal Color, No Rash Course - Vital Signs Text/Narrative:: Toradol 60 IM given with improvement in pain. Will send home with baclofen and have patient follow up with Dr. Echevarria. Last Recorded V/S: Last Vital Signs Temp 36.4 C 04/26/20 11:22 Pulse 92 04/26/20 11:22 Resp 18 04/26/20 11:22 BP 118/58 L 04/26/20 11:22 Pulse Ox 96 04/26/20 11:22 - Orders/Labs/Meds Orders: Active Orders 24 hr Category Date Time Status Hip Min 2V or 3V w Pelvis Rt [CR] Stat Exams 04/26/20 11:30 Taken Meds: Medications Discontinued Medications Generic Name Dose Route Start Last Admin Trade Name Freq PRN Reason Stop Dose Admin Ketorolac Tromethamine 60 mg 04/26/20 11:33 Toradol IM 04/26/20 11:34 ONETIME ONE Ketorolac Tromethamine Confirm 04/26/20 11:41 Toradol Administered 04/26/20 11:42 Dose 60 mg .ROUTE .STK-MED ONE Departure - Departure Time of Disposition: 12:30 Disposition: Home, Self-Care 01 Condition: Good Clinical Impression: Strain of right hip Qualifiers: Encounter type: initial encounter Qualified Code(s): S76.011A - Strain of muscle, fascia and tendon of right hip, initial encounter - Discharge Information *PRESCRIPTION DRUG MONITORING PROGRAM REVIEWED*: Not Applicable *COPY OF PRESCRIPTION DRUG MONITORING REPORT IN PATIENT MARY ELLEN: Not Applicable Instructions: Muscle Strain Referrals: PCP,None [Primary Care Provider] - Sepsis Event Note (ED) - Evaluation Sepsis Screening Result: No Definite Risk - Focused Exam Vital Signs: Vital Signs Temp Pulse Resp BP Pulse Ox 04/26/20 11:22 36.4 C 92 18 118/58 L 96 04/26/20 11:11 36.6 C 92 18 118/58 L 96 - My Orders Last 24 Hours: My Active Orders 04/26/20 11:30 Hip Min 2V or 3V w Pelvis Rt [CR] Stat - Assessment/Plan Last 24 Hours: My Active Orders 04/26/20 11:30 Hip Min 2V or 3V w Pelvis Rt [CR] Stat
--- NOTE | 2020-04-26 16:24 | CR ---
DATE OF SERVICE: 04/26/20 CLINICAL DATA: right hip pain PELVIS AND RIGHT HIP: Minimal osteoarthritic changes. Mild degenerative changes involving the SI joints and symphysis pubis. No acute abnormalities. No lytic or blastic bone lesions. [id number] [facility]
== END 2020-04-26 12:15 | disposition home or self-care (01) ==
LOC: LB.ED 10:16
DX: S76.011A Strain of muscle, fascia and tendon of right hip, initial encounter (principal); I10 Essential (primary) hypertension; K21.9 Gastro-esophageal reflux disease without esophagitis; G62.9 Polyneuropathy, unspecified; E11.42 Type 2 diabetes mellitus with diabetic polyneuropathy; E66.9 Obesity, unspecified; F41.9 Anxiety disorder, unspecified; F32.9 Major depressive disorder, single episode, unspecified; F17.210 Nicotine dependence, cigarettes, uncomplicated; J45.909 Unspecified asthma, uncomplicated; Z79.84 Long term (current) use of oral hypoglycemic drugs; Z91.048 Other nonmedicinal substance allergy status; Z88.8 Allergy status to other drugs, medicaments and biological substances; Z88.4 Allergy status to anesthetic agent; Z79.899 Other long term (current) drug therapy; Z79.82 Long term (current) use of aspirin; Z68.41 Body mass index [BMI] 40.0-44.9, adult; X58.XXXA Exposure to other specified factors, initial encounter
CPT/HCPCS: 73502-RT; 96372; 99283; A9270-GY; J1885

== ENCOUNTER 2020-05-03 15:21 | Emergency (ER) | payer MEDICARE, MEDICAID ==
--- NOTE | 2020-05-03 15:41 | EDM.PDOC ---
ED HPI GENERAL MEDICAL PROBLEM - General Chief Complaint: General Stated Complaint: ARM ACHING Time Seen by Provider: 05/03/20 15:35 Source of Information: Reports: Patient History Limitations: Reports: No Limitations - History of Present Illness INITIAL COMMENTS - FREE TEXT/NARRATIVE: The patient is a 54-year-old white female with history of asthma and anxiety who presents this afternoon with complaint of left arm aching, bilateral tingling in her hands and feet with some chest pressure and shortness of breath. Patient has history of similar symptoms in the past. She was here 1 month ago with anxiety and shortness of breath. Symptoms started this morning and patient was concerned that it may be a problem with her heart. She rates the pain 5/10 and describes it as a pressure type pain in her chest no exacerbating or relieving factors have been noted by the patient. Onset: Today Onset Date: 05/03/20 Onset Time: 08:00 Location: Reports: Other (Pressure type pain in the chest with associated mild shortness of breath. Dull ache in left arm) Associated Symptoms: Reports: Shortness of Breath - Related Data Allergies Allergy/AdvReac Type Severity Reaction Status Date / Time adhesive tape Allergy Rash Verified 04/26/20 11:21 celecoxib [From Celebrex] Allergy Nausea and Verified 04/26/20 11:21 Vomiting ketamine AdvReac Intermediate Agitation Verified 04/26/20 11:21 ropinirole AdvReac Diaphoresis Verified 04/26/20 11:21 Home Meds: Home Meds Omeprazole 20 mg PO ACBREAKFAST 04/14/13 [History] QUEtiapine [SEROquel] 100 mg PO QAM 06/06/15 [History] Spironolactone [Aldactone] 3 tab PO BID 06/06/15 [History] QUEtiapine Fumarate [Quetiapine Fumarate] 400 mg PO QPM 06/25/17 [History] Calcium Carbonate/Vitamin D3 [Calcium 600 + Vit D 400 Softgl] 1 tab PO BID 06/13/18 [History] Ubidecarenone [Co Q-10] 200 mg PO DAILY 10/04/18 [History] Mirtazapine [Remeron] 30 mg PO BEDTIME 01/25/19 [History] Albuterol Sulfate [Proair Digihaler] 2 inh INH Q4HR PRN 01/20/20 [History] Budesonide/Formoterol [Symbicort 160-4.5 MCG] 2 inh INH BID 01/20/20 [History] Ipratropium/Albuterol Sulfate [Iprat-Albut 0.5-3(2.5) MG/3 ML] 1 ampule INH Q4HR PRN 01/20/20 [History] Pramipexole Di-HCl [Pramipexole Dihydrochloride] 0.25 mg PO DAILY 01/20/20 [History] Topiramate 25 mg PO BID 01/20/20 [History] Varenicline [Chantix] 0.5 mg PO DAILY 01/20/20 [History] Varenicline [Chantix] 1 mg PO DAILY 01/20/20 [History] ondansetron HCL [Zofran] 4 mg PO Q4HR PRN 01/20/20 [History] risperiDONE [Risperdal] 5 mg PO BEDTIME 02/05/20 [History] Acetaminophen [Tylenol] 650 mg PO Q8HR 04/05/20 [History] Aspirin [Halfprin] 81 mg PO DAILY 04/05/20 [History] Losartan [Cozaar] 25 mg PO DAILY 04/05/20 [History] Montelukast [Singulair] 10 mg PO DAILY 04/05/20 [History] SUMAtriptan [Imitrex] 25 mg PO ASDIRECTED 04/05/20 [History] amLODIPine Besylate [Norvasc] 2.5 mg PO DAILY 04/05/20 [History] sitaGLIPtin Phos/Metformin HCl [Janumet 50-1,000 MG] 1 tab PO BID 04/05/20 [History] Albuterol [Ventolin HFA] 0 gm INH Q4HR PRN inhaler 04/06/20 [Rx] Albuterol/Ipratropium [DuoNeb 3.0-0.5 MG/3 ML] 3 ml NEB Q4H neb 04/06/20 [Rx] Furosemide 40 mg PO DAILY #60 04/06/20 [Rx] SitaGLIPtin [Januvia] 50 mg PO DAILY tablet 04/06/20 [Rx] metFORMIN [Glucophage XR] 1,000 mg PO DAILY tab.er 04/06/20 [Rx] predniSONE [Prednisone] 10 mg PO ASDIRECTED #75 tablet 04/06/20 [Rx] Past Medical History - Past Health History Medical/Surgical History: Denies Medical/Surgical History HEENT History: Reports: Impaired Vision, Other (See Below) Other HEENT History: glasses for reading, Cardiovascular History: Reports: Hypertension Respiratory History: Reports: Asthma, Bronchitis, Recurrent, Pneumonia, Recurrent, Other (See Below) Other Respiratory History: Emphysema Gastrointestinal History: Reports: Bowel Obstruction, GERD, Irritable Bowel Syndrome Genitourinary History: Reports: None [employer] 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: 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 Uterine Bleeding, Musculoskeletal History: Reports: Back Pain, Chronic Other Musculoskeletal History: back / butt pain, shoots down left leg Neurological History: Reports: Migraines, Neuropathy, Peripheral Psychiatric History: Reports: Anxiety, Depression, Suicide Attempt, Suicidal Ideation Endocrine/Metabolic History: Reports: Diabetes, Type II, Obesity/BMI 30+ Hematologic History: Reports: Blood Transfusion(s), Iron Deficiency Dermatologic History: Reports: Eczema, Other (See Below) Other Dermatologic History: Allergy to paper tape - Infectious Disease History Infectious Disease History: Reports: Chicken Pox, Measles, Rubella - Past Surgical History GI Surgical History: Reports: None Female Surgical History: Reports: Section, Hysterectomy, Other (See Below) Other Female Surgeries/Procedures: appendix Musculoskeletal Surgical History: Reports: None Social & Family History - Family History Family Medical History: Noncontributory Cardiac: Reports: None Musculoskeletal: Reports: Arthritis, Back pain, Chronic Neurological: Reports: None Psychiatric: Reports: Depression Endocrine/Metabolic: Reports: None Oncologic: Reports: None - Caffeine Use Caffeine Use: Reports: Coffee, Soda Other Caffeine Use: 2 cups a day Caffeine Use Comment: 2 cups of coffee per day 1 soda per day ED ROS GENERAL - Review of Systems Review Of Systems: See Below Constitutional: Denies: Fever, Chills, Weakness, Diaphoresis HEENT: Reports: No Symptoms Respiratory: Reports: Shortness of Breath. Denies: Wheezing, Pleuritic Chest Pain Cardiovascular: Reports: Chest Pain, Other (Pressure type) GI/Abdominal: Reports: Nausea. Denies: Abdominal Pain, Anorexia, Vomiting : Denies: Dysuria, Flank Pain, Frequency, Hematuria Musculoskeletal: Reports: Other (Tingling in both hands and feet and dull ache in left arm) Neurological: Reports: Tingling (in feet). Denies: Headache Psychiatric: Reports: Anxiety ED EXAM, GENERAL - Physical Exam Exam: See Below Exam Limited By: No Limitations General Appearance: Alert (Yeah), WD/WN, Obese, Other (Mildly anxious) Ears: Normal External Exam, Hearing Grossly Normal Nose: Normal Inspection, Normal Mucosa Throat/Mouth: Normal Inspection, Normal Lips, Normal Teeth, Normal Gums, Normal Oropharynx, Normal Voice, No Airway Compromise Head: Atraumatic, Normocephalic Neck: Normal Inspection, Supple, Non-Tender, Full Range of Motion, Other (No JVD) Respiratory/Chest: No Respiratory Distress, Lungs Clear, Normal Breath Sounds Cardiovascular: Regular Rate, Rhythm, No Murmur GI/Abdominal: Soft, Non-Tender. No: Guarding, Rebound, Mass (Female) Exam: Deferred Back Exam: Normal Inspection, Full Range of Motion. No: CVA Tenderness (R), CVA Tenderness (L) Extremities: Normal Inspection, Normal Range of Motion, Non-Tender, No Pedal Edema Neurological: Alert, Oriented, Normal Cognition Psychiatric: Normal Affect, Normal Mood Skin Exam: Warm, Dry, No Rash Lymphatic: No Adenopathy #1 Interpretation EKG Date: 05/03/20 Time: 15:35 Rhythm: NSR Rate (Beats/Min): 76 [place]: Normal P-Wave: Present QRS: Normal ST-T: Normal QT: Normal EKG Interpretation Comments: Normal sinus rhythm without infarct or ischemia by my reading Course - Vital Signs Text/Narrative:: Patient had initial evaluation and labs ordered. Last Recorded V/S: Last Vital Signs Temp 207.7 F H 05/03/20 15:30 Pulse 78 05/03/20 15:30 Resp BP 129/69 05/03/20 15:30 Pulse Ox - Orders/Labs/Meds Orders: Active Orders 24 hr Category Date Time Status Cardiac Monitoring [RC] .As Directed Care 05/03/20 15:39 Active EKG Documentation Completion [RC] ASDIRECTED Care 05/03/20 15:38 Active Labs: Laboratory Tests 05/03/20 05/03/20 Range/Units 16:00 16:18 WBC 5.2 (4.0-11.0) K/uL RBC 3.96 (3.80-5.80) M/uL Hgb 11.9 (11.5-16.5) g/dL Hct 36.2 L (37.0-47.0) % MCV 91 (76-96) fL MCH 30.1 (27.0-32.0) pg MCHC 32.9 (31.0-35.0) g/dL RDW 13.4 (11.0-16.0) % Plt Count 244 (150-500) K/uL MPV 10.4 H (6.0-10.0) fL Neut % (Auto) 53.6 (45.0-70.0) % Lymph % (Auto) 35.7 (20.0-40.0) % [place] % (Auto) 9.3 (3.0-10.0) % Eos % (Auto) 1.0 (1.0-5.0) % Baso % (Auto) 0.4 (0.0-0.5) % Neut # (Auto) 2.78 (2.00-7.50) K/uL Lymph # (Auto) 1.85 (1.50-4.00) K/uL [place] # (Auto) 0.48 (0.20-0.80) K/uL Eos # (Auto) 0.05 (0.04-0.40) K/uL Baso # (Auto) 0.02 (0.02-0.10) K/uL Sodium 137 (136-145) mmol/L Potassium 3.4 L (3.5-5.1) mmol/L Chloride 100 (98-107) mmol/L Carbon Dioxide 26.5 (21.0-32.0) mmol/L Anion Gap 13.9 (5.0-15.0) mmol/L BUN 17 (8-26) mg/dL Creatinine 1.10 H (0.55-1.02) mg/dL Est Cr Clr Drug Dosing TNP Estimated GFR (MDRD) 52 L (>60) MLS/MIN BUN/Creatinine Ratio 15.5 (6-25) Glucose 112 H (74-100) mg/dL Calcium 7.8 L (8.5-10.1) mg/dL Troponin I < 0.017 (0.000-0.060) ng/mL Departure - Departure Time of Disposition: 16:52 Disposition: Home, Self-Care 01 Clinical Impression: Chest pain in adult - Discharge Information *PRESCRIPTION DRUG MONITORING PROGRAM REVIEWED*: Not Applicable *COPY OF PRESCRIPTION DRUG MONITORING REPORT IN PATIENT MARY ELLEN: Not Applicable Instructions: Nonspecific Chest Pain, Adult, [id number] Referrals: PCP,None [Primary Care Provider] - Forms: ED Department Discharge Additional Instructions: Return for worsenng chest pain or SOB or any new symptoms as needed Follow up later this week in clinic for further evaluation NO change in your medications at this time Sepsis Event Note (ED) - Focused Exam Vital Signs: Vital Signs Temp Pulse BP 05/03/20 15:30 207.7 F H 78 129/69 - My Orders Last 24 Hours: My Active Orders 05/03/20 15:38 EKG Documentation Completion [RC] ASDIRECTED 05/03/20 15:39 Cardiac Monitoring [RC] .As Directed - Assessment/Plan Last 24 Hours: My Active Orders 05/03/20 15:38 EKG Documentation Completion [RC] ASDIRECTED 05/03/20 15:39 Cardiac Monitoring [RC] .As Directed
[2020-05-03 15:54] VITALS: BP 129/69; PULSE 78
== END 2020-05-03 17:00 | disposition home or self-care (01) ==
LOC: LB.ED 15:21
DX: R07.89 Other chest pain (principal); R06.02 Shortness of breath; R20.2 Paresthesia of skin; M79.602 Pain in left arm; I10 Essential (primary) hypertension; J45.909 Unspecified asthma, uncomplicated; E66.9 Obesity, unspecified; F41.9 Anxiety disorder, unspecified; F32.9 Major depressive disorder, single episode, unspecified; G62.9 Polyneuropathy, unspecified; Z90.710 Acquired absence of both cervix and uterus; Z88.4 Allergy status to anesthetic agent; Z88.8 Allergy status to other drugs, medicaments and biological substances; Z91.09 Other allergy status, other than to drugs and biological substances; Z79.899 Other long term (current) drug therapy
CPT/HCPCS: 36415; 80048; 84484; 85025; 93005; 99284; 99285-25

== ENCOUNTER 2020-05-28 13:32 | Emergency (ER) | payer MEDICARE, MEDICAID ==
[2020-05-28 13:56] VITALS: BP 118/59; PULSE 91
[2020-05-28] MEDS ORDERED: Famotidine 20 MG Tab PO ONE (14:00)
[2020-05-28] MEDS ORDERED: Famotidine 20 MG/2 ML SDV IVPUSH ONE (14:01)
--- NOTE | 2020-05-28 14:19 | EDM.PDOC ---
ED HPI GENERAL MEDICAL PROBLEM - General Chief Complaint: General Stated Complaint: LUQ PAIN Time Seen by Provider: 05/28/20 13:45 Source of Information: Reports: Patient, Other (Dr. Auguste) History Limitations: Reports: No Limitations - History of Present Illness INITIAL COMMENTS - FREE TEXT/NARRATIVE: Patient is a 54 y/o female who presents with left upper quadrant abdominal pain that has been going on for "awhile." The last 3 days it has progressed from cramping to sharp, constant pain that is worse with laying down, coughing, and after eating. She had an episode of watery diarrhea this morning. Patient was seen by Dr. Auguste in outpatient and had some labs done, which were unremarkable for pancreatitis, infection, UTI, or cardiopulmonary. PMHx significant for small bowel obstruction, colonic obstruction, gastritis, IBS, and abdominal surgeries (cholecystitis and surgical adhesion removal). Patient denies bloody or dark stools, N/V, fever, dysuria, or difficulty breathing. Left Abdomen Pain Score (Numeric/FACES): 8 - Related Data Allergies Allergy/AdvReac Type Severity Reaction Status Date / Time adhesive tape Allergy Rash Verified 04/26/20 11:21 celecoxib [From Celebrex] Allergy Nausea and Verified 04/26/20 11:21 Vomiting ketamine AdvReac Intermediate Agitation Verified 04/26/20 11:21 ropinirole AdvReac Diaphoresis Verified 04/26/20 11:21 Home Meds: Home Meds Omeprazole 20 mg PO ACBREAKFAST 04/14/13 [History] QUEtiapine [SEROquel] 100 mg PO QAM 06/06/15 [History] Spironolactone [Aldactone] 3 tab PO BID 06/06/15 [History] QUEtiapine Fumarate [Quetiapine Fumarate] 400 mg PO QPM 06/25/17 [History] Calcium Carbonate/Vitamin D3 [Calcium 600Mg-D3 400 Unit Sfgl] 1 tab PO BID 06/13/18 [History] Ubidecarenone [Co Q-10] 200 mg PO DAILY 10/04/18 [History] Mirtazapine [Remeron] 30 mg PO BEDTIME 01/25/19 [History] Albuterol Sulfate [Proair Digihaler] 2 inh INH Q4HR PRN 01/20/20 [History] Budesonide/Formoterol [Symbicort 160-4.5 MCG] 2 inh INH BID 01/20/20 [History] Ipratropium/Albuterol Sulfate [Iprat-Albut 0.5-3(2.5) MG/3 ML] 1 ampule INH Q4HR PRN 01/20/20 [History] Pramipexole Di-HCl [Pramipexole Dihydrochloride] 0.25 mg PO DAILY 01/20/20 [History] Topiramate 25 mg PO BID 01/20/20 [History] Varenicline [Chantix] 0.5 mg PO DAILY 01/20/20 [History] Varenicline [Chantix] 1 mg PO DAILY 01/20/20 [History] ondansetron HCL [Zofran] 4 mg PO Q4HR PRN 01/20/20 [History] risperiDONE [Risperdal] 5 mg PO BEDTIME 02/05/20 [History] Acetaminophen [Tylenol] 650 mg PO Q8HR 04/05/20 [History] Aspirin [Halfprin] 81 mg PO DAILY 04/05/20 [History] Losartan [Cozaar] 25 mg PO DAILY 04/05/20 [History] Montelukast [Singulair] 10 mg PO DAILY 04/05/20 [History] SUMAtriptan [Imitrex] 25 mg PO ASDIRECTED 04/05/20 [History] amLODIPine Besylate [Norvasc] 2.5 mg PO DAILY 04/05/20 [History] sitaGLIPtin Phos/Metformin HCl [Janumet 50-1,000 MG] 1 tab PO BID 04/05/20 [History] Albuterol [Ventolin HFA] 0 gm INH Q4HR PRN inhaler 04/06/20 [Rx] Albuterol/Ipratropium [DuoNeb 3.0-0.5 MG/3 ML] 3 ml NEB Q4H neb 04/06/20 [Rx] Furosemide 40 mg PO DAILY #60 04/06/20 [Rx] SitaGLIPtin [Januvia] 50 mg PO DAILY tablet 04/06/20 [Rx] metFORMIN [Glucophage XR] 1,000 mg PO DAILY tab.er 04/06/20 [Rx] predniSONE [Prednisone] 10 mg PO ASDIRECTED #75 tablet 09/21/20 [Rx] Past Medical History - Past Health History Medical/Surgical History: Denies Medical/Surgical History HEENT History: Reports: Impaired Vision, Other (See Below) Other HEENT History: glasses for reading, Cardiovascular History: Reports: Hypertension Other Cardiovascular History: states recently has been told rufino has a valve problem but not bad enough for surgery Respiratory History: Reports: Asthma, Bronchitis, Recurrent, Pneumonia, Recurrent, Other (See Below) Other Respiratory History: Emphysema Gastrointestinal History: Reports: Bowel Obstruction, GERD, Irritable Bowel Syndrome Genitourinary History: Reports: None [employer] 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: 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 Uterine Bleeding, Musculoskeletal History: Reports: Back Pain, Chronic Other Musculoskeletal History: back / butt pain, shoots down left leg Neurological History: Reports: Migraines, Neuropathy, Peripheral Psychiatric History: Reports: Anxiety, Depression, Suicide Attempt, Suicidal Ideation Endocrine/Metabolic History: Reports: Diabetes, Type II, Obesity/BMI 30+ Hematologic History: Reports: Blood Transfusion(s), Iron Deficiency Dermatologic History: Reports: Eczema, Other (See Below) Other Dermatologic History: Allergy to paper tape - Infectious Disease History Infectious Disease History: Reports: Chicken Pox, Measles, Rubella - Past Surgical History GI Surgical History: Reports: None Female Surgical History: Reports: Section, Hysterectomy, Other (See Below) Other Female Surgeries/Procedures: appendix Musculoskeletal Surgical History: Reports: None Social & Family History - Family History Family Medical History: No Pertinent Family History Cardiac: Reports: None Musculoskeletal: Reports: Arthritis, Back pain, Chronic Neurological: Reports: None Psychiatric: Reports: Depression Endocrine/Metabolic: Reports: None Oncologic: Reports: None - Caffeine Use Caffeine Use: Reports: Coffee, Soda Other Caffeine Use: 2 cups a day Caffeine Use Comment: 2 cups of coffee per day 1 soda per day ED ROS GENERAL - Review of Systems Review Of Systems: See Below Constitutional: Reports: No Symptoms HEENT: Reports: No Symptoms Respiratory: Reports: No Symptoms Cardiovascular: Reports: No Symptoms GI/Abdominal: Reports: Abdominal Pain, Diarrhea : Reports: No Symptoms Musculoskeletal: Reports: No Symptoms Skin: Reports: No Symptoms Neurological: Reports: No Symptoms ED EXAM, GENERAL - Physical Exam Exam: See Below Exam Limited By: No Limitations General Appearance: Alert, No Apparent Distress Head: Atraumatic, Normocephalic Respiratory/Chest: No Respiratory Distress, Lungs Clear, Normal Breath Sounds, No Accessory Muscle Use, Chest Non-Tender Cardiovascular: Normal Peripheral Pulses, Regular Rate, Rhythm, No Edema, No Murmur GI/Abdominal: Soft, No Distention, Guarding, Rebound, Tender, Other (Hyperactive bowel sounds x 4; LUQ tenderness to palpation) Neurological: Alert, Oriented Psychiatric: Normal Affect, Normal Mood Skin Exam: Warm, Dry, Intact, Normal Color, No Rash #1 Interpretation EKG Date: 05/28/20 Time: 13:00 Rhythm: NSR Rate (Beats/Min): 89 [place]: Normal P-Wave: Present QRS: Normal ST-T: Normal QT: Normal EKG Interpretation Comments: NO STEMI Course - Vital Signs Text/Narrative:: All labs and imaging unremarkable, except for constipation. Patient received morphine and pepcid while waiting for CT scan. Last Recorded V/S: Last Vital Signs Temp 36.2 C 05/28/20 13:50 Pulse 91 05/28/20 13:50 Resp 18 05/28/20 13:50 BP 118/59 L 05/28/20 13:50 Pulse Ox 98 05/28/20 13:50 - Orders/Labs/Meds Orders: Active Orders 24 hr Category Date Time Status Abdomen Pelvis wo Cont [CT] Stat Exams 05/28/20 13:59 Taken Labs: Laboratory Tests 05/28/20 Range/Units 14:30 Troponin I < 0.017 (0.000-0.060) ng/mL Meds: Medications Discontinued Medications Generic Name Dose Route Start Last Admin Trade Name Emerson PRN Reason Stop Dose Admin Famotidine 20 mg 05/28/20 14:00 05/28/20 14:43 Pepcid PO 05/28/20 14:01 Not Given ONETIME ONE Famotidine 20 mg 05/28/20 14:01 05/28/20 14:36 Pepcid IVPUSH 05/28/20 14:02 20 mg ONETIME ONE Administration Morphine Sulfate Confirm 05/28/20 15:35 05/28/20 15:32 Morphine Administered 05/28/20 15:36 Not Given Dose 2 mg .ROUTE .STK-MED ONE Morphine Sulfate 2 mg 05/28/20 15:25 05/28/20 15:27 Morphine IVPUSH 05/28/20 15:26 2 mg ONETIME ONE Administration Departure - Departure Time of Disposition: 16:00 Disposition: Home, Self-Care 01 Condition: Good Clinical Impression: Constipation Qualifiers: Constipation type: unspecified constipation type Qualified Code(s): K59.00 - Constipation, unspecified - Discharge Information *PRESCRIPTION DRUG MONITORING PROGRAM REVIEWED*: Not Applicable *COPY OF PRESCRIPTION DRUG MONITORING REPORT IN PATIENT MARY ELLEN: Not Applicable Instructions: Constipation, Adult, [id number] Referrals: PCP,None [Primary Care Provider] - Forms: ED Department Discharge Additional Instructions: Discharge home. Colace Miralax Bentyl High fiber diet, more fruit and vegetables; fiber supplements. Try having small amounts of cheese, pasta, rice, potatoes. Drink 1 bottle of water with every meal. Follow up as needed in the clinic. Sepsis Event Note (ED) - Evaluation Sepsis Screening Result: No Definite Risk - Focused Exam Vital Signs: Vital Signs Temp Pulse Resp BP Pulse Ox 05/28/20 13:50 36.2 C 91 18 118/59 L 98 05/28/20 13:45 36.2 C 91 18 118/59 L 98 - My Orders Last 24 Hours: My Active Orders 05/28/20 13:59 Abdomen Pelvis wo Cont [CT] Stat - Assessment/Plan Last 24 Hours: My Active Orders 05/28/20 13:59 Abdomen Pelvis wo Cont [CT] Stat Plan: Prescription for bentyl and colace. Educated on more fiberous diet and to decreased pastas and dairy. More fluid with meals and miralax as directed. Follow up with outpatient for GI referral for constipation, IBS, and incidental findings of hepatic steatosis and mild cirrhosis.
[2020-05-28] MEDS ORDERED: Morphine 2 MG/ML SYRINGE IVPUSH ONE (15:25)
[2020-05-28] MEDS ORDERED: Morphine 2 MG/ML SYRINGE ONE (15:35)
--- NOTE | 2020-05-29 14:44 | CT ---
CLINICAL DATA: LUQ pain. UNENHANCED ABDOMEN AND PELVIC CT, 28 MAY 2020: Multislice acquisition through the abdomen and pelvis without IV, but with oral contrast was performed. Comparison is made to a prior chest, abdomen and pelvic CT dated July 2017. There are stable lung nodules in both lower lobes. No new abnormalities. There is diffuse fatty infiltration of the liver. No focal hepatic lesions. The patient is status post cholecystectomy. The spleen appears normal. The pancreas appears normal. The right and left adrenals appear normal. The right and left kidneys appear normal. No hydronephrosis or hydroureter. No nephrocalcinosis or nephrolithiasis. The bladder is partially fluid-filled. It appears normal. No evidence of appendicitis. There is a moderate amount of stool noted in the right colon and cecum. There are scattered air-fluid levels within the small bowel and colon. No distended loops of bowel. Enterocolitis should be considered. Follow-up imaging is recommended, if clinically indicated. No free air. No free fluid. No adenopathy. No aortic aneurysm. There are surgical changes in the anterior abdominal wall. Job: [id number]
== END 2020-05-28 16:15 | disposition home or self-care (01) ==
LOC: LB.ED 13:32
DX: K59.00 Constipation, unspecified (principal); I10 Essential (primary) hypertension; J45.909 Unspecified asthma, uncomplicated; K21.9 Gastro-esophageal reflux disease without esophagitis; F41.9 Anxiety disorder, unspecified; F32.9 Major depressive disorder, single episode, unspecified; E11.42 Type 2 diabetes mellitus with diabetic polyneuropathy; E66.9 Obesity, unspecified; Z68.41 Body mass index [BMI] 40.0-44.9, adult; Z91.048 Other nonmedicinal substance allergy status; Z88.8 Allergy status to other drugs, medicaments and biological substances; Z79.899 Other long term (current) drug therapy
CPT/HCPCS: 36415; 74176; 84484; 96374; 96375; 99284-25; J2270; J3490

== ENCOUNTER 2020-07-11 10:56 | Emergency (ER) | payer MEDICARE, MEDICAID ==
[2020-07-11] MEDS ORDERED: Aspirin 81 MG Tab.Chew PO ONE (11:20)
[2020-07-11] MEDS ORDERED: Nitroglycerin 0.4 MG Tab.SL SL ONE (11:21)
[2020-07-11] MEDS ORDERED: methylPREDNISolone Sodium Succinate 125 MG/2 ML SDV IVPUSH ONE (11:32)
[2020-07-11] MEDS ORDERED: Albuterol/Ipratropium 3.0-0.5 MG/3 ML Neb Soln NEB STA (11:32)
--- NOTE | 2020-07-11 11:38 | EDM.PDOC ---
ED HPI GENERAL MEDICAL PROBLEM - General Chief Complaint: Chest Pain Stated Complaint: difficulty breathing Time Seen by Provider: 07/11/20 11:25 Source of Information: Reports: Patient History Limitations: Reports: No Limitations - History of Present Illness INITIAL COMMENTS - FREE TEXT/NARRATIVE: patient with a h/o COPD, asthma and active smoking ( smoked for 30 yrs ) who pre sented to the ER due to worsening of SOB over the last 3 days. No fever or chills. Reports that it is similar to her COPD attack and nebs at home haven't been helping. She last smoked yesterday. Reports tightness in the chest, worse with activities. No changes in cough. No exposure to patient with COVID. No abd pain, N/V. Frequent visits to the ER for the same reason Onset: Gradual Duration: Day(s): (3) Location: Reports: Chest Severity: Moderate Worsens with: Reports: Movement Context: Reports: Activity Associated Symptoms: Reports: Shortness of Breath. 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[employer] PET: Reports: EKG - Related Data Allergies Allergy/AdvReac Type Severity Reaction Status Date / Time adhesive tape Allergy Rash Verified 04/26/20 11:21 celecoxib [From Celebrex] Allergy Nausea and Verified 04/26/20 11:21 Vomiting ketamine AdvReac Intermediate Agitation Verified 04/26/20 11:21 ropinirole AdvReac Diaphoresis Verified 04/26/20 11:21 Home Meds: Home Meds Omeprazole 20 mg PO ACBREAKFAST 04/14/13 [History] QUEtiapine [SEROquel] 100 mg PO QAM 06/06/15 [History] Spironolactone [Aldactone] 3 tab PO BID 06/06/15 [History] QUEtiapine Fumarate [Quetiapine Fumarate] 400 mg PO QPM 06/25/17 [History] Calcium Carbonate/Vitamin D3 [Calcium 600Mg-D3 400 Unit Sfgl] 1 tab PO BID 06/13/18 [History] Ubidecarenone [Co Q-10] 200 mg PO DAILY 10/04/18 [History] Mirtazapine [Remeron] 30 mg PO BEDTIME 01/25/19 [History] Albuterol Sulfate [Proair Digihaler] 2 inh INH Q4HR PRN 01/20/20 [History] Budesonide/Formoterol [Symbicort 160-4.5 MCG] 2 inh INH BID 01/20/20 [History] Pramipexole Di-HCl [Pramipexole Dihydrochloride] 0.25 mg PO DAILY 01/20/20 [History] Topiramate 25 mg PO BID 01/20/20 [History] Varenicline [Chantix] 0.5 mg PO DAILY 01/20/20 [History] Varenicline [Chantix] 1 mg PO DAILY 01/20/20 [History] ondansetron HCL [Zofran] 4 mg PO Q4HR PRN 01/20/20 [History] risperiDONE [Risperdal] 5 mg PO BEDTIME 02/05/20 [History] Acetaminophen [Tylenol] 650 mg PO Q8HR 04/05/20 [History] Aspirin [Halfprin] 81 mg PO DAILY 04/05/20 [History] Losartan [Cozaar] 25 mg PO DAILY 04/05/20 [History] Montelukast [Singulair] 10 mg PO DAILY 04/05/20 [History] SUMAtriptan [Imitrex] 25 mg PO ASDIRECTED 04/05/20 [History] amLODIPine Besylate [Norvasc] 2.5 mg PO DAILY 04/05/20 [History] sitaGLIPtin Phos/Metformin HCl [Janumet 50-1,000 MG] 50 tab PO BID 04/05/20 [History] Albuterol/Ipratropium [DuoNeb 3.0-0.5 MG/3 ML] 3 ml NEB Q4H neb 04/06/20 [Rx] Furosemide 40 mg PO DAILY #60 04/06/20 [Rx] metFORMIN [Glucophage XR] 1,000 mg PO DAILY tab.er 04/06/20 [Rx] Past Medical History - Past Health History Medical/Surgical History: Denies Medical/Surgical History HEENT History: Reports: Impaired Vision, Other (See Below) Other HEENT History: glasses for reading, Cardiovascular History: Reports: Hypertension Other Cardiovascular History: states recently has been told rufino has a valve problem but not bad enough for surgery Respiratory History: Reports: Asthma, Bronchitis, Recurrent, Pneumonia, Recurrent, Other (See Below) Other Respiratory History: Emphysema Gastrointestinal History: Reports: Bowel Obstruction, GERD, Irritable Bowel Syndrome Genitourinary History: Reports: None BARGE HAND History: Reports: 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 Uterine Bleeding, Musculoskeletal History: Reports: Back Pain, Chronic Other Musculoskeletal History: back / butt pain, shoots down left leg Neurological History: Reports: Migraines, Neuropathy, Peripheral Psychiatric History: Reports: Anxiety, Depression, Suicide Attempt, Suicidal Ideation Endocrine/Metabolic History: Reports: Diabetes, Type II, Obesity/BMI 30+ Hematologic History: Reports: Blood Transfusion(s), Iron Deficiency Dermatologic History: Reports: Eczema, Other (See Below) Other Dermatologic History: Allergy to paper tape - Infectious Disease History Infectious Disease History: Reports: Chicken Pox, Measles, Rubella - Past Surgical History GI Surgical History: Reports: None Female Surgical History: Reports: Section, Hysterectomy, Other (See Below) Other Female Surgeries/Procedures: appendix Musculoskeletal Surgical History: Reports: None Social & Family History - Family History Family Medical History: No Pertinent Family History Cardiac: Reports: None Musculoskeletal: Reports: Arthritis, Back pain, Chronic Neurological: Reports: None Psychiatric: Reports: Depression Endocrine/Metabolic: Reports: None Oncologic: Reports: None - Tobacco Use Tobacco Use Status *Q: Current Every Day Tobacco User Years of Tobacco use: 35 Packs/Tins Daily: 0.5 Used Tobacco, but Quit: No Second Hand Smoke Exposure: Yes - Caffeine Use Caffeine Use: Reports: Coffee, Soda Other Caffeine Use: 2 cups a day Caffeine Use Comment: 2 cups of coffee per day 1 soda per day - Recreational Drug Use Recreational Drug Use: No ED ROS GENERAL - Review of Systems Review Of Systems: Comprehensive ROS is negative, except as noted in HPI. Constitutional: Denies: Fever, Chills HEENT: Reports: No Symptoms Respiratory: Reports: Shortness of Breath Cardiovascular: Reports: Dyspnea on Exertion Endocrine: Reports: No Symptoms GI/Abdominal: Reports: No Symptoms : Reports: No Symptoms Neurological: Reports: No Symptoms Psychiatric: Reports: Agitation, Anxiety, Depression Immunologic: Reports: No Symptoms ED EXAM, GENERAL - Physical Exam Exam: See Below Exam Limited By: No Limitations General Appearance: Alert, Mild Distress Nose: Normal Inspection Throat/Mouth: Normal Inspection Head: Atraumatic, Normocephalic Neck: Normal Inspection Respiratory/Chest: Lungs Clear, Respiratory Distress, Decreased Breath Sounds, Wheezing, Accessory Muscle Use, Prolonged Expiration Cardiovascular: Normal Peripheral Pulses, Regular Rate, Rhythm GI/Abdominal: Normal Bowel Sounds, Soft, Non-Tender Back Exam: Normal Inspection Extremities: Normal Inspection Neurological: Alert, Oriented, Normal Cognition, No Motor/Sensory Deficits Psychiatric: Normal Affect, Normal Mood, Anxious Course - Vital Signs Last Recorded V/S: Last Vital Signs Temp 37.0 C 07/11/20 11:17 Pulse 78 07/11/20 12:08 Resp 20 07/11/20 11:17 BP 130/53 L 07/11/20 11:58 Pulse Ox - Orders/Labs/Meds Orders: Active Orders 24 hr Category Date Time Status EKG Documentation Completion [RC] ASDIRECTED Care 07/11/20 11:20 Active RT Aerosol Therapy [RC] ASDIRECTED Care 07/11/20 11:32 Active RT Aerosol Therapy [RC] ASDIRECTED Care 07/11/20 12:48 Active Chest 1V Frontal [CR] Stat Exams 07/11/20 11:32 Taken Labs: Laboratory Tests 07/11/20 07/11/20 Range/Units 12:00 12:00 WBC 5.1 D (4.0-11.0) K/uL RBC 3.84 (3.80-5.80) M/uL Hgb 11.2 L (11.5-16.5) g/dL Hct 34.5 L (37.0-47.0) % MCV 90 (76-96) fL MCH 29.2 (27.0-32.0) pg MCHC 32.5 (31.0-35.0) g/dL RDW 13.8 (11.0-16.0) % Plt Count 164 (150-500) K/uL MPV 10.8 H (6.0-10.0) fL Neut % (Auto) 65.0 (45.0-70.0) % Lymph % (Auto) 25.4 (20.0-40.0) % [place] % (Auto) 8.0 (3.0-10.0) % Eos % (Auto) 0.8 L (1.0-5.0) % Baso % (Auto) 0.8 H (0.0-0.5) % Neut # (Auto) 3.32 (2.00-7.50) K/uL Lymph # (Auto) 1.30 L (1.50-4.00) K/uL [place] # (Auto) 0.41 (0.20-0.80) K/uL Eos # (Auto) 0.04 (0.04-0.40) K/uL Baso # (Auto) 0.04 (0.02-0.10) K/uL Sodium 142 (136-145) mmol/L Potassium 3.4 L D (3.5-5.1) mmol/L Chloride 104 (98-107) mmol/L Carbon Dioxide 29.3 (21.0-32.0) mmol/L Anion Gap 12.1 (5.0-15.0) mmol/L BUN 11 D (8-26) mg/dL Creatinine 1.11 H D (0.55-1.02) mg/dL Est Cr Clr Drug Dosing 49.45 mL/min Estimated GFR (MDRD) 51 L (>60) MLS/MIN BUN/Creatinine Ratio 9.9 (6-25) Glucose 95 D (74-100) mg/dL Calcium 8.3 L (8.5-10.1) mg/dL Total Bilirubin 0.3 (0.0-1.0) mg/dL AST 23 (15-37) U/L ALT 23 (12-78) U/L Alkaline Phosphatase 54 (46-116) U/L Troponin I < 0.017 (0.000-0.060) ng/mL Total Protein 6.6 (6.4-8.2) g/dL Albumin 3.4 (3.4-5.0) g/dL Globulin 3.2 (2.2-4.2) g/dL Albumin/Globulin Ratio 1.1 (0.8-2.0) Meds: Medications Discontinued Medications Generic Name Dose Route Start Last Admin Trade Name Freq PRN Reason Stop Dose Admin Albuterol 2.5 mg 07/11/20 12:47 07/11/20 12:50 Proventil Neb Soln NEB 07/11/20 12:48 2.5 mg ONETIME ONE Administration Albuterol Confirm 07/11/20 12:59 Proventil Neb Soln Administered 07/11/20 13:00 Dose 2.5 mg .ROUTE .STK-MED ONE Albuterol/Ipratropium 3 ml 07/11/20 11:32 07/11/20 11:40 Duoneb 3.0-0.5 Mg/3 Ml NEB 07/11/20 11:33 3 ml STAT STA Administration Albuterol/Ipratropium Confirm 07/11/20 12:57 07/11/20 12:51 Duoneb 3.0-0.5 Mg/3 Ml Administered 07/11/20 12:58 Not Given Dose 3 ml .ROUTE .STK-MED ONE Aspirin 324 mg 07/11/20 11:20 07/11/20 11:58 Aspirin PO 07/11/20 11:21 324 mg ONETIME ONE Administration Methylprednisolone Sodium Succinate 125 mg 07/11/20 11:32 07/11/20 11:50 Solu-Medrol IVPUSH 07/11/20 11:33 125 mg ONETIME ONE Administration Nitroglycerin 0.4 mg 07/11/20 11:21 07/11/20 11:58 Nitrostat SL 07/11/20 11:22 0.4 mg ONETIME ONE Administration - Re-Assessments/Exams Free Text/Narrative Re-Assessment/Exam: 07/11/20 12:54 no hypoxia nebs was given, as well as, solumedrol IV -reports significant improvement in symptoms. labs -no leukocytosis CXR - hyperexpansion but no e/o infiltrates. discussed with patient smoking cessation Departure - Departure Time of Disposition: 12:56 Disposition: Home, Self-Care 01 Condition: Good Clinical Impression: COPD (chronic obstructive pulmonary disease) Qualifiers: COPD type: unspecified COPD Qualified Code(s): J44.9 - Chronic obstructive pulmonary disease, unspecified - Discharge Information *PRESCRIPTION DRUG MONITORING PROGRAM REVIEWED*: Not Applicable *COPY OF PRESCRIPTION DRUG MONITORING REPORT IN PATIENT MARY ELLEN: Not Applicable Instructions: Coping with Quitting Smoking, Chronic Obstructive Pulmonary Disease, [id number] Referrals: PCP,None [Primary Care Provider] - Forms: ED Department Discharge Additional Instructions: - start taking prednisone as prescribed - recommends smoking cessation - use nebs at home on a daily basis and when needed - follow up with your PCP next week as needed - return to the ER if symptoms got worse or any concerns Sepsis Event Note (ED) - Evaluation Sepsis Screening Result: No Definite Risk - Focused Exam Vital Signs: Vital Signs Temp Pulse Resp BP BP 07/11/20 12:08 78 07/11/20 11:58 130/53 L 07/11/20 11:17 37.0 C 73 20 146/77 H - Problem List & Annotations (1) COPD (chronic obstructive pulmonary disease) SNOMED Code(s): 09330159 Code(s): J44.9 - CHRONIC OBSTRUCTIVE PULMONARY DISEASE, UNSPECIFIED Status: Chronic Current Visit: Yes Qualifiers: COPD type: unspecified COPD Qualified Code(s): J44.9 - Chronic obstructive pulmonary disease, unspecified - My Orders Last 24 Hours: My Active Orders 07/11/20 11:20 EKG Documentation Completion [RC] ASDIRECTED 07/11/20 11:32 RT Aerosol Therapy [RC] ASDIRECTED Chest 1V Frontal [CR] Stat 07/11/20 12:48 RT Aerosol Therapy [RC] ASDIRECTED - Assessment/Plan Last 24 Hours: My Active Orders 07/11/20 11:20 EKG Documentation Completion [RC] ASDIRECTED 07/11/20 11:32 RT Aerosol Therapy [RC] ASDIRECTED Chest 1V Frontal [CR] Stat 07/11/20 12:48 RT Aerosol Therapy [RC] ASDIRECTED Plan: - start taking prednisone as prescribed - recommends smoking cessation - use nebs at home on a daily basis and when needed - follow up with your PCP next week as needed - return to the ER if symptoms got worse or any concerns
[2020-07-11 11:59] VITALS: BP 130/53
[2020-07-11 12:13] VITALS: PULSE 78
[2020-07-11] MEDS ORDERED: Albuterol 0.083% 2.5 MG/3 ML Neb Soln NEB ONE (12:47)
[2020-07-11] MEDS ORDERED: Albuterol/Ipratropium 3.0-0.5 MG/3 ML Neb Soln ONE (12:57)
[2020-07-11] MEDS ORDERED: Albuterol 0.083% 2.5 MG/3 ML Neb Soln ONE (12:59)
[2020-07-11] MEDS ORDERED: predniSONE 5 MG Tab ONE ×2 (13:00→13:19)
--- NOTE | 2020-07-13 08:59 | CR ---
Date of Service: 07/11/20 Clinical Data: SOB AP CHEST: The heart size is normal. The lungs are clear. No pneumothorax. No pleural effusions. No evidence of acute intrathoracic disease. [id number] [facility]
== END 2020-07-11 13:40 | disposition home or self-care (01) ==
LOC: LB.ED 10:56
DX: J44.9 Chronic obstructive pulmonary disease, unspecified (principal); I10 Essential (primary) hypertension; K21.9 Gastro-esophageal reflux disease without esophagitis; E11.42 Type 2 diabetes mellitus with diabetic polyneuropathy; F41.9 Anxiety disorder, unspecified; F32.9 Major depressive disorder, single episode, unspecified; E66.9 Obesity, unspecified; F17.210 Nicotine dependence, cigarettes, uncomplicated; Z91.048 Other nonmedicinal substance allergy status; Z88.8 Allergy status to other drugs, medicaments and biological substances; Z88.4 Allergy status to anesthetic agent; Z79.82 Long term (current) use of aspirin; Z79.84 Long term (current) use of oral hypoglycemic drugs; Z79.899 Other long term (current) drug therapy
CPT/HCPCS: 36415; 71045; 80053; 84484; 85025; 93005; 94640; 96374; 99284; 99285-25; A9270-GY; J2930; J7512; J7620-GY

== ENCOUNTER 2020-07-11 15:45 | Inpatient (IN) | payer MEDICARE, MEDICAID ==
[2020-07-11] MEDS ORDERED: Magnesium Sulfate/D5W 1 GM/100 ML Premix Bag IV STA (16:25)
[2020-07-11] MEDS ORDERED: Albuterol 0.083% 2.5 MG/3 ML Neb Soln NEB ONE (16:25)
[2020-07-11] MEDS ORDERED: Budesonide 0.5 MG/2 ML Neb Susp NEB ONE (16:26)
--- NOTE | 2020-07-11 16:30 | EDM.PDOC ---
ED HPI GENERAL MEDICAL PROBLEM - General Chief Complaint: Respiratory Problem Stated Complaint: shortness of breath Time Seen by Provider: 07/11/20 16:15 Source of Information: Reports: Patient, EMS History Limitations: Reports: No Limitations - History of Present Illness INITIAL COMMENTS - FREE TEXT/NARRATIVE: patient presented to the ER with a SOB. h/o COPD, asthma and tobacco abuse. was seen in the ER earlier today for the same reason where she was treated and stabilized. She improved and was d/cd home. she was d/cd on prednisone PO tab. She reports that she was doing well after d/c . Had a lunch and was on the couch,, but started to have some SOB, tried to use her neb machine .. didn't feel better, so she called 911. Upon further questioning, patient admitted that her neb machine is outdated and 20 yrs old, probably not functioning well anymore. No CP, fever or chills. Onset: Gradual Duration: Day(s): (3) Severity: Moderate Worsens with: Reports: Movement Associated Symptoms: Reports: Shortness of Breath - Related Data Allergies Allergy/AdvReac Type Severity Reaction Status Date / Time adhesive tape Allergy Rash Verified 04/26/20 11:21 celecoxib [From Celebrex] Allergy Nausea and Verified 04/26/20 11:21 Vomiting ketamine AdvReac Intermediate Agitation Verified 04/26/20 11:21 ropinirole AdvReac Diaphoresis Verified 04/26/20 11:21 Home Meds: Home Meds Omeprazole 20 mg PO ACBREAKFAST 04/14/13 [History] QUEtiapine [SEROquel] 100 mg PO QAM 06/06/15 [History] Spironolactone [Aldactone] 3 tab PO BID 06/06/15 [History] QUEtiapine Fumarate [Quetiapine Fumarate] 400 mg PO QPM 06/25/17 [History] Calcium Carbonate/Vitamin D3 [Calcium 600Mg-D3 400 Unit Sfgl] 1 tab PO BID 06/13/18 [History] Ubidecarenone [Co Q-10] 200 mg PO DAILY 10/04/18 [History] Mirtazapine [Remeron] 30 mg PO BEDTIME 01/25/19 [History] Albuterol Sulfate [Proair Digihaler] 2 inh INH Q4HR PRN 01/20/20 [History] Budesonide/Formoterol [Symbicort 160-4.5 MCG] 2 inh INH BID 01/20/20 [History] Pramipexole Di-HCl [Pramipexole Dihydrochloride] 0.25 mg PO DAILY 01/20/20 [History] Topiramate 25 mg PO BID 01/20/20 [History] Varenicline [Chantix] 0.5 mg PO DAILY 01/20/20 [History] Varenicline [Chantix] 1 mg PO DAILY 01/20/20 [History] ondansetron HCL [Zofran] 4 mg PO Q4HR PRN 01/20/20 [History] risperiDONE [Risperdal] 5 mg PO BEDTIME 02/05/20 [History] Acetaminophen [Tylenol] 650 mg PO Q8HR 04/05/20 [History] Aspirin [Halfprin] 81 mg PO DAILY 04/05/20 [History] Losartan [Cozaar] 25 mg PO DAILY 04/05/20 [History] Montelukast [Singulair] 10 mg PO DAILY 04/05/20 [History] SUMAtriptan [Imitrex] 25 mg PO ASDIRECTED 04/05/20 [History] amLODIPine Besylate [Norvasc] 2.5 mg PO DAILY 04/05/20 [History] sitaGLIPtin Phos/Metformin HCl [Janumet 50-1,000 MG] 50 tab PO BID 04/05/20 [History] Albuterol/Ipratropium [DuoNeb 3.0-0.5 MG/3 ML] 3 ml NEB Q4H neb 04/06/20 [Rx] Furosemide 40 mg PO DAILY #60 04/06/20 [Rx] metFORMIN [Glucophage XR] 1,000 mg PO DAILY tab.er 04/06/20 [Rx] Past Medical History - Past Health History Medical/Surgical History: Denies Medical/Surgical History HEENT History: Reports: Impaired Vision, Other (See Below) Other HEENT History: glasses for reading, Cardiovascular History: Reports: Heart Murmur, Hypertension Other Cardiovascular History: states recently has been told rufino has a valve problem but not bad enough for surgery Respiratory History: Reports: Asthma, Bronchitis, Recurrent, Pneumonia, Recurrent, Other (See Below) Other Respiratory History: Emphysema Gastrointestinal History: Reports: Bowel Obstruction, GERD, Irritable Bowel Syndrome Genitourinary History: Reports: None 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: Reports: 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 Uterine Bleeding, Musculoskeletal History: Reports: Back Pain, Chronic Other Musculoskeletal History: back / butt pain, shoots down left leg Neurological History: Reports: Migraines, Neuropathy, Peripheral Psychiatric History: Reports: Anxiety, Depression, Suicide Attempt, Suicidal Ideation Endocrine/Metabolic History: Reports: Diabetes, Type II, Obesity/BMI 30+ Hematologic History: Reports: Blood Transfusion(s), Iron Deficiency Dermatologic History: Reports: Eczema, Other (See Below) Other Dermatologic History: Allergy to paper tape - Infectious Disease History Infectious Disease History: Reports: Chicken Pox, Measles, Rubella - Past Surgical History HEENT Surgical History: Reports: Eye Surgery Other HEENT Surgeries/Procedures: Eye Surgery, when 6 yr and grade school Cardiovascular Surgical History: Reports: None Respiratory Surgical History: Reports: None GI Surgical History: Reports: None Other GI Surgeries/Procedures: ABD. SURGERY AND SCAR TISSUE REMOVAL Female Surgical History: Reports: Section, Hysterectomy, Other (See Below) Other Female Surgeries/Procedures: appendix Musculoskeletal Surgical History: Reports: None Social & Family History - Family History Family Medical History: No Pertinent Family History Cardiac: Reports: None Musculoskeletal: Reports: Arthritis, Back pain, Chronic Neurological: Reports: None Psychiatric: Reports: Depression Endocrine/Metabolic: Reports: None Oncologic: Reports: None - Caffeine Use Caffeine Use: Reports: Coffee, Soda Other Caffeine Use: 2 cups a day Caffeine Use Comment: 2 cups of coffee per day 1 soda per day ED ROS GENERAL - Review of Systems Review Of Systems: Comprehensive ROS is negative, except as noted in HPI. Constitutional: Reports: Diaphoresis. Denies: Fever, Chills HEENT: Reports: No Symptoms Respiratory: Reports: Shortness of Breath, Wheezing Cardiovascular: Reports: No Symptoms Endocrine: Reports: No Symptoms GI/Abdominal: Reports: No Symptoms Musculoskeletal: Reports: No Symptoms Skin: Reports: No Symptoms Neurological: Reports: No Symptoms Psychiatric: Reports: Agitation, Anxiety ED EXAM, GENERAL - Physical Exam Exam: See Below Exam Limited By: No Limitations General Appearance: Alert, Mild Distress Eye Exam: Bilateral Eye: PERRL Throat/Mouth: Normal Inspection Neck: Normal Inspection Respiratory/Chest: Respiratory Distress, Decreased Breath Sounds, Wheezing, Retractions Cardiovascular: Normal Peripheral Pulses, No Edema, Tachycardia GI/Abdominal: Normal Bowel Sounds, Soft, Non-Tender, No Distention Neurological: Alert, Oriented, Normal Cognition Psychiatric: Normal Affect, Normal Mood, Anxious Skin Exam: Warm, Dry, Intact Course - Orders/Labs/Meds Orders: Active Orders 24 hr Category Date Time Status RT Aerosol Therapy [RC] ASDIRECTED Care 07/11/20 16:25 Ordered RT Aerosol Therapy [RC] ASDIRECTED Care 07/11/20 16:26 Ordered Meds: Medications Discontinued Medications Generic Name Dose Route Start Last Admin Trade Name Freq PRN Reason Stop Dose Admin Albuterol 2.5 mg 07/11/20 16:25 07/11/20 16:10 Proventil Neb Soln NEB 07/11/20 16:26 2.5 mg ONETIME ONE Administration Budesonide 0.5 mg 07/11/20 16:26 07/11/20 16:46 Pulmicort NEB 07/11/20 16:27 0.5 mg ONETIME ONE Administration Budesonide Confirm 07/11/20 16:54 Pulmicort Administered 07/11/20 16:55 Dose 0.5 mg .ROUTE .STK-MED ONE Magnesium Sulfate/Dextrose Confirm 07/11/20 16:57 Magnesium Sulfate In D5w 100 Premix Administered 07/11/20 16:58 Dose 1 gm in 100 mls @ as directed .ROUTE .STK-MED ONE Magnesium Sulfate/Dextrose 1 gm 07/11/20 16:25 07/11/20 17:14 Magnesium Sulfate In D5w 100 Premix IV 07/11/20 16:26 1 gm NOW STA Administration - Re-Assessments/Exams Free Text/Narrative Re-Assessment/Exam: 07/11/20 16:32 was given albuterol neb upon arrival -with improvement in symptoms. IV mag sulphate was also given to help relax her skeletal muscle airways. was hooked up to a monitor and O2 sensor. nebs were repeated until her breathing was near back to her baseline Departure - Departure Time of Disposition: 17:14 Disposition: Admitted As Inpatient 65 Condition: Fair Clinical Impression: Acute exacerbation of COPD with asthma - Discharge Information *PRESCRIPTION DRUG MONITORING PROGRAM REVIEWED*: Not Applicable *COPY OF PRESCRIPTION DRUG MONITORING REPORT IN PATIENT MARY ELLEN: Not Applicable Forms: ED Department Discharge - Problem List & Annotations (1) Acute exacerbation of COPD with asthma SNOMED Code(s): 6491839640065 Code(s): J44.1 - CHRONIC OBSTRUCTIVE PULMONARY DISEASE W (ACUTE) EXACERBATION; J45.901 - UNSPECIFIED ASTHMA WITH (ACUTE) EXACERBATION Status: Acute Priority: High - My Orders Last 24 Hours: My Active Orders 07/11/20 16:25 RT Aerosol Therapy [RC] ASDIRECTED 07/11/20 16:26 RT Aerosol Therapy [RC] ASDIRECTED - Assessment/Plan Last 24 Hours: My Active Orders 07/11/20 16:25 RT Aerosol Therapy [RC] ASDIRECTED 07/11/20 16:26 RT Aerosol Therapy [RC] ASDIRECTED Plan: admission to the floor for nebs and IV meds. patient has a mal-functional neb machine at home that will need to be replaced by a new one otherwise she will continue to return to the ER for SOB.
[2020-07-11] MEDS ORDERED: Budesonide 0.5 MG/2 ML Neb Susp ONE (16:54)
[2020-07-11] MEDS ORDERED: Magnesium Sulfate/D5W 1 GM/100 ML BAG ONE (16:57)
[2020-07-11] MEDS ORDERED: Sodium Chloride 0.9% 500 ML IV SCH (17:15)
[2020-07-11] MEDS ORDERED: Albuterol/Ipratropium 3.0-0.5 MG/3 ML Neb Soln NEB PRN ×2 (17:15→21:14)
[2020-07-11] MEDS ORDERED: Non-Formulary Medication 1 Each (Ondansetron Hcl [Zofran] 4 MG) PO PRN (17:19)
[2020-07-11] MEDS ORDERED: ALBUTEROL SULFATE INH PRN (17:19)
[2020-07-11] MEDS: Albuterol/Ipratropium 3.0-0.5 MG/3 ML Neb Soln NEB SCH ×2 (18:45→21:13)
[2020-07-11 19:03] LABS: CORONAVIRUS COVID-19 NAA NEGATIVE (NEGATIVE)
[2020-07-11] MEDS: Nicotine 21 MG/24 Hr Patch TRDERM SCH (19:36)
[2020-07-11] MEDS: methylPREDNISolone Sodium Succinate 40 MG/1 ML SDV IVPUSH SCH (19:36)
[2020-07-11] MEDS ORDERED: METFORMIN HCL PO SCH (20:00)
[2020-07-11] MEDS ORDERED: RISPERIDONE PO SCH (20:00)
[2020-07-11] MEDS ORDERED: SITAGLIPTIN PHOS PO SCH (20:00)
[2020-07-11] MEDS ORDERED: Non-Formulary Medication 1 Each (Budesonide/Formoterol [Symbicort 160-4.5 Mcg] 2 INH) INH SCH (20:00)
[2020-07-11] MEDS ORDERED: Spironolactone 25 MG Tab PO SCH (20:00)
[2020-07-11] MEDS ORDERED: [UNRECOGNIZED DRUG - OTHER] PO SCH (20:00)
[2020-07-11] MEDS: Albuterol 0.083% 2.5 MG/3 ML Neb Soln NEB SCH ×2 (20:11→20:45)
[2020-07-11] MEDS: Mirtazapine 15 MG Tab PO SCH (20:42)
[2020-07-11] MEDS: Topiramate 25 MG Tab PO SCH (20:42)
[2020-07-11] MEDS: METFORMIN HCL PO SCH (20:43)
[2020-07-11] MEDS: QUEtiapine Fumarate 200 MG TABLET PO SCH (20:43)
[2020-07-11] MEDS: SITAGLIPTIN PHOS PO SCH (20:43)
[2020-07-11] MEDS ORDERED: Albuterol 8 GM Inhaler INH PRN (20:48)
[2020-07-11] MEDS: RISPERIDONE 2 MG PO SCH (20:51)
[2020-07-11] MEDS ORDERED: Ondansetron 4 MG Tab.DIS PO PRN (20:53)
[2020-07-11] MEDS: Montelukast 10 MG Tab PO SCH (21:08)
[2020-07-11] MEDS ORDERED: Acetaminophen 650 MG Tab.ER PO PRN (21:14)
[2020-07-11] MEDS ORDERED: Dicyclomine 10 MG Cap PO PRN (21:14)
[2020-07-11] MEDS ORDERED: Acetaminophen 325 MG Tab PO SCH (22:00)
[2020-07-11] MEDS: Formoterol/Mometasone 200-5 MCG 8.8 GM Inhaler IH SCH (22:17)
[2020-07-11] MEDS ORDERED: LORazepam 2 MG/ML SDV IVPUSH ONE (23:05)
[2020-07-11] MEDS ORDERED: LORazepam 2 MG/ML SDV ONE (23:08)
[2020-07-12] MEDS: Albuterol 0.083% 2.5 MG/3 ML Neb Soln NEB SCH ×7 (02:17→20:53)
[2020-07-12] MEDS: methylPREDNISolone Sodium Succinate 40 MG/1 ML SDV IVPUSH SCH ×3 (02:29→17:09)
[2020-07-12] MEDS: Omeprazole 20 MG Cap.CR PO SCH ×2 (05:34→08:01)
[2020-07-12] MEDS: SUMAtriptan 25 MG Tab PO PRN ×2 (05:34→20:55)
[2020-07-12] MEDS: Formoterol/Mometasone 200-5 MCG 8.8 GM Inhaler IH SCH ×2 (07:57→19:27)
[2020-07-12] MEDS: Nicotine 21 MG/24 Hr Patch TRDERM SCH (07:58)
[2020-07-12] MEDS: Aspirin 81 MG Tab.EC PO SCH (07:59)
[2020-07-12] MEDS: Baclofen 10 MG Tab PO SCH ×2 (07:59→19:18)
[2020-07-12] MEDS: Losartan 25 MG Tab PO SCH (07:59)
[2020-07-12] MEDS ORDERED: QUETIAPINE 100 MG PO SCH (08:00)
[2020-07-12] MEDS: amLODIPine 2.5 MG Tab PO SCH (08:00)
[2020-07-12] MEDS ORDERED: Non-Formulary Medication 1 Each (Montelukast [Singulair] 10 MG) PO SCH (08:00)
[2020-07-12] MEDS ORDERED: PRAMIPEXOLE DI HCL 0.25 MG PO SCH (08:00)
[2020-07-12] MEDS ORDERED: metFORMIN 500 MG Tab.ER PO SCH (08:00)
[2020-07-12] MEDS ORDERED: Furosemide 20 MG Tab PO SCH ×2 (08:00→12:00)
[2020-07-12] MEDS: Spironolactone 25 MG Tab PO SCH ×2 (08:00→11:58)
[2020-07-12] MEDS ORDERED: Spironolactone 25 MG Tab PO SCH (08:00)
[2020-07-12] MEDS: Topiramate 25 MG Tab PO SCH ×2 (08:01→19:18)
[2020-07-12] MEDS: METFORMIN HCL PO SCH ×2 (08:44→17:09)
[2020-07-12] MEDS: SITAGLIPTIN PHOS PO SCH ×2 (08:44→17:09)
[2020-07-12] MEDS ORDERED: Enoxaparin 80 MG/0.8 ML Syringe SUBCUT SCH (10:30)
--- NOTE | 2020-07-12 10:32 | PCM.HP.2 ---
H&P History of Present Illness - General Date of Service: 07/12/20 Admit Problem/Dx: Admission Diagnosis/Problem Admission Diagnosis/Problem COPD, Severe chronic obstructive pulmonary disease Source of Information: Patient History Limitations: Reports: No Limitations - History of Present Illness Initial Comments - Free Text/Narative: patient presented to the ER with a c/o SOB. h/o COPD, asthma and nicotine addiction. no fever or chills. Have used her nebs at home, but hasn't been helping. She reports that her machine is very old and probably not functioning well. Was admitted to the floor for stabilization. Nebs treatment, IV steroids and O2 supplement. Onset of Symptoms: Reports: Gradual Duration of Symptoms: Reports: Day(s): (3) Location: Reports: Chest Worsens with: Reports: Movement Headache Pain Score (Numeric/FACES): 9 - Related Data Allergies/Adverse Reactions: Allergies Allergy/AdvReac Type Severity Reaction Status Date / Time bisoprolol Allergy Severe Shortness Verified 07/12/20 13:18 of Breath adhesive tape Allergy Rash Verified 07/12/20 13:18 celecoxib [From Celebrex] Allergy Nausea and Verified 07/11/20 18:57 Vomiting pramipexole Allergy Diaphoresis Verified 07/12/20 13:18 ketamine AdvReac Intermediate Agitation Verified 07/11/20 18:57 Home Medications: Home Meds Omeprazole 20 mg PO BIDAC 04/14/13 [History] QUEtiapine [SEROquel] 100 mg PO QAM 06/06/15 [History] QUEtiapine Fumarate [Quetiapine Fumarate] 400 mg PO QPM 06/25/17 [History] Calcium Carbonate/Vitamin D3 [Calcium 600Mg-D3 400 Unit Sfgl] 1 tab PO BID 06/13/18 [History] Ubidecarenone [Co Q-10] 200 mg PO BEDTIME 10/04/18 [History] Mirtazapine [Remeron] 1 - 2 tab PO BEDTIME 01/25/19 [History] Albuterol Sulfate [Proair Digihaler] 2 inh INH Q4HR PRN 01/20/20 [History] Budesonide/Formoterol [Symbicort 160-4.5 MCG] 2 inh INH BID 01/20/20 [History] Topiramate 25 mg PO BID 01/20/20 [History] Varenicline [Chantix] 1 mg PO DAILY 01/20/20 [History] ondansetron HCL [Zofran] 4 mg PO Q4HR PRN 01/20/20 [History] risperiDONE [Risperdal] 5 mg PO BEDTIME 02/05/20 [History] Aspirin [Halfprin] 81 mg PO DAILY 04/05/20 [History] Losartan [Cozaar] 12.5 mg PO DAILY 04/05/20 [History] Montelukast [Singulair] 10 mg PO BEDTIME 04/05/20 [History] SUMAtriptan [Imitrex] 25 mg PO ASDIRECTED PRN 04/05/20 [History] sitaGLIPtin Phos/Metformin HCl [Janumet 50-1,000 MG] 1 tab PO BID 04/05/20 [History] Albuterol/Ipratropium [DuoNeb 3.0-0.5 MG/3 ML] 3 ml NEB Q4H neb 04/06/20 [Rx] Furosemide 40 mg PO DAILY #60 04/06/20 [Rx] Acetaminophen [Tylenol Arthritis] 1 - 2 tab PO Q8H PRN 07/11/20 [History] Baclofen 10 mg PO BID 07/11/20 [History] Dicyclomine [Bentyl] 10 mg PO TID PRN 07/11/20 [History] Docusate Sodium [Dulcolax Stool Softener] 100 mg PO BID PRN 07/11/20 [History] Ipratropium/Albuterol Sulfate [Iprat-Albut 0.5-3(2.5) MG/3 ML] 3 ml IH Q4H PRN 07/11/20 [History] Ketorolac [Toradol] 10 mg PO TID PRN 07/11/20 [History] Meloxicam [Mobic] 7.5 mg PO ASDIRECTED PRN 07/11/20 [History] QUEtiapine [SEROquel] 50 mg PO TID PRN 07/11/20 [History] Spironolactone [Aldactone] 2 tab PO BID 07/11/20 [History] atorvaSTATin [Lipitor] 20 mg PO BEDTIME 07/11/20 [History] rOPINIRole [Requip] 0.5 mg PO BEDTIME 07/11/20 [History] Albuterol [Proventil Neb Soln] 2.5 mg NEB Q4H #60 neb 07/13/20 [Rx] Azithromycin [Zithromax] 500 mg PO Q24H #4 tablet 07/13/20 [Rx] Nicotine [Habitrol] 21 mg TRDERM DAILY #14 patch 07/13/20 [Rx] QUEtiapine [SEROquel] 50 mg PO TID PRN tablet 07/13/20 [Rx] QUEtiapine [SEROquel] 100 mg PO QAM tablet 07/13/20 [Rx] SitaGLIPtin [Januvia] 50 mg PO BIDMEALS tablet 07/13/20 [Rx] Spironolactone [Aldactone] 50 mg PO BID@0800,1200 tablet 07/13/20 [Rx] amLODIPine [Norvasc] 2.5 mg PO DAILY #30 tablet 07/13/20 [Rx] predniSONE [Prednisone] 5 mg PO DAILY #3 tablet 07/13/20 [Rx] predniSONE [Prednisone] 10 mg PO DAILY #3 tablet 07/13/20 [Rx] predniSONE [Prednisone] 20 mg PO DAILY #3 tablet 07/13/20 [Rx] rOPINIRole [Requip] 0.5 mg PO BEDTIME tablet 07/13/20 [Rx] risperiDONE [RisperiDAL] 5 mg PO BEDTIME tablet 07/13/20 [Rx] Past Medical History - Past Health History Medical/Surgical History: Denies Medical/Surgical History HEENT History: Reports: Impaired Vision, Other (See Below) Other HEENT History: glasses for reading, Cardiovascular History: Reports: Heart Murmur, Hypertension Other Cardiovascular History: states recently has been told rufino has a valve problem but not bad enough for surgery Respiratory History: Reports: Asthma, Bronchitis, Recurrent, COPD, Pneumonia, Recurrent, Other (See Below) Other Respiratory History: Emphysema Gastrointestinal History: Reports: Bowel Obstruction, GERD, Irritable Bowel Syndrome Genitourinary History: Reports: None [employer] History: Reports: 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 Uterine Bleeding, Musculoskeletal History: Reports: Back Pain, Chronic Other Musculoskeletal History: back / butt pain, shoots down left leg Neurological History: Reports: Migraines, Neuropathy, Peripheral Psychiatric History: Reports: Anxiety, Depression, Suicide Attempt, Suicidal Ideation Other Psychiatric History: suicide attemp years ago, states got help and no long thinks of it Endocrine/Metabolic History: Reports: Diabetes, Type II, Obesity/BMI 30+ Hematologic History: Reports: Blood Transfusion(s), Iron Deficiency Oncologic (Cancer) History: Reports: None Dermatologic History: Reports: Eczema, Other (See Below) Other Dermatologic History: Allergy to paper tape - Infectious Disease History Infectious Disease History: Reports: Chicken Pox, Measles, Rubella - Past Surgical History HEENT Surgical History: Reports: Eye Surgery Other HEENT Surgeries/Procedures: Eye Surgery, when 6 yr and grade school Cardiovascular Surgical History: Reports: None Respiratory Surgical History: Reports: None GI Surgical History: Reports: None Other GI Surgeries/Procedures: ABD. SURGERY AND SCAR TISSUE REMOVAL Female Surgical History: Reports: Section, Hysterectomy, Other (See Below) Other Female Surgeries/Procedures: appendix Endocrine Surgical History: Reports: None Neurological Surgical History: Reports: None Musculoskeletal Surgical History: Reports: None Dermatological Surgical History: Reports: None Social & Family History - Family History Family Medical History: No Pertinent Family History Cardiac: Reports: None Musculoskeletal: Reports: Arthritis, Back pain, Chronic Neurological: Reports: None Psychiatric: Reports: Depression Endocrine/Metabolic: Reports: None Oncologic: Reports: None - Tobacco Use Tobacco Use Status *Q: Current Every Day Tobacco User Years of Tobacco use: 35 Packs/Tins Daily: 0.3 Second Hand Smoke Exposure: Yes - Caffeine Use Caffeine Use: Reports: Coffee, Soda Other Caffeine Use: 2 cups a day Caffeine Use Comment: 2 cups of coffee per day 1 soda per day - Recreational Drug Use Recreational Drug Use: No H&P Review of Systems - Review of Systems: Review Of Systems: Comprehensive ROS is negative, except as noted in HPI. HEENT: Reports: No Symptoms Pulmonary: Reports: Shortness of Breath, Wheezing Cardiovascular: Reports: No Symptoms Gastrointestinal: Reports: No Symptoms Genitourinary: Reports: No Symptoms Musculoskeletal: Reports: No Symptoms Skin: Reports: No Symptoms Psychiatric: Reports: Anxiety Neurological: Reports: No Symptoms Exam - Exam Exam: See Below - Vital Signs Vital Signs: Last Vital Signs Temp 36.2 C 07/12/20 08:00 Pulse 102 H 07/12/20 08:00 Resp 24 H 07/12/20 08:00 BP 180/81 H 07/12/20 08:00 Pulse Ox 96 07/12/20 08:00 Weight: 113.489 kg - Exam Quality Assessment: Supplemental Oxygen General: Alert, Oriented, Mild Distress HEENT: PERRLA, EOMI Lungs: Decreased Breath Sounds, Wheezing Cardiovascular: Regular Rate GI/Abdominal Exam: Normal Bowel Sounds Extremities: Normal Inspection Neurological: Cranial Nerves Intact Neuro Extensive - Mental Status: Alert, Oriented x3, Normal Mood/Affect - Patient Data Lab Results Last 24 hrs: Laboratory Results - last 24 hr 07/11/20 Range/Units 18:29 SARS-CoV-2 RNA (AMANDA) Negative (NEGATIVE) Sepsis Event Note - Evaluation Sepsis Screening Result: No Definite Risk - Focused Exam Vital Signs: Vital Signs Temp Pulse Resp BP BP Pulse Ox 07/12/20 08:00 36.2 C 102 H 24 H 180/81 H 180/81 H 96 07/12/20 07:59 180/81 H 07/12/20 02:58 36.1 C 97 20 148/64 H 98 07/12/20 00:40 28 H 07/11/20 23:00 103 H 36 H 93 L - Problem List (1) Acute exacerbation of COPD with asthma SNOMED Code(s): 8800353536317 ICD Code: J44.1 - CHRONIC OBSTRUCTIVE PULMONARY DISEASE W (ACUTE) EXACERBATION; J45.901 - UNSPECIFIED ASTHMA WITH (ACUTE) EXACERBATION Status: Acute Priority: High Problem List Initiated/Reviewed/Updated: Yes Orders Last 24hrs: Active Orders 24 hr Category Date Time Status Patient Status [ADT] Routine ADT 07/11/20 17:15 Active Oxygen Therapy [RC] 1730 Care 07/11/20 17:15 Active RT Aerosol Therapy [RC] ASDIRECTED Care 07/11/20 21:19 Active VTE/DVT Education [RC] DAILY Care 07/11/20 17:15 Active Vital Signs [RC] Q4H Care 07/11/20 17:15 Active Consistent Carbohydrate Diet [DIET] Diet 07/12/20 Breakfast Ordered CULTURE MRSA SURVEY [RM] Routine Lab 07/11/20 18:36 Received CULTURE MRSA SURVEY [RM] Routine Lab 07/11/20 19:21 Ordered Acetaminophen [Tylenol Arthritis Pain] Med 07/11/20 21:14 Active 650 mg PO Q8H PRN Albuterol [Proventil Neb Soln] Med 07/11/20 17:30 Active 2.5 mg NEB Q4H Albuterol [Ventolin HFA] Med 07/11/20 20:48 Active 0 gm INH Q4H PRN Albuterol/Ipratropium [DuoNeb 3.0-0.5 MG/3 ML] Med 07/11/20 21:14 Active 3 ml NEB Q4H PRN Aspirin [Halfprin] Med 07/12/20 08:00 Active 81 mg PO DAILY Azithromycin [Zithromax] Med 07/12/20 10:30 Active 500 mg PO Q24H Baclofen [Lioresal] Med 07/12/20 08:00 Active 10 mg PO BID Dicyclomine [Bentyl] Med 07/11/20 21:14 Active 10 mg PO TID PRN Enoxaparin [Lovenox] Med 07/12/20 10:30 Ordered 80 mg SUBCUT DAILY Furosemide [Lasix] Med 07/12/20 12:00 Active 40 mg PO DAILY@1200 Losartan [Cozaar] Med 07/12/20 08:00 Active 25 mg PO DAILY Mirtazapine [Remeron] Med 07/11/20 20:00 Active 30 mg PO BEDTIME Mometasone/Formoterol [Dulera 200-5 MCG] Med 07/11/20 21:00 Active 0 puff IH BID Montelukast [Singulair] Med 07/11/20 21:00 Active 10 mg PO BEDTIME Nicotine [Habitrol] Med 07/11/20 17:30 Active 21 mg TRDERM DAILY Omeprazole Med 07/12/20 07:00 Active 20 mg PO ACBREAKFAST QUEtiapine Fumarate [Quetiapine Fumarate] Med 07/11/20 20:00 Active 400 mg PO QPM QUEtiapine [SEROquel] Med 07/12/20 08:00 Active 100 mg PO QAM QUEtiapine [SEROquel] Med 07/11/20 21:14 Active 50 mg PO TID PRN Risperidone [Risperdal] Med 07/11/20 20:45 Active 5 mg PO BEDTIME SUMAtriptan [Imitrex] Med 07/12/20 05:13 Active 25 mg PO Q2H PRN Sitagliptin Phos/Metformin Hcl [Janumet 50-1,000 Mg] Med 07/11/20 20:30 Active 1 tab PO BIDMEALS Sodium Chloride 0.9% [Normal Saline] 500 ml Med 07/11/20 17:15 Active IV ASDIRECTED Spironolactone [Aldactone] Med 07/12/20 08:00 Active 50 mg PO BID@0800,1200 Topiramate [Topamax] Med 07/11/20 20:00 Active 25 mg PO BID amLODIPine [Norvasc] Med 07/12/20 08:00 Active 2.5 mg PO DAILY atorvaSTATin [Lipitor] Med 07/12/20 20:00 Active 20 mg PO BEDTIME methylPREDNISolone Sod Succ [Solu-MEDROL] Med 07/11/20 17:30 Active 40 mg IVPUSH Q8H rOPINIRole [Requip] Med 07/12/20 20:00 Active 0.5 mg PO BEDTIME Resuscitation Status Routine Resus Stat 07/11/20 17:15 Ordered Medication Orders Acetaminophen (Tylenol Arthritis Pain) 650 mg PO Q8H PRN PRN Reason: Pain Albuterol (Proventil Neb Soln) 2.5 mg NEB Q4H [facility] Last Admin: 07/12/20 08:45 Dose: 2.5 mg Documented by: Admin: 07/12/20 05:30 Dose: 2.5 mg Documented by: Admin: 07/12/20 02:51 Dose: 2.5 mg Documented by: Admin: 07/11/20 20:45 Dose: 2.5 mg Documented by: Admin: 07/11/20 20:11 Dose: Not Given Documented by: SHAWN Albuterol (Ventolin Hfa) 0 gm INH Q4H PRN PRN Reason: Dyspnea Albuterol/Ipratropium (Duoneb 3.0-0.5 Mg/3 Ml) 3 ml NEB Q4H PRN PRN Reason: Shortness of Breath Amlodipine Besylate (Norvasc) 2.5 mg PO DAILY [facility] Last Admin: 07/12/20 08:00 Dose: 2.5 mg Documented by: KHANH Aspirin (Halfprin) 81 mg PO DAILY [facility] Last Admin: 07/12/20 07:59 Dose: 81 mg Documented by: KHANH Atorvastatin Calcium (Lipitor) 20 mg PO BEDTIME ARIK Azithromycin (Zithromax) 500 mg PO Q24H ARIK Baclofen (Lioresal) 10 mg PO BID [facility] Last Admin: 07/12/20 07:59 Dose: 10 mg Documented by: WEEMAMY Dicyclomine HCl (Bentyl) 10 mg PO TID PRN PRN Reason: Abdominal Pain Enoxaparin Sodium (Lovenox) 80 mg SUBCUT DAILY [facility] Furosemide (Lasix) 40 mg PO DAILY@1200 [facility] Sodium Chloride (Normal Saline) 500 mls @ 30 mls/hr IV ASDIRECTED [facility] Last Admin: 07/11/20 17:17 Dose: 30 mls/hr Documented by: MARILYNN Losartan Potassium (Cozaar) 25 mg PO DAILY [facility] Last Admin: 07/12/20 07:59 Dose: 25 mg Documented by: KHANH Methylprednisolone Sodium Succinate (Solu-Medrol) 40 mg IVPUSH Q8H [facility] Last Admin: 07/12/20 08:45 Dose: 40 mg Documented by: Admin: 07/12/20 02:29 Dose: 40 mg Documented by: Admin: 07/11/20 19:36 Dose: 40 mg Documented by: KHANH Mirtazapine (Remeron) 30 mg PO BEDTIME [facility] Last Admin: 07/11/20 20:42 Dose: 30 mg Documented by: SHAWN Mometasone Furoate/Formoterol Fumar (Dulera 200-5 Mcg) 0 puff IH BID [facility] Last Admin: 07/12/20 07:57 Dose: 2 puff Documented by: Admin: 07/11/20 22:17 Dose: Not Given Documented by: SHAWN Montelukast Sodium (Singulair) 10 mg PO BEDTIME [facility] Last Admin: 07/11/20 21:08 Dose: 10 mg Documented by: SHAWN Nicotine (Habitrol) 21 mg TRDERM DAILY [facility] Last Admin: 07/12/20 07:58 Dose: 21 mg Documented by: Admin: 07/11/20 19:36 Dose: 21 mg Documented by: KHANH Sitagliptin Phos/Metformin Hcl [ Janumet 50-1,000 Mg] Tab*Own Med* 1 tab PO BIDMEALS [facility] Last Admin: 07/12/20 08:44 Dose: 1 tab Documented by: Admin: 07/11/20 20:43 Dose: 1 tab Documented by: SHAWN Risperidone ( Risperdal) 2 Mg Tab* *Own Med 5 mg PO BEDTIME [facility] Last Admin: 07/11/20 20:51 Dose: 5 mg Documented by: SHAWN Omeprazole (Omeprazole) 20 mg PO ACBREAKFAST [facility] Last Admin: 07/12/20 08:01 Dose: Not Given Documented by: Admin: 07/12/20 05:34 Dose: 20 mg Documented by: SHAWN Quetiapine Fumarate (Quetiapine Fumarate) 400 mg PO QPM [facility] Last Admin: 07/11/20 20:43 Dose: 400 mg Documented by: SHAWN Quetiapine Fumarate (Seroquel) 100 mg PO QAM [facility] Last Admin: 07/12/20 07:59 Dose: 100 mg Documented by: KHANH Quetiapine Fumarate (Seroquel) 50 mg PO TID PRN PRN Reason: Anxiety Last Admin: 07/11/20 21:30 Dose: 150 mg Documented by: SHAWN Ropinirole HCl (Requip) 0.5 mg PO BEDTIME [facility] Spironolactone (Aldactone) 50 mg PO BID@0800,1200 [facility] Last Admin: 07/12/20 08:00 Dose: 50 mg Documented by: KHANH Sumatriptan Succinate (Imitrex) 25 mg PO Q2H PRN PRN Reason: Headache Last Admin: 07/12/20 05:34 Dose: 25 mg Documented by: SHAWN Topiramate (Topamax) 25 mg PO BID [facility] Last Admin: 07/12/20 08:01 Dose: 25 mg Documented by: Admin: 07/11/20 20:42 Dose: 25 mg Documented by: SHAWN Assessment/Plan Comment:: COPD exacerbation - Duoneb q4 hrs, IV solumedrol 62.5mg q12, azithromycin 500mg PO, O2 supplement as needed for hypoxia asthma exacerbation - as above nicotine addiction - nicotine patch. education DVT ppx
[2020-07-12] MEDS: Azithromycin 500 MG Tab PO SCH (11:04)
[2020-07-12] MEDS: Mirtazapine 15 MG Tab PO SCH (19:19)
[2020-07-12] MEDS: QUEtiapine Fumarate 200 MG TABLET PO SCH (19:19)
[2020-07-12] MEDS: Montelukast 10 MG Tab PO SCH (19:21)
[2020-07-12] MEDS: RISPERIDONE 2 MG PO SCH (19:27)
[2020-07-12] MEDS ORDERED: Sodium Chloride 0.9% 10 ML Syringe FLUSH PRN (19:32)
[2020-07-12] MEDS ORDERED: rOPINIRole 0.25 MG Tab PO SCH (20:00)
[2020-07-12] MEDS ORDERED: atorvaSTATin 20 MG Tab PO SCH (20:00)
[2020-07-13] MEDS: methylPREDNISolone Sodium Succinate 40 MG/1 ML SDV IVPUSH SCH ×2 (02:22→08:41)
[2020-07-13] MEDS: Albuterol 0.083% 2.5 MG/3 ML Neb Soln NEB SCH ×3 (03:12→08:41)
[2020-07-13] MEDS: Omeprazole 20 MG Cap.CR PO SCH ×2 (05:08→06:17)
[2020-07-13] MEDS: Nicotine 21 MG/24 Hr Patch TRDERM SCH (07:45)
[2020-07-13] MEDS: Formoterol/Mometasone 200-5 MCG 8.8 GM Inhaler IH SCH (07:45)
[2020-07-13] MEDS: Baclofen 10 MG Tab PO SCH (07:46)
[2020-07-13] MEDS: amLODIPine 2.5 MG Tab PO SCH (07:46)
[2020-07-13] MEDS: Losartan 25 MG Tab PO SCH (07:46)
[2020-07-13] MEDS: Topiramate 25 MG Tab PO SCH (07:47)
[2020-07-13] MEDS: Aspirin 81 MG Tab.EC PO SCH (07:47)
[2020-07-13] MEDS: METFORMIN HCL PO SCH (07:48)
[2020-07-13] MEDS: Spironolactone 25 MG Tab PO SCH (07:48)
[2020-07-13] MEDS: SITAGLIPTIN PHOS PO SCH (07:48)
[2020-07-13 07:51] VITALS: BP 161/67
[2020-07-13] MEDS ORDERED: Enoxaparin 60 MG/0.6 ML Syringe SUBCUT SCH (08:00)
[2020-07-13 09:13] VITALS: PULSE 93
[2020-07-13] MEDS: Azithromycin 500 MG Tab PO SCH (10:30)
--- NOTE | 2020-07-13 13:11 | PCM.DCSUM1 ---
Discharge Summary - Hospital Course Brief History: h/o severe COPD, asthma and nicotine addiction with recurrent hospitlizations for flareups. was addmited to the floor for resp stabilization. Duoneb q4 hrs, IV corticosteroids, and Oral Abx. was also placed on O2 for hypoxia. She was noted to do well while at rest, but get severly dyspneic after exertion. This has improved after 48 hrs of treatment. Reports she is able to move easier with less SOB. not rquiring O2 anymore and less neb treatments. Diagnosis: Stroke: No Modified Newton Scale: No Signif.Disability Despite Sympt.Able to Carry Out Usual Act./Duties Modified Newton Scale Score: 1 - Discharge Data Discharge Date: 07/13/20 Discharge Disposition: Home, Self-Care 01 Condition: Good - Referral to Home Health Primary Care Physician: PCP None - Discharge Diagnosis/Problem(s) (1) Acute exacerbation of COPD with asthma SNOMED Code(s): 7221221278598 ICD Code: J44.1 - CHRONIC OBSTRUCTIVE PULMONARY DISEASE W (ACUTE) EXACERBATION; J45.901 - UNSPECIFIED ASTHMA WITH (ACUTE) EXACERBATION Status: Acute Priority: High - Patient Instructions Diet: Heart Healthy Diet Driving: May Drive Today Showering/Bathing: May Shower Notify Provider of: Fever - Discharge Plan *PRESCRIPTION DRUG MONITORING PROGRAM REVIEWED*: Not Applicable *COPY OF PRESCRIPTION DRUG MONITORING REPORT IN PATIENT MARY ELLEN: Not Applicable Prescriptions/Med Rec: Nicotine [Habitrol] 21 mg TRDERM DAILY #14 patch amLODIPine [Norvasc] 2.5 mg PO DAILY #30 tablet predniSONE [Prednisone] 10 mg PO DAILY #3 tablet predniSONE [Prednisone] 20 mg PO DAILY #3 tablet predniSONE [Prednisone] 5 mg PO DAILY #3 tablet Albuterol [Proventil Neb Soln] 2.5 mg NEB Q4H #60 neb Azithromycin [Zithromax] 500 mg PO Q24H #4 tablet Home Medications: Home Meds Omeprazole 20 mg PO BIDAC 04/14/13 [History] QUEtiapine [SEROquel] 100 mg PO QAM 06/06/15 [History] QUEtiapine Fumarate [Quetiapine Fumarate] 400 mg PO QPM 06/25/17 [History] Calcium Carbonate/Vitamin D3 [Calcium 600Mg-D3 400 Unit Sfgl] 1 tab PO BID 06/13/18 [History] Ubidecarenone [Co Q-10] 200 mg PO BEDTIME 10/04/18 [History] Mirtazapine [Remeron] 1 - 2 tab PO BEDTIME 01/25/19 [History] Albuterol Sulfate [Proair Digihaler] 2 inh INH Q4HR PRN 01/20/20 [History] Budesonide/Formoterol [Symbicort 160-4.5 MCG] 2 inh INH BID 01/20/20 [History] Topiramate 25 mg PO BID 01/20/20 [History] Varenicline [Chantix] 1 mg PO DAILY 01/20/20 [History] ondansetron HCL [Zofran] 4 mg PO Q4HR PRN 01/20/20 [History] risperiDONE [Risperdal] 5 mg PO BEDTIME 02/05/20 [History] Aspirin [Halfprin] 81 mg PO DAILY 04/05/20 [History] Losartan [Cozaar] 12.5 mg PO DAILY 04/05/20 [History] Montelukast [Singulair] 10 mg PO BEDTIME 04/05/20 [History] SUMAtriptan [Imitrex] 25 mg PO ASDIRECTED PRN 04/05/20 [History] sitaGLIPtin Phos/Metformin HCl [Janumet 50-1,000 MG] 1 tab PO BID 04/05/20 [History] Albuterol/Ipratropium [DuoNeb 3.0-0.5 MG/3 ML] 3 ml NEB Q4H neb 04/06/20 [Rx] Furosemide 40 mg PO DAILY #60 04/06/20 [Rx] Acetaminophen [Tylenol Arthritis] 1 - 2 tab PO Q8H PRN 07/11/20 [History] Baclofen 10 mg PO BID 07/11/20 [History] Dicyclomine [Bentyl] 10 mg PO TID PRN 07/11/20 [History] Docusate Sodium [Dulcolax Stool Softener] 100 mg PO BID PRN 07/11/20 [History] Ipratropium/Albuterol Sulfate [Iprat-Albut 0.5-3(2.5) MG/3 ML] 3 ml IH Q4H PRN 07/11/20 [History] Ketorolac [Toradol] 10 mg PO TID PRN 07/11/20 [History] Meloxicam [Mobic] 7.5 mg PO ASDIRECTED PRN 07/11/20 [History] QUEtiapine [SEROquel] 50 mg PO TID PRN 07/11/20 [History] Spironolactone [Aldactone] 2 tab PO BID 07/11/20 [History] atorvaSTATin [Lipitor] 20 mg PO BEDTIME 07/11/20 [History] rOPINIRole [Requip] 0.5 mg PO BEDTIME 07/11/20 [History] Albuterol [Proventil Neb Soln] 2.5 mg NEB Q4H #60 neb 07/13/20 [Rx] Azithromycin [Zithromax] 500 mg PO Q24H #4 tablet 07/13/20 [Rx] Nicotine [Habitrol] 21 mg TRDERM DAILY #14 patch 07/13/20 [Rx] QUEtiapine [SEROquel] 50 mg PO TID PRN tablet 07/13/20 [Rx] QUEtiapine [SEROquel] 100 mg PO QAM tablet 07/13/20 [Rx] SitaGLIPtin [Januvia] 50 mg PO BIDMEALS tablet 07/13/20 [Rx] Spironolactone [Aldactone] 50 mg PO BID@0800,1200 tablet 07/13/20 [Rx] amLODIPine [Norvasc] 2.5 mg PO DAILY #30 tablet 07/13/20 [Rx] predniSONE [Prednisone] 5 mg PO DAILY #3 tablet 07/13/20 [Rx] predniSONE [Prednisone] 10 mg PO DAILY #3 tablet 07/13/20 [Rx] predniSONE [Prednisone] 20 mg PO DAILY #3 tablet 07/13/20 [Rx] rOPINIRole [Requip] 0.5 mg PO BEDTIME tablet 07/13/20 [Rx] risperiDONE [RisperiDAL] 5 mg PO BEDTIME tablet 07/13/20 [Rx] Other Amb Orders: DME for Discharge [COMM] Location: None Selected Patient Handouts: Chronic Obstructive Pulmonary Disease Exacerbation, [id number], Coping with Quitting Smoking, Health Risks of Smoking, Azithromycin tablets, Amlodipine tablets, Nicotine skin patches, Prednisone tablets, Steps to Quit Smoking Forms: ED Department Discharge - Discharge Summary/Plan Comment DC Time >30 min.: Yes Discharge Summary/Plan Comment: to be d/cd home on a new neb machine, corticosteroids, and oral ABX. Also was noted to be hypertensive for which lisinopril was started at 2.5mg PO daily f/u w PCP in 1-2 weeks - General Info Date of Service: 07/13/20 Functional Status: Reports: Tolerating Diet, Ambulating, Incentive Spirometry - Review of Systems General: Reports: No Symptoms HEENT: Reports: No Symptoms Pulmonary: Reports: Shortness of Breath (improved) Cardiovascular: Reports: No Symptoms Gastrointestinal: Reports: No Symptoms Genitourinary: Reports: No Symptoms Musculoskeletal: Reports: No Symptoms Skin: Reports: No Symptoms Neurological: Reports: No Symptoms - Patient Data Vitals - Most Recent: Last Vital Signs Temp 36.2 C 07/13/20 08:00 Pulse 93 07/13/20 08:00 Resp 18 07/13/20 08:00 BP 161/67 H 07/13/20 08:00 Pulse Ox 97 07/13/20 08:00 Weight - Most Recent: 110.858 kg I&O - Last 24 hours: Intake & Output 07/12/20 07/13/20 07/13/20 22:59 06:59 14:59 Intake Total 1600 840 Output Total 2500 750 Balance -900 90 RONALDO Results - Last 24 hrs: Microbiology 07/11/20 18:36 MRSA Surveillance Culture - Final Axilla, Left NO MRSA ISOLATED Med Orders - Current: Current Medications Discontinued Medications Acetaminophen (Tylenol) 650 mg PO Q8HR [facility] Last Admin: 07/11/20 21:30 Dose: 650 mg Documented by: Acetaminophen (Tylenol Arthritis Pain) 650 mg PO Q8H PRN PRN Reason: Pain Albuterol (Proventil Neb Soln) 2.5 mg NEB ONETIME ONE Stop: 07/11/20 16:26 Last Admin: 07/11/20 16:10 Dose: 2.5 mg Documented by: Albuterol (Proventil Neb Soln) 2.5 mg NEB Q4H [facility] Last Admin: 07/13/20 08:41 Dose: 2.5 mg Documented by: Albuterol (Ventolin Hfa) 0 gm INH Q4H PRN PRN Reason: Dyspnea Albuterol/Ipratropium (Duoneb 3.0-0.5 Mg/3 Ml) 3 ml NEB QID PRN PRN Reason: Shortness Of Breath/wheezing Albuterol/Ipratropium (Duoneb 3.0-0.5 Mg/3 Ml) 3 ml NEB Q4H [facility] Last Admin: 07/11/20 21:13 Dose: 3 ml Documented by: Albuterol/Ipratropium (Duoneb 3.0-0.5 Mg/3 Ml) 3 ml NEB Q4H PRN PRN Reason: Shortness of Breath Amlodipine Besylate (Norvasc) 2.5 mg PO DAILY [facility] Last Admin: 07/13/20 07:46 Dose: 2.5 mg Documented by: Aspirin (Halfprin) 81 mg PO DAILY [facility] Last Admin: 07/13/20 07:47 Dose: 81 mg Documented by: Atorvastatin Calcium (Lipitor) 20 mg PO BEDTIME [facility] Last Admin: 07/12/20 19:18 Dose: 20 mg Documented by: Azithromycin (Zithromax) 500 mg PO Q24H [facility] Last Admin: 07/13/20 10:30 Dose: 500 mg Documented by: Baclofen (Lioresal) 10 mg PO BID [facility] Last Admin: 07/13/20 07:46 Dose: 10 mg Documented by: Budesonide (Pulmicort) 0.5 mg NEB ONETIME ONE Stop: 07/11/20 16:27 Last Admin: 07/11/20 16:46 Dose: 0.5 mg Documented by: Budesonide (Pulmicort) Confirm Administered Dose 0.5 mg .ROUTE .STK-MED ONE Stop: 07/11/20 16:55 Last Admin: 07/11/20 17:16 Dose: Not Given Documented by: Dicyclomine HCl (Bentyl) 10 mg PO TID PRN PRN Reason: Abdominal Pain Enoxaparin Sodium (Lovenox) 80 mg SUBCUT DAILY [facility] Last Admin: 07/12/20 11:05 Dose: 80 mg Documented by: Enoxaparin Sodium (Lovenox) 60 mg SUBCUT DAILY [facility] Last Admin: 07/13/20 08:41 Dose: 60 mg Documented by: Furosemide (Lasix) 40 mg PO DAILY [facility] Furosemide (Lasix) 40 mg PO DAILY@1200 [facility] Last Admin: 07/12/20 11:58 Dose: 40 mg Documented by: Magnesium Sulfate/Dextrose (Magnesium Sulfate In D5w 100 Premix) Confirm Administered Dose 1 gm in 100 mls @ as directed .ROUTE .STK-MED ONE Stop: 07/11/20 16:58 Last Admin: 07/11/20 17:16 Dose: Not Given Documented by: Sodium Chloride (Normal Saline) 500 mls @ 30 mls/hr IV ASDIRECTED [facility] Last Admin: 07/11/20 17:17 Dose: 30 mls/hr Documented by: Lorazepam (Ativan) Confirm Administered Dose 2 mg .ROUTE .STK-MED ONE Stop: 07/11/20 23:09 Last Admin: 07/11/20 23:17 Dose: Not Given Documented by: Lorazepam (Ativan) 1 mg IVPUSH ONETIME ONE Stop: 07/11/20 23:06 Last Admin: 07/11/20 23:13 Dose: 1 mg Documented by: Losartan Potassium (Cozaar) 25 mg PO DAILY [facility] Last Admin: 07/13/20 07:46 Dose: 25 mg Documented by: Magnesium Sulfate/Dextrose (Magnesium Sulfate In D5w 100 Premix) 1 gm IV NOW STA Stop: 07/11/20 16:26 Last Admin: 07/11/20 17:14 Dose: 1 gm Documented by: Metformin HCl (Glucophage Xr) 1,000 mg PO DAILY [facility] Metformin HCl (Glucophage) 1,000 mg PO BIDMEALS [facility] Methylprednisolone Sodium Succinate (Solu-Medrol) 40 mg IVPUSH Q8H [facility] Last Admin: 07/13/20 08:41 Dose: 40 mg Documented by: Mirtazapine (Remeron) 30 mg PO BEDTIME [facility] Last Admin: 07/12/20 19:19 Dose: 30 mg Documented by: Mometasone Furoate/Formoterol Fumar (Dulera 200-5 Mcg) 0 puff IH BID [facility] Last Admin: 07/13/20 07:45 Dose: 2 puff Documented by: Montelukast Sodium (Singulair) 10 mg PO BEDTIME [facility] Last Admin: 07/12/20 19:21 Dose: 10 mg Documented by: Nicotine (Habitrol) 21 mg TRDERM DAILY [facility] Last Admin: 07/13/20 07:45 Dose: 21 mg Documented by: Non-Formulary Medication (Albuterol Sulfate [Proair Digihaler]) 2 inh INH Q4HR PRN PRN Reason: Dyspnea Non-Formulary Medication (Budesonide/Formoterol [Symbicort 160-4.5 Mcg]) 2 inh INH BID [facility] Last Admin: 07/11/20 22:19 Dose: Not Given Documented by: Non-Formulary Medication (Montelukast [Singulair]) 10 mg PO DAILY [facility] Non-Formulary Medication (Ondansetron Hcl [Zofran]) 4 mg PO Q4HR PRN PRN Reason: Nausea Non-Formulary Medication (Pramipexole Di-Hcl [Pramipexole Dihydrochloride]) 0.25 mg PO DAILY [facility] Non-Formulary Medication (Quetiapine [Seroquel]) 100 mg PO QAM [facility] Non-Formulary Medication (Risperidone [Risperdal]) 5 mg PO BEDTIME [facility] Last Admin: 07/11/20 22:19 Dose: Not Given Documented by: Non-Formulary Medication (Sitagliptin Phos/Metformin Hcl [Janumet 50-1,000 Mg]) 50 tab PO BID [facility] Last Admin: 07/11/20 22:19 Dose: Not Given Documented by: Sitagliptin Phos/Metformin Hcl [ Janumet 50-1,000 Mg] Tab*Own Med* 1 tab PO BIDMEALS [facility] Last Admin: 07/13/20 07:48 Dose: 1 tab Documented by: Risperidone ( Risperdal) 2 Mg Tab* *Own Med 5 mg PO BEDTIME [facility] Last Admin: 07/12/20 19:27 Dose: 5 mg Documented by: Omeprazole (Omeprazole) 20 mg PO ACBREAKFAST [facility] Last Admin: 07/13/20 06:17 Dose: Not Given Documented by: Ondansetron HCl (Zofran Odt) 4 mg PO Q4H PRN PRN Reason: Nausea Quetiapine Fumarate (Quetiapine Fumarate) 400 mg PO QPM [facility] Last Admin: 07/12/20 19:19 Dose: 400 mg Documented by: Quetiapine Fumarate (Seroquel) 100 mg PO QAM [facility] Last Admin: 07/13/20 07:45 Dose: 100 mg Documented by: Quetiapine Fumarate (Seroquel) Confirm Administered Dose 150 mg .ROUTE .STK-MED ONE Stop: 07/11/20 21:06 Last Admin: 07/11/20 21:13 Dose: Not Given Documented by: Quetiapine Fumarate (Seroquel) 50 mg PO TID PRN PRN Reason: Anxiety Last Admin: 07/12/20 19:19 Dose: 150 mg Documented by: Risperidone (Risperidal) 5 mg PO BEDTIME [facility] Ropinirole HCl (Requip) 0.5 mg PO BEDTIME [facility] Last Admin: 07/12/20 19:19 Dose: 0.5 mg Documented by: Sitagliptin Phosphate (Januvia) 50 mg PO BIDMEALS [facility] Sodium Chloride (Saline Flush) 10 ml FLUSH ASDIRECTED PRN PRN Reason: IV Use Last Admin: 07/12/20 20:53 Dose: 10 ml Documented by: Spironolactone (Aldactone) 75 mg PO BID [facility] Last Admin: 07/11/20 22:18 Dose: Not Given Documented by: Spironolactone (Aldactone) 50 mg PO BID@0800,1200 [facility] Last Admin: 07/13/20 07:48 Dose: 50 mg Documented by: Spironolactone (Aldactone) 50 mg PO BID [facility] Sumatriptan Succinate (Imitrex) 25 mg PO Q2H PRN PRN Reason: Headache Last Admin: 07/12/20 20:55 Dose: 25 mg Documented by: Topiramate (Topamax) 25 mg PO BID [facility] Last Admin: 07/13/20 07:47 Dose: 25 mg Documented by: - Exam Quality Assessment: Reports: Supplemental Oxygen (resolved) General: Reports: Alert, Oriented, Cooperative, No Acute Distress HEENT: Reports: Pupils Equal Lungs: Reports: Clear to Auscultation, Normal Respiratory Effort Cardiovascular: Reports: Regular Rate, Regular Rhythm GI/Abdominal Exam: Normal Bowel Sounds Skin: Reports: Warm
[2020-07-13] MEDS ORDERED: metFORMIN 1,000 MG Tab PO SCH (17:00)
[2020-07-13] MEDS ORDERED: SitaGLIPtin 25 MG Tab PO SCH (17:00)
[2020-07-13] MEDS ORDERED: risperiDONE 1 MG Tab PO SCH (20:00)
== END 2020-07-13 11:50 | disposition home or self-care (01) | DRG 202 ==
LOC: LB.ED 15:45 → LB.MS 17:15 → UNDOADMOB 17:30 → INTOOBSV 17:30 → LB.MS 17:30 → OBSVTOIN 17:30
PROVIDERS: ADMIT Surgery; ATTEND Surgery
DX: J43.1 Panlobular emphysema (principal); H54.7 Unspecified visual loss; J45.901 Unspecified asthma with (acute) exacerbation; G89.29 Other chronic pain; M54.9 Dorsalgia, unspecified; Z68.41 Body mass index [BMI] 40.0-44.9, adult; J43.9 Emphysema, unspecified; I10 Essential (primary) hypertension; Z88.8 Allergy status to other drugs, medicaments and biological substances; Z91.048 Other nonmedicinal substance allergy status; Z79.84 Long term (current) use of oral hypoglycemic drugs; Z79.82 Long term (current) use of aspirin; Z79.51 Long term (current) use of inhaled steroids; Z79.899 Other long term (current) drug therapy; Z87.01 Personal history of pneumonia (recurrent); J44.9 Chronic obstructive pulmonary disease, unspecified; K21.9 Gastro-esophageal reflux disease without esophagitis; F17.210 Nicotine dependence, cigarettes, uncomplicated; F41.9 Anxiety disorder, unspecified; F32.9 Major depressive disorder, single episode, unspecified; Z90.710 Acquired absence of both cervix and uterus; Z98.890 Other specified postprocedural states; F17.200 Nicotine dependence, unspecified, uncomplicated; E11.9 Type 2 diabetes mellitus without complications; Z79.4 Long term (current) use of insulin; Z20.828 Contact with and (suspected) exposure to other viral communicable diseases; E66.9 Obesity, unspecified
CPT/HCPCS: 36415; 71045; 80053; 84484; 85025; 93005; 94640; 96374; 99221; 99239; 99284; 99285-25; A0425; A0429; A9270-GY; J1650; J2060; J2920; J2930; J3475; J7030; J7512; J7620-GY; U0002

== ENCOUNTER 2020-11-10 20:03 | Emergency (ER) | payer MEDICARE, MEDICAID ==
[2020-11-10] MEDS ORDERED: methylPREDNISolone Sodium Succinate 125 MG/2 ML SDV IM ONE (20:12)
[2020-11-10] MEDS ORDERED: Albuterol/Ipratropium 3.0-0.5 MG/3 ML Neb Soln NEB ONE (20:13)
[2020-11-10] MEDS: Budesonide 0.25 MG/2 ML Neb Susp NEB ONE (20:30)
[2020-11-10] MEDS ORDERED: Albuterol/Ipratropium 3.0-0.5 MG/3 ML Neb Soln NEB SCH (21:30)
[2020-11-10 23:08] VITALS: BP 144/85; PULSE 78
--- NOTE | 2020-11-11 04:28 | ER ---
HISTORY OF PRESENT ILLNESS: A 55-year-old lady who comes in with her with complaints of shortness of breath, and wheezing that started initially a couple of weeks ago. She has been on nebulizer treatments and she does take puffers as well and she was on oral prednisone taper, which recently ended. She was doing more work today, doing some house cleaning activities and she noticed a definite shortness of breath and wheezing. She decided she needed to come in. The patient denies any falls or injury. She has not been running a fever and she was doing fairly well until just a couple of days ago, but now today it got worse. OBJECTIVE: GENERAL APPEARANCE: The patient is awake and alert. She has audible wheezing. VITAL SIGNS: Reviewed. Blood pressure 144/85, O2 sats are 96% to 97% on room air, pulse 96. LUNGS: Significantly reduced air exchange with audible wheezing throughout. I hear just a little bit of rales in the bases as well with expiration. SKIN: Warm and dry. INITIAL TREATMENT PLAN: DuoNeb was given followed by Pulmicort neb treatment and a second DuoNeb treatment. This did help the patient's breathing in a [id number] fashion. An IV was attempted but unsuccessfully. Therefore, she was given Solu-Medrol 125 mg IM. Chest x-ray was obtained with no acute findings. LABORATORY DATA: Labs include a CBC which is normal. CMP shows a nonfasting blood glucose of 403. The patient states that she just ate shortly before coming in. She is diabetic and does take insulin as well as oral diabetic medications plus she states her recent course of prednisone usually bumps her blood sugar up as well. TREATMENT: We monitored the patient for about an hour and her wheezing significantly improved. At this time, there was no further audible wheezing, and listening to her lungs, there was only a small amount of end-expiratory wheezes scattered throughout the lung conteh. The patient states she feels a lot better and she is not concerned about her blood sugar of 403. DIAGNOSIS: Asthma with exacerbation. TREATMENT PLAN: The patient is discharged home with her . I will continue her on Pulmicort treatments b.i.d. for 10 days, giving her a script for this and I will put her back on an oral prednisone taper. She will be given 20 mg tonight and then tomorrow start with 20 mg b.i.d., tapering down over 10 days. The patient is to follow up with her primary care provider within a couple of days at least by phone, sooner as needed, and she is to make sure she takes all of her diabetic medications as well. The patient is comfortable with treatment plan and has no further questions. ALIA/VEDA /[id number]
--- NOTE | 2020-11-11 08:16 | CR ---
DATE OF SERVICE: 11/10/20 CLINICAL DATA: SOB. PORTABLE CHEST: Comparison is made to a prior exam dated 07/11/20. The heart size is normal. The lungs are clear. No pneumothorax. No pleural effusions. No evidence of acute intrathoracic disease. [id number] [facility]
== END 2020-11-10 21:55 | disposition home or self-care (01) ==
LOC: LB.ED 20:03
DX: J45.901 Unspecified asthma with (acute) exacerbation (principal)
CPT/HCPCS: 36415; 71045; 80053; 85025; 96372; 99285; J2930; J7620-GY

== ENCOUNTER 2020-11-28 08:05 | Emergency (ER) | payer MEDICARE, MEDICAID ==
--- NOTE | 2020-11-28 08:18 | EDM.PDOC ---
ED HPI GENERAL MEDICAL PROBLEM - General Stated Complaint: FELL / LEFT KNEE PAIN Time Seen by Provider: 11/28/20 08:12 Source of Information: Reports: Patient History Limitations: Reports: No Limitations - History of Present Illness INITIAL COMMENTS - FREE TEXT/NARRATIVE: 55 year old female with PMH of HTN, COPD, anxiety, migraine, GERD, chronic pain, presents with left knee pain after falling on it on Monday. She has tried tylenol and her torodal without relief. - Related Data Allergies Allergy/AdvReac Type Severity Reaction Status Date / Time bisoprolol Allergy Severe Shortness Verified 07/12/20 13:18 of Breath adhesive tape Allergy Rash Verified 07/12/20 13:18 celecoxib [From Celebrex] Allergy Nausea and Verified 07/11/20 18:57 Vomiting pramipexole Allergy Diaphoresis Verified 07/12/20 13:18 ketamine AdvReac Intermediate Agitation Verified 07/11/20 18:57 Home Meds: Home Meds Omeprazole 20 mg PO BIDAC 04/14/13 [History] QUEtiapine [SEROquel] 100 mg PO QAM 06/06/15 [History] QUEtiapine Fumarate [Quetiapine Fumarate] 400 mg PO QPM 06/25/17 [History] Calcium Carbonate/Vitamin D3 [Calcium 600Mg-D3 400 Unit Sfgl] 1 tab PO BID 06/13/18 [History] Ubidecarenone [Co Q-10] 200 mg PO BEDTIME 10/04/18 [History] Mirtazapine [Remeron] 1 - 2 tab PO BEDTIME 01/25/19 [History] Albuterol Sulfate [Proair Digihaler] 2 inh INH Q4HR PRN 01/20/20 [History] Budesonide/Formoterol [Symbicort 160-4.5 MCG] 2 inh INH BID 01/20/20 [History] Topiramate 25 mg PO BID 01/20/20 [History] Varenicline [Chantix] 1 mg PO DAILY 01/20/20 [History] ondansetron HCL [Zofran] 4 mg PO Q4HR PRN 01/20/20 [History] risperiDONE [Risperdal] 5 mg PO BEDTIME 02/05/20 [History] Aspirin [Halfprin] 81 mg PO DAILY 04/05/20 [History] Losartan [Cozaar] 12.5 mg PO DAILY 04/05/20 [History] Montelukast [Singulair] 10 mg PO BEDTIME 04/05/20 [History] SUMAtriptan [Imitrex] 25 mg PO ASDIRECTED PRN 04/05/20 [History] sitaGLIPtin Phos/Metformin HCl [Janumet 50-1,000 MG] 1 tab PO BID 04/05/20 [History] Albuterol/Ipratropium [DuoNeb 3.0-0.5 MG/3 ML] 3 ml NEB Q4H neb 04/06/20 [Rx] Furosemide 40 mg PO DAILY #60 04/06/20 [Rx] Acetaminophen [Tylenol Arthritis] 1 - 2 tab PO Q8H PRN 07/11/20 [History] Baclofen 10 mg PO BID 07/11/20 [History] Dicyclomine [Bentyl] 10 mg PO TID PRN 07/11/20 [History] Docusate Sodium [Dulcolax Stool Softener] 100 mg PO BID PRN 07/11/20 [History] Ipratropium/Albuterol Sulfate [Iprat-Albut 0.5-3(2.5) MG/3 ML] 3 ml IH Q4H PRN 07/11/20 [History] Ketorolac [Toradol] 10 mg PO TID PRN 07/11/20 [History] Meloxicam [Mobic] 7.5 mg PO ASDIRECTED PRN 07/11/20 [History] QUEtiapine [SEROquel] 50 mg PO TID PRN 07/11/20 [History] Spironolactone [Aldactone] 2 tab PO BID 07/11/20 [History] atorvaSTATin [Lipitor] 20 mg PO BEDTIME 07/11/20 [History] rOPINIRole [Requip] 0.5 mg PO BEDTIME 07/11/20 [History] Albuterol [Proventil Neb Soln] 2.5 mg NEB Q4H #60 neb 07/13/20 [Rx] Azithromycin [Zithromax] 500 mg PO Q24H #4 tablet 07/13/20 [Rx] Nicotine [Habitrol] 21 mg TRDERM DAILY #14 patch 07/13/20 [Rx] QUEtiapine [SEROquel] 50 mg PO TID PRN tablet 12/28/20 [Rx] QUEtiapine [SEROquel] 100 mg PO QAM tablet 07/13/20 [Rx] SitaGLIPtin [Januvia] 50 mg PO BIDMEALS tablet 07/13/20 [Rx] Spironolactone [Aldactone] 50 mg PO BID@0800,1200 tablet 07/13/20 [Rx] amLODIPine [Norvasc] 2.5 mg PO DAILY #30 tablet 07/13/20 [Rx] predniSONE [Prednisone] 5 mg PO DAILY #3 tablet 07/13/20 [Rx] predniSONE [Prednisone] 10 mg PO DAILY #3 tablet 07/13/20 [Rx] predniSONE [Prednisone] 20 mg PO DAILY #3 tablet 07/13/20 [Rx] rOPINIRole [Requip] 0.5 mg PO BEDTIME tablet 07/13/20 [Rx] risperiDONE [RisperiDAL] 5 mg PO BEDTIME tablet 07/13/20 [Rx] Past Medical History - Past Health History Medical/Surgical History: Denies Medical/Surgical History HEENT History: Reports: Impaired Vision, Other (See Below) Other HEENT History: glasses for reading, Cardiovascular History: Reports: Heart Murmur, Hypertension Other Cardiovascular History: states recently has been told rufino has a valve problem but not bad enough for surgery Respiratory History: Reports: Asthma, Bronchitis, Recurrent, COPD, Pneumonia, Recurrent, Other (See Below) Other Respiratory History: Emphysema Gastrointestinal History: Reports: Bowel Obstruction, GERD, Irritable Bowel Syndrome Genitourinary History: Reports: None 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: Reports: 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 Uterine Bleeding, Musculoskeletal History: Reports: Back Pain, Chronic Other Musculoskeletal History: back / butt pain, shoots down left leg Neurological History: Reports: Migraines, Neuropathy, Peripheral Psychiatric History: Reports: Anxiety, Depression, Suicide Attempt, Suicidal Ideation Other Psychiatric History: suicide attemp years ago, states got help and no long thinks of it Endocrine/Metabolic History: Reports: Diabetes, Type II, Obesity/BMI 30+ Hematologic History: Reports: Blood Transfusion(s), Iron Deficiency Oncologic (Cancer) History: Reports: None Dermatologic History: Reports: Eczema, Other (See Below) Other Dermatologic History: Allergy to paper tape - Infectious Disease History Infectious Disease History: Reports: Chicken Pox, Measles, Rubella - Past Surgical History HEENT Surgical History: Reports: Eye Surgery Other HEENT Surgeries/Procedures: Eye Surgery, when 6 yr and grade school Cardiovascular Surgical History: Reports: None Respiratory Surgical History: Reports: None GI Surgical History: Reports: None Other GI Surgeries/Procedures: ABD. SURGERY AND SCAR TISSUE REMOVAL Female Surgical History: Reports: Section, Hysterectomy, Other (See Below) Other Female Surgeries/Procedures: appendix Endocrine Surgical History: Reports: None Neurological Surgical History: Reports: None Musculoskeletal Surgical History: Reports: None Dermatological Surgical History: Reports: None Social & Family History - Family History Family Medical History: No Pertinent Family History Cardiac: Reports: None Musculoskeletal: Reports: Arthritis, Back pain, Chronic Neurological: Reports: None Psychiatric: Reports: Depression Endocrine/Metabolic: Reports: None Oncologic: Reports: None - Caffeine Use Caffeine Use: Reports: Coffee, Soda Other Caffeine Use: 2 cups a day Caffeine Use Comment: 2 cups of coffee per day 1 soda per day Review of Systems - Review of Systems Review Of Systems: See Below Constitutional: Reports: No Symptoms Eyes: Reports: No Symptoms Ears: Reports: No Symptoms Nose: Reports: No Symptoms Mouth/Throat: Reports: No Symptoms Respiratory: Reports: No Symptoms Cardiovascular: Reports: No Symptoms GI/Abdominal: Reports: No Symptoms Genitourinary: Reports: No Symptoms Musculoskeletal: Reports: Joint Pain Skin: Reports: Other (healing abrasion noted to left knee) Neurological: Reports: No Symptoms Psychiatric: Reports: Anxiety ED EXAM, GENERAL - Physical Exam Exam: See Below Exam Limited By: No Limitations General Appearance: Alert, Mild Distress Ears: Hearing Grossly Normal Throat/Mouth: Normal Voice, No Airway Compromise Head: Atraumatic Neck: Non-Tender, Full Range of Motion Respiratory/Chest: No Respiratory Distress, Lungs Clear, Normal Breath Sounds Cardiovascular: Normal Peripheral Pulses, Regular Rate, Rhythm, No Edema, No Murmur Peripheral Pulses: 3+: Posterior Tibial (L), Posterior Tibial (R), Dorsalis Pedis (L), Dorsalis Pedis (R) GI/Abdominal: Non-Tender Back Exam: Normal Inspection, Full Range of Motion Extremities: Normal Inspection, Normal Range of Motion, No Pedal Edema, Normal Capillary Refill, Leg Pain Neurological: Alert, Oriented, Normal Gait, No Motor/Sensory Deficits, Sensory/Motor Deficit Psychiatric: Normal Affect Skin Exam: Warm, Dry, Normal Color, No Rash Course - Vital Signs Last Recorded V/S: Last Vital Signs Temp 98.0 F 11/28/20 08:34 Pulse 77 11/28/20 08:34 Resp 16 11/28/20 08:34 BP 119/66 11/28/20 08:34 Pulse Ox 99 11/28/20 08:34 - Orders/Labs/Meds Orders: Active Orders 24 hr Category Date Time Status Knee 3V Lt [CR] Stat Exams 11/28/20 08:18 Taken Meds: Medications Discontinued Medications Generic Name Dose Route Start Last Admin Trade Name Emerson PRN Reason Stop Dose Admin Hydrocodone Bitart/Acetaminophen 1 tab 11/28/20 08:18 11/28/20 08:26 Acetaminophen/Hydrocodone 325-10 Mg Tab PO 11/28/20 08:19 1 tab ONETIME ONE Administration Hydrocodone Bitart/Acetaminophen Confirm 11/28/20 08:34 Acetaminophen/Hydrocodone 325-10 Mg Tab Administered 11/28/20 08:35 Dose 1 tab .ROUTE .STK-MED ONE Departure - Departure Time of Disposition: 09:31 Disposition: Home, Self-Care 01 Clinical Impression: Strain of left knee Qualifiers: Encounter type: initial encounter Qualified Code(s): S86.912A - Strain of unspecified muscle(s) and tendon(s) at lower leg level, left leg, initial encounter - Discharge Information *PRESCRIPTION DRUG MONITORING PROGRAM REVIEWED*: Not Applicable *COPY OF PRESCRIPTION DRUG MONITORING REPORT IN PATIENT MARY ELLEN: Not Applicable Additional Instructions: Take 600mg ibuprofen with food every 6 hours and 650 mg of tylenol every 6 hours as needed for pain. DO NOT take toradol AND ibuprofen. You may take tylenol with the ibuprofen. Weight bear as tolerated, follow up at clinic next week if the pain persists. Return to ED for any increased or new concerning symptoms. Sepsis Event Note (ED) - Focused Exam Vital Signs: Vital Signs Temp Pulse Resp BP Pulse Ox 11/28/20 08:34 98.0 F 77 16 119/66 99 - My Orders Last 24 Hours: My Active Orders 11/28/20 08:18 Knee 3V Lt [CR] Stat - Assessment/Plan Last 24 Hours: My Active Orders 11/28/20 08:18 Knee 3V Lt [CR] Stat Plan: patient verbalized understanding of DC, all questions were answered prior to DC. Knee brace applied and walker instructions give. Patient tolerated well.
[2020-11-28] MEDS: Acetaminophen/HYDROcodone 325-10 MG Tab PO ONE (08:26)
[2020-11-28] MEDS ORDERED: Acetaminophen/HYDROcodone 325-10 MG Tab ONE (08:34)
[2020-11-28 08:38] VITALS: BP 119/66; PULSE 77
--- NOTE | 2020-11-30 07:19 | CR ---
DATE OF SERVICE: 11/28/20 CLINICAL DATA: Fall, pain. LEFT KNEE: There are mild osteoarthritic changes with mild narrowing of the medial compartment joint space. There is a small joint effusion. No acute abnormalities. No focal lytic or blastic bone lesions. [id number] [facility]
== END 2020-11-28 09:40 | disposition home or self-care (01) ==
LOC: LB.ED 08:05
DX: S86.912A Strain of unspecified muscle(s) and tendon(s) at lower leg level, left leg, initial encounter (principal); K21.9 Gastro-esophageal reflux disease without esophagitis; I10 Essential (primary) hypertension; J44.9 Chronic obstructive pulmonary disease, unspecified; E11.40 Type 2 diabetes mellitus with diabetic neuropathy, unspecified; E66.9 Obesity, unspecified; Z68.30 Body mass index [BMI] 30.0-30.9, adult; Z88.5 Allergy status to narcotic agent; Z88.8 Allergy status to other drugs, medicaments and biological substances; Z91.018 Allergy to other foods; W18.39XA Other fall on same level, initial encounter
CPT/HCPCS: 73562-LT; 99283; A9270-GY

== ENCOUNTER 2020-12-09 20:51 | Emergency (ER) | payer MEDICARE, MEDICAID ==
[2020-12-09] MEDS: Albuterol 0.083% 2.5 MG/3 ML Neb Soln NEB ONE ×2 (21:00→21:55)
[2020-12-09 21:14] VITALS: BP 129/76; PULSE 92
[2020-12-09] MEDS: Albuterol/Ipratropium 3.0-0.5 MG/3 ML Neb Soln ONE ×2 (21:30→21:56)
[2020-12-09] MEDS ORDERED: ALPRAZolam 0.25 MG Tab PO ONE (21:46)
--- NOTE | 2020-12-09 21:51 | EDM.PDOC ---
ED HPI GENERAL MEDICAL PROBLEM - General Chief Complaint: Respiratory Problem Stated Complaint: SOB Time Seen by Provider: 12/09/20 21:15 Source of Information: Reports: Patient History Limitations: Reports: No Limitations - History of Present Illness INITIAL COMMENTS - FREE TEXT/NARRATIVE: patient presented to the ER with a c/o SOB. h/o COPD and active smoking. No fever or chills. Reports that SOB occurred earlier today - tried a couple nebs - helped a little but not much.. Finished a 5 weeks course of prednisone just 4 days ago. No CP. got her 2 doses of COVID vaccine. Still smoke few cigarettes a day. Treatments STITCHER HAND: Reports: Breathing Treatments - Related Data Allergies Allergy/AdvReac Type Severity Reaction Status Date / Time bisoprolol Allergy Severe Shortness Verified 07/12/20 13:18 of Breath adhesive tape Allergy Rash Verified 07/12/20 13:18 celecoxib [From Celebrex] Allergy Nausea and Verified 07/11/20 18:57 Vomiting pramipexole Allergy Diaphoresis Verified 07/12/20 13:18 ketamine AdvReac Intermediate Agitation Verified 07/11/20 18:57 Home Meds: Home Meds Omeprazole 20 mg PO BIDAC 04/14/13 [History] QUEtiapine [SEROquel] 100 mg PO QAM 06/06/15 [History] QUEtiapine Fumarate [Quetiapine Fumarate] 400 mg PO QPM 06/25/17 [History] Calcium Carbonate/Vitamin D3 [Calcium 600Mg-D3 400 Unit Sfgl] 1 tab PO BID 06/13/18 [History] Ubidecarenone [Co Q-10] 200 mg PO BEDTIME 10/04/18 [History] Mirtazapine [Remeron] 1 - 2 tab PO BEDTIME 01/25/19 [History] Albuterol Sulfate [Proair Digihaler] 2 inh INH Q4HR PRN 01/20/20 [History] Budesonide/Formoterol [Symbicort 160-4.5 MCG] 2 inh INH BID 01/20/20 [History] Topiramate 25 mg PO BID 01/20/20 [History] Varenicline [Chantix] 1 mg PO DAILY 01/20/20 [History] ondansetron HCL [Zofran] 4 mg PO Q4HR PRN 01/20/20 [History] risperiDONE [Risperdal] 5 mg PO BEDTIME 02/05/20 [History] Aspirin [Halfprin] 81 mg PO DAILY 04/05/20 [History] Losartan [Cozaar] 12.5 mg PO DAILY 04/05/20 [History] Montelukast [Singulair] 10 mg PO BEDTIME 04/05/20 [History] SUMAtriptan [Imitrex] 25 mg PO ASDIRECTED PRN 04/05/20 [History] sitaGLIPtin Phos/Metformin HCl [Janumet 50-1,000 MG] 1 tab PO BID 04/05/20 [History] Albuterol/Ipratropium [DuoNeb 3.0-0.5 MG/3 ML] 3 ml NEB Q4H neb 04/06/20 [Rx] Furosemide 40 mg PO DAILY #60 04/06/20 [Rx] Acetaminophen [Tylenol Arthritis] 1 - 2 tab PO Q8H PRN 07/11/20 [History] Baclofen 10 mg PO BID 07/11/20 [History] Dicyclomine [Bentyl] 10 mg PO TID PRN 07/11/20 [History] Docusate Sodium [Dulcolax Stool Softener] 100 mg PO BID PRN 07/11/20 [History] Ipratropium/Albuterol Sulfate [Iprat-Albut 0.5-3(2.5) MG/3 ML] 3 ml IH Q4H PRN 07/11/20 [History] Ketorolac [Toradol] 10 mg PO TID PRN 07/11/20 [History] Meloxicam [Mobic] 7.5 mg PO ASDIRECTED PRN 07/11/20 [History] QUEtiapine [SEROquel] 50 mg PO TID PRN 07/11/20 [History] Spironolactone [Aldactone] 2 tab PO BID 07/11/20 [History] atorvaSTATin [Lipitor] 20 mg PO BEDTIME 07/11/20 [History] rOPINIRole [Requip] 0.5 mg PO BEDTIME 07/11/20 [History] Albuterol [Proventil Neb Soln] 2.5 mg NEB Q4H #60 neb 07/13/20 [Rx] Azithromycin [Zithromax] 500 mg PO Q24H #4 tablet 07/13/20 [Rx] Nicotine [Habitrol] 21 mg TRDERM DAILY #14 patch 07/13/20 [Rx] QUEtiapine [SEROquel] 50 mg PO TID PRN tablet 07/13/20 [Rx] QUEtiapine [SEROquel] 100 mg PO QAM tablet 07/13/20 [Rx] SitaGLIPtin [Januvia] 50 mg PO BIDMEALS tablet 07/13/20 [Rx] Spironolactone [Aldactone] 50 mg PO BID@0800,1200 tablet 07/13/20 [Rx] amLODIPine [Norvasc] 2.5 mg PO DAILY #30 tablet 07/13/20 [Rx] predniSONE [Prednisone] 5 mg PO DAILY #3 tablet 07/13/20 [Rx] predniSONE [Prednisone] 10 mg PO DAILY #3 tablet 07/13/20 [Rx] predniSONE [Prednisone] 20 mg PO DAILY #3 tablet 07/13/20 [Rx] rOPINIRole [Requip] 0.5 mg PO BEDTIME tablet 07/13/20 [Rx] risperiDONE [RisperiDAL] 5 mg PO BEDTIME tablet 07/13/20 [Rx] Past Medical History - Past Health History Medical/Surgical History: Denies Medical/Surgical History HEENT History: Reports: Impaired Vision, Other (See Below) Other HEENT History: glasses for reading, Cardiovascular History: Reports: Heart Murmur, Hypertension Other Cardiovascular History: states recently has been told rufino has a valve problem but not bad enough for surgery Respiratory History: Reports: Asthma, Bronchitis, Recurrent, COPD, Pneumonia, Recurrent, Other (See Below) Other Respiratory History: Emphysema Gastrointestinal History: Reports: Bowel Obstruction, GERD, Irritable Bowel Syndrome Genitourinary History: Reports: None 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: 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 Uterine Bleeding, Musculoskeletal History: Reports: Back Pain, Chronic Other Musculoskeletal History: back / butt pain, shoots down left leg Neurological History: Reports: Migraines, Neuropathy, Peripheral Psychiatric History: Reports: Anxiety, Depression, Suicide Attempt, Suicidal Ideation Other Psychiatric History: suicide attemp years ago, states got help and no long thinks of it Endocrine/Metabolic History: Reports: Diabetes, Type II, Obesity/BMI 30+ Hematologic History: Reports: Blood Transfusion(s), Iron Deficiency Oncologic (Cancer) History: Reports: None Dermatologic History: Reports: Eczema, Other (See Below) Other Dermatologic History: Allergy to paper tape - Infectious Disease History Infectious Disease History: Reports: Chicken Pox, Measles, Rubella - Past Surgical History HEENT Surgical History: Reports: Eye Surgery Other HEENT Surgeries/Procedures: Eye Surgery, when 6 yr and grade school Cardiovascular Surgical History: Reports: None Respiratory Surgical History: Reports: None GI Surgical History: Reports: None Other GI Surgeries/Procedures: ABD. SURGERY AND SCAR TISSUE REMOVAL Female Surgical History: Reports: Section, Hysterectomy, Other (See Below) Other Female Surgeries/Procedures: appendix Endocrine Surgical History: Reports: None Neurological Surgical History: Reports: None Musculoskeletal Surgical History: Reports: None Dermatological Surgical History: Reports: None Social & Family History - Family History Family Medical History: No Pertinent Family History Cardiac: Reports: None Musculoskeletal: Reports: Arthritis, Back pain, Chronic Neurological: Reports: None Psychiatric: Reports: Depression Endocrine/Metabolic: Reports: None Oncologic: Reports: None - Tobacco Use Tobacco Use Status *Q: Former Tobacco User Used Tobacco, but Quit: Yes Month/Year Tobacco Last Used: 10/15/20 - Caffeine Use Caffeine Use: Reports: Coffee Other Caffeine Use: 2 cups a day Caffeine Use Comment: 2 cups of coffee per day 1 soda per day ED ROS GENERAL - Review of Systems Review Of Systems: See Below Constitutional: Reports: No Symptoms HEENT: Reports: No Symptoms Respiratory: Reports: Shortness of Breath, Wheezing Cardiovascular: Reports: No Symptoms GI/Abdominal: Reports: No Symptoms Musculoskeletal: Reports: No Symptoms Skin: Reports: No Symptoms Neurological: Reports: No Symptoms ED EXAM, GENERAL - Physical Exam Exam: See Below Exam Limited By: No Limitations General Appearance: Alert, WD/WN Eye Exam: Bilateral Eye: EOMI Respiratory/Chest: No Accessory Muscle Use, Chest Non-Tender, Respiratory Distress, Wheezing Cardiovascular: Normal Peripheral Pulses, Regular Rate, Rhythm GI/Abdominal: Normal Bowel Sounds, Soft Extremities: Normal Inspection Neurological: Alert, Oriented Psychiatric: Normal Affect, Normal Mood Course - Vital Signs Last Recorded V/S: Last Vital Signs Temp 36.6 C 12/09/20 20:55 Pulse 92 12/09/20 20:55 Resp 28 H 12/09/20 20:55 BP 129/76 12/09/20 20:55 Pulse Ox 97 12/09/20 20:55 - Orders/Labs/Meds Orders: Active Orders 24 hr Category Date Time Status RT Aerosol Therapy [RC] ASDIRECTED Care 12/09/20 21:44 Ordered Meds: Medications Discontinued Medications Generic Name Dose Route Start Last Admin Trade Name Emerson PRCristino Reason Stop Dose Admin Albuterol 2.5 mg 12/09/20 21:44 Albuterol 0.083% 2.5 Mg/3 Ml Neb Soln NEB 12/09/20 21:45 ONETIME ONE Albuterol/Ipratropium Confirm 12/09/20 21:47 Albuterol/Ipratropium 3.0-0.5 Mg/3 Ml Neb Soln Administered 12/09/20 21:48 Dose 3 ml .ROUTE .STK-MED ONE - Re-Assessments/Exams Free Text/Narrative Re-Assessment/Exam: sating well on RA - 96% RR 24 was given a couple nebs treatment - reports significant improvement in symptoms Also reports anxiety at home and some panic attacks with her nebs - is requesting something for that. was given Xanax 0.5mg po to help with her symptoms Departure - Departure Time of Disposition: 21:50 Disposition: Home, Self-Care 01 Condition: Good Clinical Impression: COPD with acute exacerbation, Smoking - Discharge Information *PRESCRIPTION DRUG MONITORING PROGRAM REVIEWED*: Not Applicable *COPY OF PRESCRIPTION DRUG MONITORING REPORT IN PATIENT MARY ELLEN: Not Applicable Instructions: Coping with Quitting Smoking, Chronic Obstructive Pulmonary Disease Exacerbation, [id number] Referrals: PCP,None [Primary Care Provider] - Sepsis Event Note (ED) - Evaluation Sepsis Screening Result: No Definite Risk - Focused Exam Vital Signs: Vital Signs Temp Pulse Resp BP Pulse Ox 12/09/20 20:55 36.6 C 92 28 H 129/76 97 - Problem List & Annotations (1) COPD with acute exacerbation SNOMED Code(s): 784626052 Code(s): J44.1 - CHRONIC OBSTRUCTIVE PULMONARY DISEASE W (ACUTE) EXACERBATION Status: Acute Current Visit: Yes (2) Smoking SNOMED Code(s): 14548782 Code(s): F17.200 - NICOTINE DEPENDENCE, UNSPECIFIED, UNCOMPLICATED Status: Acute Current Visit: Yes - Problem List Review Problem List Initiated/Reviewed/Updated: Yes - My Orders Last 24 Hours: My Active Orders 12/09/20 21:44 RT Aerosol Therapy [RC] ASDIRECTED - Assessment/Plan Last 24 Hours: My Active Orders 12/09/20 21:44 RT Aerosol Therapy [RC] ASDIRECTED Plan: - will start on prednisone - recommend to quit smoking - start taking Xanax for anxiety - follow up with your PCP within 3-10 days - return to the ER if symptoms got worse or any concerns
[2020-12-09] MEDS ORDERED: ALPRAZolam 0.25 MG Tab ONE (22:09)
== END 2020-12-09 22:14 | disposition home or self-care (01) ==
LOC: LB.ED 20:51
DX: J44.1 Chronic obstructive pulmonary disease with (acute) exacerbation (principal); I10 Essential (primary) hypertension; K21.9 Gastro-esophageal reflux disease without esophagitis; E11.9 Type 2 diabetes mellitus without complications; F17.200 Nicotine dependence, unspecified, uncomplicated; E66.9 Obesity, unspecified; Z68.30 Body mass index [BMI] 30.0-30.9, adult; Z87.891 Personal history of nicotine dependence; Z79.82 Long term (current) use of aspirin; Z88.4 Allergy status to anesthetic agent; Z91.018 Allergy to other foods; Z88.8 Allergy status to other drugs, medicaments and biological substances
CPT/HCPCS: 99284; 99284-25; A9270-GY; J7620-GY

== ENCOUNTER 2021-02-20 11:55 | Emergency (ER) | payer MEDICARE, MEDICAID ==
[2021-02-20 12:11] VITALS: BP 152/81; PULSE 100
[2021-02-20] MEDS ORDERED: LORazepam 1 MG Tab PO ONE (12:14)
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
== END 2021-02-20 13:06 | disposition home or self-care (01) ==
LOC: LB.ED 11:55
DX: F41.0 Panic disorder [episodic paroxysmal anxiety] (principal); F43.9 Reaction to severe stress, unspecified; I10 Essential (primary) hypertension; J44.9 Chronic obstructive pulmonary disease, unspecified; G43.909 Migraine, unspecified, not intractable, without status migrainosus; E11.42 Type 2 diabetes mellitus with diabetic polyneuropathy; E66.9 Obesity, unspecified; Z72.0 Tobacco use; Z88.8 Allergy status to other drugs, medicaments and biological substances; Z91.048 Other nonmedicinal substance allergy status; Z88.1 Allergy status to other antibiotic agents; Z88.4 Allergy status to anesthetic agent; Z79.82 Long term (current) use of aspirin; Z79.899 Other long term (current) drug therapy
CPT/HCPCS: 93005; 99283; A9270

== ENCOUNTER 2021-04-06 14:42 | Emergency (ER) | payer MEDICARE, MEDICAID ==
[2021-04-06] MEDS ORDERED: methylPREDNISolone Sodium Succinate 125 MG/2 ML SDV IM ONE (16:00)
--- NOTE | 2021-04-06 16:14 | CT ---
DATE OF SERVICE: 04/06/2021 DATE OF SERVICE: PAIN Unenhanced abdomen and pelvic CT: Multi slice axial acquisition without IV or oral contrast was performed. Comparison is made to a prior exam dated 28 May 2020. There is a stable pleural based nodule in the left lower lobe posterolaterally. There is a stable subpleural nodule in the right lower lobe. Heart size is normal. There is diffuse fatty infiltration of the liver. No focal hepatic lesions. The patient is status post cholecystectomy. The spleen appears normal. The pancreas is mildly atrophic, otherwise unremarkable. The right and left adrenals appear normal. The right and left kidneys appear normal. No nephrocalcinosis or nephrolithiasis. No hydronephrosis or hydroureter. There is a small amount of fluid within the bladder. It appears grossly normal. The patient is status post hysterectomy. There is submucosal fatty infiltration of the distal ileum. Chronic inflammatory bowel disease should be considered. The appendix is not visualized. No definite evidence appendicitis. No free air. No free fluid. No dilated loops of bowel. No adenopathy. No aortic aneurysm. No other significant findings. MTDD
--- NOTE | 2021-04-06 16:40 | EDM.PDOC ---
ED HPI GENERAL MEDICAL PROBLEM - General Chief Complaint: Gastrointestinal Problem Stated Complaint: ABDOMINAL PAIN Time Seen by Provider: 04/06/21 14:45 - History of Present Illness INITIAL COMMENTS - FREE TEXT/NARRATIVE: Pt C/O Abd pain for 1 day. It doesn't hurt at rest, but with activity or coughing it hurts alot. She denies any recent falls or injuries. She has been nauseated but has not vomited. She feels her symptoms are getting worse. - Related Data Allergies Allergy/AdvReac Type Severity Reaction Status Date / Time bisoprolol Allergy Severe Shortness Verified 07/12/20 13:18 of Breath adhesive tape Allergy Rash Verified 07/12/20 13:18 celecoxib [From Celebrex] Allergy Nausea and Verified 07/11/20 18:57 Vomiting pramipexole Allergy Diaphoresis Verified 07/12/20 13:18 ketamine AdvReac Intermediate Agitation Verified 07/11/20 18:57 Home Meds: Home Meds Omeprazole 20 mg PO BIDAC 04/14/13 [History] QUEtiapine [SEROquel] 100 mg PO QAM 06/06/15 [History] QUEtiapine Fumarate [Quetiapine Fumarate] 400 mg PO QPM 06/25/17 [History] Calcium Carbonate/Vitamin D3 [Calcium 600Mg-D3 400 Unit Sfgl] 1 tab PO BID 06/13/18 [History] Ubidecarenone [Co Q-10] 200 mg PO BEDTIME 10/04/18 [History] Mirtazapine [Remeron] 1 - 2 tab PO BEDTIME 01/25/19 [History] Albuterol Sulfate [Proair Digihaler] 2 inh INH Q4HR PRN 01/20/20 [History] Budesonide/Formoterol [Symbicort 160-4.5 MCG] 2 inh INH BID 01/20/20 [History] Topiramate 25 mg PO BID 01/20/20 [History] Varenicline [Chantix] 1 mg PO DAILY 01/20/20 [History] ondansetron HCL [Zofran] 4 mg PO Q4HR PRN 01/20/20 [History] risperiDONE [Risperdal] 5 mg PO BEDTIME 02/05/20 [History] Aspirin [Halfprin] 81 mg PO DAILY 04/05/20 [History] Losartan [Cozaar] 12.5 mg PO DAILY 04/05/20 [History] Montelukast [Singulair] 10 mg PO BEDTIME 04/05/20 [History] SUMAtriptan [Imitrex] 25 mg PO ASDIRECTED PRN 04/05/20 [History] sitaGLIPtin Phos/Metformin HCl [Janumet 50-1,000 MG] 1 tab PO BID 04/05/20 [History] Albuterol/Ipratropium [DuoNeb 3.0-0.5 MG/3 ML] 3 ml NEB Q4H neb 04/06/20 [Rx] Furosemide 40 mg PO DAILY #60 04/06/20 [Rx] Acetaminophen [Tylenol Arthritis] 1 - 2 tab PO Q8H PRN 07/11/20 [History] Baclofen 10 mg PO BID 07/11/20 [History] Dicyclomine [Bentyl] 10 mg PO TID PRN 07/11/20 [History] Docusate Sodium [Dulcolax Stool Softener] 100 mg PO BID PRN 07/11/20 [History] Ipratropium/Albuterol Sulfate [Iprat-Albut 0.5-3(2.5) MG/3 ML] 3 ml IH Q4H PRN 07/11/20 [History] Ketorolac [Toradol] 10 mg PO TID PRN 07/11/20 [History] Meloxicam [Mobic] 7.5 mg PO ASDIRECTED PRN 07/11/20 [History] QUEtiapine [SEROquel] 50 mg PO TID PRN 07/11/20 [History] Spironolactone [Aldactone] 2 tab PO BID 07/11/20 [History] atorvaSTATin [Lipitor] 20 mg PO BEDTIME 07/11/20 [History] rOPINIRole [Requip] 0.5 mg PO BEDTIME 07/11/20 [History] Albuterol [Proventil Neb Soln] 2.5 mg NEB Q4H #60 neb 07/13/20 [Rx] Azithromycin [Zithromax] 500 mg PO Q24H #4 tablet 07/13/20 [Rx] Nicotine [Habitrol] 21 mg TRDERM DAILY #14 patch 07/13/20 [Rx] QUEtiapine [SEROquel] 50 mg PO TID PRN tablet 07/13/20 [Rx] QUEtiapine [SEROquel] 100 mg PO QAM tablet 07/13/20 [Rx] SitaGLIPtin [Januvia] 50 mg PO BIDMEALS tablet 07/13/20 [Rx] Spironolactone [Aldactone] 50 mg PO BID@0800,1200 tablet 07/13/20 [Rx] amLODIPine [Norvasc] 2.5 mg PO DAILY #30 tablet 07/13/20 [Rx] predniSONE [Prednisone] 5 mg PO DAILY #3 tablet 07/13/20 [Rx] predniSONE [Prednisone] 10 mg PO DAILY #3 tablet 07/13/20 [Rx] predniSONE [Prednisone] 20 mg PO DAILY #3 tablet 07/13/20 [Rx] rOPINIRole [Requip] 0.5 mg PO BEDTIME tablet 07/13/20 [Rx] risperiDONE [RisperiDAL] 5 mg PO BEDTIME tablet 07/13/20 [Rx] ALPRAZolam [Xanax] 0.25 mg PO DAILY #10 tablet 12/09/20 [Rx] methylPREDNISolone [Medrol Dose Pack] 84 mg PO DAILY #21 dospk 12/09/20 [Rx] Past Medical History - Past Health History Medical/Surgical History: Denies Medical/Surgical History HEENT History: Reports: Impaired Vision, Other (See Below) Other HEENT History: glasses for reading, Cardiovascular History: Reports: Heart Murmur, Hypertension Other Cardiovascular History: Pt has appointment with regulatory analyst in [place] in 5 days. Pt states she may need a valve replaced Respiratory History: Reports: Asthma, Bronchitis, Recurrent, COPD, Pneumonia, Recurrent, Other (See Below) Other Respiratory History: Emphysema Gastrointestinal History: Reports: Bowel Obstruction, GERD, Irritable Bowel Syndrome Genitourinary History: Reports: None [employer] History: Reports: 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 Uterine Bleeding, Musculoskeletal History: Reports: Back Pain, Chronic Other Musculoskeletal History: back / butt pain, shoots down left leg Neurological History: Reports: Migraines, Neuropathy, Peripheral Psychiatric History: Reports: Anxiety, Depression, Suicide Attempt, Suicidal Ideation Other Psychiatric History: suicide attemp years ago, states got help and no long thinks of it Endocrine/Metabolic History: Reports: Diabetes, Type II, Obesity/BMI 30+ Hematologic History: Reports: Blood Transfusion(s), Iron Deficiency Oncologic (Cancer) History: Reports: None Dermatologic History: Reports: Eczema, Other (See Below) Other Dermatologic History: Allergy to paper tape - Infectious Disease History Infectious Disease History: Reports: Chicken Pox, Measles, Rubella - Past Surgical History HEENT Surgical History: Reports: Eye Surgery Other HEENT Surgeries/Procedures: Eye Surgery, when 6 yr and grade school Cardiovascular Surgical History: Reports: None Respiratory Surgical History: Reports: None GI Surgical History: Reports: None Other GI Surgeries/Procedures: ABD. SURGERY AND SCAR TISSUE REMOVAL Female Surgical History: Reports: Section, Hysterectomy, Other (See Below) Other Female Surgeries/Procedures: appendix Endocrine Surgical History: Reports: None Neurological Surgical History: Reports: None Musculoskeletal Surgical History: Reports: None Dermatological Surgical History: Reports: None Social & Family History - Family History Family Medical History: No Pertinent Family History Cardiac: Reports: None Musculoskeletal: Reports: Arthritis, Back pain, Chronic Neurological: Reports: None Psychiatric: Reports: Depression Endocrine/Metabolic: Reports: None Oncologic: Reports: None - Caffeine Use Caffeine Use: Reports: Coffee Other Caffeine Use: 2 cups a day Caffeine Use Comment: 2 cups of coffee per day 1 soda per day ED ROS GENERAL - Review of Systems Review Of Systems: Comprehensive ROS is negative, except as noted in HPI. GI/Abdominal: Reports: Abdominal Pain, Nausea ED EXAM, GI/ABD - Physical Exam Exam: See Below GI/Abdominal Exam: Other (Diffuse pain in the mid and upper Abd bilaterally with light palpation. B.S. are present.) Course - Radiology Interpretation Free Text/Narrative:: CT of the Abd shows possible chronic IBS. Pt stated she has Hx of this. I will give her Solu Medrol 125 mg IM. And start her on prednisone 40 mg a day for 4 days, starting tomorrow. Diet should be soft or bland. Activity as tolerated. Her K+ level is 3.1 - She is on Lasix. I will start K-Dur 10 meq daily for 14 days. Re check in the clinic over the next few days. Departure - Departure Time of Disposition: 16:40 Disposition: Home, Self-Care 01 Condition: Good Clinical Impression: Hypokalemia IBS (irritable bowel syndrome) Qualifiers: Irritable bowel syndrome type: unspecified Qualified Code(s): K58.9 - Irritable bowel syndrome without diarrhea - Discharge Information *PRESCRIPTION DRUG MONITORING PROGRAM REVIEWED*: Yes *COPY OF PRESCRIPTION DRUG MONITORING REPORT IN PATIENT MARY ELLEN: Yes Referrals: PCP,None [Primary Care Provider] -
[2021-04-06] MEDS ORDERED: methylPREDNISolone Sodium Succinate 125 MG/2 ML SDV ONE (16:47)
[2021-04-06 20:31] VITALS: BP 143/71; PULSE 97
== END 2021-04-06 16:50 | disposition home or self-care (01) ==
LOC: LB.ED 14:42
DX: K58.9 Irritable bowel syndrome, unspecified (principal); E87.6 Hypokalemia; I10 Essential (primary) hypertension; E66.9 Obesity, unspecified; E11.9 Type 2 diabetes mellitus without complications; K21.9 Gastro-esophageal reflux disease without esophagitis; J44.9 Chronic obstructive pulmonary disease, unspecified; Z88.6 Allergy status to analgesic agent; Z88.5 Allergy status to narcotic agent; Z88.4 Allergy status to anesthetic agent; Z88.8 Allergy status to other drugs, medicaments and biological substances; Z79.82 Long term (current) use of aspirin; Z79.899 Other long term (current) drug therapy; Z79.84 Long term (current) use of oral hypoglycemic drugs
CPT/HCPCS: 36415; 74176; 80053; 81001; 85025; 96372; 99284; J2930

== ENCOUNTER 2021-04-12 18:21 | Emergency (ER) | payer MEDICARE, MEDICAID ==
[2021-04-12] MEDS: Ketorolac 30 MG/ML SDV ONE (19:10)
[2021-04-12] MEDS: methylPREDNISolone Sodium Succinate 125 MG/2 ML SDV IM ONE (19:45)
[2021-04-12] MEDS: methylPREDNISolone Sodium Succinate 125 MG/2 ML SDV ONE (19:45)
--- NOTE | 2021-04-12 19:48 | EDM.PDOC ---
ED HPI GENERAL MEDICAL PROBLEM - General Chief Complaint: Abdominal Pain Stated Complaint: irritable bowel Time Seen by Provider: 04/12/21 18:50 Source of Information: Reports: Patient History Limitations: Reports: No Limitations - History of Present Illness INITIAL COMMENTS - FREE TEXT/NARRATIVE: 55-year-old female presents to the ED complaining of abdominal pain. Patient was seen last week by ER staff for the same. Patient believe that she had IBS. Was given prednisone and Solu-Medrol for same. Patient relates that she has had bloating she describes this pain as generalized abdominal pain that is sharp. Movement increases her pain, patient states that nothing really works to decrease it except steroids. Upon further questioning patient relates that she is also had small amount of diarrhea and minor gas discomfort. Patient describes the pain as a 7/10 on the pain scale. This present episodes been going on for approximately 2 weeks - Related Data Allergies Allergy/AdvReac Type Severity Reaction Status Date / Time bisoprolol Allergy Severe Shortness Verified 07/12/20 13:18 of Breath adhesive tape Allergy Rash Verified 07/12/20 13:18 celecoxib [From Celebrex] Allergy Nausea and Verified 07/11/20 18:57 Vomiting pramipexole Allergy Diaphoresis Verified 07/12/20 13:18 ketamine AdvReac Intermediate Agitation Verified 07/11/20 18:57 Home Meds: Home Meds Omeprazole 20 mg PO BIDAC 04/14/13 [History] QUEtiapine [SEROquel] 100 mg PO QAM 06/06/15 [History] QUEtiapine Fumarate [Quetiapine Fumarate] 400 mg PO QPM 06/25/17 [History] Calcium Carbonate/Vitamin D3 [Calcium 600Mg-D3 400 Unit Sfgl] 1 tab PO BID 06/13/18 [History] Ubidecarenone [Co Q-10] 200 mg PO BEDTIME 10/04/18 [History] Mirtazapine [Remeron] 1 - 2 tab PO BEDTIME 01/25/19 [History] Albuterol Sulfate [Proair Digihaler] 2 inh INH Q4HR PRN 01/20/20 [History] Budesonide/Formoterol [Symbicort 160-4.5 MCG] 2 inh INH BID 01/20/20 [History] Topiramate 25 mg PO BID 01/20/20 [History] Varenicline [Chantix] 1 mg PO DAILY 01/20/20 [History] ondansetron HCL [Zofran] 4 mg PO Q4HR PRN 01/20/20 [History] risperiDONE [Risperdal] 5 mg PO BEDTIME 02/05/20 [History] Aspirin [Halfprin] 81 mg PO DAILY 04/05/20 [History] Losartan [Cozaar] 12.5 mg PO DAILY 04/05/20 [History] Montelukast [Singulair] 10 mg PO BEDTIME 04/05/20 [History] SUMAtriptan [Imitrex] 25 mg PO ASDIRECTED PRN 04/05/20 [History] sitaGLIPtin Phos/Metformin HCl [Janumet 50-1,000 MG] 1 tab PO BID 04/05/20 [History] Albuterol/Ipratropium [DuoNeb 3.0-0.5 MG/3 ML] 3 ml NEB Q4H neb 04/06/20 [Rx] Furosemide 40 mg PO DAILY #60 04/06/20 [Rx] Acetaminophen [Tylenol Arthritis] 1 - 2 tab PO Q8H PRN 07/11/20 [History] Baclofen 10 mg PO BID 07/11/20 [History] Dicyclomine [Bentyl] 10 mg PO TID PRN 07/11/20 [History] Docusate Sodium [Dulcolax Stool Softener] 100 mg PO BID PRN 07/11/20 [History] Ipratropium/Albuterol Sulfate [Iprat-Albut 0.5-3(2.5) MG/3 ML] 3 ml IH Q4H PRN 07/11/20 [History] Ketorolac [Toradol] 10 mg PO TID PRN 07/11/20 [History] Meloxicam [Mobic] 7.5 mg PO ASDIRECTED PRN 07/11/20 [History] QUEtiapine [SEROquel] 50 mg PO TID PRN 07/11/20 [History] Spironolactone [Aldactone] 2 tab PO BID 07/11/20 [History] atorvaSTATin [Lipitor] 20 mg PO BEDTIME 07/11/20 [History] rOPINIRole [Requip] 0.5 mg PO BEDTIME 07/11/20 [History] Albuterol [Proventil Neb Soln] 2.5 mg NEB Q4H #60 neb 07/13/20 [Rx] Azithromycin [Zithromax] 500 mg PO Q24H #4 tablet 07/13/20 [Rx] Nicotine [Habitrol] 21 mg TRDERM DAILY #14 patch 07/13/20 [Rx] QUEtiapine [SEROquel] 50 mg PO TID PRN tablet 07/13/20 [Rx] QUEtiapine [SEROquel] 100 mg PO QAM tablet 07/13/20 [Rx] SitaGLIPtin [Januvia] 50 mg PO BIDMEALS tablet 07/13/20 [Rx] Spironolactone [Aldactone] 50 mg PO BID@0800,1200 tablet 07/13/20 [Rx] amLODIPine [Norvasc] 2.5 mg PO DAILY #30 tablet 07/13/20 [Rx] predniSONE [Prednisone] 5 mg PO DAILY #3 tablet 07/13/20 [Rx] predniSONE [Prednisone] 10 mg PO DAILY #3 tablet 07/13/20 [Rx] predniSONE [Prednisone] 20 mg PO DAILY #3 tablet 07/13/20 [Rx] rOPINIRole [Requip] 0.5 mg PO BEDTIME tablet 07/13/20 [Rx] risperiDONE [RisperiDAL] 5 mg PO BEDTIME tablet 07/13/20 [Rx] ALPRAZolam [Xanax] 0.25 mg PO DAILY #10 tablet 12/09/20 [Rx] methylPREDNISolone [Medrol Dose Pack] 84 mg PO DAILY #21 dospk 12/09/20 [Rx] Potassium Chloride [K-Tab] 10 meq PO DAILY #30 tablet.er 04/12/21 [Rx] Past Medical History - Past Health History Medical/Surgical History: Denies Medical/Surgical History HEENT History: Reports: Impaired Vision, Other (See Below) Other HEENT History: glasses for reading, Cardiovascular History: Reports: Heart Murmur, Hypertension Other Cardiovascular History: Pt has appointment with bilingual sales assistant in [place] in 5 days. Pt states she may need a valve replaced Respiratory History: Reports: Asthma, Bronchitis, Recurrent, COPD, Pneumonia, Recurrent, Other (See Below) Other Respiratory History: Emphysema Gastrointestinal History: Reports: Bowel Obstruction, GERD, Irritable Bowel Syndrome Genitourinary History: Reports: None SYRUP BLENDER History: Reports: 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 Uterine Bleeding, Musculoskeletal History: Reports: Back Pain, Chronic Other Musculoskeletal History: back / butt pain, shoots down left leg Neurological History: Reports: Migraines, Neuropathy, Peripheral Psychiatric History: Reports: Anxiety, Depression, Suicide Attempt, Suicidal Ideation Other Psychiatric History: suicide attemp years ago, states got help and no long thinks of it Endocrine/Metabolic History: Reports: Diabetes, Type II, Obesity/BMI 30+ Hematologic History: Reports: Blood Transfusion(s), Iron Deficiency Oncologic (Cancer) History: Reports: None Dermatologic History: Reports: Eczema, Other (See Below) Other Dermatologic History: Allergy to paper tape - Infectious Disease History Infectious Disease History: Reports: Chicken Pox, Measles, Rubella - Past Surgical History HEENT Surgical History: Reports: Eye Surgery Other HEENT Surgeries/Procedures: Eye Surgery, when 6 yr and grade school Cardiovascular Surgical History: Reports: None Respiratory Surgical History: Reports: None GI Surgical History: Reports: None Other GI Surgeries/Procedures: ABD. SURGERY AND SCAR TISSUE REMOVAL Female Surgical History: Reports: Section, Hysterectomy, Other (See Below) Other Female Surgeries/Procedures: appendix Endocrine Surgical History: Reports: None Neurological Surgical History: Reports: None Musculoskeletal Surgical History: Reports: None Dermatological Surgical History: Reports: None Social & Family History - Family History Family Medical History: No Pertinent Family History Cardiac: Reports: None Musculoskeletal: Reports: Arthritis, Back pain, Chronic Neurological: Reports: None Psychiatric: Reports: Depression Endocrine/Metabolic: Reports: None Oncologic: Reports: None - Caffeine Use Caffeine Use: Reports: Soda Other Caffeine Use: 2 cups a day Caffeine Use Comment: 2 cups of coffee per day 1 soda per day ED ROS GENERAL - Review of Systems Review Of Systems: See Below Constitutional: Denies: Fever, Chills, Malaise, Fatigue, Night Sweats HEENT: Reports: No Symptoms Respiratory: Reports: Other (COPDshortness of breath) Cardiovascular: Reports: No Symptoms Endocrine: Reports: No Symptoms GI/Abdominal: Reports: Abdominal Pain, Diarrhea, Distension, Flatus. Denies: Anorexia, Black Stool, Bloody Stool, Constipation, Difficulty Swallowing, Hematemesis, Hematochezia, Melena, Mucous in Stool, Nausea, Stool Incontinence, Vomiting Musculoskeletal: Reports: No Symptoms Skin: Reports: No Symptoms Neurological: Reports: No Symptoms Psychiatric: Reports: No Symptoms Hematologic/Lymphatic: Reports: No Symptoms ED EXAM, GI/ABD - Physical Exam Exam: See Below Text/Narrative:: 55-year-old female presents the ED patient found lying semi-Fowlers in stretcher bay 2. Patient appears to be in minor distress due to pain, patient is alert and oriented 3 of 3 GCS 4 5 6. Patient speaking in full sentences. Exam Limited By: No Limitations General Appearance: Alert, WD/WN, Mild Distress Eyes: Bilateral: EOMI Ears: Hearing Grossly Normal Nose: No: No Blood, Nasal Drainage, Clear Rhinorrhea, Nasal Flaring Throat/Mouth: Normal Lips, Normal Voice, No Airway Compromise Head: Atraumatic, Normocephalic Respiratory/Chest: No Respiratory Distress, No Accessory Muscle Use, Chest Non- Tender, Rhonchi (Minor rhonchi left lower lobe cleared with tussis) Cardiovascular: Normal Peripheral Pulses, Regular Rate, Rhythm, No Edema, No Gallop, No JVD, No Murmur, No Rub GI/Abdominal Exam: Other (Visual inspection shows large vertical scars midline and right of midline approximately 8 to 10 inches in length from previous surgeries, patient is tender in the upper right-hand quadrant Ramirez signs negative, discomfort/tenderness 3 remaining quadrants no obvious masses, auscultation hyperactive ) Back Exam: Normal Inspection. No: CVA Tenderness (R), CVA Tenderness (L) Extremities: Normal Inspection, Normal Range of Motion, Non-Tender, Normal Capillary Refill, No Pedal Edema Neurological: Alert, Oriented, Normal Cognition Psychiatric: Normal Affect, Normal Mood Skin Exam: Warm, Dry, Intact, Normal Color, No Rash Course - Orders/Labs/Meds Labs: Laboratory Tests 04/12/21 04/12/21 Range/Units 19:25 19:25 WBC 7.7 (4.0-11.0) K/uL RBC 4.85 (3.80-5.80) M/uL Hgb 13.0 (11.5-16.5) g/dL Hct 39.7 (37.0-47.0) % MCV 82 (76-96) fL MCH 26.8 L (27.0-32.0) pg MCHC 32.7 (31.0-35.0) g/dL RDW 14.8 (11.0-16.0) % Plt Count 210 (150-500) K/uL MPV 12.2 H (6.0-10.0) fL Neut % (Auto) 67.2 (45.0-70.0) % Lymph % (Auto) 24.2 (20.0-40.0) % Stanly % (Auto) 7.5 (3.0-10.0) % Eos % (Auto) 0.6 L (1.0-5.0) % Baso % (Auto) 0.5 (0.0-0.5) % Neut # (Auto) 5.19 (2.00-7.50) K/uL Lymph # (Auto) 1.87 (1.50-4.00) K/uL Stanly # (Auto) 0.58 (0.20-0.80) K/uL Eos # (Auto) 0.05 (0.04-0.40) K/uL Baso # (Auto) 0.04 (0.02-0.10) K/uL Sodium 135 L (136-145) mmol/L Potassium 3.3 L (3.5-5.1) mmol/L Chloride 95 L (98-107) mmol/L Carbon Dioxide 28.5 D (21.0-32.0) mmol/L Anion Gap 14.8 (5.0-15.0) mmol/L BUN 15 (8-26) mg/dL Creatinine 1.19 H (0.55-1.02) mg/dL Est Cr Clr Drug Dosing TNP Estimated GFR (MDRD) 47 L (>60) MLS/MIN BUN/Creatinine Ratio 12.6 (6-25) Glucose 358 H D (74-100) mg/dL Calcium 9.1 (8.5-10.1) mg/dL Meds: Medications Discontinued Medications Generic Name Dose Route Start Last Admin Trade Name Freq PRN Reason Stop Dose Admin Ketorolac Tromethamine Confirm 04/12/21 19:18 Ketorolac 30 Mg/Ml Sdv Administered 04/12/21 19:19 Dose 30 mg .ROUTE .STK-MED ONE Methylprednisolone Sodium Succinate 125 mg 04/12/21 19:18 Methylprednisolone Sodium Succinate 125 Mg/2 Ml Sdv IM 04/12/21 19:19 ONETIME ONE Methylprednisolone Sodium Succinate Confirm 04/12/21 19:42 Methylprednisolone Sodium Succinate 125 Mg/2 Ml Sdv Administered 04/12/21 19:43 Dose 125 mg .ROUTE .STK-MED ONE Departure - Departure Time of Disposition: 20:10 Disposition: Home, Self-Care 01 Condition: Good Clinical Impression: Abdominal pain Irritable bowel disease Qualifiers: Irritable bowel syndrome type: unspecified Qualified Code(s): K58.9 - Irritable bowel syndrome without diarrhea - Discharge Information *PRESCRIPTION DRUG MONITORING PROGRAM REVIEWED*: No *COPY OF PRESCRIPTION DRUG MONITORING REPORT IN PATIENT MARY ELLEN: No Prescriptions: Potassium Chloride [K-Tab] 10 meq PO DAILY #30 tablet.er Instructions: Low-FODMAP Eating Plan, Abdominal Pain, Adult, [id number] Referrals: PCP,None [Primary Care Provider] - Forms: ED Department Discharge - Assessment/Plan Assessment:: Assessment and plan cough: History, exam, labs to include CBC BMP, address patient's pain with ketorolac 30 mg IM, address patient's probable irritable bowel disease with Solu-Medrol 125 mg IM treatment plan going home to include prednisone 40 mg daily, patient follow-up with Dr. Echevarria on Monday to address long-term care and treatment plan for irritable bowel disease. All questions were answered to patient satisfaction patient agreed to treatment plan, patient was discharged in stable condition. Patient remains hypokalemic despite 12 days of at home potassium patients potassium at last visit was 3.1 today's visit is 3.3 will address this issue with continuing potassium at home 10 mEq daily to be managed by Dr. Echevarria. Discontinue aspirin while on prednisone.
[2021-04-12] MEDS ORDERED: predniSONE 10 MG Tab ONE (20:00)
[2021-04-13 00:51] VITALS: BP 121/82; PULSE 102
== END 2021-04-12 20:18 | disposition home or self-care (01) ==
LOC: LB.ED 18:21
DX: K58.9 Irritable bowel syndrome, unspecified (principal); I10 Essential (primary) hypertension; K21.9 Gastro-esophageal reflux disease without esophagitis; J44.9 Chronic obstructive pulmonary disease, unspecified; E11.42 Type 2 diabetes mellitus with diabetic polyneuropathy; E66.9 Obesity, unspecified; Z68.30 Body mass index [BMI] 30.0-30.9, adult; Z91.048 Other nonmedicinal substance allergy status; Z88.4 Allergy status to anesthetic agent; Z88.8 Allergy status to other drugs, medicaments and biological substances; Z79.82 Long term (current) use of aspirin; Z79.899 Other long term (current) drug therapy
CPT/HCPCS: 36415; 80048; 85025; 96372; 99284; J1885; J2930; J7512

== ENCOUNTER 2021-06-23 22:22 | Emergency (ER) | payer MEDICARE, MEDICAID ==
[2021-06-23] MEDS ORDERED: Albuterol/Ipratropium 3.0-0.5 MG/3 ML Neb Soln NEB STA (22:37)
--- NOTE | 2021-06-23 22:55 | EDM.PDOC ---
ED HPI GENERAL MEDICAL PROBLEM - General Chief Complaint: Respiratory Problem Stated Complaint: SOB Time Seen by Provider: 06/23/21 22:30 Source of Information: Reports: Patient, RN Notes Reviewed History Limitations: Reports: No Limitations - History of Present Illness INITIAL COMMENTS - FREE TEXT/NARRATIVE: This patient presents to the emergency department for evaluation of difficulty breathing. She states she has had felt increased work of breathing for the last couple of days. She is currently receiving both an inhaler and a neb treatment at home but does not know what medications she is using. She is also on prednisone but states this is for her irritable bowel syndrome not her breathing. She denies chest pain, she denies fever. Appetite is good, she denies vomiting or diarrhea. - Related Data Allergies Allergy/AdvReac Type Severity Reaction Status Date / Time bisoprolol Allergy Severe Shortness Verified 07/12/20 13:18 of Breath adhesive tape Allergy Rash Verified 07/12/20 13:18 celecoxib [From Celebrex] Allergy Nausea and Verified 07/11/20 18:57 Vomiting pramipexole Allergy Diaphoresis Verified 07/12/20 13:18 ketamine AdvReac Intermediate Agitation Verified 07/11/20 18:57 Home Meds: Home Meds Omeprazole 20 mg PO BIDAC 04/14/13 [History] QUEtiapine [SEROquel] 100 mg PO QAM 06/06/15 [History] QUEtiapine Fumarate [Quetiapine Fumarate] 400 mg PO QPM 06/25/17 [History] Calcium Carbonate/Vitamin D3 [Calcium 600Mg-D3 400 Unit Sfgl] 1 tab PO BID 06/13/18 [History] Ubidecarenone [Co Q-10] 200 mg PO BEDTIME 10/04/18 [History] Mirtazapine [Remeron] 1 - 2 tab PO BEDTIME 01/25/19 [History] Albuterol Sulfate [Proair Digihaler] 2 inh INH Q4HR PRN 01/20/20 [History] Budesonide/Formoterol [Symbicort 160-4.5 MCG] 2 inh INH BID 01/20/20 [History] Topiramate 25 mg PO BID 01/20/20 [History] Varenicline [Chantix] 1 mg PO DAILY 01/20/20 [History] ondansetron HCL [Zofran] 4 mg PO Q4HR PRN 01/20/20 [History] risperiDONE [Risperdal] 5 mg PO BEDTIME 02/05/20 [History] Aspirin [Halfprin] 81 mg PO DAILY 04/05/20 [History] Losartan [Cozaar] 12.5 mg PO DAILY 04/05/20 [History] Montelukast [Singulair] 10 mg PO BEDTIME 04/05/20 [History] SUMAtriptan [Imitrex] 25 mg PO ASDIRECTED PRN 04/05/20 [History] sitaGLIPtin Phos/Metformin HCl [Janumet 50-1,000 MG] 1 tab PO BID 04/05/20 [History] Albuterol/Ipratropium [DuoNeb 3.0-0.5 MG/3 ML] 3 ml NEB Q4H neb 04/06/20 [Rx] Furosemide 40 mg PO DAILY #60 04/06/20 [Rx] Acetaminophen [Tylenol Arthritis] 1 - 2 tab PO Q8H PRN 07/11/20 [History] Baclofen 10 mg PO BID 07/11/20 [History] Dicyclomine [Bentyl] 10 mg PO TID PRN 07/11/20 [History] Docusate Sodium [Dulcolax Stool Softener] 100 mg PO BID PRN 07/11/20 [History] Ipratropium/Albuterol Sulfate [Iprat-Albut 0.5-3(2.5) MG/3 ML] 3 ml IH Q4H PRN 07/11/20 [History] Ketorolac [Toradol] 10 mg PO TID PRN 07/11/20 [History] Meloxicam [Mobic] 7.5 mg PO ASDIRECTED PRN 07/11/20 [History] QUEtiapine [SEROquel] 50 mg PO TID PRN 07/11/20 [History] Spironolactone [Aldactone] 2 tab PO BID 07/11/20 [History] atorvaSTATin [Lipitor] 20 mg PO BEDTIME 07/11/20 [History] rOPINIRole [Requip] 0.5 mg PO BEDTIME 07/11/20 [History] Albuterol [Proventil Neb Soln] 2.5 mg NEB Q4H #60 neb 07/13/20 [Rx] Azithromycin [Zithromax] 500 mg PO Q24H #4 tablet 07/13/20 [Rx] Nicotine [Habitrol] 21 mg TRDERM DAILY #14 patch 07/13/20 [Rx] QUEtiapine [SEROquel] 50 mg PO TID PRN tablet 07/13/20 [Rx] QUEtiapine [SEROquel] 100 mg PO QAM tablet 07/13/20 [Rx] SitaGLIPtin [Januvia] 50 mg PO BIDMEALS tablet 07/13/20 [Rx] Spironolactone [Aldactone] 50 mg PO BID@0800,1200 tablet 07/13/20 [Rx] amLODIPine [Norvasc] 2.5 mg PO DAILY #30 tablet 07/13/20 [Rx] predniSONE [Prednisone] 5 mg PO DAILY #3 tablet 07/13/20 [Rx] predniSONE [Prednisone] 10 mg PO DAILY #3 tablet 07/13/20 [Rx] predniSONE [Prednisone] 20 mg PO DAILY #3 tablet 07/13/20 [Rx] rOPINIRole [Requip] 0.5 mg PO BEDTIME tablet 07/13/20 [Rx] risperiDONE [RisperiDAL] 5 mg PO BEDTIME tablet 07/13/20 [Rx] ALPRAZolam [Xanax] 0.25 mg PO DAILY #10 tablet 12/09/20 [Rx] methylPREDNISolone [Medrol Dose Pack] 84 mg PO DAILY #21 dospk 12/09/20 [Rx] Potassium Chloride [K-Tab] 10 meq PO DAILY #30 tablet.er 04/12/21 [Rx] Past Medical History - Past Health History Medical/Surgical History: Denies Medical/Surgical History HEENT History: Reports: Impaired Vision, Other (See Below) Other HEENT History: glasses for reading, Cardiovascular History: Reports: Heart Murmur, Hypertension Other Cardiovascular History: Pt has appointment with production control expert in [place] in 5 days. Pt states she may need a valve replaced Respiratory History: Reports: Asthma, Bronchitis, Recurrent, COPD, Pneumonia, Recurrent, Other (See Below) Other Respiratory History: Emphysema Gastrointestinal History: Reports: Bowel Obstruction, GERD, Irritable Bowel Syndrome Genitourinary History: Reports: None SCRAPPER History: Reports: 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 Uterine Bleeding, Musculoskeletal History: Reports: Back Pain, Chronic Other Musculoskeletal History: back / butt pain, shoots down left leg Neurological History: Reports: Migraines, Neuropathy, Peripheral Psychiatric History: Reports: Anxiety, Depression, Suicide Attempt, Suicidal Ideation Other Psychiatric History: suicide attemp years ago, states got help and no long thinks of it Endocrine/Metabolic History: Reports: Diabetes, Type II, Obesity/BMI 30+ Hematologic History: Reports: Blood Transfusion(s), Iron Deficiency Oncologic (Cancer) History: Reports: None Dermatologic History: Reports: Eczema, Other (See Below) Other Dermatologic History: Allergy to paper tape - Infectious Disease History Infectious Disease History: Reports: Chicken Pox, Measles, Rubella - Past Surgical History HEENT Surgical History: Reports: Eye Surgery Other HEENT Surgeries/Procedures: Eye Surgery, when 6 yr and grade school Cardiovascular Surgical History: Reports: None Respiratory Surgical History: Reports: None GI Surgical History: Reports: None Other GI Surgeries/Procedures: ABD. SURGERY AND SCAR TISSUE REMOVAL Female Surgical History: Reports: Section, Hysterectomy, Other (See Below) Other Female Surgeries/Procedures: appendix Endocrine Surgical History: Reports: None Neurological Surgical History: Reports: None Musculoskeletal Surgical History: Reports: None Dermatological Surgical History: Reports: None Social & Family History - Family History Family Medical History: No Pertinent Family History Cardiac: Reports: None Musculoskeletal: Reports: Arthritis, Back pain, Chronic Neurological: Reports: None Psychiatric: Reports: Depression Endocrine/Metabolic: Reports: None Oncologic: Reports: None - Caffeine Use Caffeine Use: Reports: Soda Other Caffeine Use: 2 cups a day Caffeine Use Comment: 2 cups of coffee per day 1 soda per day ED ROS GENERAL - Review of Systems Review Of Systems: Comprehensive ROS is negative, except as noted in HPI. ED EXAM, GENERAL - Physical Exam Exam: See Below Exam Limited By: No Limitations General Appearance: Alert, No Apparent Distress, Obese (morbidly) Eye Exam: Bilateral Eye: Normal Inspection, PERRL Ears: Normal External Exam Nose: Normal Inspection Head: Atraumatic, Normocephalic Neck: Normal Inspection, Supple, Full Range of Motion Respiratory/Chest: No Respiratory Distress, Lungs Clear, Normal Breath Sounds, No Accessory Muscle Use, Other (Tachypnea). No: Rales, Rhonchi, Wheezing Cardiovascular: Regular Rate, Rhythm Neurological: Alert, Oriented Psychiatric: Normal Affect Skin Exam: Warm, Dry, Intact Course - Orders/Labs/Meds Orders: Active Orders 24 hr Category Date Time Status RT Aerosol Therapy [RC] ASDIRECTED Care 06/23/21 22:43 Active Meds: Medications Discontinued Medications Generic Name Dose Route Start Last Admin Trade Name Emerson PRN Reason Stop Dose Admin Albuterol/Ipratropium 3 ml 06/23/21 22:37 06/23/21 22:39 Albuterol/Ipratropium 3.0-0.5 Mg/3 Ml Neb Soln NEB 06/23/21 22:38 3 ml STAT STA Administration - Re-Assessments/Exams Free Text/Narrative Re-Assessment/Exam: This patient with a history of COPD presents for evaluation of shortness of breath. Signs and symptoms are consistent with COPD exacerbation. A broad differential was considered including foreign body, viral induced reactive airway disease, pneumothorax, allergic phenomena, pneumonia, bronchitis etc. a chest x-ray was not ordered as the patient states she felt a proved nearly immediately upon arrival to the ER. She was given 1 DuoNeb. There are no signs at this point of any serious etiologies including those mentioned above. There is no indication for hospitalization at this time given no hypoxia and only mild tachypnea. She has had no increase in sputum production so no antibiotics are indicated. She states she is getting 40 mg of prednisone daily for her irritable bowel syndrome. That medication will be unchanged. I advised close follow-up with her primary care provider and to return to the ED emergency department for increased wheezing, shortness of breath, or develops a fever greater than 102. Patient was stable at the time of discharge. 06/23/21 22:57 Departure - Departure Time of Disposition: 23:55 Disposition: Home, Self-Care 01 Condition: Good Clinical Impression: COPD exacerbation COPD (chronic obstructive pulmonary disease) Qualifiers: COPD type: unspecified COPD Qualified Code(s): J44.9 - Chronic obstructive pulmonary disease, unspecified - Discharge Information *PRESCRIPTION DRUG MONITORING PROGRAM REVIEWED*: Not Applicable *COPY OF PRESCRIPTION DRUG MONITORING REPORT IN PATIENT MARY ELLEN: Not Applicable Instructions: Chronic Obstructive Pulmonary Disease, [id number] - My Orders Last 24 Hours: My Active Orders 06/23/21 22:43 RT Aerosol Therapy [RC] ASDIRECTED - Assessment/Plan Last 24 Hours: My Active Orders 06/23/21 22:43 RT Aerosol Therapy [RC] ASDIRECTED
== END 2021-06-23 22:56 | disposition home or self-care (01) ==
LOC: LB.ED 22:22
DX: J44.1 Chronic obstructive pulmonary disease with (acute) exacerbation (principal); K21.9 Gastro-esophageal reflux disease without esophagitis; E11.42 Type 2 diabetes mellitus with diabetic polyneuropathy; E66.9 Obesity, unspecified; Z68.30 Body mass index [BMI] 30.0-30.9, adult; Z88.4 Allergy status to anesthetic agent; Z91.048 Other nonmedicinal substance allergy status; Z88.8 Allergy status to other drugs, medicaments and biological substances; Z79.82 Long term (current) use of aspirin; Z79.899 Other long term (current) drug therapy
CPT/HCPCS: 99284-25; J7620-GY

== ENCOUNTER 2021-08-18 13:40 | Emergency (ER) | payer MEDICARE, MEDICAID ==
[2021-08-18 14:08] VITALS: BP 154/72; PULSE 96
== END 2021-08-18 14:40 | disposition left against medical advice (07) ==
LOC: LB.ED 13:40
DX: M25.572 Pain in left ankle and joints of left foot (principal); J44.9 Chronic obstructive pulmonary disease, unspecified; E11.9 Type 2 diabetes mellitus without complications; I10 Essential (primary) hypertension; E66.9 Obesity, unspecified; Z68.30 Body mass index [BMI] 30.0-30.9, adult; Z91.048 Other nonmedicinal substance allergy status; Z88.4 Allergy status to anesthetic agent; Z88.8 Allergy status to other drugs, medicaments and biological substances; Z79.82 Long term (current) use of aspirin; Z79.899 Other long term (current) drug therapy; Z87.891 Personal history of nicotine dependence; Z53.8 Procedure and treatment not carried out for other reasons
CPT/HCPCS: 99283

== ENCOUNTER 2021-08-20 08:57 | Emergency (ER) | payer MEDICARE, MEDICAID ==
[2021-08-20 09:24] VITALS: BP 142/55; PULSE 86
[2021-08-20] MEDS ORDERED: Albuterol/Ipratropium 3.0-0.5 MG/3 ML Neb Soln NEB ONE (09:46)
[2021-08-20] MEDS ORDERED: Albuterol/Ipratropium 3.0-0.5 MG/3 ML Neb Soln ONE (09:55)
== END 2021-08-20 10:30 | disposition home or self-care (01) ==
LOC: LB.ED 08:57
DX: J44.1 Chronic obstructive pulmonary disease with (acute) exacerbation (principal); I10 Essential (primary) hypertension; K21.9 Gastro-esophageal reflux disease without esophagitis; E11.42 Type 2 diabetes mellitus with diabetic polyneuropathy; E66.9 Obesity, unspecified; Z68.41 Body mass index [BMI] 40.0-44.9, adult; Z91.048 Other nonmedicinal substance allergy status; Z88.4 Allergy status to anesthetic agent; Z88.8 Allergy status to other drugs, medicaments and biological substances; Z79.899 Other long term (current) drug therapy; Z79.4 Long term (current) use of insulin; Z79.82 Long term (current) use of aspirin
CPT/HCPCS: 99284-25; J7620-GY

== ENCOUNTER 2021-09-16 14:07 | Emergency (ER) | payer MEDICARE, MEDICAID ==
[2021-09-16] MEDS: Albuterol/Ipratropium 3.0-0.5 MG/3 ML Neb Soln ONE (14:39)
== END 2021-09-16 15:20 | disposition home or self-care (01) ==
LOC: LB.ED 14:07
DX: J44.1 Chronic obstructive pulmonary disease with (acute) exacerbation (principal); I10 Essential (primary) hypertension; E11.9 Type 2 diabetes mellitus without complications; E66.9 Obesity, unspecified; F41.9 Anxiety disorder, unspecified; F32.9 Major depressive disorder, single episode, unspecified; K21.9 Gastro-esophageal reflux disease without esophagitis; Z88.1 Allergy status to other antibiotic agents; Z88.8 Allergy status to other drugs, medicaments and biological substances; Z79.899 Other long term (current) drug therapy; Z79.4 Long term (current) use of insulin; Z79.82 Long term (current) use of aspirin; Z91.09 Other allergy status, other than to drugs and biological substances
CPT/HCPCS: 99284; J7620-GY

== ENCOUNTER 2021-12-24 21:40 | Emergency (ER) | payer MEDICARE, MEDICAID ==
[2021-12-24] MEDS ORDERED: predniSONE 10 MG Tab ONE (22:00)
[2021-12-24] MEDS ORDERED: Azithromycin 250 MG Tab ONE (22:00)
[2021-12-24 22:12] VITALS: BP 125/66; PULSE 94
[2021-12-24] MEDS ORDERED: Sodium Chloride 0.9% 10 ML Syringe FLUSH PRN (22:26)
[2021-12-24] MEDS ORDERED: Sodium Chloride 0.9% 1,000 ML IV SCH (22:30)
[2021-12-24] MEDS: Albuterol/Ipratropium 3.0-0.5 MG/3 ML Neb Soln NEB SCH ×2 (22:59→23:26)
[2021-12-24] MEDS ORDERED: methylPREDNISolone Sodium Succinate 125 MG/2 ML SDV IVPUSH ONE (23:03)
[2021-12-24] MEDS ORDERED: Albuterol/Ipratropium 3.0-0.5 MG/3 ML Neb Soln ONE ×2 (23:09→23:29)
[2021-12-24] MEDS ORDERED: methylPREDNISolone Sodium Succinate 125 MG/2 ML SDV ONE (23:28)
== END 2021-12-25 | disposition home or self-care (01) ==
LOC: LB.ED 21:40
DX: J44.1 Chronic obstructive pulmonary disease with (acute) exacerbation (principal); I10 Essential (primary) hypertension; K21.9 Gastro-esophageal reflux disease without esophagitis; E11.9 Type 2 diabetes mellitus without complications; E66.9 Obesity, unspecified; Z68.41 Body mass index [BMI] 40.0-44.9, adult; Z90.710 Acquired absence of both cervix and uterus; Z79.899 Other long term (current) drug therapy; Z91.048 Other nonmedicinal substance allergy status; Z88.6 Allergy status to analgesic agent; Z88.8 Allergy status to other drugs, medicaments and biological substances; Z79.82 Long term (current) use of aspirin; Z79.4 Long term (current) use of insulin; Z20.822 Contact with and (suspected) exposure to COVID-19
CPT/HCPCS: 36415; 71045; 80048; 84484; 85025; 85379; 93005; 94640; 96374; 99285; A9270; J2930; J7030; J7512; U0002; 93010; 99283; J7620

== ENCOUNTER 2022-02-05 14:12 | Emergency (ER) | payer MEDICARE, MEDICAID ==
[2022-02-05] MEDS: Albuterol/Ipratropium 3.0-0.5 MG/3 ML Neb Soln NEB ONE (14:28)
[2022-02-05] MEDS: methylPREDNISolone Sodium Succinate 125 MG/2 ML SDV IVPUSH ONE (14:46)
[2022-02-05] MEDS: Budesonide 0.5 MG/2 ML Neb Susp NEB ONE (15:16)
[2022-02-05 15:21] LABS: ESTIMATED GFR 64 mL/min (>60)
[2022-02-05 15:32] VITALS: BP 132/74; PULSE 96
[2022-02-05] MEDS: Sodium Chloride 0.9% 1,000 ML IV ONE (16:00)
[2022-02-05] MEDS: cefTRIAXone 1 GM Vial ONE (16:01)
[2022-02-05] MEDS: cefTRIAXone 2 GM in Sodium Chloride 0.9% 100 ML IV ONE (16:01)
[2022-02-05] MEDS ORDERED: cefTRIAXone 1 GM Vial ONE (16:11)
[2022-02-05] MEDS ORDERED: Azithromycin 250 MG Tab ONE (18:00)
[2022-02-05] MEDS ORDERED: predniSONE 10 MG Tab ONE (18:00)
== END 2022-02-05 18:19 | disposition home or self-care (01) ==
LOC: LB.ED 14:12
DX: J44.1 Chronic obstructive pulmonary disease with (acute) exacerbation (principal); I10 Essential (primary) hypertension; E11.9 Type 2 diabetes mellitus without complications; E66.9 Obesity, unspecified; Z68.30 Body mass index [BMI] 30.0-30.9, adult; Z88.8 Allergy status to other drugs, medicaments and biological substances; Z91.048 Other nonmedicinal substance allergy status; Z88.1 Allergy status to other antibiotic agents; Z88.4 Allergy status to anesthetic agent; Z79.899 Other long term (current) drug therapy; Z79.82 Long term (current) use of aspirin; Z79.4 Long term (current) use of insulin; Z90.710 Acquired absence of both cervix and uterus
CPT/HCPCS: 36415; 71045; 80053; 81001; 83605; 83880; 84484; 85025; 85379; 87040; 93005; 93010; 96365; 96375; 99282; 99285; A9270; J0696; J2930; J7030; J7512; J7620

== ENCOUNTER 2022-03-05 14:20 | Emergency (ER) | payer MEDICARE, MEDICAID ==
[2022-03-05 14:38] VITALS: BP 155/77; PULSE 155
[2022-03-05] MEDS ORDERED: hydrOXYzine HCl 25 MG Tab PO ONE (14:43)
== END 2022-03-05 15:45 | disposition home or self-care (01) ==
LOC: LB.ED 14:20
DX: F41.9 Anxiety disorder, unspecified (principal); J44.9 Chronic obstructive pulmonary disease, unspecified; I10 Essential (primary) hypertension; K21.9 Gastro-esophageal reflux disease without esophagitis; E11.9 Type 2 diabetes mellitus without complications; E66.9 Obesity, unspecified; Z68.41 Body mass index [BMI] 40.0-44.9, adult; Z91.048 Other nonmedicinal substance allergy status; Z79.899 Other long term (current) drug therapy; Z79.82 Long term (current) use of aspirin
CPT/HCPCS: 99281; 99283; A9270-GY

== ENCOUNTER 2022-10-15 10:06 | Emergency (ER) | payer MEDICARE, MEDICAID ==
[2022-10-15] MEDS ORDERED: Albuterol/Ipratropium 3.0-0.5 MG/3 ML Neb Soln NEB STA (10:24)
[2022-10-15 10:37] VITALS: BP 149/77; PULSE 106
[2022-10-15] MEDS ORDERED: LORazepam 2 MG/ML SDV IVPUSH ONE (10:37)
[2022-10-15] MEDS ORDERED: LORazepam 2 MG/ML SDV ONE (10:59)
[2022-10-15] MEDS ORDERED: predniSONE 10 MG Tab ONE (12:00)
== END 2022-10-15 12:05 | disposition home or self-care (01) ==
LOC: LB.ED 10:06
DX: J44.1 Chronic obstructive pulmonary disease with (acute) exacerbation (principal); F17.210 Nicotine dependence, cigarettes, uncomplicated; F41.9 Anxiety disorder, unspecified; E66.9 Obesity, unspecified; E11.42 Type 2 diabetes mellitus with diabetic polyneuropathy; K21.9 Gastro-esophageal reflux disease without esophagitis; I10 Essential (primary) hypertension; Z79.4 Long term (current) use of insulin; Z79.82 Long term (current) use of aspirin; Z79.899 Other long term (current) drug therapy; Z88.4 Allergy status to anesthetic agent; Z88.6 Allergy status to analgesic agent; Z88.8 Allergy status to other drugs, medicaments and biological substances; Z91.048 Other nonmedicinal substance allergy status
CPT/HCPCS: 36415; 71045; 80048; 83880; 84484; 85027; 93005; 94640; 96374; 99285-25; J2060; J7512; J7620

== ENCOUNTER 2022-11-05 10:30 | Emergency (ER) | payer MEDICARE, MEDICAID ==
[2022-11-05] MEDS: Nitroglycerin 0.4 MG Tab.SL SL PRN ×2 (10:37→10:46)
[2022-11-05 11:23] LABS: ESTIMATED GFR 48 mL/min (>60)
[2022-11-05] MEDS ORDERED: Aspirin 81 MG Tab.Chew PO ONE (11:28)
[2022-11-05] MEDS ORDERED: HYDROmorphone 2 MG/ML Syringe IVPUSH ONE ×2 (11:29)
[2022-11-05] MEDS ORDERED: Ketorolac 30 MG/ML SDV IVPUSH ONE (13:53)
[2022-11-05 15:43] VITALS: BP 126/74; PULSE 98
== END 2022-11-05 16:07 | disposition home or self-care (01) ==
LOC: LB.ED 10:49
DX: R07.81 Pleurodynia (principal); J44.9 Chronic obstructive pulmonary disease, unspecified; K21.9 Gastro-esophageal reflux disease without esophagitis; E11.9 Type 2 diabetes mellitus without complications; E66.9 Obesity, unspecified; Z68.30 Body mass index [BMI] 30.0-30.9, adult; Z91.048 Other nonmedicinal substance allergy status; Z88.4 Allergy status to anesthetic agent; Z88.8 Allergy status to other drugs, medicaments and biological substances; Z79.899 Other long term (current) drug therapy; Z79.82 Long term (current) use of aspirin
CPT/HCPCS: 36415; 71045; 71250; 80053; 83735; 84484; 85025; 85610; 85730; 93005; 93010; 96374; 96375; 99283; 99285-25; A9270-GY; J1170; J1885

== ENCOUNTER 2022-11-20 01:49 | Inpatient (IN) | payer MEDICARE, MEDICAID ==
[2022-11-20] MEDS ORDERED: HYDROmorphone 2 MG/ML Syringe IVPUSH ONE ×2 (02:18→02:47)
[2022-11-20] MEDS ORDERED: Ondansetron 4 MG/2 ML SDV IVPUSH ONE (02:18)
[2022-11-20] MEDS ORDERED: HYDROmorphone 2 MG/ML Syringe ONE (02:23)
[2022-11-20] MEDS ORDERED: Ondansetron 4 MG/2 ML SDV ONE (02:23)
[2022-11-20 02:41] LABS: BASOPHILS PERCENT AUTO 0.7 % (0.0-0.5); EOSINOPHILS ABSOLUTE AUTO 0.02 K/uL (0.04-0.40); EOSINOPHILS PERCENT AUTO 0.1 % (1.0-5.0); HEMATOCRIT 49.4 % (37.0-47.0); LYMPHOCYTES ABSOLUTE AUTO 1.06 K/uL (1.50-4.00); LYMPHOCYTES PERCENT AUTO 7.9 % (20.0-40.0); MEAN CORPUSCULAR HEMOGLOBIN 30.7 pg (27.0-32.0); MEAN CORPUSCULAR HGB CONC 32.4 g/dL (31.0-35.0); MEAN CORPUSCULAR VOLUME 95 fL (76-96); MEAN PLATELET VOLUME 11.4 fL (6.0-10.0); MONOCYTES ABSOLUTE AUTO 0.83 K/uL (0.20-0.80); MONOCYTES PERCENT AUTO 6.2 % (3.0-10.0); NEUTROPHILS ABSOLUTE AUTO 11.36 K/uL (2.00-7.50); NEUTROPHILS PERCENT AUTO 85.1 % (45.0-70.0); PLATELET COUNT,PLT 212 K/uL (150-500); RED BLOOD CELL COUNT 5.21 M/uL (3.80-5.80); RED CELL DISTRIBUTION WIDTH 15.1 % (11.0-16.0); WHITE BLOOD CELL COUNT,WBC 13.4 K/uL (4.0-11.0)
[2022-11-20 03:00] LABS: ALANINE AMINOTRANSFERASE,ALT 52 U/L (12-78); ALBUMIN 3.4 g/dL (3.4-5.0); ALKALINE PHOSPHATASE 128 U/L (46-116); ANION GAP 11.5 mmol/L (5.0-15.0); ASPARTATE AMNIOTRANSFERASE,AST 26 U/L (15-37); BILIRUBIN TOTAL 0.6 mg/dL (0.0-1.0); BLOOD UREA NITROGEN,BUN 12 mg/dL (8-26); BUN/CREATININE RATIO 11.2 (6-25); CALCIUM 9.2 mg/dL (8.5-10.1); CARBON DIOXIDE,CO2 29.9 mmol/L (21.0-32.0); CHLORIDE,CL 100 mmol/L (98-107); CREATININE 1.07 mg/dL (0.55-1.02); ESTIMATED GFR 60 mL/min (>60); GLUCOSE RANDOM 135 mg/dL (74-100); LIPASE 27 U/L (73-393); POTASSIUM,K 4.4 mmol/L (3.5-5.1); PROTEIN TOTAL,TP 6.9 g/dL (6.4-8.2); SODIUM,NA 137 mmol/L (136-145)
[2022-11-20 03:16] LABS: APPEARANCE,URINE SLIGHTLY CLOUDY (CLEAR); BILIRUBIN,URINE SMALL (NEGATIVE); COLOR,URINE YELLOW; GLUCOSE,URINE NEGATIVE (NEGATIVE); KETONES,URINE 15 mg/dL (NEGATIVE); LEUKOCYTE ESTERASE,URINE MODERATE (NEGATIVE); NITRITE,URINE NEGATIVE (NEGATIVE); OCCULT BLOOD,URINE SMALL (NEGATIVE); PROTEIN,URINE 30 mg/dL (NEGATIVE); UROBILINOGEN,URINE 0.2 E.U./dL (0.2-1.0)
[2022-11-20 03:22] LABS: RBC,URINE 0-5 /HPF; WBC CLUMPS,URINE FEW /HPF; WBC,URINE 20-30 /HPF
[2022-11-20 03:23] LABS: BACTERIA,URINE MANY /HPF; SQUAMOUS EPITHELIAL CELLS,UR FEW /HPF
[2022-11-20] MEDS ORDERED: Ketorolac 60 MG/2 ML SDV IVPUSH ONE (04:40)
[2022-11-20] MEDS ORDERED: Ketorolac 30 MG/ML SDV ONE (04:42)
[2022-11-20] MEDS ORDERED: Ketorolac 30 MG/ML SDV IVPUSH ONE (04:43)
[2022-11-20] MEDS ORDERED: Albuterol/Ipratropium 3.0-0.5 MG/3 ML Neb Soln NEB PRN (05:43)
[2022-11-20] MEDS ORDERED: 50% Dextrose in Water 50 ML Syringe IVPUSH PRN (05:43)
[2022-11-20] MEDS ORDERED: Non-Formulary Medication 1 Each (Albuterol Sulfate [Proair Digihaler] 90 MCG Aer.Pw.Bas) INH PRN (05:43)
[2022-11-20] MEDS ORDERED: Glucagon,Human Recombinant 1 MG Vial IM PRN (05:43)
[2022-11-20] MEDS: Sodium Chloride 0.9% 1,000 ML IV SCH ×2 (06:18→14:11)
[2022-11-20] MEDS ORDERED: Non-Formulary Medication 1 Each (Budesonide/Formoterol [Symbicort 160-4.5 Mcg Inhaler (6 G INH SCH (08:00)
[2022-11-20] MEDS ORDERED: Furosemide 40 MG/4 ML VIAL IVPUSH SCH (08:00)
[2022-11-20] MEDS ORDERED: Enoxaparin 40 MG/0.4 ML Syringe SUBCUT SCH (08:00)
[2022-11-20] MEDS ORDERED: Pantoprazole 40 MG Vial IVPUSH SCH (08:00)
[2022-11-20] MEDS ORDERED: Ciprofloxacin in D5W 400 MG in Premix Bag 1 BAG IV SCH ×2 (08:00)
[2022-11-20] MEDS: Albuterol/Ipratropium 3.0-0.5 MG/3 ML Neb Soln SCH ×2 (09:04→14:11)
[2022-11-20] MEDS ORDERED: Ketorolac 30 MG/ML SDV IVPUSH PRN (09:12)
[2022-11-20] MEDS ORDERED: HYDROmorphone 2 MG/ML Syringe IVPUSH PRN (09:12)
[2022-11-20] MEDS ORDERED: Labetalol 100 MG/20 ML MDV IVPUSH ONE (12:44)
[2022-11-20] MEDS ORDERED: Esmolol/Normal Saline 2.5 GM/250 ML BAG IV SCH (13:15)
[2022-11-20] MEDS ORDERED: LORazepam 2 MG/ML SDV IVPUSH ONE ×2 (13:41→14:53)
[2022-11-20 15:15] VITALS: PULSE 134
[2022-11-20 15:16] VITALS: BP 114/61
[2022-11-20] MEDS: [UNRECOGNIZED DRUG - OTHER] SQ SCH (15:47)
[2022-11-20] MEDS: INSULIN LISPRO 100 UNIT/ML SQ SCH (15:47)
[2022-11-20] MEDS ORDERED: [UNRECOGNIZED DRUG - OTHER] SQ SCH (20:00)
[2022-11-20] MEDS ORDERED: Insulin Glargine,Human Rec. Analog 100 Units/ML 3 ML Pen SUBCUT SCH (20:00)
[2022-11-20] MEDS ORDERED: INSULIN LISPRO 100 UNIT/ML SQ SCH (20:00)
== END 2022-11-20 15:40 | DRG 389 ==
LOC: LB.ED 01:49 → LB.MS 07:05
PROVIDERS: ADMIT Physician Assistant; ATTEND Physician Assistant
PROC: 0D9670Z Drainage of Stomach with Drainage Device, Via Natural or Artificial Opening (ICD-10-PCS; principal; 2022-11-20)
DX: K56.609 Unspecified intestinal obstruction, unspecified as to partial versus complete obstruction (principal); N39.0 Urinary tract infection, site not specified; Z68.41 Body mass index [BMI] 40.0-44.9, adult; K21.9 Gastro-esophageal reflux disease without esophagitis; M54.9 Dorsalgia, unspecified; G89.29 Other chronic pain; H54.7 Unspecified visual loss; J44.9 Chronic obstructive pulmonary disease, unspecified; F17.200 Nicotine dependence, unspecified, uncomplicated; E11.42 Type 2 diabetes mellitus with diabetic polyneuropathy; E66.9 Obesity, unspecified; D50.9 Iron deficiency anemia, unspecified; Z90.710 Acquired absence of both cervix and uterus; Z88.1 Allergy status to other antibiotic agents; Z87.01 Personal history of pneumonia (recurrent); Z88.8 Allergy status to other drugs, medicaments and biological substances; Z79.82 Long term (current) use of aspirin; Z79.4 Long term (current) use of insulin; Z79.899 Other long term (current) drug therapy
CPT/HCPCS: 36415; 71045; 74018; 74176; 80053; 81001; 82947; 83690; 85025; 87086; 93005; C9113; J0744; J1170; J1650; J1885; J1940; J2060; J2405; J7030

== ENCOUNTER 2022-12-10 08:51 | Emergency (ER) | payer MEDICARE, MEDICAID ==
[2022-12-10] MEDS: Albuterol/Ipratropium 3.0-0.5 MG/3 ML Neb Soln NEB PRN ×2 (09:22→11:20)
[2022-12-10] MEDS ORDERED: Albuterol/Ipratropium 3.0-0.5 MG/3 ML Neb Soln ONE ×2 (09:22→11:13)
[2022-12-10] MEDS ORDERED: Nitroglycerin 0.4 MG Tab.SL SL ONE (10:18)
[2022-12-10] MEDS ORDERED: Aspirin 81 MG Tab.Chew PO ONE (10:18)
[2022-12-10] MEDS ORDERED: Sodium Chloride 0.9% 10 ML Syringe FLUSH PRN (10:19)
[2022-12-10] MEDS ORDERED: Morphine 4 MG/ML VIAL ONE ×2 (10:35→12:45)
[2022-12-10] MEDS: Morphine 4 MG/ML VIAL IVPUSH ONE ×2 (10:35→12:46)
[2022-12-10 10:41] LABS: ANION GAP 10.9 mmol/L (5.0-15.0); BLOOD UREA NITROGEN,BUN 9 mg/dL (8-26); BUN/CREATININE RATIO 9.7 (6-25); CALCIUM 9.5 mg/dL (8.5-10.1); CARBON DIOXIDE,CO2 32.6 mmol/L (21.0-32.0); CHLORIDE,CL 103 mmol/L (98-107); CREATININE 0.93 mg/dL (0.55-1.02); ESTIMATED GFR 71 mL/min (>60); GLUCOSE RANDOM 65 mg/dL (74-100); POTASSIUM,K 3.5 mmol/L (3.5-5.1); SODIUM,NA 143 mmol/L (136-145); TROPONIN I HIGH SENSITIVITY 23.6 pg/ml (<=60.4)
[2022-12-10] MEDS ORDERED: hydrALAZINE 20 MG/ML SDV IVPUSH ONE (11:02)
[2022-12-10] MEDS ORDERED: LORazepam 2 MG/ML SDV IVPUSH ONE (11:05)
[2022-12-10] MEDS ORDERED: LORazepam 2 MG/ML SDV ONE (11:13)
[2022-12-10] MEDS ORDERED: Morphine 4 MG/ML VIAL IVPUSH ONE (12:42)
[2022-12-10] MEDS ORDERED: predniSONE 10 MG Tab ONE (14:45)
[2022-12-10 17:26] VITALS: BP 131/67; PULSE 114
== END 2022-12-10 14:55 | disposition home or self-care (01) ==
LOC: LB.ED 08:51
DX: J44.1 Chronic obstructive pulmonary disease with (acute) exacerbation (principal); I10 Essential (primary) hypertension; E11.9 Type 2 diabetes mellitus without complications; K21.9 Gastro-esophageal reflux disease without esophagitis; E66.9 Obesity, unspecified; Z79.899 Other long term (current) drug therapy; Z68.41 Body mass index [BMI] 40.0-44.9, adult
CPT/HCPCS: 36415; 71045; 80048; 84484; 85379; 93005; 94640; 96374; 96375; 99283-25; A9270-GY; J2060; J2270; J7512; J7620

== ENCOUNTER 2023-02-10 14:11 | Emergency (ER) | payer MEDICARE, MEDICAID ==
[2023-02-10] MEDS ORDERED: Nitroglycerin 0.4 MG Tab.SL SL PRN (14:34)
[2023-02-10] MEDS ORDERED: Morphine 4 MG/ML VIAL IVPUSH ONE (14:41)
[2023-02-10] MEDS ORDERED: Morphine 4 MG/ML VIAL ONE (14:43)
[2023-02-10 14:46] LABS: BASOPHILS ABSOLUTE AUTO 0.12 K/uL (0.02-0.10); EOSINOPHILS ABSOLUTE AUTO 0.03 K/uL (0.04-0.40); EOSINOPHILS PERCENT AUTO 0.2 % (1.0-5.0); HEMATOCRIT 47.6 % (37.0-47.0); HEMOGLOBIN 15.3 g/dL (11.5-16.5); LYMPHOCYTES ABSOLUTE AUTO 0.79 K/uL (1.50-4.00); LYMPHOCYTES PERCENT AUTO 6.5 % (20.0-40.0); MEAN CORPUSCULAR HEMOGLOBIN 31.2 pg (27.0-32.0); MEAN CORPUSCULAR HGB CONC 32.1 g/dL (31.0-35.0); MEAN CORPUSCULAR VOLUME 97 fL (76-96); MEAN PLATELET VOLUME 11.2 fL (6.0-10.0); MONOCYTES ABSOLUTE AUTO 0.78 K/uL (0.20-0.80); MONOCYTES PERCENT AUTO 6.4 % (3.0-10.0); NEUTROPHILS ABSOLUTE AUTO 10.52 K/uL (2.00-7.50); NEUTROPHILS PERCENT AUTO 85.9 % (45.0-70.0); PLATELET COUNT,PLT 164 K/uL (150-500); RED BLOOD CELL COUNT 4.91 M/uL (3.80-5.80); RED CELL DISTRIBUTION WIDTH 15.8 % (11.0-16.0); WHITE BLOOD CELL COUNT,WBC 12.2 K/uL (4.0-11.0)
[2023-02-10 15:02] LABS: INR 1.1 (1.0-3.5)
[2023-02-10 15:07] LABS: ALBUMIN 3.6 g/dL (3.4-5.0); ANION GAP 16.3 mmol/L (5.0-15.0); BILIRUBIN TOTAL 0.4 mg/dL (0.0-1.0); BUN/CREATININE RATIO 12.5 (6-25); CALCIUM 9.3 mg/dL (8.5-10.1); CARBON DIOXIDE,CO2 28.1 mmol/L (21.0-32.0); CREATININE 1.12 mg/dL (0.55-1.02); EST CRCL DRUG DOSING (CG) 47.28 mL/min; POTASSIUM,K 3.4 mmol/L (3.5-5.1); PROTEIN TOTAL,TP 7.1 g/dL (6.4-8.2)
[2023-02-10] MEDS ORDERED: HYDROmorphone 2 MG/ML Syringe IVPUSH ONE (15:45)
[2023-02-10] MEDS ORDERED: HYDROmorphone 2 MG/ML Syringe ONE (15:48)
[2023-02-10 17:16] VITALS: BP 145/84; PULSE 83
== END 2023-02-10 17:50 | disposition home or self-care (01) ==
LOC: LB.ED 14:11
DX: R07.9 Chest pain, unspecified (principal); R06.02 Shortness of breath; E78.00 Pure hypercholesterolemia, unspecified; I10 Essential (primary) hypertension; J43.9 Emphysema, unspecified; E11.9 Type 2 diabetes mellitus without complications; E66.9 Obesity, unspecified; Z68.41 Body mass index [BMI] 40.0-44.9, adult; Z88.8 Allergy status to other drugs, medicaments and biological substances; Z91.048 Other nonmedicinal substance allergy status; Z88.1 Allergy status to other antibiotic agents; Z88.4 Allergy status to anesthetic agent; Z79.899 Other long term (current) drug therapy; Z79.82 Long term (current) use of aspirin; Z79.4 Long term (current) use of insulin
CPT/HCPCS: 36415; 71045; 80053; 84484; 85025; 85379; 85610; 85730; 93005; 96374; 96375; 99285; J1170; J2270; 93010; 99283

== ENCOUNTER 2023-03-03 15:41 | Emergency (ER) | payer MEDICARE, MEDICAID ==
[2023-03-03] MEDS: Aspirin 81 MG Tab.Chew PO ONE (16:04)
[2023-03-03 16:05] LABS: BASOPHILS ABSOLUTE AUTO 0.08 K/uL (0.02-0.10); BASOPHILS PERCENT AUTO 0.6 % (0.0-0.5); EOSINOPHILS ABSOLUTE AUTO 0.03 K/uL (0.04-0.40); EOSINOPHILS PERCENT AUTO 0.2 % (1.0-5.0); HEMATOCRIT 44.6 % (37.0-47.0); HEMOGLOBIN 14.8 g/dL (11.5-16.5); LYMPHOCYTES ABSOLUTE AUTO 1.01 K/uL (1.50-4.00); LYMPHOCYTES PERCENT AUTO 7.9 % (20.0-40.0); MEAN CORPUSCULAR HEMOGLOBIN 32.1 pg (27.0-32.0); MEAN CORPUSCULAR HGB CONC 33.2 g/dL (31.0-35.0); MEAN CORPUSCULAR VOLUME 97 fL (76-96); MEAN PLATELET VOLUME 11.5 fL (6.0-10.0); MONOCYTES PERCENT AUTO 7.1 % (3.0-10.0); NEUTROPHILS ABSOLUTE AUTO 10.69 K/uL (2.00-7.50); NEUTROPHILS PERCENT AUTO 84.2 % (45.0-70.0); PLATELET COUNT,PLT 145 K/uL (150-500); RED BLOOD CELL COUNT 4.61 M/uL (3.80-5.80); RED CELL DISTRIBUTION WIDTH 15.2 % (11.0-16.0); WHITE BLOOD CELL COUNT,WBC 12.7 K/uL (4.0-11.0)
[2023-03-03] MEDS: Nitroglycerin 0.4 MG Tab.SL SL ONE (16:07)
[2023-03-03 16:08] VITALS: PULSE 108
[2023-03-03] MEDS ORDERED: Ipratropium 0.02% 0.5 MG/2.5 ML Neb Soln NEB ONE (16:10)
[2023-03-03 16:11] VITALS: BP 121/76
[2023-03-03] MEDS: Albuterol 0.083% 2.5 MG/3 ML Neb Soln NEB ONE ×2 (16:11)
[2023-03-03] MEDS: Albuterol/Ipratropium 3.0-0.5 MG/3 ML Neb Soln ONE (16:12)
[2023-03-03] MEDS: Albuterol 0.083% 2.5 MG/3 ML Neb Soln ONE ×2 (16:12)
[2023-03-03 16:24] LABS: PTT,PARTIAL THROMBOPLSTIN TIME 25.2 SECONDS (24.4-33.2)
[2023-03-03 16:28] LABS: A/G RATIO 0.9 (0.8-2.0); ALBUMIN 3.5 g/dL (3.4-5.0); ANION GAP 12.6 mmol/L (5.0-15.0); BILIRUBIN TOTAL 0.4 mg/dL (0.0-1.0); BUN/CREATININE RATIO 8.5 (6-25); CALCIUM 9.1 mg/dL (8.5-10.1); CARBON DIOXIDE,CO2 31.8 mmol/L (21.0-32.0); CREATININE 1.17 mg/dL (0.55-1.02); EST CRCL DRUG DOSING (CG) 45.26 mL/min; POTASSIUM,K 3.4 mmol/L (3.5-5.1); PROTEIN TOTAL,TP 7.4 g/dL (6.4-8.2); TROPONIN I HIGH SENSITIVITY 42.3 pg/ml (<=60.4)
[2023-03-03 16:32] LABS: PROTHROMBIN TIME 10.6 sec (9.0-11.5)
[2023-03-03] MEDS: Albuterol/Ipratropium 3.0-0.5 MG/3 ML Neb Soln NEB SCH (16:32)
[2023-03-03] MEDS: Albuterol/Ipratropium 3.0-0.5 MG/3 ML Neb Soln NEB ONE (16:33)
[2023-03-03] MEDS: Magnesium Sulfate/Water 2 GM in Premix Bag 1 BAG IV ONE (16:33)
[2023-03-03] MEDS: Potassium Chloride 20 MEQ Tab.ER PO ONE (17:43)
[2023-03-03] MEDS: Furosemide 20 MG/2 ML VIAL IVPUSH ONE (17:43)
[2023-03-03] MEDS ORDERED: Furosemide 20 MG Tab ONE (18:00)
[2023-03-03] MEDS: Furosemide 40 MG/4 ML VIAL ONE (18:33)
[2023-03-03] MEDS: Magnesium Sulfate/Water 50 ML ONE (18:33)
== END 2023-03-03 18:14 | disposition home or self-care (01) ==
LOC: LB.ED 15:41
DX: J44.1 Chronic obstructive pulmonary disease with (acute) exacerbation (principal); I10 Essential (primary) hypertension; E78.00 Pure hypercholesterolemia, unspecified; K21.9 Gastro-esophageal reflux disease without esophagitis; E11.9 Type 2 diabetes mellitus without complications; E66.9 Obesity, unspecified; Z68.41 Body mass index [BMI] 40.0-44.9, adult; Z79.82 Long term (current) use of aspirin; Z79.4 Long term (current) use of insulin; Z79.899 Other long term (current) drug therapy; Z88.8 Allergy status to other drugs, medicaments and biological substances; Z91.048 Other nonmedicinal substance allergy status
CPT/HCPCS: 36415; 71045; 80053; 83880; 84484; 85025; 85379; 85610; 85730; 94640; 96365; 96375; 99283; 99285-25; A9270-GY; J1940; J3475; J7620

== ENCOUNTER 2023-03-17 08:24 | Emergency (ER) | payer MEDICARE, MEDICAID ==
[2023-03-17] MEDS ORDERED: Sodium Chloride 0.9% 10 ML Syringe FLUSH PRN (08:42)
[2023-03-17 08:56] LABS: BASOPHILS ABSOLUTE AUTO 0.03 K/uL (0.02-0.10); BASOPHILS PERCENT AUTO 0.2 % (0.0-0.5); EOSINOPHILS ABSOLUTE AUTO 0.05 K/uL (0.04-0.40); EOSINOPHILS PERCENT AUTO 0.4 % (1.0-5.0); HEMATOCRIT 51.3 % (37.0-47.0); HEMOGLOBIN 16.8 g/dL (11.5-16.5); LYMPHOCYTES ABSOLUTE AUTO 0.74 K/uL (1.50-4.00); LYMPHOCYTES PERCENT AUTO 5.8 % (20.0-40.0); MEAN CORPUSCULAR HEMOGLOBIN 31.4 pg (27.0-32.0); MEAN CORPUSCULAR HGB CONC 32.7 g/dL (31.0-35.0); MEAN CORPUSCULAR VOLUME 96 fL (76-96); MEAN PLATELET VOLUME 10.3 fL (6.0-10.0); MONOCYTES ABSOLUTE AUTO 1.17 K/uL (0.20-0.80); MONOCYTES PERCENT AUTO 9.2 % (3.0-10.0); NEUTROPHILS ABSOLUTE AUTO 10.69 K/uL (2.00-7.50); NEUTROPHILS PERCENT AUTO 84.4 % (45.0-70.0); PLATELET COUNT,PLT 221 K/uL (150-500); RED BLOOD CELL COUNT 5.35 M/uL (3.80-5.80); RED CELL DISTRIBUTION WIDTH 15.1 % (11.0-16.0); WHITE BLOOD CELL COUNT,WBC 12.7 K/uL (4.0-11.0)
[2023-03-17] MEDS: Ondansetron 4 MG/2 ML SDV IVPUSH ONE (08:58)
[2023-03-17 09:23] LABS: APPEARANCE,URINE CLEAR (CLEAR); BILIRUBIN,URINE SMALL (NEGATIVE); COLOR,URINE YELLOW; GLUCOSE,URINE NEGATIVE (NEGATIVE); KETONES,URINE TRACE mg/dL (NEGATIVE); LEUKOCYTE ESTERASE,URINE NEGATIVE (NEGATIVE); NITRITE,URINE NEGATIVE (NEGATIVE); OCCULT BLOOD,URINE TRACE-INTACT (NEGATIVE); PH,URINE 6.5 (5.0-8.0); PROTEIN,URINE 30 mg/dL (NEGATIVE)
[2023-03-17 09:26] LABS: AMORPHOUS SEDIMENT,URINE OCCASIONAL /HPF; RBC,URINE 0-5 /HPF; SQUAMOUS EPITHELIAL CELLS,UR FEW /HPF; WBC,URINE 0-5 /HPF
[2023-03-17 09:29] LABS: ANION GAP 15.6 mmol/L (5.0-15.0); BUN/CREATININE RATIO 10.9 (6-25); CARBON DIOXIDE,CO2 26.2 mmol/L (21.0-32.0); CREATININE 1.29 mg/dL (0.55-1.02); POTASSIUM,K 3.8 mmol/L (3.5-5.1)
[2023-03-17 09:30] LABS: A/G RATIO 1.1 (0.8-2.0); ALBUMIN 3.7 g/dL (3.4-5.0); BILIRUBIN TOTAL 0.9 mg/dL (0.0-1.0); EST CRCL DRUG DOSING (CG) 41.05 mL/min; PROTEIN TOTAL,TP 7.2 g/dL (6.4-8.2)
[2023-03-17] MEDS: Prochlorperazine 10 MG/2 ML SDV IVPUSH ONE (10:54)
[2023-03-17] MEDS: Prochlorperazine 10 MG/2 ML SDV ONE (10:57)
[2023-03-17 12:33] VITALS: BP 125/78; PULSE 102
== END 2023-03-17 12:10 | disposition home or self-care (01) ==
LOC: LB.ED 08:24 → SUPCPDRO 08:24 → LB.ED 12:10
DX: K52.9 Noninfective gastroenteritis and colitis, unspecified (principal); F17.210 Nicotine dependence, cigarettes, uncomplicated; I10 Essential (primary) hypertension; E78.00 Pure hypercholesterolemia, unspecified; E66.9 Obesity, unspecified; E11.9 Type 2 diabetes mellitus without complications; J43.9 Emphysema, unspecified; Z68.42 Body mass index [BMI] 45.0-49.9, adult; Z79.4 Long term (current) use of insulin; Z79.899 Other long term (current) drug therapy; Z91.048 Other nonmedicinal substance allergy status; Z88.8 Allergy status to other drugs, medicaments and biological substances
CPT/HCPCS: 36415; 74176; 80053; 81001; 83605; 83690; 85025; 96374; 96375; 99284-25; J0780; J2405

== ENCOUNTER 2023-03-18 01:52 | Emergency (ER) | payer MEDICARE, MEDICAID ==
[2023-03-18] MEDS ORDERED: Ondansetron 4 MG/2 ML SDV ONE (02:51)
[2023-03-18] MEDS ORDERED: Sodium Chloride 0.9% 10 ML Syringe FLUSH PRN (02:57)
[2023-03-18] MEDS ORDERED: Ondansetron 4 MG/2 ML SDV IVPUSH ONE (02:57)
[2023-03-18 03:15] LABS: BASOPHILS ABSOLUTE AUTO 0.02 K/uL (0.02-0.10); BASOPHILS PERCENT AUTO 0.2 % (0.0-0.5); EOSINOPHILS ABSOLUTE AUTO 0.07 K/uL (0.04-0.40); EOSINOPHILS PERCENT AUTO 0.7 % (1.0-5.0); HEMATOCRIT 48.8 % (37.0-47.0); HEMOGLOBIN 16.2 g/dL (11.5-16.5); LYMPHOCYTES ABSOLUTE AUTO 0.61 K/uL (1.50-4.00); LYMPHOCYTES PERCENT AUTO 6.5 % (20.0-40.0); MEAN CORPUSCULAR HEMOGLOBIN 31.3 pg (27.0-32.0); MEAN CORPUSCULAR HGB CONC 33.2 g/dL (31.0-35.0); MEAN CORPUSCULAR VOLUME 94 fL (76-96); MEAN PLATELET VOLUME 11.1 fL (6.0-10.0); MONOCYTES PERCENT AUTO 11.7 % (3.0-10.0); NEUTROPHILS ABSOLUTE AUTO 7.63 K/uL (2.00-7.50); NEUTROPHILS PERCENT AUTO 80.9 % (45.0-70.0); PLATELET COUNT,PLT 238 K/uL (150-500); RED BLOOD CELL COUNT 5.18 M/uL (3.80-5.80); RED CELL DISTRIBUTION WIDTH 14.9 % (11.0-16.0); WHITE BLOOD CELL COUNT,WBC 9.4 K/uL (4.0-11.0)
[2023-03-18 03:29] LABS: ALBUMIN 3.6 g/dL (3.4-5.0); ANION GAP 15.8 mmol/L (5.0-15.0); BILIRUBIN TOTAL 0.9 mg/dL (0.0-1.0); BUN/CREATININE RATIO 9.6 (6-25); CALCIUM 8.7 mg/dL (8.5-10.1); CARBON DIOXIDE,CO2 23.9 mmol/L (21.0-32.0); CREATININE 1.15 mg/dL (0.55-1.02); EST CRCL DRUG DOSING (CG) 46.05 mL/min; POTASSIUM,K 3.7 mmol/L (3.5-5.1); PROTEIN TOTAL,TP 7.2 g/dL (6.4-8.2)
[2023-03-18] MEDS ORDERED: Morphine 4 MG/ML VIAL IVPUSH ONE (04:04)
[2023-03-18] MEDS ORDERED: Prochlorperazine 5 MG in Sodium Chloride 0.9% 50 ML IV ONE (04:05)
[2023-03-18] MEDS ORDERED: Prochlorperazine 10 MG/2 ML SDV ONE (04:12)
[2023-03-18] MEDS ORDERED: Morphine 4 MG/ML VIAL ONE (04:13)
[2023-03-18] MEDS ORDERED: Sodium Chloride 0.9% 1,000 ML IV SCH (04:15)
[2023-03-18] MEDS ORDERED: Ciprofloxacin 500 MG Tab PO ONE (08:31)
[2023-03-18] MEDS ORDERED: metroNIDAZOLE 500 MG Tab PO ONE (08:31)
[2023-03-18 08:58] LABS: ANION GAP 12.9 mmol/L (5.0-15.0); BUN/CREATININE RATIO 8.7 (6-25); CALCIUM 8.3 mg/dL (8.5-10.1); CARBON DIOXIDE,CO2 28.2 mmol/L (21.0-32.0); CREATININE 1.26 mg/dL (0.55-1.02); EST CRCL DRUG DOSING (CG) 42.03 mL/min; POTASSIUM,K 4.1 mmol/L (3.5-5.1)
[2023-03-18 13:19] VITALS: BP 135/77; PULSE 116
== END 2023-03-18 09:30 | disposition home or self-care (01) ==
LOC: LB.ED 01:52 → SUPCPDRO 01:52 → LB.ED 09:30
DX: K52.9 Noninfective gastroenteritis and colitis, unspecified (principal); J44.9 Chronic obstructive pulmonary disease, unspecified; E11.9 Type 2 diabetes mellitus without complications; E78.00 Pure hypercholesterolemia, unspecified; I10 Essential (primary) hypertension; E66.9 Obesity, unspecified; Z79.4 Long term (current) use of insulin; F17.210 Nicotine dependence, cigarettes, uncomplicated; Z68.41 Body mass index [BMI] 40.0-44.9, adult; Z88.0 Allergy status to penicillin; Z88.1 Allergy status to other antibiotic agents; Z91.048 Other nonmedicinal substance allergy status; Z88.8 Allergy status to other drugs, medicaments and biological substances; Z79.899 Other long term (current) drug therapy
CPT/HCPCS: 36415; 80048; 80053; 85025; 96361; 96365; 96375; 99284; A9270; J0780; J2270; J2405; J3490; J7030

== ENCOUNTER 2023-03-18 16:00 | Inpatient (IN) | payer MEDICARE, MEDICAID ==
[2023-03-18] MEDS ORDERED: Prochlorperazine 10 MG/2 ML SDV IVPUSH ONE (17:15)
[2023-03-18] MEDS ORDERED: Morphine 4 MG/ML VIAL IVPUSH ONE (17:15)
[2023-03-18] MEDS ORDERED: Morphine 4 MG/ML VIAL ONE (17:37)
[2023-03-18] MEDS ORDERED: Prochlorperazine 10 MG/2 ML SDV ONE (17:37)
[2023-03-18 19:07] LABS: HEMATOCRIT 50.9 % (37.0-47.0); HEMOGLOBIN 16.9 g/dL (11.5-16.5); MEAN CORPUSCULAR HEMOGLOBIN 31.2 pg (27.0-32.0); MEAN CORPUSCULAR HGB CONC 33.2 g/dL (31.0-35.0); MEAN PLATELET VOLUME 10.9 fL (6.0-10.0); RED BLOOD CELL COUNT 5.41 M/uL (3.80-5.80); RED CELL DISTRIBUTION WIDTH 14.9 % (11.0-16.0); WHITE BLOOD CELL COUNT,WBC 8.9 K/uL (4.0-11.0)
[2023-03-18 19:20] LABS: ANION GAP 17.3 mmol/L (5.0-15.0); BUN/CREATININE RATIO 11.9 (6-25); CALCIUM 9.3 mg/dL (8.5-10.1); CARBON DIOXIDE,CO2 22.8 mmol/L (21.0-32.0); CREATININE 1.09 mg/dL (0.55-1.02); EST CRCL DRUG DOSING (CG) 48.58 mL/min; MAGNESIUM 1.7 mg/dL (1.8-2.4); PHOSPHORUS 3.7 mg/dL (2.5-4.9); POTASSIUM,K 4.1 mmol/L (3.5-5.1)
[2023-03-18 19:25] LABS: LACTIC ACID 1.8 mmol/L (0.4-2.0)
[2023-03-18] MEDS ORDERED: Non-Formulary Medication 1 Each (Albuterol Sulfate [Proair Digihaler] 90 MCG Aer.Pw.Bas) INH PRN (19:31)
[2023-03-18] MEDS ORDERED: Glucagon,Human Recombinant 1 MG Vial IM PRN (19:31)
[2023-03-18] MEDS ORDERED: 50% Dextrose in Water 50 ML Syringe IVPUSH PRN (19:31)
[2023-03-18] MEDS ORDERED: RISPERIDONE 2 MG PO SCH (20:00)
[2023-03-18] MEDS ORDERED: Albuterol 90 MCG/6.7 GM Inhaler INH PRN (20:00)
[2023-03-18] MEDS ORDERED: Non-Formulary Medication 1 Each (Budesonide/Formoterol [Symbicort 160-4.5 Mcg Inhaler (6 G INH SCH (20:00)
[2023-03-18] MEDS: Nicotine 14 MG/24 Hr Patch TRDERM SCH (20:40)
[2023-03-18] MEDS: Heparin Sodium 5,000 Units/ML Vial SUBCUT SCH (20:40)
[2023-03-18] MEDS: Insulin Glargine,Human Rec. Analog 100 Units/ML 3 ML Pen SUBCUT SCH (20:42)
[2023-03-18] MEDS ORDERED: QUEtiapine Fumarate 200 MG TABLET PO ONE (20:49)
[2023-03-18] MEDS: Morphine 4 MG/ML VIAL IVPUSH PRN (21:05)
[2023-03-18] MEDS: Sodium Chloride 0.9% 10 ML Syringe FLUSH PRN (21:06)
[2023-03-19] MEDS: Lactated Ringers 1,000 ML IV SCH ×3 (00:46→17:14)
[2023-03-19] MEDS: Ondansetron 4 MG/2 ML SDV IV PRN (00:52)
[2023-03-19] MEDS: Morphine 4 MG/ML VIAL IVPUSH PRN ×5 (01:03→19:45)
[2023-03-19] MEDS: Heparin Sodium 5,000 Units/ML Vial SUBCUT SCH ×3 (03:30→19:48)
[2023-03-19] MEDS: predniSONE 10 MG Tab PO SCH (07:54)
[2023-03-19] MEDS: Losartan 25 MG Tab PO SCH (07:55)
[2023-03-19] MEDS: Nicotine 14 MG/24 Hr Patch TRDERM SCH (07:56)
[2023-03-19] MEDS: Insulin Aspart 100 Units/ML 3 ML Pen SUBCUT SCH ×3 (08:01→17:15)
[2023-03-19] MEDS: Mometasone Furoate Powder 220 MCG/Puff 14 Dose Inhaler INH SCH ×2 (08:01→20:07)
[2023-03-19] MEDS: Furosemide 40 MG Tab PO SCH (11:25)
[2023-03-19] MEDS ORDERED: INSULIN LISPRO 100 UNIT/ML SQ SCH (17:00)
[2023-03-19] MEDS ORDERED: [UNRECOGNIZED DRUG - OTHER] SQ SCH (17:00)
[2023-03-19] MEDS ORDERED: QUEtiapine Fumarate 200 MG TABLET PO ONE (19:23)
[2023-03-19] MEDS: risperiDONE 1 MG Tab PO SCH (19:48)
[2023-03-19] MEDS: Sodium Chloride 0.9% 10 ML Syringe FLUSH PRN (19:50)
[2023-03-19] MEDS: Insulin Glargine,Human Rec. Analog 100 Units/ML 3 ML Pen SUBCUT SCH (20:08)
[2023-03-20] MEDS: Morphine 4 MG/ML VIAL IVPUSH PRN ×5 (01:25→19:36)
[2023-03-20] MEDS: Dextrose 5%-0.9% NaCl with KCl 1,000 ML IV SCH ×2 (01:35→17:54)
[2023-03-20] MEDS: Heparin Sodium 5,000 Units/ML Vial SUBCUT SCH ×3 (04:29→19:39)
[2023-03-20] MEDS ORDERED: Morphine 4 MG/ML VIAL ONE ×4 (05:25→19:08)
[2023-03-20 08:29] LABS: HEMOGLOBIN 15.3 g/dL (11.5-16.5); MEAN CORPUSCULAR HEMOGLOBIN 31.2 pg (27.0-32.0); MEAN CORPUSCULAR HGB CONC 32.6 g/dL (31.0-35.0); MEAN PLATELET VOLUME 10.6 fL (6.0-10.0); RED BLOOD CELL COUNT 4.9 M/uL (3.80-5.80); RED CELL DISTRIBUTION WIDTH 14.9 % (11.0-16.0); WHITE BLOOD CELL COUNT,WBC 7.3 K/uL (4.0-11.0)
[2023-03-20 08:35] LABS: ANION GAP 8.3 mmol/L (5.0-15.0); BUN/CREATININE RATIO 11.8 (6-25); CALCIUM 8.6 mg/dL (8.5-10.1); CARBON DIOXIDE,CO2 31.9 mmol/L (21.0-32.0); CREATININE 0.93 mg/dL (0.55-1.02); EST CRCL DRUG DOSING (CG) 56.94 mL/min; POTASSIUM,K 3.2 mmol/L (3.5-5.1)
[2023-03-20] MEDS: Losartan 25 MG Tab PO SCH (09:10)
[2023-03-20] MEDS: predniSONE 10 MG Tab PO SCH (09:10)
[2023-03-20] MEDS: Nicotine 14 MG/24 Hr Patch TRDERM SCH (09:16)
[2023-03-20] MEDS: Insulin Aspart 100 Units/ML 3 ML Pen SUBCUT SCH ×3 (09:20→18:06)
[2023-03-20] MEDS: Mometasone Furoate Powder 220 MCG/Puff 14 Dose Inhaler INH SCH ×2 (09:22→19:22)
[2023-03-20] MEDS: Furosemide 40 MG Tab PO SCH (12:55)
[2023-03-20] MEDS ORDERED: QUEtiapine Fumarate 200 MG TABLET PO ONE (19:11)
[2023-03-20] MEDS: Insulin Glargine,Human Rec. Analog 100 Units/ML 3 ML Pen SUBCUT SCH (19:44)
[2023-03-20] MEDS: risperiDONE 1 MG Tab PO SCH (19:45)
[2023-03-21] MEDS ORDERED: Morphine 10 MG/ML SDV ONE (00:07)
[2023-03-21] MEDS: Morphine 4 MG/ML VIAL IVPUSH PRN ×3 (00:19→08:20)
[2023-03-21] MEDS: Dextrose 5%-0.9% NaCl with KCl 1,000 ML IV SCH ×3 (03:11→20:55)
[2023-03-21] MEDS: Heparin Sodium 5,000 Units/ML Vial SUBCUT SCH ×3 (03:24→20:10)
[2023-03-21] MEDS: predniSONE 10 MG Tab PO SCH (07:54)
[2023-03-21] MEDS: Furosemide 40 MG Tab PO SCH (07:55)
[2023-03-21] MEDS: Losartan 25 MG Tab PO SCH (07:55)
[2023-03-21] MEDS: Nicotine 14 MG/24 Hr Patch TRDERM SCH (08:01)
[2023-03-21] MEDS: Insulin Aspart 100 Units/ML 3 ML Pen SUBCUT SCH ×3 (08:03→16:54)
[2023-03-21] MEDS: Mometasone Furoate Powder 220 MCG/Puff 14 Dose Inhaler INH SCH ×2 (08:11→19:39)
[2023-03-21] MEDS: Acetaminophen 500 MG Tab PO PRN ×2 (14:04→20:24)
[2023-03-21] MEDS: Ondansetron 4 MG/2 ML SDV IV PRN (18:17)
[2023-03-21] MEDS ORDERED: QUEtiapine Fumarate 200 MG TABLET PO ONE (19:33)
[2023-03-21] MEDS: Insulin Glargine,Human Rec. Analog 100 Units/ML 3 ML Pen SUBCUT SCH ×2 (20:10→20:20)
[2023-03-21] MEDS: risperiDONE 1 MG Tab PO SCH (20:11)
[2023-03-22] MEDS: Dextrose 5%-0.9% NaCl with KCl 1,000 ML IV SCH (03:44)
[2023-03-22] MEDS ORDERED: Diltiazem 25 MG/5 ML SDV IVPUSH ONE ×2 (04:29→05:33)
[2023-03-22] MEDS: Heparin Sodium 5,000 Units/ML Vial SUBCUT SCH ×3 (05:16→22:08)
[2023-03-22 05:34] LABS: HEMATOCRIT 48.4 % (37.0-47.0); HEMOGLOBIN 15.8 g/dL (11.5-16.5); LYMPHOCYTES ABSOLUTE AUTO 0.26 K/uL (1.50-4.00); LYMPHOCYTES PERCENT AUTO 3.6 % (20.0-40.0); MEAN CORPUSCULAR HEMOGLOBIN 31.2 pg (27.0-32.0); MEAN CORPUSCULAR HGB CONC 32.6 g/dL (31.0-35.0); MEAN CORPUSCULAR VOLUME 96 fL (76-96); MONOCYTES ABSOLUTE AUTO 0.31 K/uL (0.20-0.80); MONOCYTES PERCENT AUTO 4.3 % (3.0-10.0); NEUTROPHILS ABSOLUTE AUTO 6.71 K/uL (2.00-7.50); NEUTROPHILS PERCENT AUTO 92.1 % (45.0-70.0); PLATELET COUNT,PLT 163 K/uL (150-500); RED BLOOD CELL COUNT 5.06 M/uL (3.80-5.80); RED CELL DISTRIBUTION WIDTH 14.7 % (11.0-16.0); WHITE BLOOD CELL COUNT,WBC 7.3 K/uL (4.0-11.0)
[2023-03-22 05:52] LABS: A/G RATIO 0.9 (0.8-2.0); ALBUMIN 2.9 g/dL (3.4-5.0); ANION GAP 15.7 mmol/L (5.0-15.0); BILIRUBIN TOTAL 0.6 mg/dL (0.0-1.0); BUN/CREATININE RATIO 6.8 (6-25); CALCIUM 8.4 mg/dL (8.5-10.1); CARBON DIOXIDE,CO2 24.5 mmol/L (21.0-32.0); CREATININE 1.47 mg/dL (0.55-1.02); EST CRCL DRUG DOSING (CG) 36.28 mL/min; POTASSIUM,K 3.2 mmol/L (3.5-5.1); PROTEIN TOTAL,TP 6.2 g/dL (6.4-8.2)
[2023-03-22] MEDS: Flecainide 100 MG Tab PO SCH ×3 (06:18→09:22)
[2023-03-22] MEDS ORDERED: Magnesium Oxide 400 MG Tab PO SCH (08:00)
[2023-03-22] MEDS: Losartan 25 MG Tab PO SCH (08:07)
[2023-03-22] MEDS ORDERED: Flecainide 100 MG Tab PO SCH (08:15)
[2023-03-22] MEDS: predniSONE 10 MG Tab PO SCH (08:38)
[2023-03-22] MEDS: Potassium Chloride 20 MEQ Tab.ER PO SCH ×2 (08:38→17:39)
[2023-03-22] MEDS: Furosemide 40 MG Tab PO SCH (08:38)
[2023-03-22] MEDS: Nicotine 14 MG/24 Hr Patch TRDERM SCH (08:38)
[2023-03-22] MEDS: Insulin Aspart 100 Units/ML 3 ML Pen SUBCUT SCH ×3 (09:14→17:53)
[2023-03-22] MEDS: Mometasone Furoate Powder 220 MCG/Puff 14 Dose Inhaler INH SCH ×2 (09:22→22:09)
[2023-03-22] MEDS ORDERED: Flecainide 100 MG Tab PO STA (10:33)
[2023-03-22] MEDS ORDERED: Albuterol/Ipratropium 3.0-0.5 MG/3 ML Neb Soln NEB ONE (11:06)
[2023-03-22] MEDS ORDERED: Midazolam 1 MG/ML 2 ML SDV ONE (11:22)
[2023-03-22] MEDS ORDERED: fentaNYL 100 MCG/2 ML SDV ONE (11:22)
[2023-03-22] MEDS ORDERED: fentaNYL 100 MCG/2 ML SDV IVPUSH ONE (11:24)
[2023-03-22] MEDS ORDERED: Naloxone 2 MG/2 ML Syringe IVPUSH PRN (11:24)
[2023-03-22] MEDS ORDERED: Midazolam 1 MG/ML 2 ML SDV IVPUSH ONE (11:24)
[2023-03-22] MEDS ORDERED: Calcium Gluconate 10% 1 GM/10 ML SDV IVPUSH ONE (12:17)
[2023-03-22] MEDS ORDERED: Lactated Ringers 1,000 ML IV SCH (12:30)
[2023-03-22] MEDS ORDERED: Potassium Chloride 20 MEQ Tab.ER PO SCH (12:30)
[2023-03-22] MEDS: Ondansetron 4 MG/2 ML SDV IV PRN (12:54)
[2023-03-22] MEDS ORDERED: Adenosine 12 MG/4 ML SDV IVPUSH ONE ×2 (14:20→15:00)
[2023-03-22] MEDS ORDERED: Adenosine 12 MG/4 ML SDV ONE (14:49)
[2023-03-22] MEDS ORDERED: Sodium Chloride 0.9% 250 ML IV SCH (14:50)
[2023-03-22] MEDS ORDERED: Sodium Chloride 0.9% 100 ML IV SCH (16:15)
[2023-03-22] MEDS ORDERED: Morphine 2 MG/ML SYRINGE IVPUSH PRN (18:46)
[2023-03-22 19:54] VITALS: PULSE 105
[2023-03-22 20:17] VITALS: BP 123/56
[2023-03-22] MEDS: Insulin Glargine,Human Rec. Analog 100 Units/ML 3 ML Pen SUBCUT SCH (22:09)
[2023-03-22] MEDS: risperiDONE 1 MG Tab PO SCH (22:10)
== END 2023-03-22 20:40 | DRG 389 ==
LOC: LB.ED 16:00 → LB.MS 19:28 → UNDOADMIN 19:30 → LB.MS 19:30
PROVIDERS: ADMIT Surgery; ATTEND Registered Nurse
PROC: 0D9670Z Drainage of Stomach with Drainage Device, Via Natural or Artificial Opening (ICD-10-PCS; principal; 2023-03-18)
DX: K56.609 Unspecified intestinal obstruction, unspecified as to partial versus complete obstruction (principal); Z68.41 Body mass index [BMI] 40.0-44.9, adult; I48.91 Unspecified atrial fibrillation; E87.6 Hypokalemia; J44.9 Chronic obstructive pulmonary disease, unspecified; K52.9 Noninfective gastroenteritis and colitis, unspecified; E11.9 Type 2 diabetes mellitus without complications; I10 Essential (primary) hypertension; J43.9 Emphysema, unspecified; K59.09 Other constipation; D50.9 Iron deficiency anemia, unspecified; M19.90 Unspecified osteoarthritis, unspecified site; F41.9 Anxiety disorder, unspecified; G43.909 Migraine, unspecified, not intractable, without status migrainosus; F32.A Depression, unspecified; E78.00 Pure hypercholesterolemia, unspecified; F17.200 Nicotine dependence, unspecified, uncomplicated; Z90.710 Acquired absence of both cervix and uterus; Z90.49 Acquired absence of other specified parts of digestive tract; Z91.048 Other nonmedicinal substance allergy status; Z88.8 Allergy status to other drugs, medicaments and biological substances; Z88.1 Allergy status to other antibiotic agents; E66.9 Obesity, unspecified; Z79.82 Long term (current) use of aspirin; Z79.4 Long term (current) use of insulin; Z79.84 Long term (current) use of oral hypoglycemic drugs; Z98.890 Other specified postprocedural states; Z87.81 Personal history of (healed) traumatic fracture; Z79.899 Other long term (current) drug therapy
CPT/HCPCS: 36415; 43752; 71045; 74018; 74176; 80048; 83605; 83735; 84100; 85027; 96374; 96375; 99285; J0780; J2270; 80053; 82947; 84484; 85025; 93005; 93010; 94640; 99222; 99232; 99238; A9270-GY; J0153; J0612; J1644; J1815-GY; J2250; J2405; J3010; J3480; J3490; J7120; J7512; J7620

== ENCOUNTER 2023-05-02 15:32 | Emergency (ER) | payer MEDICARE, MEDICAID ==
[2023-05-02] MEDS ORDERED: Naloxone 2 MG/2 ML Syringe IVPUSH PRN (16:11)
[2023-05-02] MEDS: Sodium Chloride 0.9% 1,000 ML IV ONE (16:12)
[2023-05-02] MEDS: HYDROmorphone 2 MG/ML Syringe IVPUSH ONE (16:13)
[2023-05-02 16:14] LABS: BASOPHILS ABSOLUTE AUTO 0.08 K/uL (0.02-0.10); BASOPHILS PERCENT AUTO 0.8 % (0.0-0.5); EOSINOPHILS ABSOLUTE AUTO 0.04 K/uL (0.04-0.40); EOSINOPHILS PERCENT AUTO 0.4 % (1.0-5.0); HEMATOCRIT 49.4 % (37.0-47.0); HEMOGLOBIN 16.1 g/dL (11.5-16.5); LYMPHOCYTES ABSOLUTE AUTO 0.99 K/uL (1.50-4.00); LYMPHOCYTES PERCENT AUTO 9.4 % (20.0-40.0); MEAN CORPUSCULAR HEMOGLOBIN 30.8 pg (27.0-32.0); MEAN CORPUSCULAR HGB CONC 32.6 g/dL (31.0-35.0); MEAN CORPUSCULAR VOLUME 95 fL (76-96); MEAN PLATELET VOLUME 11.5 fL (6.0-10.0); MONOCYTES PERCENT AUTO 7.6 % (3.0-10.0); NEUTROPHILS PERCENT AUTO 81.8 % (45.0-70.0); PLATELET COUNT,PLT 181 K/uL (150-500); RED BLOOD CELL COUNT 5.22 M/uL (3.80-5.80); RED CELL DISTRIBUTION WIDTH 14.8 % (11.0-16.0); WHITE BLOOD CELL COUNT,WBC 10.5 K/uL (4.0-11.0)
[2023-05-02] MEDS: HYDROmorphone 2 MG/ML Syringe ONE (16:21)
[2023-05-02] MEDS: Metoprolol Tartrate 25 MG Tab PO ONE (16:23)
[2023-05-02 16:32] LABS: INR 1.1 (1.0-3.5); PTT,PARTIAL THROMBOPLSTIN TIME 26.2 SECONDS (24.4-33.2)
[2023-05-02 16:34] LABS: PROTHROMBIN TIME 11.4 sec (9.0-11.5)
[2023-05-02 16:47] LABS: A/G RATIO 1.5 (0.8-2.0); ANION GAP 18.2 mmol/L (5.0-15.0); BILIRUBIN TOTAL 0.6 mg/dL (0.0-1.0); BUN/CREATININE RATIO 10.7 (6-25); CARBON DIOXIDE,CO2 24.3 mmol/L (21.0-32.0); CREATININE 1.22 mg/dL (0.55-1.02); EST CRCL DRUG DOSING (CG) 43.4 mL/min; POTASSIUM,K 3.5 mmol/L (3.5-5.1); PROTEIN TOTAL,TP 6.7 g/dL (6.4-8.2)
[2023-05-02] MEDS: Ketorolac 30 MG/ML SDV IVPUSH ONE (17:09)
[2023-05-02] MEDS: Metoprolol Tartrate 25 MG Tab ONE (17:09)
[2023-05-02] MEDS: Ketorolac 30 MG/ML SDV ONE (17:14)
[2023-05-02] MEDS ORDERED: Sodium Chloride 0.9% 10 ML Syringe FLUSH PRN (17:51)
[2023-05-02 17:56] VITALS: BP 135/69; PULSE 120
== END 2023-05-02 17:21 | disposition home or self-care (01) ==
LOC: LB.ED 15:32
DX: I48.91 Unspecified atrial fibrillation (principal); I10 Essential (primary) hypertension; E78.00 Pure hypercholesterolemia, unspecified; J44.9 Chronic obstructive pulmonary disease, unspecified; Z91.048 Other nonmedicinal substance allergy status; Z88.1 Allergy status to other antibiotic agents; Z88.8 Allergy status to other drugs, medicaments and biological substances; Z88.0 Allergy status to penicillin; Z79.4 Long term (current) use of insulin; Z79.899 Other long term (current) drug therapy
CPT/HCPCS: 36415; 71045; 80053; 83880; 84484; 85025; 85379; 85610; 85730; 93005; 93010; 96361; 96374; 96375; 99284; 99285-25; A9270-GY; J1170; J1885; J7030

== ENCOUNTER 2023-06-11 07:32 | Emergency (ER) | payer MEDICARE, MEDICAID ==
[2023-06-11] MEDS ORDERED: Albuterol/Ipratropium 3.0-0.5 MG/3 ML Neb Soln NEB ONE (08:28)
[2023-06-11] MEDS ORDERED: Albuterol/Ipratropium 3.0-0.5 MG/3 ML Neb Soln ONE (09:12)
[2023-06-11 09:25] LABS: BASOPHILS ABSOLUTE AUTO 0.02 K/uL (0.02-0.10); BASOPHILS PERCENT AUTO 0.2 % (0.0-0.5); EOSINOPHILS ABSOLUTE AUTO 0.04 K/uL (0.04-0.40); EOSINOPHILS PERCENT AUTO 0.5 % (1.0-5.0); HEMATOCRIT 42.7 % (37.0-47.0); LYMPHOCYTES ABSOLUTE AUTO 0.58 K/uL (1.50-4.00); LYMPHOCYTES PERCENT AUTO 7.2 % (20.0-40.0); MEAN CORPUSCULAR HEMOGLOBIN 31.2 pg (27.0-32.0); MEAN CORPUSCULAR HGB CONC 32.8 g/dL (31.0-35.0); MEAN CORPUSCULAR VOLUME 95 fL (76-96); MEAN PLATELET VOLUME 11.1 fL (6.0-10.0); MONOCYTES ABSOLUTE AUTO 0.79 K/uL (0.20-0.80); MONOCYTES PERCENT AUTO 9.9 % (3.0-10.0); NEUTROPHILS ABSOLUTE AUTO 6.59 K/uL (2.00-7.50); NEUTROPHILS PERCENT AUTO 82.2 % (45.0-70.0); PLATELET COUNT,PLT 162 K/uL (150-500); RED BLOOD CELL COUNT 4.49 M/uL (3.80-5.80); RED CELL DISTRIBUTION WIDTH 14.6 % (11.0-16.0)
[2023-06-11 09:45] LABS: BASE EXCESS ARTERIAL -1.6 (-2-2); BICARBONATE,ARTERIAL 23.4 mmol/L (22-26); O2 SATURATION ARTERIAL 94.8 % (95-98); PCO2 ARTERIAL 38.4 mmHg (35-45); PO2 ARTERIAL 74.9 mmHg (80-105)
[2023-06-11 09:46] LABS: A/G RATIO 1.2 (0.8-2.0); ALBUMIN 3.1 g/dL (3.4-5.0); ANION GAP 14.8 mmol/L (5.0-15.0); BILIRUBIN TOTAL 0.8 mg/dL (0.0-1.0); BUN/CREATININE RATIO 12.6 (6-25); CALCIUM 8.2 mg/dL (8.5-10.1); CARBON DIOXIDE,CO2 25.7 mmol/L (21.0-32.0); CREATININE 0.95 mg/dL (0.55-1.02); EST CRCL DRUG DOSING (CG) 55.74 mL/min; MAGNESIUM 1.8 mg/dL (1.8-2.4); POTASSIUM,K 3.5 mmol/L (3.5-5.1); PROTEIN TOTAL,TP 5.6 g/dL (6.4-8.2)
[2023-06-11 09:50] LABS: APPEARANCE,URINE CLOUDY (CLEAR); BILIRUBIN,URINE NEGATIVE (NEGATIVE); GLUCOSE,URINE NEGATIVE (NEGATIVE); KETONES,URINE NEGATIVE (NEGATIVE); LEUKOCYTE ESTERASE,URINE SMALL (NEGATIVE); NITRITE,URINE NEGATIVE (NEGATIVE); OCCULT BLOOD,URINE NEGATIVE (NEGATIVE); PH,URINE 6.5 (5.0-8.0); PROTEIN,URINE TRACE mg/dL (NEGATIVE)
[2023-06-11 09:56] LABS: COLOR,URINE YELLOW
[2023-06-11] MEDS ORDERED: Furosemide 40 MG/4 ML VIAL ONE (09:57)
[2023-06-11] MEDS ORDERED: Furosemide 20 MG/2 ML VIAL IVPUSH ONE (09:57)
[2023-06-11 09:59] LABS: INFLUENZA A NAA NEGATIVE (NEGATIVE); INFLUENZA B NAA NEGATIVE (NEGATIVE); RESPIRATORY SYNCYTIAL VIR NAA NEGATIVE (NEGATIVE)
[2023-06-11 10:00] LABS: RBC,URINE 0-5 /HPF; SQUAMOUS EPITHELIAL CELLS,UR OCCASIONAL /HPF
[2023-06-11 10:01] LABS: FINE GRANULAR CASTS,URINE FEW /HPF
[2023-06-11 10:03] LABS: CORONAVIRUS COVID-19 NAA NEGATIVE (NEGATIVE)
[2023-06-11] MEDS: Nitroglycerin 0.4 MG Tab.SL SL PRN ×2 (12:15→12:32)
[2023-06-11] MEDS ORDERED: Furosemide 40 MG/4 ML VIAL IVPUSH ONE (14:41)
[2023-06-11] MEDS ORDERED: Heparin Sodium 5,000 Units/ML Vial IVPUSH ONE ×2 (14:44→22:10)
[2023-06-11] MEDS ORDERED: Heparin Sodium/D5W 25,000 UNITS/500 ML BAG IV SCH (14:45)
[2023-06-11] MEDS ORDERED: cefTRIAXone 1 GM Vial IM ONE (20:56)
[2023-06-11] MEDS ORDERED: cefTRIAXone 1 GM Vial ONE (21:28)
[2023-06-11] MEDS ORDERED: Heparin Sodium 1,000 Units/ML 10 ML MDV SUBCUT SCH (22:15)
[2023-06-11] MEDS ORDERED: LORazepam 2 MG/ML SDV IVPUSH ONE (22:41)
[2023-06-11] MEDS ORDERED: LORazepam 2 MG/ML SDV ONE (22:44)
[2023-06-12 00:09] VITALS: BP 148/68; PULSE 114
== END 2023-06-11 23:25 ==
LOC: LB.ED 07:32
DX: I11.9 Hypertensive heart disease without heart failure (principal); R09.02 Hypoxemia; R79.89 Other specified abnormal findings of blood chemistry; K21.9 Gastro-esophageal reflux disease without esophagitis; J43.9 Emphysema, unspecified; E11.40 Type 2 diabetes mellitus with diabetic neuropathy, unspecified; F17.210 Nicotine dependence, cigarettes, uncomplicated; E66.9 Obesity, unspecified; Z79.01 Long term (current) use of anticoagulants; Z90.49 Acquired absence of other specified parts of digestive tract; Z79.899 Other long term (current) drug therapy; Z79.4 Long term (current) use of insulin; Z88.0 Allergy status to penicillin; Z88.1 Allergy status to other antibiotic agents; Z88.8 Allergy status to other drugs, medicaments and biological substances; Z91.048 Other nonmedicinal substance allergy status; Z88.4 Allergy status to anesthetic agent; Z20.822 Contact with and (suspected) exposure to COVID-19; Z68.41 Body mass index [BMI] 40.0-44.9, adult
CPT/HCPCS: 0241U; 36415; 36600; 71045; 80053; 81001; 82803; 82947; 83605; 83735; 83880; 84484; 85025; 85379; 85730; 87086; 93005; 93010; 94640; 96365; 96366; 96372; 96375; 96376; 99285; 99285-25; A0425; A0429; J0696; J1644; J1940; J2060; J7620

== ENCOUNTER 2023-06-26 10:04 | Emergency (ER) | payer MEDICARE, MEDICAID ==
[2023-06-26] MEDS ORDERED: Naloxone 2 MG/2 ML Syringe IVPUSH PRN (10:57)
[2023-06-26] MEDS: HYDROmorphone 2 MG/ML Syringe IVPUSH ONE ×2 (11:03→12:57)
[2023-06-26 11:20] LABS: BASOPHILS ABSOLUTE AUTO 0.04 K/uL (0.02-0.10); BASOPHILS PERCENT AUTO 0.3 % (0.0-0.5); EOSINOPHILS ABSOLUTE AUTO 0.08 K/uL (0.04-0.40); EOSINOPHILS PERCENT AUTO 0.5 % (1.0-5.0); HEMATOCRIT 40.9 % (37.0-47.0); HEMOGLOBIN 13.6 g/dL (11.5-16.5); LYMPHOCYTES ABSOLUTE AUTO 1.44 K/uL (1.50-4.00); LYMPHOCYTES PERCENT AUTO 9.8 % (20.0-40.0); MEAN CORPUSCULAR HEMOGLOBIN 30.6 pg (27.0-32.0); MEAN CORPUSCULAR HGB CONC 33.3 g/dL (31.0-35.0); MEAN CORPUSCULAR VOLUME 92 fL (76-96); MEAN PLATELET VOLUME 10.8 fL (6.0-10.0); MONOCYTES ABSOLUTE AUTO 1.17 K/uL (0.20-0.80); NEUTROPHILS ABSOLUTE AUTO 11.98 K/uL (2.00-7.50); NEUTROPHILS PERCENT AUTO 81.4 % (45.0-70.0); PLATELET COUNT,PLT 257 K/uL (150-500); RED BLOOD CELL COUNT 4.44 M/uL (3.80-5.80); RED CELL DISTRIBUTION WIDTH 13.7 % (11.0-16.0); WHITE BLOOD CELL COUNT,WBC 14.7 K/uL (4.0-11.0)
[2023-06-26 11:40] LABS: INR 1.5 (1.0-3.5)
[2023-06-26 11:43] LABS: PROTHROMBIN TIME 15.5 sec (9.0-11.5)
[2023-06-26 11:48] LABS: APPEARANCE,URINE CLEAR (CLEAR); BILIRUBIN,URINE NEGATIVE (NEGATIVE); COLOR,URINE YELLOW; GLUCOSE,URINE NEGATIVE (NEGATIVE); KETONES,URINE NEGATIVE (NEGATIVE); LEUKOCYTE ESTERASE,URINE TRACE (NEGATIVE); NITRITE,URINE NEGATIVE (NEGATIVE); OCCULT BLOOD,URINE NEGATIVE (NEGATIVE); PROTEIN,URINE TRACE mg/dL (NEGATIVE); UROBILINOGEN,URINE 0.2 E.U./dL (0.2-1.0)
[2023-06-26 11:51] LABS: A/G RATIO 0.9 (0.8-2.0); ALBUMIN 3.2 g/dL (3.4-5.0); ANION GAP 12.6 mmol/L (5.0-15.0); BILIRUBIN TOTAL 0.5 mg/dL (0.0-1.0); CALCIUM 9.1 mg/dL (8.5-10.1); CARBON DIOXIDE,CO2 30.6 mmol/L (21.0-32.0); CREATININE 1.29 mg/dL (0.55-1.02); EST CRCL DRUG DOSING (CG) 41.05 mL/min; POTASSIUM,K 3.2 mmol/L (3.5-5.1); PROTEIN TOTAL,TP 6.8 g/dL (6.4-8.2)
[2023-06-26 11:53] LABS: BACTERIA,URINE FEW /HPF; RBC,URINE NOT SEEN /HPF; RENAL EPITHELIAL CELLS,URINE FEW /HPF; SQUAMOUS EPITHELIAL CELLS,UR FEW /HPF; WBC CLUMPS,URINE OCCASIONAL /HPF
[2023-06-26] MEDS: Sodium Chloride 0.9% 1,000 ML IV ONE (12:32)
[2023-06-26] MEDS: Lactulose Soln 10 GM/15 ML 15 ML UD Cup PO ONE (13:46)
[2023-06-26] MEDS: HYDROmorphone 2 MG/ML Syringe ONE (13:48)
[2023-06-26 15:48] VITALS: BP 97/57; PULSE 63
== END 2023-06-26 14:19 | disposition home or self-care (01) ==
LOC: LB.ED 10:04
DX: K59.00 Constipation, unspecified (principal); I10 Essential (primary) hypertension; I48.91 Unspecified atrial fibrillation; E11.40 Type 2 diabetes mellitus with diabetic neuropathy, unspecified; E66.9 Obesity, unspecified; K21.9 Gastro-esophageal reflux disease without esophagitis; J44.9 Chronic obstructive pulmonary disease, unspecified; Z79.82 Long term (current) use of aspirin; Z79.4 Long term (current) use of insulin; Z79.84 Long term (current) use of oral hypoglycemic drugs; Z88.6 Allergy status to analgesic agent; Z88.0 Allergy status to penicillin; Z88.1 Allergy status to other antibiotic agents; Z91.048 Other nonmedicinal substance allergy status; Z88.8 Allergy status to other drugs, medicaments and biological substances; Z88.5 Allergy status to narcotic agent; Z79.01 Long term (current) use of anticoagulants; Z68.39 Body mass index [BMI] 39.0-39.9, adult
CPT/HCPCS: 36415; 71045; 74176; 80053; 81001; 83605; 83690; 85025; 85610; 87040; 96361; 96374; 96376; 99284; 99284-25; A9270-GY; J1170; J7030

== ENCOUNTER 2023-06-27 09:43 | Emergency (ER) | payer MEDICARE, MEDICAID ==
[2023-06-27 09:59] VITALS: BP 97/49; PULSE 58
[2023-06-27] MEDS ORDERED: Magnesium Citrate Solution 296 ML Bottle ONE (11:00)
[2023-06-27] MEDS ORDERED: Magnesium Citrate Solution 296 ML Bottle PO ONE (11:00)
== END 2023-06-27 12:24 | disposition home or self-care (01) ==
LOC: LB.ED 09:43
DX: K59.00 Constipation, unspecified (principal); I10 Essential (primary) hypertension; I48.91 Unspecified atrial fibrillation; E11.40 Type 2 diabetes mellitus with diabetic neuropathy, unspecified; E66.9 Obesity, unspecified; J44.9 Chronic obstructive pulmonary disease, unspecified; K21.9 Gastro-esophageal reflux disease without esophagitis; Z90.710 Acquired absence of both cervix and uterus; Z79.82 Long term (current) use of aspirin; Z79.899 Other long term (current) drug therapy; Z91.048 Other nonmedicinal substance allergy status; Z88.0 Allergy status to penicillin; Z88.1 Allergy status to other antibiotic agents; Z88.4 Allergy status to anesthetic agent; Z88.8 Allergy status to other drugs, medicaments and biological substances; Z79.4 Long term (current) use of insulin; Z79.01 Long term (current) use of anticoagulants; Z79.02 Long term (current) use of antithrombotics/antiplatelets
CPT/HCPCS: 85610-QW; 99283; A9270-GY